=== PATIENT | female | born 1955 ===

== ENCOUNTER 2019-05-27 09:41 | Inpatient (IN) | payer BC, OTHER ==
[2019-05-27] MEDS ORDERED: Piperacillin/Tazobactam 4.5 GM in Sodium Chloride 0.9% 100 ML IV ONE (11:30)
--- NOTE | 2019-05-27 11:36 | EDM.PDOC ---
ED HPI GENERAL MEDICAL PROBLEM - General Chief Complaint: General Stated Complaint: WEAKNESS Time Seen by Provider: 05/27/19 10:00 - History of Present Illness INITIAL COMMENTS - FREE TEXT/NARRATIVE: 64-year-old female history of obesity venous stasis ulcers epilepsy presenting to the ER because of a right leg ulcer and she had decreased mobility since Monday. She was unable to get up from her recliner. She is able to transfer from recliner to wheelchair, which is her baseline. No fall. Since Monday she has been unable to get up onto her wheelchair. She denies back pain before this she denies urinary symptoms (incontinence retention) and saddle anesthesia , paresthesias in her legs. She feels very weak overall. Reports a cough. No Vomiting or urinary symptoms - Related Data Allergies Allergy/AdvReac Type Severity Reaction Status Date / Time No Known Allergies Allergy Verified 05/27/19 09:52 Home Meds: Home Meds . 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 History: Reports: None Endocrine/Metabolic History: Reports: Obesity/BMI 30+ Oncologic (Cancer) History: Reports: None Dermatologic History: Reports: Cellulitis, Chronic Cellulitis - Infectious Disease History Infectious Disease History: Reports: Chicken Pox - Past Surgical History GI Surgical History: Reports: Small Bowel Social & Family History - Family History Family Medical History: Noncontributory HEENT: Reports: None Cardiac: Reports: Heart Failure Respiratory: Reports: None GI: Reports: None : Reports: None OBGYN: Reports: None Musculoskeletal: Reports: Back pain, Chronic, RA Neurological: Reports: Seizure Psychiatric: Reports: None Endocrine/Metabolic: Reports: Diabetes, type II, Obesity/MBI 30+ Hematologic: Reports: Anemia Immunologic: Reports: None Dermatologic: Reports: None Oncologic: Reports: Lung, Uterine - Tobacco Use Smoking Status *Q: Never Smoker Second Hand Smoke Exposure: No - Caffeine Use Caffeine Use: Reports: Coffee, Tea - Recreational Drug Use Recreational Drug Use: No ED ROS GENERAL - Review of Systems Review Of Systems: See Below Constitutional: Reports: Malaise, Weakness HEENT: Reports: No Symptoms Respiratory: Reports: Cough Cardiovascular: Reports: No Symptoms Endocrine: Reports: No Symptoms GI/Abdominal: Reports: No Symptoms : Reports: No Symptoms Skin: Reports: Wound Neurological: Reports: No Symptoms Psychiatric: Reports: No Symptoms Hematologic/Lymphatic: Reports: No Symptoms ED EXAM, GENERAL - Physical Exam Exam: See Below Free Text/Narrative:: Obese limiting exam patient is AO x3 in no apparent distress speech is fluent lungs were clear heart regular rate and rhythm abdomen was soft and nontender nondistended. She had pretty good strength in her lower extremities at the ankles digits and knees. Radial pulses were palpable. Lower extremities were warm and well-perfused. Right lower extremity had significant open wound, surrounding erythema. The wound was at least 8 in x 4in. Her perineum was intact there was no tenderness to palpation. There is no tenderness to palpation along her spine. no Other skin lesions noted. Exam Limited By: No Limitations General Appearance: Alert Ears: Normal External Exam Nose: Normal Inspection Head: Atraumatic, Normocephalic Neck: Normal Inspection, Supple Respiratory/Chest: No Respiratory Distress, Lungs Clear, Normal Breath Sounds Cardiovascular: Normal Peripheral Pulses, Regular Rate, Rhythm Peripheral Pulses: 2+: Dorsalis Pedis (L), Dorsalis Pedis (R) GI/Abdominal: Soft, Non-Tender (Female) Exam: Normal External Exam Neurological: Alert, Oriented, Normal Cognition Psychiatric: Normal Affect Skin Exam: Wound/Incision Course - Vital Signs Last Recorded V/S: Last Vital Signs Temp 96.9 F 05/27/19 09:48 Pulse 91 05/27/19 09:48 Resp 17 05/27/19 09:48 BP 132/75 05/27/19 09:48 Pulse Ox 95 05/27/19 09:48 - Orders/Labs/Meds Orders: Active Orders 24 hr Category Date Time Status Insert Harris Catheter [Insert Urinary Catheter] [OM.PC] Care 05/27/19 11:45 Ordered Q24H Urinary Catheter Assessment [RC] ASDIRECTED Care 05/27/19 11:38 Active CULTURE BLOOD [BC] Stat Lab 05/27/19 11:29 Ordered CULTURE BLOOD [BC] Stat Lab 02/24/20 11:40 Received CULTURE URINE [RM] Stat Lab 05/27/19 11:38 Received INFLUENZA A+B AG SCREEN [RM] Stat Lab 05/27/19 11:29 Ordered Vancomycin 1 gm Med 05/27/19 11:29 Active Sodium Chloride 0.9% [Normal Saline (AdvBag)] 250 ml IV ONETIME Blood Culture x2 Reflex Set [OM.PC] Stat Oth 05/27/19 11:29 Ordered Medication Orders Vancomycin HCl 1 gm/ Sodium (Chloride) 250 mls @ 166 mls/hr IV ONETIME ONE Stop: 05/27/19 12:59 Last Admin: 05/27/19 11:55 Dose: 166 mls/hr Labs: Laboratory Tests 05/27/19 05/27/19 05/27/19 Range/Units 11:38 11:40 11:40 WBC 7.22 (4.0-11.0) K/uL RBC 4.18 L (4.30-5.90) M/uL Hgb 10.7 L (12.0-16.0) g/dL Hct 36.4 (36.0-46.0) % MCV 87.1 (80.0-98.0) fL MCH 25.6 L (27.0-32.0) pg MCHC 29.4 L (31.0-37.0) g/dL RDW Std Deviation 58.7 (28.0-62.0) fl RDW Coeff of Rachid 18 H (11.0-15.0) % Plt Count 299 (150-400) K/uL MPV 8.40 (7.40-12.00) fL Nucleated RBC % 0.0 /100WBC Nucleated RBCs # 0 K/uL Sodium 140 (136-145) mmol/L Potassium 4.3 (3.5-5.1) mmol/L Chloride 103 (98-107) mmol/L Carbon Dioxide 28.1 (21.0-32.0) mmol/L BUN 14 (7.0-18.0) mg/dL Creatinine 0.9 (0.6-1.0) mg/dL Est Cr Clr Drug Dosing 63.03 mL/min Estimated GFR (MDRD) > 60.0 ml/min Glucose 107 H (74-106) mg/dL Calcium 8.8 (8.5-10.1) mg/dL Total Bilirubin 0.8 (0.2-1.0) mg/dL AST 16 (15-37) IU/L ALT 10 L (14-63) IU/L Alkaline Phosphatase 79 (46-116) U/L Total Protein 7.6 (6.4-8.2) g/dL Albumin 2.6 L (3.4-5.0) g/dL Globulin 5.0 H (2.6-4.0) g/dL Albumin/Globulin Ratio 0.5 L (0.9-1.6) Lipase 40 L (73-393) U/L Urine Color YELLOW Urine Appearance SLT CLOUDY Urine pH 6.0 (5.0-8.0) Ur Specific [place] 1.025 (1.001-1.035) Urine Protein NEGATIVE (NEGATIVE) mg/dL Urine Glucose (UA) NEGATIVE (NEGATIVE) mg/dL Urine Ketones NEGATIVE (NEGATIVE) mg/dL Urine Occult Blood NEGATIVE (NEGATIVE) Urine Nitrite POSITIVE H (NEGATIVE) Urine Bilirubin SMALL H (NEGATIVE) Urine Ictotest NEGATIVE Urine Urobilinogen 4.0 H (<2.0) EU/dL Ur Leukocyte Esterase NEGATIVE (NEGATIVE) Urine RBC NONE SEEN (0-2/HPF) Urine WBC 0-1 (0-5/HPF) Ur Epithelial Cells NOT SEEN (NONE-FEW) Urine Bacteria 3+ H (NEGATIVE) Meds: Medications Generic Name Dose Route Start Last Admin Trade Name Freq PRN Reason Stop Dose Admin Vancomycin HCl 1 gm/ Sodium 250 mls @ 166 mls/hr 05/27/19 11:29 05/27/19 11: 55 Chloride IV 05/27/19 12:59 166 mls/hr ONETIME ONE Administration Discontinued Medications Generic Name Dose Route Start Last Admin Trade Name Freq PRN Reason Stop Dose Admin Piperacillin Sod/Tazobactam 100 mls @ 100 mls/hr 05/27/19 11:30 05/27/19 11: 54 Sod 4.5 gm/ Sodium Chloride IV 05/27/19 12:29 100 mls/hr ONETIME ONE Administration - Re-Assessments/Exams Free Text/Narrative Re-Assessment/Exam: 05/27/19 12:46 Patient symptoms likely from decompensation secondary to UTI and or soft tissue infection in the right lower extremity. She will need IV antibiotics. Will require admission. Plan was discussed with the patient and the internal medicine team. Her exam of the lower extremities was grossly nonfocal, strength was intact. Electrolytes and labs were reviewed. Departure - Departure Time of Disposition: 12:48 Disposition: Admitted As Inpatient 68 Clinical Impression: Soft tissue infection, Urinary tract bacterial infections - Discharge Information Instructions: Cellulitis, Adult Referrals: PCP,None [Primary Care Provider] - Forms: ED Department Discharge Sepsis Event Note - Evaluation Sepsis Screening Result: No Definite Risk - Focused Exam Vital Signs: Vital Signs Temp Pulse Resp BP Pulse Ox 05/27/19 09:48 96.9 F 91 17 132/75 95 Date Exam was Performed: 05/27/19 Time Exam was Performed: 12:49 - My Orders Last 24 Hours: My Active Orders 05/27/19 11:29 CULTURE BLOOD [BC] Stat INFLUENZA A+B AG SCREEN [RM] Stat Vancomycin 1 gm Sodium Chloride 0.9% [Normal Saline (AdvBag)] 250 ml IV ONETIME Blood Culture x2 Reflex Set [OM.PC] Stat 05/27/19 11:38 Urinary Catheter Assessment [RC] ASDIRECTED CULTURE URINE [RM] Stat 05/27/19 11:40 CULTURE BLOOD [BC] Stat 05/27/19 11:45 Insert Harris Catheter [Insert Urinary Catheter] [OM.PC] Q24H - Assessment/Plan Last 24 Hours: My Active Orders 05/27/19 11:29 CULTURE BLOOD [BC] Stat INFLUENZA A+B AG SCREEN [RM] Stat Vancomycin 1 gm Sodium Chloride 0.9% [Normal Saline (AdvBag)] 250 ml IV ONETIME Blood Culture x2 Reflex Set [OM.PC] Stat 05/27/19 11:38 Urinary Catheter Assessment [RC] ASDIRECTED CULTURE URINE [RM] Stat 05/27/19 11:40 CULTURE BLOOD [BC] Stat 05/27/19 11:45 Insert Harris Catheter [Insert Urinary Catheter] [OM.PC] Q24H
--- NOTE | 2019-05-27 12:10 | CR ---
Chest: Portable view of the chest was obtained. Comparison: Prior chest x-ray of 01/17/16. Heart size and mediastinum are normal. Lungs are clear. Bony structures are grossly intact. Impression: 1. Nothing acute is seen on portable chest x-ray. Diagnostic code #1 This report was dictated in [place] Standard Time
[2019-05-27 12:23] LABS: BLOOD UREA NITROGEN,BUN 14 mg/dL (7.0-18.0); CARBON DIOXIDE,CO2 28.1 mmol/L (21.0-32.0); CHLORIDE,CL 103 mmol/L (98-107); GLUCOSE RANDOM 107 mg/dL (74-106); LIPASE 40 U/L (73-393); POTASSIUM,K 4.3 mmol/L (3.5-5.1); SODIUM,NA 140 mmol/L (136-145)
[2019-05-27] MEDS ORDERED: Ondansetron 4 MG/2 ML SDV IVPUSH PRN (13:13)
[2019-05-27] MEDS ORDERED: Polyethylene Glycol 3350 Powder 17 GM Packet PO PRN (13:13)
[2019-05-27] MEDS ORDERED: Albuterol 0.083% 2.5 MG/3 ML Neb Soln NEB PRN (13:13)
[2019-05-27] MEDS ORDERED: Ondansetron 4 MG Tab.DIS PO PRN (13:13)
[2019-05-27] MEDS ORDERED: Acetaminophen 325 MG Tab PO PRN (13:13)
[2019-05-27] MEDS ORDERED: Docusate Sodium 100 MG Cap PO PRN (13:13)
--- NOTE | 2019-05-27 13:29 | PCM.HP.2 ---
<Refugio Goomdan - Last Filed: 05/27/19 13:46> H&P History of Present Illness - General Date of Service: 05/27/19 Admit Problem/Dx: Admission Diagnosis/Problem Admission Diagnosis/Problem Cellulitis - History of Present Illness Initial Comments - Free Text/Narative: 64 y/o female who presented to the ER after not being able to get out of her recliner. Patient states that she usually can get out of her recliner and go to the bathroom, but this morning she was weak and could not get out of it. She has noticed worsening shortness of breath and lower extremity edema in the past couple of weeks. No fevers, cough. No chest pain, abdominal pain, dysuria, diarrhea, blood in stool. She denies any past medical history. Not taking any medications. States that her lower extremities have been hurting more than usual and the right lower extremity is more red and weeping clear fluid. In the ER, she was found to have a UTI. Started on Vancomycin and Zosyn. - Related Data Allergies/Adverse Reactions: Allergies Allergy/AdvReac Type Severity Reaction Status Date / Time No Known Allergies Allergy Verified 05/27/19 16:51 Home Medications: Home Meds Gauze Bandage [Rolled Gauze] 1 each TP DAILY #1 packet 06/03/19 [Rx] Non-Adherent Bandage [Combine Abd] 1 each TP DAILY #1 packet 06/03/19 [Rx] Silver/Hydrocolloid Dressing [Aquacel Ag Burn 5"X4" Dressing] 1 each TP DAILY # 1 packet 06/03/19 [Rx] Sulfamethoxazole/Trimethoprim [Bactrim Ds Tablet] 1 each PO BID 3 Days #6 tablet 06/03/19 [Rx] Past Medical History - Past Health History Medical/Surgical History: Denies Medical/Surgical History HEENT History: Reports: Other (See Below) Other HEENT History: uses eyeglasses Cardiovascular History: Reports: Blood Clots/VTE/DVT Gastrointestinal History: Reports: PUD Genitourinary History: Reports: UTI, Recurrent 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: Reports: None Endocrine/Metabolic History: Reports: Obesity/BMI 30+ Oncologic (Cancer) History: Reports: None Dermatologic History: Reports: Cellulitis, Chronic Cellulitis - Infectious Disease History Infectious Disease History: Reports: Chicken Pox - Past Surgical History GI Surgical History: Reports: Small Bowel Social & Family History - Family History Family Medical History: Noncontributory HEENT: Reports: None Cardiac: Reports: Heart Failure Respiratory: Reports: None GI: Reports: None : Reports: None OBGYN: Reports: None Musculoskeletal: Reports: Back pain, Chronic, RA Neurological: Reports: Seizure Psychiatric: Reports: None Endocrine/Metabolic: Reports: Diabetes, type II, Obesity/MBI 30+ Hematologic: Reports: Anemia Immunologic: Reports: None Dermatologic: Reports: None Oncologic: Reports: Lung, Uterine - Tobacco Use Smoking Status *Q: Never Smoker Second Hand Smoke Exposure: No - Caffeine Use Caffeine Use: Reports: Coffee, Tea - Recreational Drug Use Recreational Drug Use: No H&P Review of Systems - Review of Systems: Review Of Systems: Comprehensive ROS is negative, except as noted in HPI. Exam - Exam Exam: See Below - Vital Signs Vital Signs: Last Vital Signs Temp 36.1 C 05/27/19 09:48 Pulse 91 05/27/19 09:48 Resp 17 05/27/19 09:48 BP 132/75 05/27/19 09:48 Pulse Ox 95 05/27/19 09:48 Weight: 148.552 kg - Exam General: Alert, Oriented, Cooperative HEENT: Conjunctiva Clear, Mucosa Moist & [place] Lungs: Clear to Auscultation, Normal Respiratory Effort, Wheezing Cardiovascular: Regular Rate, Regular Rhythm GI/Abdominal Exam: Normal Bowel Sounds, Soft, Non-Tender, No Distention Extremities: Other (edematous bilateral lower extrimities with venous statis and superficial ulceration on right leg. Erythema and tenderness present.) - Patient Data Lab Results Last 24 hrs: Laboratory Results - last 24 hr 05/27/19 05/27/19 05/27/19 Range/Units 11:38 11:40 11:40 WBC 7.22 (4.0-11.0) K/uL RBC 4.18 L (4.30-5.90) M/uL Hgb 10.7 L (12.0-16.0) g/dL Hct 36.4 (36.0-46.0) % MCV 87.1 (80.0-98.0) fL MCH 25.6 L (27.0-32.0) pg MCHC 29.4 L (31.0-37.0) g/dL RDW Std Deviation 58.7 (28.0-62.0) fl RDW Coeff of Rachid 18 H (11.0-15.0) % Plt Count 299 (150-400) K/uL MPV 8.40 (7.40-12.00) fL Nucleated RBC % 0.0 /100WBC Nucleated RBCs # 0 K/uL Sodium 140 (136-145) mmol/L Potassium 4.3 (3.5-5.1) mmol/L Chloride 103 (98-107) mmol/L Carbon Dioxide 28.1 (21.0-32.0) mmol/L BUN 14 (7.0-18.0) mg/dL Creatinine 0.9 (0.6-1.0) mg/dL Est Cr Clr Drug Dosing 63.03 mL/min Estimated GFR (MDRD) > 60.0 ml/min Glucose 107 H (74-106) mg/dL Calcium 8.8 (8.5-10.1) mg/dL Total Bilirubin 0.8 (0.2-1.0) mg/dL AST 16 (15-37) IU/L ALT 10 L (14-63) IU/L Alkaline Phosphatase 79 (46-116) U/L Total Protein 7.6 (6.4-8.2) g/dL Albumin 2.6 L (3.4-5.0) g/dL Globulin 5.0 H (2.6-4.0) g/dL Albumin/Globulin Ratio 0.5 L (0.9-1.6) Lipase 40 L (73-393) U/L Urine Color YELLOW Urine Appearance SLT CLOUDY Urine pH 6.0 (5.0-8.0) Ur Specific Melvin 1.025 (1.001-1.035) Urine Protein NEGATIVE (NEGATIVE) mg/dL Urine Glucose (UA) NEGATIVE (NEGATIVE) mg/dL Urine Ketones NEGATIVE (NEGATIVE) mg/dL Urine Occult Blood NEGATIVE (NEGATIVE) Urine Nitrite POSITIVE H (NEGATIVE) Urine Bilirubin SMALL H (NEGATIVE) Urine Ictotest NEGATIVE Urine Urobilinogen 4.0 H (<2.0) EU/dL Ur Leukocyte Esterase NEGATIVE (NEGATIVE) Urine RBC NONE SEEN (0-2/HPF) Urine WBC 0-1 (0-5/HPF) Ur Epithelial Cells NOT SEEN (NONE-FEW) Urine Bacteria 3+ H (NEGATIVE) Result Diagrams: 05/27/19 11:40 05/27/19 11:40 Eric Results Last 24 hrs: Microbiology 05/27/19 12:30 Influenza Type A Antigen Screen - Final Nasopharyngeal Swab NEGATIVE INFLUENZA A VIRUS AG REFERENCE RANGE: NEGATIVE Influenza Type B Antigen Screen - Final Positive Influenza B Ag Sepsis Event Note - Evaluation Sepsis Screening Result: No Definite Risk - Focused Exam Vital Signs: Vital Signs Temp Pulse Resp BP Pulse Ox 05/27/19 09:48 36.1 C 91 17 132/75 95 Date Exam was Performed: 05/27/19 Time Exam was Performed: 13:46 Problem List Initiated/Reviewed/Updated: Yes Orders Last 24hrs: Active Orders 24 hr Category Date Time Status Admission Status [Patient Status] [ADT] Stat ADT 05/27/19 12:50 Active EKG 12 Lead [EKG Documentation Completion] [RC] STAT Care 05/27/19 13:11 Active Insert Harris Catheter [Insert Urinary Catheter] [OM.PC] Care 05/27/19 11:45 Ordered Q24H Intake and Output [RC] QSHIFT Care 05/27/19 13:13 Active Oxygen Therapy [RC] PRN Care 05/27/19 13:13 Active RT Aerosol Therapy [RC] ASDIRECTED Care 05/27/19 13:14 Active Up With Assistance [RC] ASDIRECTED Care 05/27/19 13:13 Active Urinary Catheter Assessment [RC] ASDIRECTED Care 05/27/19 11:38 Active VTE/DVT Education [RC] PER UNIT ROUTINE Care 05/27/19 13:13 Active Vital Signs [RC] Q4H Care 05/27/19 13:13 Active Consult to Physical Therapy [PT Evaluation and Cons 05/28/19 08:00 Active Treatment] [CONS] Stat 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[place] Consult [Consult to Wound Care Cons 05/27/19 13:25 Active Services] [CONS] Stat Regular Diet [DIET] Diet 05/27/19 Dinner Active Echo Comp wo Cont [US] Stat Exams 05/27/19 13:27 Ordered VL Duplex Lwr Ext Art Comp Bi [US] Stat Exams 05/27/19 13:27 Ordered B-TYPE NATRIURETIC PEPTIDE,BNP [CHEM] Routine Lab 05/27/19 13:24 Ordered CULTURE BLOOD [BC] Stat Lab 05/27/19 11:40 Received CULTURE BLOOD [BC] Stat Lab 05/27/19 13:09 Received CULTURE URINE [RM] Stat Lab 05/27/19 11:38 Received GLYCOSYLATED HEMOGLOBIN,HGBA1C [CHEM] Stat Lab 05/27/19 13:24 Ordered LIPID PANEL [CHEM] AM Lab 05/28/19 05:11 Ordered TSH [CHEM] Routine Lab 05/27/19 11:40 Received Acetaminophen [Tylenol] Med 05/27/19 13:13 Active 650 mg PO Q4H PRN Albuterol [Proventil Neb Soln] Med 05/27/19 13:13 Active 2.5 mg NEB Q2H PRN Albuterol/Ipratropium [DuoNeb 3.0-0.5 MG/3 ML] Med 05/27/19 13:13 Active 3 ml NEB Q4HRRT PRN Docusate Sodium [Colace] Med 05/27/19 13:13 Active 100 mg PO BID PRN Enoxaparin [Lovenox] Med 05/27/19 13:15 Active 40 mg SUBCUT Q24H Ibuprofen [Motrin] Med 05/27/19 13:13 Active 600 mg PO Q6H PRN Ketorolac [Toradol] Med 05/27/19 13:13 Active 30 mg IV Q6H PRN Ondansetron [Zofran ODT] Med 05/27/19 13:13 Active 4 mg PO Q4H PRN Ondansetron [Zofran] Med 05/27/19 13:13 Active 4 mg IVPUSH Q4H PRN Oseltamivir [Tamiflu] Med 05/27/19 13:15 Active 75 mg PO BID Pharmacy to Dose - Vancomycin Med 05/27/19 13:30 Ordered 1 dose .XX ASDIRECTED Vancomycin 2 gm Med 05/27/19 21:00 Active Sodium Chloride 0.9% [Normal Saline] 500 ml IV BID cefTRIAXone [Rocephin in Dextrose,Iso-Osm 2 GM/50 ML] 2 Med 05/28/19 09:00 Active gm Premix Bag 1 bag IV DAILY polyethylene glycoL 3350 [MiraLAX] Med 05/27/19 13:13 Active 17 gm PO DAILY PRN Blood Culture x2 Reflex Set [OM.PC] Stat Oth 05/27/19 11:29 Ordered Resuscitation Status Routine Resus Stat 05/27/19 13:13 Ordered Medication Orders Acetaminophen (Tylenol) 650 mg PO Q4H PRN PRN Reason: Pain (Mild 1-3)/fever Albuterol (Proventil Neb Soln) 2.5 mg NEB Q2H PRN PRN Reason: Shortness Of Breath/wheezing Albuterol/Ipratropium (Duoneb 3.0-0.5 Mg/3 Ml) 3 ml NEB Q4HRRT PRN PRN Reason: Shortness Of Breath/wheezing Docusate Sodium (Colace) 100 mg PO BID PRN PRN Reason: Constipation Enoxaparin Sodium (Lovenox) 40 mg SUBCUT Q24H [facility] Vancomycin HCl 2 gm/ Sodium (Chloride) 500 mls @ 333 mls/hr IV BID [facility] Ceftriaxone Sodium/Dextrose 2 (gm/ Premix) 50 mls @ 100 mls/hr IV DAILY [facility] Ibuprofen (Motrin) 600 mg PO Q6H PRN PRN Reason: Pain (mild 1-3) Ketorolac Tromethamine (Toradol) 30 mg IV Q6H PRN PRN Reason: Pain (moderate 4-6) Ondansetron HCl (Zofran Odt) 4 mg PO Q4H PRN PRN Reason: nausea, able to take PO Ondansetron HCl (Zofran) 4 mg IVPUSH Q4H PRN PRN Reason: Nausea Oseltamivir Phosphate (Tamiflu) 75 mg PO BID [facility] Stop: 06/01/19 13:16 Polyethylene Glycol (Miralax) 17 gm PO DAILY PRN PRN Reason: Constipation Vancomycin HCl (Pharmacy To Dose - Vancomycin) 1 dose .XX ASDIRECTED [facility] Assessment/Plan Comment:: A. 1. Cellulitis 2. Influenza positive 3. Venous stasis with ulceration 4. UTI 5. Morbid obesity 6. Ambulatory dysfunction P: 1. Will start antibiotics with Vancomycin and Ceftriaxone to cover for cellulitis and UTI. Start Tamiflu for Influenza. Will get Echo and bilateral lower extremity US to assess for DVT. Will give Duonebs PRN for dyspnea. Will get physical therapy and wound care involved. Dispo: 2-3 days <Myrna Slater - Last Filed: 06/04/19 11:18> H&P History of Present Illness - General Admit Problem/Dx: Admission Diagnosis/Problem Admission Diagnosis/Problem Cellulitis Exam - Vital Signs Vital Signs: Last Vital Signs Temp 36.3 C 06/03/19 08:00 Pulse 87 06/03/19 08:00 Resp 20 06/03/19 08:00 BP 119/68 06/03/19 08:00 Pulse Ox 94 L 06/03/19 08:00 - Patient Data Result Diagrams: 06/02/19 06:05 06/02/19 06:05 Eric Results Last 24 hrs: Microbiology 05/30/19 08:58 Aerobic Blood Culture - Final Blood - Venous - Lab Draw NO GROWTH AFTER 5 DAYS Anaerobic Blood Culture - Final NO GROWTH AFTER 5 DAYS 05/30/19 08:40 Aerobic Blood Culture - Final Blood - Venous NO GROWTH AFTER 5 DAYS Anaerobic Blood Culture - Final NO GROWTH AFTER 5 DAYS Orders Last 24hrs: Active Orders 24 hr Category Date Time Status Ready for Discharge [RC] PER UNIT ROUTINE Care 06/03/19 11:01 Active Assessment/Plan Comment:: I have seen and examined the patient with the resident. I have discussed the findings and treatment plan with the resident. I agree with the assessment and plan as outlined in the following note.
[2019-05-27 13:47] LABS: HEMOGLOBIN A1C 6.3 % (4.5-6.2)
[2019-05-27] MEDS ORDERED: Albuterol 0.083% 2.5 MG/3 ML Neb Soln NEB ONE (13:48)
[2019-05-27] MEDS: Enoxaparin 40 MG/0.4 ML Syringe SUBCUT SCH (14:57)
[2019-05-27] MEDS: Oseltamivir 75 MG Cap PO SCH ×2 (14:58→21:27)
[2019-05-27] MEDS: cefTRIAXone 2 GM in Premix Bag 1 BAG IV SCH (14:59)
--- NOTE | 2019-05-27 16:28 | US ---
Bilateral lower extremity deep venous ultrasound: Duplex and color Doppler evaluation obtained of the right left common femoral, superficial femoral, popliteal veins and popliteal veins. Technologist's note: Difficult exam due to body habitus Findings: Doppler blood flow appears to be present within the deep veins with normal compression. Impression: 1. No definite findings of deep venous thrombosis within either the right or left lower extremities. Diagnostic code #2 This report was dictated in [place] Standard Time
[2019-05-27] MEDS: Insulin Aspart 100 Units/ML 3 ML Pen SUBCUT SCH (17:27)
[2019-05-27] MEDS: Ketorolac 30 MG/ML SDV IV PRN (21:24)
[2019-05-27] MEDS: Vancomycin 2 GM in Sodium Chloride 0.9% 500 ML IV SCH (21:27)
[2019-05-28] MEDS: Insulin Aspart 100 Units/ML 3 ML Pen SUBCUT SCH ×3 (06:30→17:54)
[2019-05-28] MEDS: Ketorolac 30 MG/ML SDV IV PRN ×2 (06:36→19:17)
[2019-05-28 06:48] LABS: CARBON DIOXIDE,CO2 27.2 mmol/L (21.0-32.0)
[2019-05-28] MEDS: Oseltamivir 75 MG Cap PO SCH ×2 (09:01→20:38)
--- NOTE | 2019-05-28 09:25 | PCM.PN ---
<Refugio Goodman - Last Filed: 05/28/19 18:09> - General Info Date of Service: 05/28/19 Subjective Update: No acute events overnight. Doing better this morning. Having some lower extremity pain. No chest pain, dyspnea, afebrile. - Patient Data Vitals - Most Recent: Last Vital Signs Temp 36.2 C 05/28/19 04:12 Pulse 76 05/28/19 04:12 Resp 16 05/28/19 04:12 BP 116/55 L 05/28/19 04:12 Pulse Ox 94 L 05/28/19 04:12 Weight - Most Recent: 148.55 kg I&O - Last 24 Hours: Intake & Output 05/27/19 05/28/19 05/28/19 22:59 06:59 14:59 Intake Total 400 Output Total 0 Balance 400 Lab Results Last 24 Hours: Laboratory Results - last 24 hr 05/27/19 05/27/19 05/27/19 Range/Units 11:38 11:40 11:40 WBC 7.22 (4.0-11.0) K/uL RBC 4.18 L (4.30-5.90) M/uL Hgb 10.7 L (12.0-16.0) g/dL Hct 36.4 (36.0-46.0) % MCV 87.1 (80.0-98.0) fL MCH 25.6 L (27.0-32.0) pg MCHC 29.4 L (31.0-37.0) g/dL RDW Std Deviation 58.7 (28.0-62.0) fl RDW Coeff of Rachid 18 H (11.0-15.0) % Plt Count 299 (150-400) K/uL MPV 8.40 (7.40-12.00) fL Neut % (Auto) (48.0-80.0) % Lymph % (Auto) (16.0-40.0) % [place] % (Auto) (0.0-15.0) % Eos % (Auto) (0.0-7.0) % Baso % (Auto) (0.0-1.5) % Neut # (Auto) (1.4-5.7) K/uL Lymph # (Auto) (0.6-2.4) K/uL [place] # (Auto) (0.0-0.8) K/uL Eos # (Auto) (0.0-0.7) K/uL Baso # (Auto) (0.0-0.1) K/uL Nucleated RBC % 0.0 /100WBC Nucleated RBCs # 0 K/uL Sodium 140 (136-145) mmol/L Potassium 4.3 (3.5-5.1) mmol/L Chloride 103 (98-107) mmol/L Carbon Dioxide 28.1 (21.0-32.0) mmol/L BUN 14 (7.0-18.0) mg/dL Creatinine 0.9 (0.6-1.0) mg/dL Est Cr Clr Drug Dosing 63.03 mL/min Estimated GFR (MDRD) > 60.0 ml/min Glucose 107 H (74-106) mg/dL POC Glucose (60-110) mg/dL Hemoglobin A1c (4.5-6.2) % Calcium 8.8 (8.5-10.1) mg/dL Total Bilirubin 0.8 (0.2-1.0) mg/dL AST 16 (15-37) IU/L ALT 10 L (14-63) IU/L Alkaline Phosphatase 79 (46-116) U/L B-Natriuretic Peptide (<100) PG/ML Total Protein 7.6 (6.4-8.2) g/dL Albumin 2.6 L (3.4-5.0) g/dL Globulin 5.0 H (2.6-4.0) g/dL Albumin/Globulin Ratio 0.5 L (0.9-1.6) Triglycerides (0-200) mg/dL Cholesterol (50-200) mg/dL LDL Cholesterol, Calc (60-180) mg/dL VLDL Cholesterol (5-55) mg/dL HDL Cholesterol (40-60) mg/dL Cholesterol/HDL Ratio (3.3-6.0) Lipase 40 L (73-393) U/L TSH 3rd Generation (0.36-3.74) uIU/mL Urine Color YELLOW Urine Appearance SLT CLOUDY Urine pH 6.0 (5.0-8.0) Ur Specific [place] 1.025 (1.001-1.035) Urine Protein NEGATIVE (NEGATIVE) mg/dL Urine Glucose (UA) NEGATIVE (NEGATIVE) mg/dL Urine Ketones NEGATIVE (NEGATIVE) mg/dL Urine Occult Blood NEGATIVE (NEGATIVE) Urine Nitrite POSITIVE H (NEGATIVE) Urine Bilirubin SMALL H (NEGATIVE) Urine Ictotest NEGATIVE Urine Urobilinogen 4.0 H (<2.0) EU/dL Ur Leukocyte Esterase NEGATIVE (NEGATIVE) Urine RBC NONE SEEN (0-2/HPF) Urine WBC 0-1 (0-5/HPF) Ur Epithelial Cells NOT SEEN (NONE-FEW) Urine Bacteria 3+ H (NEGATIVE) 05/27/19 05/27/19 05/27/19 Range/Units 11:40 11:40 11:40 WBC (4.0-11.0) K/uL RBC (4.30-5.90) M/uL Hgb (12.0-16.0) g/dL Hct (36.0-46.0) % MCV (80.0-98.0) fL MCH (27.0-32.0) pg MCHC (31.0-37.0) g/dL RDW Std Deviation (28.0-62.0) fl RDW Coeff of Rachid (11.0-15.0) % Plt Count (150-400) K/uL MPV (7.40-12.00) fL Neut % (Auto) (48.0-80.0) % Lymph % (Auto) (16.0-40.0) % [place] % (Auto) (0.0-15.0) % Eos % (Auto) (0.0-7.0) % Baso % (Auto) (0.0-1.5) % Neut # (Auto) (1.4-5.7) K/uL Lymph # (Auto) (0.6-2.4) K/uL [place] # (Auto) (0.0-0.8) K/uL Eos # (Auto) (0.0-0.7) K/uL Baso # (Auto) (0.0-0.1) K/uL Nucleated RBC % /100WBC Nucleated RBCs # K/uL Sodium (136-145) mmol/L Potassium (3.5-5.1) mmol/L Chloride (98-107) mmol/L Carbon Dioxide (21.0-32.0) mmol/L BUN (7.0-18.0) mg/dL Creatinine (0.6-1.0) mg/dL Est Cr Clr Drug Dosing mL/min Estimated GFR (MDRD) ml/min Glucose (74-106) mg/dL POC Glucose (60-110) mg/dL Hemoglobin A1c 6.3 H (4.5-6.2) % Calcium (8.5-10.1) mg/dL Total Bilirubin (0.2-1.0) mg/dL AST (15-37) IU/L ALT (14-63) IU/L Alkaline Phosphatase (46-116) U/L B-Natriuretic Peptide 91 (<100) PG/ML Total Protein (6.4-8.2) g/dL Albumin (3.4-5.0) g/dL Globulin (2.6-4.0) g/dL Albumin/Globulin Ratio (0.9-1.6) Triglycerides (0-200) mg/dL Cholesterol (50-200) mg/dL LDL Cholesterol, Calc (60-180) mg/dL VLDL Cholesterol (5-55) mg/dL HDL Cholesterol (40-60) mg/dL Cholesterol/HDL Ratio (3.3-6.0) Lipase (73-393) U/L TSH 3rd Generation 4.89 H (0.36-3.74) uIU/mL Urine Color Urine Appearance Urine pH (5.0-8.0) Ur Specific [place] (1.001-1.035) Urine Protein (NEGATIVE) mg/dL Urine Glucose (UA) (NEGATIVE) mg/dL Urine Ketones (NEGATIVE) mg/dL Urine Occult Blood (NEGATIVE) Urine Nitrite (NEGATIVE) Urine Bilirubin (NEGATIVE) Urine Ictotest Urine Urobilinogen (<2.0) EU/dL Ur Leukocyte Esterase (NEGATIVE) Urine RBC (0-2/HPF) Urine WBC (0-5/HPF) Ur Epithelial Cells (NONE-FEW) Urine Bacteria (NEGATIVE) 05/27/19 05/28/19 05/28/19 Range/Units 17:17 05:15 05:15 WBC 4.83 (4.0-11.0) K/uL RBC 3.72 L (4.30-5.90) M/uL Hgb 9.7 L (12.0-16.0) g/dL Hct 32.5 L (36.0-46.0) % MCV 87.4 (80.0-98.0) fL MCH 26.1 L (27.0-32.0) pg MCHC 29.8 L (31.0-37.0) g/dL RDW Std Deviation 59.0 (28.0-62.0) fl RDW Coeff of Rachid 19 H (11.0-15.0) % Plt Count 271 (150-400) K/uL MPV 8.70 (7.40-12.00) fL Neut % (Auto) 66.3 (48.0-80.0) % Lymph % (Auto) 18.8 (16.0-40.0) % [place] % (Auto) 8.5 (0.0-15.0) % Eos % (Auto) 5.8 (0.0-7.0) % Baso % (Auto) 0.6 (0.0-1.5) % Neut # (Auto) 3.2 (1.4-5.7) K/uL Lymph # (Auto) 0.9 (0.6-2.4) K/uL [place] # (Auto) 0.4 (0.0-0.8) K/uL Eos # (Auto) 0.3 (0.0-0.7) K/uL Baso # (Auto) 0.0 (0.0-0.1) K/uL Nucleated RBC % 0.0 /100WBC Nucleated RBCs # 0 K/uL Sodium 138 (136-145) mmol/L Potassium 4.0 (3.5-5.1) mmol/L Chloride 103 (98-107) mmol/L Carbon Dioxide 27.2 (21.0-32.0) mmol/L BUN 16 (7.0-18.0) mg/dL Creatinine 1.0 (0.6-1.0) mg/dL Est Cr Clr Drug Dosing 56.57 mL/min Estimated GFR (MDRD) 56.2 ml/min Glucose 113 H (74-106) mg/dL POC Glucose 104 (60-110) mg/dL Hemoglobin A1c (4.5-6.2) % Calcium 8.7 (8.5-10.1) mg/dL Total Bilirubin 0.6 (0.2-1.0) mg/dL AST 15 (15-37) IU/L ALT 6 L (14-63) IU/L Alkaline Phosphatase 69 (46-116) U/L B-Natriuretic Peptide (<100) PG/ML Total Protein 6.8 (6.4-8.2) g/dL Albumin 2.3 L (3.4-5.0) g/dL Globulin 4.5 H (2.6-4.0) g/dL Albumin/Globulin Ratio 0.5 L (0.9-1.6) Triglycerides 136 (0-200) mg/dL Cholesterol 88 (50-200) mg/dL LDL Cholesterol, Calc 49 L (60-180) mg/dL VLDL Cholesterol 27 (5-55) mg/dL HDL Cholesterol 12 L (40-60) mg/dL Cholesterol/HDL Ratio 7.3 H (3.3-6.0) Lipase (73-393) U/L TSH 3rd Generation (0.36-3.74) uIU/mL Urine Color Urine Appearance Urine pH (5.0-8.0) Ur Specific [place] (1.001-1.035) Urine Protein (NEGATIVE) mg/dL Urine Glucose (UA) (NEGATIVE) mg/dL Urine Ketones (NEGATIVE) mg/dL Urine Occult Blood (NEGATIVE) Urine Nitrite (NEGATIVE) Urine Bilirubin (NEGATIVE) Urine Ictotest Urine Urobilinogen (<2.0) EU/dL Ur Leukocyte Esterase (NEGATIVE) Urine RBC (0-2/HPF) Urine WBC (0-5/HPF) Ur Epithelial Cells (NONE-FEW) Urine Bacteria (NEGATIVE) 05/28/19 Range/Units 06:30 WBC (4.0-11.0) K/uL RBC (4.30-5.90) M/uL Hgb (12.0-16.0) g/dL Hct (36.0-46.0) % MCV (80.0-98.0) fL MCH (27.0-32.0) pg MCHC (31.0-37.0) g/dL RDW Std Deviation (28.0-62.0) fl RDW Coeff of Rachid (11.0-15.0) % Plt Count (150-400) K/uL MPV (7.40-12.00) fL Neut % (Auto) (48.0-80.0) % Lymph % (Auto) (16.0-40.0) % [place] % (Auto) (0.0-15.0) % Eos % (Auto) (0.0-7.0) % Baso % (Auto) (0.0-1.5) % Neut # (Auto) (1.4-5.7) K/uL Lymph # (Auto) (0.6-2.4) K/uL [place] # (Auto) (0.0-0.8) K/uL Eos # (Auto) (0.0-0.7) K/uL Baso # (Auto) (0.0-0.1) K/uL Nucleated RBC % /100WBC Nucleated RBCs # K/uL Sodium (136-145) mmol/L Potassium (3.5-5.1) mmol/L Chloride (98-107) mmol/L Carbon Dioxide (21.0-32.0) mmol/L BUN (7.0-18.0) mg/dL Creatinine (0.6-1.0) mg/dL Est Cr Clr Drug Dosing mL/min Estimated GFR (MDRD) ml/min Glucose (74-106) mg/dL POC Glucose 102 (60-110) mg/dL Hemoglobin A1c (4.5-6.2) % Calcium (8.5-10.1) mg/dL Total Bilirubin (0.2-1.0) mg/dL AST (15-37) IU/L ALT (14-63) IU/L Alkaline Phosphatase (46-116) U/L B-Natriuretic Peptide (<100) PG/ML Total Protein (6.4-8.2) g/dL Albumin (3.4-5.0) g/dL Globulin (2.6-4.0) g/dL Albumin/Globulin Ratio (0.9-1.6) Triglycerides (0-200) mg/dL Cholesterol (50-200) mg/dL LDL Cholesterol, Calc (60-180) mg/dL VLDL Cholesterol (5-55) mg/dL HDL Cholesterol (40-60) mg/dL Cholesterol/HDL Ratio (3.3-6.0) Lipase (73-393) U/L TSH 3rd Generation (0.36-3.74) uIU/mL Urine Color Urine Appearance Urine pH (5.0-8.0) Ur Specific [place] (1.001-1.035) Urine Protein (NEGATIVE) mg/dL Urine Glucose (UA) (NEGATIVE) mg/dL Urine Ketones (NEGATIVE) mg/dL Urine Occult Blood (NEGATIVE) Urine Nitrite (NEGATIVE) Urine Bilirubin (NEGATIVE) Urine Ictotest Urine Urobilinogen (<2.0) EU/dL Ur Leukocyte Esterase (NEGATIVE) Urine RBC (0-2/HPF) Urine WBC (0-5/HPF) Ur Epithelial Cells (NONE-FEW) Urine Bacteria (NEGATIVE) Eric Results Last 24 Hours: Microbiology 05/27/19 12:30 Influenza Type A Antigen Screen - Final Nasopharyngeal Swab NEGATIVE INFLUENZA A VIRUS AG REFERENCE RANGE: NEGATIVE Influenza Type B Antigen Screen - Final Positive Influenza B Ag Med Orders - Current: Current Medications Acetaminophen (Tylenol) 650 mg PO Q4H PRN PRN Reason: Pain (Mild 1-3)/fever Albuterol (Proventil Neb Soln) 2.5 mg NEB Q2H PRN PRN Reason: Shortness Of Breath/wheezing Albuterol/Ipratropium (Duoneb 3.0-0.5 Mg/3 Ml) 3 ml NEB Q4HRRT PRN PRN Reason: Shortness Of Breath/wheezing Docusate Sodium (Colace) 100 mg PO BID PRN PRN Reason: Constipation Enoxaparin Sodium (Lovenox) 40 mg SUBCUT Q24H [facility] Last Admin: 05/27/19 14:57 Dose: 40 mg Vancomycin HCl 2 gm/ Sodium (Chloride) 500 mls @ 250 mls/hr IV BID [facility] Last Admin: 05/27/19 21:27 Dose: 250 mls/hr Ceftriaxone Sodium/Dextrose 2 (gm/ Premix) 50 mls @ 100 mls/hr IV Q24H [facility] Last Admin: 05/27/19 14:59 Dose: 100 mls/hr Ibuprofen (Motrin) 600 mg PO Q6H PRN PRN Reason: Pain (mild 1-3) Insulin Aspart (Novolog) 0 unit SUBCUT TIDAC [facility]; Protocol Last Admin: 05/28/19 06:30 Dose: Not Given Ketorolac Tromethamine (Toradol) 30 mg IV Q6H PRN PRN Reason: Pain (moderate 4-6) Last Admin: 05/28/19 06:36 Dose: 30 mg Ondansetron HCl (Zofran Odt) 4 mg PO Q4H PRN PRN Reason: nausea, able to take PO Ondansetron HCl (Zofran) 4 mg IVPUSH Q4H PRN PRN Reason: Nausea Oseltamivir Phosphate (Tamiflu) 75 mg PO BID [facility] Stop: 06/01/19 13:16 Last Admin: 05/28/19 09:01 Dose: 75 mg Polyethylene Glycol (Miralax) 17 gm PO DAILY PRN PRN Reason: Constipation Discontinued Medications Albuterol (Proventil Neb Soln) 2.5 mg NEB ONETIME ONE Stop: 05/27/19 13:49 Last Admin: 05/27/19 15:49 Dose: 2.5 mg Vancomycin HCl 1 gm/ Sodium (Chloride) 250 mls @ 166 mls/hr IV ONETIME ONE Stop: 05/27/19 12:59 Last Admin: 05/27/19 11:55 Dose: 166 mls/hr Piperacillin Sod/Tazobactam (Sod 4.5 gm/ Sodium Chloride) 100 mls @ 100 mls/hr IV ONETIME ONE Stop: 05/27/19 12:29 Last Admin: 05/27/19 11:54 Dose: 100 mls/hr Vancomycin HCl (Pharmacy To Dose - Vancomycin) 1 dose .XX ASDIRECTED JONO - Exam General: Alert, Oriented, Cooperative, No Acute Distress Lungs: Clear to Auscultation, Normal Respiratory Effort. No: Crackles, Wheezing Cardiovascular: Regular Rate, Regular Rhythm GI/Abdominal Exam: Normal Bowel Sounds, Soft, Non-Tender, No Distention Extremities: Other (erythematous, war, tender right lower extremity with superficial ulceration 3-4 inches across.) Sepsis Event Note - Evaluation Sepsis Screening Result: No Definite Risk - Focused Exam Vital Signs: Vital Signs Temp Pulse Resp BP Pulse Ox 05/28/19 04:12 36.2 C 76 16 116/55 L 94 L 05/28/19 00:43 35.8 C L 81 20 95/47 L 91 L Date Exam was Performed: 05/28/19 Time Exam was Performed: 18:09 - Problem List Review Problem List Initiated/Reviewed/Updated: Yes - My Orders Last 24 Hours: My Active Orders 05/27/19 13:13 Intake and Output [RC] Q12H Oxygen Therapy [RC] PRN Up With Assistance [RC] ASDIRECTED VTE/DVT Education [RC] PER UNIT ROUTINE Vital Signs [RC] Q4H Acetaminophen [Tylenol] 650 mg PO Q4H PRN Albuterol [Proventil Neb Soln] 2.5 mg NEB Q2H PRN Albuterol/Ipratropium [DuoNeb 3.0-0.5 MG/3 ML] 3 ml NEB Q4HRRT PRN Docusate Sodium [Colace] 100 mg PO BID PRN Ibuprofen [Motrin] 600 mg PO Q6H PRN Ketorolac [Toradol] 30 mg IV Q6H PRN Ondansetron [Zofran ODT] 4 mg PO Q4H PRN Ondansetron [Zofran] 4 mg IVPUSH Q4H PRN polyethylene glycoL 3350 [MiraLAX] 17 gm PO DAILY PRN Resuscitation Status Routine 05/27/19 13:15 Enoxaparin [Lovenox] 40 mg SUBCUT Q24H Oseltamivir [Tamiflu] 75 mg PO BID 05/27/19 13:25 Wound Radiological Engineer Consult [Consult to Wound Care Services] [CONS] Stat 05/27/19 13:27 Echo Comp wo Cont [US] Stat 05/27/19 13:48 RT Aerosol Therapy [RC] ASDIRECTED 05/27/19 15:00 cefTRIAXone [Rocephin in Dextrose,Iso-Osm 2 GM/50 ML] 2 gm Premix Bag 1 bag IV Q24H 05/27/19 17:00 Insulin Aspart [NovoLOG] See Protocol SUBCUT TIDAC 05/27/19 21:00 Vancomycin 2 gm Sodium Chloride 0.9% [Normal Saline] 500 ml IV BID 05/27/19 Dinner Regular Diet [DIET] 05/28/19 08:00 Consult to Physical Therapy [PT Evaluation and Treatment] [CONS] Stat 05/29/19 05:11 CBC WITH AUTO DIFF [HEME] AM COMPREHENSIVE METABOLIC PN,CMP [CHEM] AM 05/29/19 08:30 VANCOMYCIN TROUGH [CHEM] Routine 05/30/19 05:11 CBC WITH AUTO DIFF [HEME] AM COMPREHENSIVE METABOLIC PN,CMP [CHEM] AM - Plan Plan:: A. 1. Cellulitis 2. Gram positive cocci in clusters Bacteremia 3. Venous stasis with ulceration 4. Influenza B positive 5. UTI 6. Morbid obesity 7. Ambulatory dysfunction P: 1. 1 vial growing gram positive cocci in clusters. Likely contaminant, however, will repeat blood cultures. Already covered with Vancomycin for cellulitis. Continue Tamiflu. Continue wound dressing per wound care recommendations. Continue ceftriaxone for UTI, pending urine culture. Dispo: 2-3 days <Bryon,Honatanael - Last Filed: 06/04/19 11:18> - Patient Data Vitals - Most Recent: Last Vital Signs Temp 36.3 C 06/03/19 08:00 Pulse 87 06/03/19 08:00 Resp 20 06/03/19 08:00 BP 119/68 06/03/19 08:00 Pulse Ox 94 L 06/03/19 08:00 Eric Results Last 24 Hours: Microbiology 05/30/19 08:58 Aerobic Blood Culture - Final Blood - Venous - Lab Draw NO GROWTH AFTER 5 DAYS Anaerobic Blood Culture - Final NO GROWTH AFTER 5 DAYS 05/30/19 08:40 Aerobic Blood Culture - Final Blood - Venous NO GROWTH AFTER 5 DAYS Anaerobic Blood Culture - Final NO GROWTH AFTER 5 DAYS Med Orders - Current: Current Medications Discontinued Medications Acetaminophen (Tylenol) 650 mg PO Q4H PRN PRN Reason: Pain (Mild 1-3)/fever Last Admin: 05/31/19 12:35 Dose: 650 mg Albuterol (Proventil Neb Soln) 2.5 mg NEB Q2H PRN PRN Reason: Shortness Of Breath/wheezing Albuterol (Proventil Neb Soln) 2.5 mg NEB ONETIME ONE Stop: 05/27/19 13:49 Last Admin: 05/27/19 15:49 Dose: 2.5 mg Albuterol/Ipratropium (Duoneb 3.0-0.5 Mg/3 Ml) 3 ml NEB Q4HRRT PRN PRN Reason: Shortness Of Breath/wheezing Last Admin: 06/03/19 01:41 Dose: 3 ml Diphenhydramine HCl (Benadryl) 25 mg PO Q8H PRN PRN Reason: Itching Docusate Sodium (Colace) 100 mg PO BID PRN PRN Reason: Constipation Enoxaparin Sodium (Lovenox) 40 mg SUBCUT Q24H [facility] Last Admin: 06/02/19 12:47 Dose: 40 mg Vancomycin HCl 1 gm/ Sodium (Chloride) 250 mls @ 166 mls/hr IV ONETIME ONE Stop: 05/27/19 12:59 Last Admin: 05/27/19 11:55 Dose: 166 mls/hr Piperacillin Sod/Tazobactam (Sod 4.5 gm/ Sodium Chloride) 100 mls @ 100 mls/hr IV ONETIME ONE Stop: 05/27/19 12:29 Last Admin: 05/27/19 11:54 Dose: 100 mls/hr Vancomycin HCl 2 gm/ Sodium (Chloride) 500 mls @ 250 mls/hr IV BID [facility] Last Admin: 05/28/19 09:47 Dose: 250 mls/hr Ceftriaxone Sodium/Dextrose 2 (gm/ Premix) 50 mls @ 100 mls/hr IV Q24H [facility] Last Admin: 05/31/19 15:01 Dose: 100 mls/hr Vancomycin HCl 2 gm/ Sodium (Chloride) 500 mls @ 250 mls/hr IV Q12H [facility] Last Admin: 05/28/19 16:22 Dose: Not Given Vancomycin HCl 2 gm/ Sodium (Chloride) 500 mls @ 250 mls/hr IV Q12H [facility] Last Admin: 05/29/19 18:08 Dose: Not Given Vancomycin HCl 1.75 gm/ Sodium (Chloride) 500 mls @ 250 mls/hr IV Q12H [facility] Last Admin: 06/03/19 05:17 Dose: 250 mls/hr Ceftriaxone Sodium/Dextrose 2 (gm/ Premix) 50 mls @ 100 mls/hr IV Q24H [facility] Last Admin: 06/03/19 11:16 Dose: 100 mls/hr Ibuprofen (Motrin) 600 mg PO Q6H PRN PRN Reason: Pain (mild 1-3) Last Admin: 06/02/19 20:52 Dose: 600 mg Insulin Aspart (Novolog) 0 unit SUBCUT TIDAC [facility]; Protocol Last Admin: 06/03/19 06:29 Dose: Not Given Ketorolac Tromethamine (Toradol) 30 mg IV Q6H PRN PRN Reason: Pain (moderate 4-6) Last Admin: 06/03/19 01:41 Dose: 30 mg Ondansetron HCl (Zofran Odt) 4 mg PO Q4H PRN PRN Reason: nausea, able to take PO Ondansetron HCl (Zofran) 4 mg IVPUSH Q4H PRN PRN Reason: Nausea Oseltamivir Phosphate (Tamiflu) 75 mg PO BID [facility] Stop: 06/01/19 13:16 Last Admin: 06/01/19 09:22 Dose: 75 mg Polyethylene Glycol (Miralax) 17 gm PO DAILY PRN PRN Reason: Constipation Vancomycin HCl (Pharmacy To Dose - Vancomycin) 1 dose .XX ASDIRECTED JONO - Plan Plan:: I have seen and examined the patient with the resident. I have discussed the findings and treatment plan with the resident. I agree with the assessment and plan as outlined in the following note.
[2019-05-28] MEDS: Vancomycin 2 GM in Sodium Chloride 0.9% 500 ML IV SCH ×3 (09:47→16:22)
[2019-05-28] MEDS: Enoxaparin 40 MG/0.4 ML Syringe SUBCUT SCH (13:32)
[2019-05-28] MEDS: cefTRIAXone 2 GM in Premix Bag 1 BAG IV SCH (16:05)
[2019-05-29] MEDS: Vancomycin 2 GM in Sodium Chloride 0.9% 500 ML IV SCH ×2 (05:22→18:08)
[2019-05-29] MEDS: Ketorolac 30 MG/ML SDV IV PRN ×2 (05:29→18:21)
[2019-05-29 06:00] LABS: BLOOD UREA NITROGEN,BUN 14 mg/dL (7.0-18.0); CARBON DIOXIDE,CO2 26.2 mmol/L (21.0-32.0); CHLORIDE,CL 105 mmol/L (98-107); GLUCOSE RANDOM 124 mg/dL (74-106); POTASSIUM,K 4.2 mmol/L (3.5-5.1); SODIUM,NA 141 mmol/L (136-145)
[2019-05-29] MEDS: Insulin Aspart 100 Units/ML 3 ML Pen SUBCUT SCH ×3 (06:32→18:08)
[2019-05-29] MEDS: Oseltamivir 75 MG Cap PO SCH ×2 (09:04→20:44)
--- NOTE | 2019-05-29 10:48 | PCM.PN ---
- General Info Date of Service: 05/29/19 Subjective Update: Patient feeling better this morning. No fevers. No chest pain, dyspnea. - Patient Data Vitals - Most Recent: Last Vital Signs Temp 37.7 C 05/29/19 08:36 Pulse 64 05/29/19 08:36 Resp 22 H 05/29/19 08:36 BP 128/57 L 05/29/19 08:36 Pulse Ox 91 L 05/29/19 08:36 Weight - Most Recent: 148.55 kg I&O - Last 24 Hours: Intake & Output 05/28/19 05/29/19 05/29/19 22:59 06:59 14:59 Intake Total 1000 300 Balance 1000 300 Lab Results Last 24 Hours: Laboratory Results - last 24 hr 05/28/19 05/28/19 05/29/19 Range/Units 11:33 17:28 05:28 WBC 5.42 (4.0-11.0) K/uL RBC 3.89 L (4.30-5.90) M/uL Hgb 9.8 L (12.0-16.0) g/dL Hct 34.0 L (36.0-46.0) % MCV 87.4 (80.0-98.0) fL MCH 25.2 L (27.0-32.0) pg MCHC 28.8 L (31.0-37.0) g/dL RDW Std Deviation 58.6 (28.0-62.0) fl RDW Coeff of Rachid 18 H (11.0-15.0) % Plt Count 280 (150-400) K/uL MPV 8.30 (7.40-12.00) fL Neut % (Auto) 70.4 (48.0-80.0) % Lymph % (Auto) 15.7 L (16.0-40.0) % [place] % (Auto) 6.5 (0.0-15.0) % Eos % (Auto) 7.0 (0.0-7.0) % Baso % (Auto) 0.4 (0.0-1.5) % Neut # (Auto) 3.8 (1.4-5.7) K/uL Lymph # (Auto) 0.9 (0.6-2.4) K/uL [place] # (Auto) 0.4 (0.0-0.8) K/uL Eos # (Auto) 0.4 (0.0-0.7) K/uL Baso # (Auto) 0.0 (0.0-0.1) K/uL Nucleated RBC % 0.0 /100WBC Nucleated RBCs # 0 K/uL Sodium (136-145) mmol/L Potassium (3.5-5.1) mmol/L Chloride (98-107) mmol/L Carbon Dioxide (21.0-32.0) mmol/L BUN (7.0-18.0) mg/dL Creatinine (0.6-1.0) mg/dL Est Cr Clr Drug Dosing mL/min Estimated GFR (MDRD) ml/min Glucose (74-106) mg/dL POC Glucose 120 H 135 H (60-110) mg/dL Calcium (8.5-10.1) mg/dL 05/29/19 05/29/19 Range/Units 05:28 06:23 WBC (4.0-11.0) K/uL RBC (4.30-5.90) M/uL Hgb (12.0-16.0) g/dL Hct (36.0-46.0) % MCV (80.0-98.0) fL MCH (27.0-32.0) pg MCHC (31.0-37.0) g/dL RDW Std Deviation (28.0-62.0) fl RDW Coeff of Rachid (11.0-15.0) % Plt Count (150-400) K/uL MPV (7.40-12.00) fL Neut % (Auto) (48.0-80.0) % Lymph % (Auto) (16.0-40.0) % [place] % (Auto) (0.0-15.0) % Eos % (Auto) (0.0-7.0) % Baso % (Auto) (0.0-1.5) % Neut # (Auto) (1.4-5.7) K/uL Lymph # (Auto) (0.6-2.4) K/uL [place] # (Auto) (0.0-0.8) K/uL Eos # (Auto) (0.0-0.7) K/uL Baso # (Auto) (0.0-0.1) K/uL Nucleated RBC % /100WBC Nucleated RBCs # K/uL Sodium 141 (136-145) mmol/L Potassium 4.2 (3.5-5.1) mmol/L Chloride 105 (98-107) mmol/L Carbon Dioxide 26.2 (21.0-32.0) mmol/L BUN 14 (7.0-18.0) mg/dL Creatinine 0.9 (0.6-1.0) mg/dL Est Cr Clr Drug Dosing 62.86 mL/min Estimated GFR (MDRD) > 60.0 ml/min Glucose 124 H (74-106) mg/dL POC Glucose 111 H (60-110) mg/dL Calcium 8.9 (8.5-10.1) mg/dL Eric Results Last 24 Hours: Microbiology 05/28/19 10:20 Aerobic Blood Culture - Preliminary Blood - Venous Anaerobic Blood Culture - Preliminary NO GROWTH AFTER 1 DAY 05/27/19 13:09 Aerobic Blood Culture - Preliminary Blood - Venous - Lab Draw NO GROWTH AFTER 1 DAY Anaerobic Blood Culture - Preliminary NO GROWTH AFTER 1 DAY 05/27/19 11:40 Aerobic Blood Culture - Preliminary Blood - Venous Anaerobic Blood Culture - Preliminary 05/27/19 11:38 Urine Culture - Final Urine, Catheterized Escherichia Coli 05/28/19 10:41 Anaerobic Blood Culture - Final Blood - Venous - Lab Draw Med Orders - Current: Current Medications Acetaminophen (Tylenol) 650 mg PO Q4H PRN PRN Reason: Pain (Mild 1-3)/fever Albuterol (Proventil Neb Soln) 2.5 mg NEB Q2H PRN PRN Reason: Shortness Of Breath/wheezing Albuterol/Ipratropium (Duoneb 3.0-0.5 Mg/3 Ml) 3 ml NEB Q4HRRT PRN PRN Reason: Shortness Of Breath/wheezing Docusate Sodium (Colace) 100 mg PO BID PRN PRN Reason: Constipation Enoxaparin Sodium (Lovenox) 40 mg SUBCUT Q24H [facility] Last Admin: 05/28/19 13:32 Dose: 40 mg Ceftriaxone Sodium/Dextrose 2 (gm/ Premix) 50 mls @ 100 mls/hr IV Q24H [facility] Last Admin: 05/28/19 16:05 Dose: 100 mls/hr Vancomycin HCl 2 gm/ Sodium (Chloride) 500 mls @ 250 mls/hr IV Q12H [facility] Last Admin: 05/29/19 05:22 Dose: Not Given Ibuprofen (Motrin) 600 mg PO Q6H PRN PRN Reason: Pain (mild 1-3) Insulin Aspart (Novolog) 0 unit SUBCUT TIDAC [facility]; Protocol Last Admin: 05/29/19 06:32 Dose: Not Given Ketorolac Tromethamine (Toradol) 30 mg IV Q6H PRN PRN Reason: Pain (moderate 4-6) Last Admin: 05/29/19 05:29 Dose: 30 mg Ondansetron HCl (Zofran Odt) 4 mg PO Q4H PRN PRN Reason: nausea, able to take PO Ondansetron HCl (Zofran) 4 mg IVPUSH Q4H PRN PRN Reason: Nausea Oseltamivir Phosphate (Tamiflu) 75 mg PO BID [facility] Stop: 06/01/19 13:16 Last Admin: 05/29/19 09:04 Dose: 75 mg Polyethylene Glycol (Miralax) 17 gm PO DAILY PRN PRN Reason: Constipation Discontinued Medications Albuterol (Proventil Neb Soln) 2.5 mg NEB ONETIME ONE Stop: 05/27/19 13:49 Last Admin: 05/27/19 15:49 Dose: 2.5 mg Vancomycin HCl 1 gm/ Sodium (Chloride) 250 mls @ 166 mls/hr IV ONETIME ONE Stop: 05/27/19 12:59 Last Admin: 05/27/19 11:55 Dose: 166 mls/hr Piperacillin Sod/Tazobactam (Sod 4.5 gm/ Sodium Chloride) 100 mls @ 100 mls/hr IV ONETIME ONE Stop: 05/27/19 12:29 Last Admin: 05/27/19 11:54 Dose: 100 mls/hr Vancomycin HCl 2 gm/ Sodium (Chloride) 500 mls @ 250 mls/hr IV BID [facility] Last Admin: 05/28/19 09:47 Dose: 250 mls/hr Vancomycin HCl 2 gm/ Sodium (Chloride) 500 mls @ 250 mls/hr IV Q12H [facility] Last Admin: 05/28/19 16:22 Dose: Not Given Vancomycin HCl (Pharmacy To Dose - Vancomycin) 1 dose .XX ASDIRECTED JONO - Exam General: Alert, Oriented, Cooperative, No Acute Distress Lungs: Clear to Auscultation, Normal Respiratory Effort. No: Crackles, Wheezing Cardiovascular: Regular Rate, Regular Rhythm GI/Abdominal Exam: Normal Bowel Sounds, Soft, Non-Tender, No Distention Extremities: Other (Erythematous right lower extremity with superficial ulceration. ) Sepsis Event Note - Evaluation Sepsis Screening Result: No Definite Risk - Focused Exam Vital Signs: Vital Signs Temp Pulse Resp BP Pulse Ox 05/29/19 08:36 37.7 C 64 22 H 128/57 L 91 L 05/29/19 08:00 37.6 C 88 20 94 L 05/29/19 04:15 36.3 C 88 18 125/60 93 L 05/28/19 23:31 36.6 C 88 19 107/56 L 90 L Date Exam was Performed: 05/29/19 Time Exam was Performed: 13:15 - Problem List Review Problem List Initiated/Reviewed/Updated: Yes - My Orders Last 24 Hours: My Active Orders 05/29/19 04:00 Vancomycin 2 gm Sodium Chloride 0.9% [Normal Saline] 500 ml IV Q12H 05/29/19 13:30 VANCOMYCIN TROUGH [CHEM] Routine 05/30/19 05:11 BMP [BASIC METABOLIC PANEL,BMP] [CHEM] AM CBC WITH AUTO DIFF [HEME] AM - Plan Plan:: A. 1. Cellulitis 2. Gram positive cocci in chains Bacteremia 3. Gram positive cocci in clusters Bacteremia 4. Venous stasis with ulceration 5. Influenza B positive 6. UTI 7. Morbid obesity 8. Ambulatory dysfunction P: 1. Patient's repeat blood culture now growing gram positive cocci in chains. Yesterday, blood culture was growing gram positive cocci in clusters. Has remained afebrile. Will repeat blood culture tomorrow. Continue with Vancomycin and Ceftriaxone for now. Dispo: 2-3 days
[2019-05-29] MEDS: Enoxaparin 40 MG/0.4 ML Syringe SUBCUT SCH (14:26)
[2019-05-29] MEDS: cefTRIAXone 2 GM in Premix Bag 1 BAG IV SCH (14:26)
[2019-05-29] MEDS: Vancomycin 1.75 GM in Sodium Chloride 0.9% 500 ML IV SCH (18:42)
[2019-05-29] MEDS: Ibuprofen 600 MG Tab PO PRN (23:38)
[2019-05-30] MEDS: Ketorolac 30 MG/ML SDV IV PRN (00:33)
[2019-05-30] MEDS: Vancomycin 1.75 GM in Sodium Chloride 0.9% 500 ML IV SCH ×2 (05:33→18:46)
[2019-05-30 05:44] LABS: BLOOD UREA NITROGEN,BUN 13 mg/dL (7.0-18.0); CARBON DIOXIDE,CO2 25.6 mmol/L (21.0-32.0); CHLORIDE,CL 106 mmol/L (98-107); GLUCOSE RANDOM 123 mg/dL (74-106); POTASSIUM,K 3.9 mmol/L (3.5-5.1); SODIUM,NA 141 mmol/L (136-145)
[2019-05-30] MEDS: Insulin Aspart 100 Units/ML 3 ML Pen SUBCUT SCH ×3 (06:49→20:18)
[2019-05-30] MEDS: Oseltamivir 75 MG Cap PO SCH ×2 (09:26→21:35)
--- NOTE | 2019-05-30 10:57 | PCM.PN ---
- General Info Date of Service: 05/30/19 Subjective Update: no acute events overnight. Had a bath last night. No fevers, nausea, vomiting. Eating well. lower extremity pain under control. - Patient Data Vitals - Most Recent: Last Vital Signs Temp 36.5 C 05/30/19 07:10 Pulse 78 05/30/19 07:10 Resp 18 05/30/19 07:10 BP 112/59 L 05/30/19 07:10 Pulse Ox 93 L 05/30/19 07:10 Weight - Most Recent: 148.55 kg I&O - Last 24 Hours: Intake & Output 05/29/19 05/30/19 05/30/19 22:59 06:59 14:59 Intake Total 850 600 Output Total 225 200 Balance 625 400 Lab Results Last 24 Hours: Laboratory Results - last 24 hr 05/29/19 05/29/19 05/29/19 Range/Units 12:12 14:20 17:30 WBC (4.0-11.0) K/uL RBC (4.30-5.90) M/uL Hgb (12.0-16.0) g/dL Hct (36.0-46.0) % MCV (80.0-98.0) fL MCH (27.0-32.0) pg MCHC (31.0-37.0) g/dL RDW Std Deviation (28.0-62.0) fl RDW Coeff of Rachid (11.0-15.0) % Plt Count (150-400) K/uL MPV (7.40-12.00) fL Neut % (Auto) (48.0-80.0) % Lymph % (Auto) (16.0-40.0) % [place] % (Auto) (0.0-15.0) % Eos % (Auto) (0.0-7.0) % Baso % (Auto) (0.0-1.5) % Neut # (Auto) (1.4-5.7) K/uL Lymph # (Auto) (0.6-2.4) K/uL [place] # (Auto) (0.0-0.8) K/uL Eos # (Auto) (0.0-0.7) K/uL Baso # (Auto) (0.0-0.1) K/uL Nucleated RBC % /100WBC Nucleated RBCs # K/uL Sodium (136-145) mmol/L Potassium (3.5-5.1) mmol/L Chloride (98-107) mmol/L Carbon Dioxide (21.0-32.0) mmol/L BUN (7.0-18.0) mg/dL Creatinine (0.6-1.0) mg/dL Est Cr Clr Drug Dosing mL/min Estimated GFR (MDRD) ml/min Glucose (74-106) mg/dL POC Glucose 102 135 H (60-110) mg/dL Calcium (8.5-10.1) mg/dL Vancomycin Trough 23.5 H (5.0-10.0) ug/mL 05/30/19 05/30/19 05/30/19 Range/Units 05:05 05:05 06:44 WBC 4.92 (4.0-11.0) K/uL RBC 3.58 L (4.30-5.90) M/uL Hgb 9.0 L (12.0-16.0) g/dL Hct 30.8 L (36.0-46.0) % MCV 86.0 (80.0-98.0) fL MCH 25.1 L (27.0-32.0) pg MCHC 29.2 L (31.0-37.0) g/dL RDW Std Deviation 56.9 (28.0-62.0) fl RDW Coeff of Rachid 18 H (11.0-15.0) % Plt Count 257 (150-400) K/uL MPV 8.40 (7.40-12.00) fL Neut % (Auto) 62.2 (48.0-80.0) % Lymph % (Auto) 20.1 (16.0-40.0) % [place] % (Auto) 9.6 (0.0-15.0) % Eos % (Auto) 7.3 H (0.0-7.0) % Baso % (Auto) 0.8 (0.0-1.5) % Neut # (Auto) 3.1 (1.4-5.7) K/uL Lymph # (Auto) 1.0 (0.6-2.4) K/uL [place] # (Auto) 0.5 (0.0-0.8) K/uL Eos # (Auto) 0.4 (0.0-0.7) K/uL Baso # (Auto) 0.0 (0.0-0.1) K/uL Nucleated RBC % 0.0 /100WBC Nucleated RBCs # 0 K/uL Sodium 141 (136-145) mmol/L Potassium 3.9 (3.5-5.1) mmol/L Chloride 106 (98-107) mmol/L Carbon Dioxide 25.6 (21.0-32.0) mmol/L BUN 13 (7.0-18.0) mg/dL Creatinine 0.8 (0.6-1.0) mg/dL Est Cr Clr Drug Dosing 70.72 mL/min Estimated GFR (MDRD) > 60.0 ml/min Glucose 123 H (74-106) mg/dL POC Glucose 131 H (60-110) mg/dL Calcium 8.2 L (8.5-10.1) mg/dL Vancomycin Trough (5.0-10.0) ug/mL Eric Results Last 24 Hours: Microbiology 05/28/19 10:41 Aerobic Blood Culture - Preliminary Blood - Venous - Lab Draw NO GROWTH AFTER 2 DAYS Anaerobic Blood Culture - Final 05/28/19 10:20 Aerobic Blood Culture - Preliminary Blood - Venous Anaerobic Blood Culture - Preliminary NO GROWTH AFTER 2 DAYS 05/27/19 11:40 Aerobic Blood Culture - Final Blood - Venous Staphylococcus Epidermidis Anaerobic Blood Culture - Final 05/27/19 13:09 Aerobic Blood Culture - Preliminary Blood - Venous - Lab Draw NO GROWTH AFTER 2 DAYS Anaerobic Blood Culture - Preliminary NO GROWTH AFTER 2 DAYS 05/27/19 11:38 Urine Culture - Final Urine, Catheterized Escherichia Coli Med Orders - Current: Current Medications Acetaminophen (Tylenol) 650 mg PO Q4H PRN PRN Reason: Pain (Mild 1-3)/fever Albuterol (Proventil Neb Soln) 2.5 mg NEB Q2H PRN PRN Reason: Shortness Of Breath/wheezing Albuterol/Ipratropium (Duoneb 3.0-0.5 Mg/3 Ml) 3 ml NEB Q4HRRT PRN PRN Reason: Shortness Of Breath/wheezing Docusate Sodium (Colace) 100 mg PO BID PRN PRN Reason: Constipation Enoxaparin Sodium (Lovenox) 40 mg SUBCUT Q24H [facility] Last Admin: 05/29/19 14:26 Dose: 40 mg Ceftriaxone Sodium/Dextrose 2 (gm/ Premix) 50 mls @ 100 mls/hr IV Q24H [facility] Last Admin: 05/29/19 14:26 Dose: 100 mls/hr Vancomycin HCl 1.75 gm/ Sodium (Chloride) 500 mls @ 250 mls/hr IV Q12H [facility] Last Admin: 05/30/19 05:33 Dose: 250 mls/hr Ibuprofen (Motrin) 600 mg PO Q6H PRN PRN Reason: Pain (mild 1-3) Last Admin: 05/29/19 23:38 Dose: 600 mg Insulin Aspart (Novolog) 0 unit SUBCUT TIDAC [facility]; Protocol Last Admin: 05/30/19 06:49 Dose: Not Given Ketorolac Tromethamine (Toradol) 30 mg IV Q6H PRN PRN Reason: Pain (moderate 4-6) Last Admin: 05/30/19 00:33 Dose: 30 mg Ondansetron HCl (Zofran Odt) 4 mg PO Q4H PRN PRN Reason: nausea, able to take PO Ondansetron HCl (Zofran) 4 mg IVPUSH Q4H PRN PRN Reason: Nausea Oseltamivir Phosphate (Tamiflu) 75 mg PO BID [facility] Stop: 06/01/19 13:16 Last Admin: 05/30/19 09:26 Dose: 75 mg Polyethylene Glycol (Miralax) 17 gm PO DAILY PRN PRN Reason: Constipation Discontinued Medications Albuterol (Proventil Neb Soln) 2.5 mg NEB ONETIME ONE Stop: 05/27/19 13:49 Last Admin: 05/27/19 15:49 Dose: 2.5 mg Vancomycin HCl 1 gm/ Sodium (Chloride) 250 mls @ 166 mls/hr IV ONETIME ONE Stop: 05/27/19 12:59 Last Admin: 05/27/19 11:55 Dose: 166 mls/hr Piperacillin Sod/Tazobactam (Sod 4.5 gm/ Sodium Chloride) 100 mls @ 100 mls/hr IV ONETIME ONE Stop: 05/27/19 12:29 Last Admin: 05/27/19 11:54 Dose: 100 mls/hr Vancomycin HCl 2 gm/ Sodium (Chloride) 500 mls @ 250 mls/hr IV BID [facility] Last Admin: 05/28/19 09:47 Dose: 250 mls/hr Vancomycin HCl 2 gm/ Sodium (Chloride) 500 mls @ 250 mls/hr IV Q12H [facility] Last Admin: 05/28/19 16:22 Dose: Not Given Vancomycin HCl 2 gm/ Sodium (Chloride) 500 mls @ 250 mls/hr IV Q12H [facility] Last Admin: 05/29/19 18:08 Dose: Not Given Vancomycin HCl (Pharmacy To Dose - Vancomycin) 1 dose .XX ASDIRECTED [facility] - Exam General: Alert, Oriented, Cooperative, No Acute Distress Lungs: Clear to Auscultation, Normal Respiratory Effort. No: Crackles, Wheezing Cardiovascular: Regular Rate, Regular Rhythm GI/Abdominal Exam: Normal Bowel Sounds, Soft, Non-Tender, No Distention Extremities: Other (Right lower extremity with superficial ulcer. Dressing in place and wet. Erythema improving.) Sepsis Event Note - Evaluation Sepsis Screening Result: No Definite Risk - Focused Exam Vital Signs: Vital Signs Temp Pulse Resp BP Pulse Ox 05/30/19 07:10 36.5 C 78 18 112/59 L 93 L 05/30/19 03:25 36.3 C 86 20 106/59 L 92 L 05/30/19 00:24 36.9 C 85 20 104/54 L 90 L Date Exam was Performed: 05/30/19 Time Exam was Performed: 11:05 - Problem List Review Problem List Initiated/Reviewed/Updated: Yes - My Orders Last 24 Hours: My Active Orders 05/29/19 18:00 Vancomycin 1.75 gm Sodium Chloride 0.9% [Normal Saline] 500 ml IV Q12H 05/30/19 07:37 Consult to Physical Therapy [PT Evaluation and Treatment] [CONS] Routine Blood Culture x2 Reflex Set [OM.PC] Stat 05/30/19 08:40 CULTURE BLOOD [BC] Stat 05/30/19 08:58 CULTURE BLOOD [BC] Stat 05/30/19 17:30 VANCOMYCIN TROUGH [CHEM] Routine - Plan Plan:: A. 1. Cellulitis 2. Staph Epidermidis Bacteremia 3. Gram positive cocci in chains Bacteremia 4. Venous stasis with ulceration 5. Normocytic anemia 6. Influenza B positive 7. E. choli UTI 8. Morbid obesity 9. Ambulatory dysfunction P: 1. Continue Vancomycin + Ceftriaxone for. One blood culture growing Staph Epi likely contaminant, however, second set of blood cultures growing Gram positive cocci in chains, pending ERIC. Continue with wound care. Will consult PT to work with patient for strengthening and getting out of chair to bed and vice versa. Repeated blood cultures today. Dispo: 2-3 days
--- NOTE | 2019-05-30 11:43 | ECHO ---
EXAM DATE: 05/27/19 PATIENT'S AGE: 64 The echocardiogram report can be seen in this patient's EMR (Electronic Medical Record) in the REPORTS section. The report has also been scanned into PACS. MAIKEL
[2019-05-30] MEDS: Enoxaparin 40 MG/0.4 ML Syringe SUBCUT SCH (12:56)
[2019-05-30] MEDS: cefTRIAXone 2 GM in Premix Bag 1 BAG IV SCH (15:22)
[2019-05-30] MEDS: Ibuprofen 600 MG Tab PO PRN ×2 (15:26→21:34)
[2019-05-31 06:05] LABS: BLOOD UREA NITROGEN,BUN 11 mg/dL (7.0-18.0); CARBON DIOXIDE,CO2 26.5 mmol/L (21.0-32.0); CHLORIDE,CL 107 mmol/L (98-107); GLUCOSE RANDOM 131 mg/dL (74-106); POTASSIUM,K 3.9 mmol/L (3.5-5.1); SODIUM,NA 141 mmol/L (136-145)
[2019-05-31] MEDS: Ibuprofen 600 MG Tab PO PRN ×2 (06:57→15:07)
[2019-05-31] MEDS: Vancomycin 1.75 GM in Sodium Chloride 0.9% 500 ML IV SCH ×2 (07:00→18:44)
[2019-05-31] MEDS: Insulin Aspart 100 Units/ML 3 ML Pen SUBCUT SCH ×3 (07:02→18:23)
[2019-05-31] MEDS: Oseltamivir 75 MG Cap PO SCH ×2 (09:33→21:28)
--- NOTE | 2019-05-31 10:49 | PCM.PN ---
- General Info Date of Service: 05/31/19 Subjective Update: no acute events overnight. afebrile. feeling better. working with PT. - Patient Data Vitals - Most Recent: Last Vital Signs Temp 37.3 C 05/31/19 07:30 Pulse 83 05/31/19 07:30 Resp 22 H 05/31/19 07:30 BP 126/63 05/31/19 07:30 Pulse Ox 94 L 05/31/19 07:30 Weight - Most Recent: 148.55 kg I&O - Last 24 Hours: Intake & Output 05/30/19 05/31/19 05/31/19 22:59 06:59 14:59 Intake Total 1000 240 Output Total 350 400 Balance 650 -160 Lab Results Last 24 Hours: Laboratory Results - last 24 hr 05/30/19 05/30/19 05/30/19 Range/Units 11:25 11:28 17:07 WBC (4.0-11.0) K/uL RBC (4.30-5.90) M/uL Hgb (12.0-16.0) g/dL Hct (36.0-46.0) % MCV (80.0-98.0) fL MCH (27.0-32.0) pg MCHC (31.0-37.0) g/dL RDW Std Deviation (28.0-62.0) fl RDW Coeff of Rachid (11.0-15.0) % Plt Count (150-400) K/uL MPV (7.40-12.00) fL Neut % (Auto) (48.0-80.0) % Lymph % (Auto) (16.0-40.0) % [place] % (Auto) (0.0-15.0) % Eos % (Auto) (0.0-7.0) % Baso % (Auto) (0.0-1.5) % Neut # (Auto) (1.4-5.7) K/uL Lymph # (Auto) (0.6-2.4) K/uL [place] # (Auto) (0.0-0.8) K/uL Eos # (Auto) (0.0-0.7) K/uL Baso # (Auto) (0.0-0.1) K/uL Nucleated RBC % /100WBC Nucleated RBCs # K/uL Sodium (136-145) mmol/L Potassium (3.5-5.1) mmol/L Chloride (98-107) mmol/L Carbon Dioxide (21.0-32.0) mmol/L BUN (7.0-18.0) mg/dL Creatinine (0.6-1.0) mg/dL Est Cr Clr Drug Dosing mL/min Estimated GFR (MDRD) ml/min Glucose (74-106) mg/dL POC Glucose 141 H 137 H (60-110) mg/dL Calcium (8.5-10.1) mg/dL Iron 23 L (50-175) ug/dL TIBC 288 (250-450) ug/dL % Saturation 7.99 L (20-55) % Ferritin 68 (8-252) ng/mL Total Bilirubin (0.2-1.0) mg/dL AST (15-37) IU/L ALT (14-63) IU/L Alkaline Phosphatase (46-116) U/L Total Protein (6.4-8.2) g/dL Albumin (3.4-5.0) g/dL Globulin (2.6-4.0) g/dL Albumin/Globulin Ratio (0.9-1.6) Vancomycin Trough (5.0-10.0) ug/mL 05/30/19 05/31/19 05/31/19 Range/Units 17:35 05:00 05:00 WBC 4.60 (4.0-11.0) K/uL RBC 3.57 L (4.30-5.90) M/uL Hgb 9.1 L (12.0-16.0) g/dL Hct 30.9 L (36.0-46.0) % MCV 86.6 (80.0-98.0) fL MCH 25.5 L (27.0-32.0) pg MCHC 29.4 L (31.0-37.0) g/dL RDW Std Deviation 58.7 (28.0-62.0) fl RDW Coeff of Rachid 18 H (11.0-15.0) % Plt Count 252 (150-400) K/uL MPV 8.40 (7.40-12.00) fL Neut % (Auto) 61.2 (48.0-80.0) % Lymph % (Auto) 18.5 (16.0-40.0) % [place] % (Auto) 10.7 (0.0-15.0) % Eos % (Auto) 8.9 H (0.0-7.0) % Baso % (Auto) 0.7 (0.0-1.5) % Neut # (Auto) 2.8 (1.4-5.7) K/uL Lymph # (Auto) 0.9 (0.6-2.4) K/uL [place] # (Auto) 0.5 (0.0-0.8) K/uL Eos # (Auto) 0.4 (0.0-0.7) K/uL Baso # (Auto) 0.0 (0.0-0.1) K/uL Nucleated RBC % 0.0 /100WBC Nucleated RBCs # 0 K/uL Sodium 141 (136-145) mmol/L Potassium 3.9 (3.5-5.1) mmol/L Chloride 107 (98-107) mmol/L Carbon Dioxide 26.5 (21.0-32.0) mmol/L BUN 11 (7.0-18.0) mg/dL Creatinine 0.7 (0.6-1.0) mg/dL Est Cr Clr Drug Dosing 80.82 mL/min Estimated GFR (MDRD) > 60.0 ml/min Glucose 131 H (74-106) mg/dL POC Glucose (60-110) mg/dL Calcium 8.5 (8.5-10.1) mg/dL Iron (50-175) ug/dL TIBC (250-450) ug/dL % Saturation (20-55) % Ferritin (8-252) ng/mL Total Bilirubin 0.4 (0.2-1.0) mg/dL AST 15 (15-37) IU/L ALT 8 L (14-63) IU/L Alkaline Phosphatase 69 (46-116) U/L Total Protein 6.5 (6.4-8.2) g/dL Albumin 2.2 L (3.4-5.0) g/dL Globulin 4.3 H (2.6-4.0) g/dL Albumin/Globulin Ratio 0.5 L (0.9-1.6) Vancomycin Trough 20.9 H (5.0-10.0) ug/mL 05/31/19 Range/Units 06:09 WBC (4.0-11.0) K/uL RBC (4.30-5.90) M/uL Hgb (12.0-16.0) g/dL Hct (36.0-46.0) % MCV (80.0-98.0) fL MCH (27.0-32.0) pg MCHC (31.0-37.0) g/dL RDW Std Deviation (28.0-62.0) fl RDW Coeff of Rachid (11.0-15.0) % Plt Count (150-400) K/uL MPV (7.40-12.00) fL Neut % (Auto) (48.0-80.0) % Lymph % (Auto) (16.0-40.0) % [place] % (Auto) (0.0-15.0) % Eos % (Auto) (0.0-7.0) % Baso % (Auto) (0.0-1.5) % Neut # (Auto) (1.4-5.7) K/uL Lymph # (Auto) (0.6-2.4) K/uL [place] # (Auto) (0.0-0.8) K/uL Eos # (Auto) (0.0-0.7) K/uL Baso # (Auto) (0.0-0.1) K/uL Nucleated RBC % /100WBC Nucleated RBCs # K/uL Sodium (136-145) mmol/L Potassium (3.5-5.1) mmol/L Chloride (98-107) mmol/L Carbon Dioxide (21.0-32.0) mmol/L BUN (7.0-18.0) mg/dL Creatinine (0.6-1.0) mg/dL Est Cr Clr Drug Dosing mL/min Estimated GFR (MDRD) ml/min Glucose (74-106) mg/dL POC Glucose 135 H (60-110) mg/dL Calcium (8.5-10.1) mg/dL Iron (50-175) ug/dL TIBC (250-450) ug/dL % Saturation (20-55) % Ferritin (8-252) ng/mL Total Bilirubin (0.2-1.0) mg/dL AST (15-37) IU/L ALT (14-63) IU/L Alkaline Phosphatase (46-116) U/L Total Protein (6.4-8.2) g/dL Albumin (3.4-5.0) g/dL Globulin (2.6-4.0) g/dL Albumin/Globulin Ratio (0.9-1.6) Vancomycin Trough (5.0-10.0) ug/mL Eric Results Last 24 Hours: Microbiology 05/28/19 10:20 Aerobic Blood Culture - Final Blood - Venous Enterococcus Faecalis Anaerobic Blood Culture - Preliminary NO GROWTH AFTER 3 DAYS 05/30/19 08:58 Aerobic Blood Culture - Preliminary Blood - Venous - Lab Draw NO GROWTH AFTER 1 DAY Anaerobic Blood Culture - Preliminary NO GROWTH AFTER 1 DAY 05/30/19 08:40 Aerobic Blood Culture - Preliminary Blood - Venous NO GROWTH AFTER 1 DAY Anaerobic Blood Culture - Preliminary NO GROWTH AFTER 1 DAY 05/30/19 02:01 Stool Occult Blood (ERIC) - Final Stool / Feces 05/27/19 13:09 Aerobic Blood Culture - Preliminary Blood - Venous - Lab Draw NO GROWTH AFTER 3 DAYS Anaerobic Blood Culture - Preliminary NO GROWTH AFTER 3 DAYS 05/28/19 10:41 Aerobic Blood Culture - Preliminary Blood - Venous - Lab Draw NO GROWTH AFTER 2 DAYS Anaerobic Blood Culture - Final 05/27/19 11:40 Aerobic Blood Culture - Final Blood - Venous Staphylococcus Epidermidis Anaerobic Blood Culture - Final Med Orders - Current: Current Medications Acetaminophen (Tylenol) 650 mg PO Q4H PRN PRN Reason: Pain (Mild 1-3)/fever Albuterol (Proventil Neb Soln) 2.5 mg NEB Q2H PRN PRN Reason: Shortness Of Breath/wheezing Albuterol/Ipratropium (Duoneb 3.0-0.5 Mg/3 Ml) 3 ml NEB Q4HRRT PRN PRN Reason: Shortness Of Breath/wheezing Docusate Sodium (Colace) 100 mg PO BID PRN PRN Reason: Constipation Enoxaparin Sodium (Lovenox) 40 mg SUBCUT Q24H [facility] Last Admin: 05/30/19 12:56 Dose: 40 mg Ceftriaxone Sodium/Dextrose 2 (gm/ Premix) 50 mls @ 100 mls/hr IV Q24H [facility] Last Admin: 05/30/19 15:22 Dose: 100 mls/hr Vancomycin HCl 1.75 gm/ Sodium (Chloride) 500 mls @ 250 mls/hr IV Q12H [facility] Last Admin: 05/31/19 07:00 Dose: 250 mls/hr Ibuprofen (Motrin) 600 mg PO Q6H PRN PRN Reason: Pain (mild 1-3) Last Admin: 05/31/19 06:57 Dose: 600 mg Insulin Aspart (Novolog) 0 unit SUBCUT TIDAC [facility]; Protocol Last Admin: 05/31/19 07:02 Dose: Not Given Ketorolac Tromethamine (Toradol) 30 mg IV Q6H PRN PRN Reason: Pain (moderate 4-6) Last Admin: 05/30/19 00:33 Dose: 30 mg Ondansetron HCl (Zofran Odt) 4 mg PO Q4H PRN PRN Reason: nausea, able to take PO Ondansetron HCl (Zofran) 4 mg IVPUSH Q4H PRN PRN Reason: Nausea Oseltamivir Phosphate (Tamiflu) 75 mg PO BID [facility] Stop: 06/01/19 13:16 Last Admin: 05/31/19 09:33 Dose: 75 mg Polyethylene Glycol (Miralax) 17 gm PO DAILY PRN PRN Reason: Constipation Discontinued Medications Albuterol (Proventil Neb Soln) 2.5 mg NEB ONETIME ONE Stop: 05/27/19 13:49 Last Admin: 05/27/19 15:49 Dose: 2.5 mg Vancomycin HCl 1 gm/ Sodium (Chloride) 250 mls @ 166 mls/hr IV ONETIME ONE Stop: 05/27/19 12:59 Last Admin: 05/27/19 11:55 Dose: 166 mls/hr Piperacillin Sod/Tazobactam (Sod 4.5 gm/ Sodium Chloride) 100 mls @ 100 mls/hr IV ONETIME ONE Stop: 05/27/19 12:29 Last Admin: 05/27/19 11:54 Dose: 100 mls/hr Vancomycin HCl 2 gm/ Sodium (Chloride) 500 mls @ 250 mls/hr IV BID [facility] Last Admin: 05/28/19 09:47 Dose: 250 mls/hr Vancomycin HCl 2 gm/ Sodium (Chloride) 500 mls @ 250 mls/hr IV Q12H [facility] Last Admin: 05/28/19 16:22 Dose: Not Given Vancomycin HCl 2 gm/ Sodium (Chloride) 500 mls @ 250 mls/hr IV Q12H [facility] Last Admin: 05/29/19 18:08 Dose: Not Given Vancomycin HCl (Pharmacy To Dose - Vancomycin) 1 dose .XX ASDIRECTED JONO - Exam General: Alert, Oriented, Cooperative, No Acute Distress Lungs: Clear to Auscultation, Normal Respiratory Effort. No: Crackles, Wheezing Cardiovascular: Regular Rate, Regular Rhythm GI/Abdominal Exam: Normal Bowel Sounds, Soft, Non-Tender, No Distention Extremities: Other (erythema is improving on right lower extremity. ) Sepsis Event Note - Evaluation Sepsis Screening Result: No Definite Risk - Focused Exam Vital Signs: Vital Signs Temp Pulse Resp BP Pulse Ox 05/31/19 07:30 37.3 C 83 22 H 126/63 94 L 05/31/19 04:00 36.1 C 76 20 121/55 L 91 L 05/31/19 00:00 36.2 C 90 22 H 138/65 93 L Date Exam was Performed: 05/31/19 Time Exam was Performed: 17:50 - Problem List Review Problem List Initiated/Reviewed/Updated: Yes - My Orders Last 24 Hours: My Active Orders 06/01/19 05:11 CBC WITH AUTO DIFF [HEME] AM COMPREHENSIVE METABOLIC PN,CMP [CHEM] AM - Plan Plan:: A. 1. Cellulitis 2. Enterococcus faecalis bacteremia 4. Venous stasis with ulceration 5. Iron deficiency anemia 6. Influenza B positive, resolved 7. E. choli UTI, resolved 8. Morbid obesity 9. Ambulatory dysfunction P: 1. second set of blood cultures growing Enterococcus faecalis. However, 3rd set of blood cultures have been negative for any growth. Will continue with Vancomycin for now. Discontinued ceftriaxone and tamiflu since she has received necessary doses. Will need to start iron supplements as outpatient for iron deficiency anemia. Continue working with PT. Plan to DC on Monday. Dispo: 2-3 days
[2019-05-31] MEDS: Enoxaparin 40 MG/0.4 ML Syringe SUBCUT SCH (13:25)
[2019-05-31] MEDS: cefTRIAXone 2 GM in Premix Bag 1 BAG IV SCH (15:01)
[2019-05-31] MEDS: Ketorolac 30 MG/ML SDV IV PRN (20:25)
[2019-06-01] MEDS: Albuterol/Ipratropium 3.0-0.5 MG/3 ML Neb Soln NEB PRN ×3 (04:39→21:19)
[2019-06-01] MEDS: Ibuprofen 600 MG Tab PO PRN ×2 (04:39→20:56)
[2019-06-01] MEDS: Vancomycin 1.75 GM in Sodium Chloride 0.9% 500 ML IV SCH ×2 (04:59→17:54)
[2019-06-01] MEDS: Insulin Aspart 100 Units/ML 3 ML Pen SUBCUT SCH ×3 (06:42→20:30)
[2019-06-01] MEDS ORDERED: diphenhydrAMINE 25 MG Cap PO PRN (08:00)
[2019-06-01] MEDS: Oseltamivir 75 MG Cap PO SCH (09:22)
--- NOTE | 2019-06-01 10:19 | PCM.PN ---
- General Info Date of Service: 06/01/19 Subjective Update: no acute events overnight. Feeling better this morning. No chest pain, dyspnea. - Patient Data Vitals - Most Recent: Last Vital Signs Temp 36.4 C 06/01/19 07:58 Pulse 85 06/01/19 07:58 Resp 16 06/01/19 07:58 BP 104/51 L 06/01/19 07:58 Pulse Ox 94 L 06/01/19 07:58 Weight - Most Recent: 148.55 kg I&O - Last 24 Hours: Intake & Output 05/31/19 06/01/19 06/01/19 22:59 06:59 14:59 Intake Total 1800 1000 Output Total 900 600 Balance 900 400 Lab Results Last 24 Hours: Laboratory Results - last 24 hr 05/31/19 05/31/19 06/01/19 Range/Units 11:21 16:31 06:17 POC Glucose 117 H 139 H 139 H (60-110) mg/dL Eric Results Last 24 Hours: Microbiology 05/30/19 08:58 Aerobic Blood Culture - Preliminary Blood - Venous - Lab Draw NO GROWTH AFTER 2 DAYS Anaerobic Blood Culture - Preliminary NO GROWTH AFTER 2 DAYS 05/30/19 08:40 Aerobic Blood Culture - Preliminary Blood - Venous NO GROWTH AFTER 2 DAYS Anaerobic Blood Culture - Preliminary NO GROWTH AFTER 2 DAYS 05/27/19 13:09 Aerobic Blood Culture - Preliminary Blood - Venous - Lab Draw NO GROWTH AFTER 4 DAYS Anaerobic Blood Culture - Preliminary NO GROWTH AFTER 4 DAYS 05/28/19 10:41 Aerobic Blood Culture - Preliminary Blood - Venous - Lab Draw NO GROWTH AFTER 3 DAYS Anaerobic Blood Culture - Final 05/28/19 10:20 Aerobic Blood Culture - Final Blood - Venous Enterococcus Faecalis Anaerobic Blood Culture - Preliminary NO GROWTH AFTER 3 DAYS Med Orders - Current: Current Medications Acetaminophen (Tylenol) 650 mg PO Q4H PRN PRN Reason: Pain (Mild 1-3)/fever Last Admin: 05/31/19 12:35 Dose: 650 mg Albuterol (Proventil Neb Soln) 2.5 mg NEB Q2H PRN PRN Reason: Shortness Of Breath/wheezing Albuterol/Ipratropium (Duoneb 3.0-0.5 Mg/3 Ml) 3 ml NEB Q4HRRT PRN PRN Reason: Shortness Of Breath/wheezing Last Admin: 06/01/19 04:39 Dose: 3 ml Diphenhydramine HCl (Benadryl) 25 mg PO Q8H PRN PRN Reason: Itching Docusate Sodium (Colace) 100 mg PO BID PRN PRN Reason: Constipation Enoxaparin Sodium (Lovenox) 40 mg SUBCUT Q24H [facility] Last Admin: 05/31/19 13:25 Dose: 40 mg Vancomycin HCl 1.75 gm/ Sodium (Chloride) 500 mls @ 250 mls/hr IV Q12H [facility] Last Admin: 06/01/19 04:59 Dose: 250 mls/hr Ibuprofen (Motrin) 600 mg PO Q6H PRN PRN Reason: Pain (mild 1-3) Last Admin: 06/01/19 04:39 Dose: 600 mg Insulin Aspart (Novolog) 0 unit SUBCUT TIDAC [facility]; Protocol Last Admin: 06/01/19 06:42 Dose: Not Given Ketorolac Tromethamine (Toradol) 30 mg IV Q6H PRN PRN Reason: Pain (moderate 4-6) Last Admin: 05/31/19 20:25 Dose: 30 mg Ondansetron HCl (Zofran Odt) 4 mg PO Q4H PRN PRN Reason: nausea, able to take PO Ondansetron HCl (Zofran) 4 mg IVPUSH Q4H PRN PRN Reason: Nausea Oseltamivir Phosphate (Tamiflu) 75 mg PO BID [facility] Stop: 06/01/19 13:16 Last Admin: 06/01/19 09:22 Dose: 75 mg Polyethylene Glycol (Miralax) 17 gm PO DAILY PRN PRN Reason: Constipation Discontinued Medications Albuterol (Proventil Neb Soln) 2.5 mg NEB ONETIME ONE Stop: 05/27/19 13:49 Last Admin: 05/27/19 15:49 Dose: 2.5 mg Vancomycin HCl 1 gm/ Sodium (Chloride) 250 mls @ 166 mls/hr IV ONETIME ONE Stop: 05/27/19 12:59 Last Admin: 05/27/19 11:55 Dose: 166 mls/hr Piperacillin Sod/Tazobactam (Sod 4.5 gm/ Sodium Chloride) 100 mls @ 100 mls/hr IV ONETIME ONE Stop: 05/27/19 12:29 Last Admin: 05/27/19 11:54 Dose: 100 mls/hr Vancomycin HCl 2 gm/ Sodium (Chloride) 500 mls @ 250 mls/hr IV BID [facility] Last Admin: 05/28/19 09:47 Dose: 250 mls/hr Ceftriaxone Sodium/Dextrose 2 (gm/ Premix) 50 mls @ 100 mls/hr IV Q24H [facility] Last Admin: 05/31/19 15:01 Dose: 100 mls/hr Vancomycin HCl 2 gm/ Sodium (Chloride) 500 mls @ 250 mls/hr IV Q12H [facility] Last Admin: 05/28/19 16:22 Dose: Not Given Vancomycin HCl 2 gm/ Sodium (Chloride) 500 mls @ 250 mls/hr IV Q12H [facility] Last Admin: 05/29/19 18:08 Dose: Not Given Vancomycin HCl (Pharmacy To Dose - Vancomycin) 1 dose .XX ASDIRECTED [facility] - Exam General: Alert, Oriented, Cooperative Lungs: Clear to Auscultation, Normal Respiratory Effort. No: Crackles, Wheezing Cardiovascular: Regular Rate, Regular Rhythm GI/Abdominal Exam: Normal Bowel Sounds, Soft, No Distention Extremities: Other (erythema and edema improving) Skin: Warm, Dry Sepsis Event Note - Evaluation Sepsis Screening Result: No Definite Risk - Focused Exam Vital Signs: Vital Signs Temp Pulse Resp BP Pulse Ox 06/01/19 07:58 36.4 C 85 16 104/51 L 94 L 06/01/19 04:00 36.2 C 88 20 111/56 L 93 L 06/01/19 00:20 36.1 C 81 21 H 115/56 L 91 L Date Exam was Performed: 06/01/19 Time Exam was Performed: 12:56 - Problem List Review Problem List Initiated/Reviewed/Updated: Yes - My Orders Last 24 Hours: My Active Orders 06/01/19 08:00 diphenhydrAMINE [Benadryl] 25 mg PO Q8H PRN 06/02/19 05:11 BASIC METABOLIC PANEL,BMP [CHEM] AM CBC WITH AUTO DIFF [HEME] AM 06/03/19 05:11 BASIC METABOLIC PANEL,BMP [CHEM] AM CBC WITH AUTO DIFF [HEME] AM - Plan Plan:: A. 1. Cellulitis 2. Staph Epidermidis bacteremia 4. Venous stasis with ulceration 5. Iron deficiency anemia 6. Morbid obesity 7. Ambulatory dysfunction P: 1. continue with ceftriaxone and vancomycin for suspected staph epidermidis bacteremia. Continue wound care and PT. Will plan to discharge on Monday. Dispo: 2-3 days
[2019-06-01] MEDS: Enoxaparin 40 MG/0.4 ML Syringe SUBCUT SCH (12:36)
[2019-06-01] MEDS: cefTRIAXone 2 GM in Premix Bag 1 BAG IV SCH (12:41)
[2019-06-01] MEDS: Ketorolac 30 MG/ML SDV IV PRN (13:44)
[2019-06-02] MEDS: Ketorolac 30 MG/ML SDV IV PRN (00:59)
[2019-06-02] MEDS: Ibuprofen 600 MG Tab PO PRN ×3 (04:47→20:52)
[2019-06-02] MEDS: Vancomycin 1.75 GM in Sodium Chloride 0.9% 500 ML IV SCH ×2 (05:00→18:11)
[2019-06-02] MEDS: Insulin Aspart 100 Units/ML 3 ML Pen SUBCUT SCH ×3 (06:43→17:59)
[2019-06-02 07:00] LABS: BLOOD UREA NITROGEN,BUN 10 mg/dL (7.0-18.0); CARBON DIOXIDE,CO2 25.9 mmol/L (21.0-32.0); CHLORIDE,CL 107 mmol/L (98-107); GLUCOSE RANDOM 118 mg/dL (74-106); POTASSIUM,K 3.8 mmol/L (3.5-5.1); SODIUM,NA 141 mmol/L (136-145)
[2019-06-02] MEDS: cefTRIAXone 2 GM in Premix Bag 1 BAG IV SCH (11:54)
[2019-06-02] MEDS: Enoxaparin 40 MG/0.4 ML Syringe SUBCUT SCH (12:47)
[2019-06-02] MEDS: Albuterol/Ipratropium 3.0-0.5 MG/3 ML Neb Soln NEB PRN (13:23)
--- NOTE | 2019-06-02 13:44 | PCM.PN ---
- General Info Date of Service: 06/02/19 - Review of Systems Systems Review Comment:: no new complaints, no fever, no pain, no drainage from ulcer - Patient Data Vitals - Most Recent: Last Vital Signs Temp 36.0 C L 06/02/19 08:00 Pulse 86 06/02/19 08:00 Resp 18 06/02/19 08:00 BP 115/58 L 06/02/19 08:00 Pulse Ox 94 L 06/02/19 08:00 Weight - Most Recent: 148.55 kg I&O - Last 24 Hours: Intake & Output 06/01/19 06/02/19 06/02/19 22:59 06:59 14:59 Intake Total 2200 700 Output Total 1200 475 Balance 1000 225 Lab Results Last 24 Hours: Laboratory Results - last 24 hr 06/01/19 06/02/19 06/02/19 Range/Units 17:45 06:05 06:05 WBC 4.24 (4.0-11.0) K/uL RBC 3.50 L (4.30-5.90) M/uL Hgb 8.8 L (12.0-16.0) g/dL Hct 30.2 L (36.0-46.0) % MCV 86.3 (80.0-98.0) fL MCH 25.1 L (27.0-32.0) pg MCHC 29.1 L (31.0-37.0) g/dL RDW Std Deviation 59.2 (28.0-62.0) fl RDW Coeff of Rachid 19 H (11.0-15.0) % Plt Count 271 (150-400) K/uL MPV 8.70 (7.40-12.00) fL Neut % (Auto) 64.9 (48.0-80.0) % Lymph % (Auto) 16.5 (16.0-40.0) % [place] % (Auto) 9.9 (0.0-15.0) % Eos % (Auto) 8.0 H (0.0-7.0) % Baso % (Auto) 0.7 (0.0-1.5) % Neut # (Auto) 2.8 (1.4-5.7) K/uL Lymph # (Auto) 0.7 (0.6-2.4) K/uL [place] # (Auto) 0.4 (0.0-0.8) K/uL Eos # (Auto) 0.3 (0.0-0.7) K/uL Baso # (Auto) 0.0 (0.0-0.1) K/uL Nucleated RBC % 0.0 /100WBC Nucleated RBCs # 0 K/uL Sodium 141 (136-145) mmol/L Potassium 3.8 (3.5-5.1) mmol/L Chloride 107 (98-107) mmol/L Carbon Dioxide 25.9 (21.0-32.0) mmol/L BUN 10 (7.0-18.0) mg/dL Creatinine 0.7 (0.6-1.0) mg/dL Est Cr Clr Drug Dosing 80.82 mL/min Estimated GFR (MDRD) > 60.0 ml/min Glucose 118 H (74-106) mg/dL POC Glucose 120 H (60-110) mg/dL Calcium 8.2 L (8.5-10.1) mg/dL 06/02/19 06/02/19 Range/Units 06:29 12:18 WBC (4.0-11.0) K/uL RBC (4.30-5.90) M/uL Hgb (12.0-16.0) g/dL Hct (36.0-46.0) % MCV (80.0-98.0) fL MCH (27.0-32.0) pg MCHC (31.0-37.0) g/dL RDW Std Deviation (28.0-62.0) fl RDW Coeff of Rachid (11.0-15.0) % Plt Count (150-400) K/uL MPV (7.40-12.00) fL Neut % (Auto) (48.0-80.0) % Lymph % (Auto) (16.0-40.0) % [place] % (Auto) (0.0-15.0) % Eos % (Auto) (0.0-7.0) % Baso % (Auto) (0.0-1.5) % Neut # (Auto) (1.4-5.7) K/uL Lymph # (Auto) (0.6-2.4) K/uL [place] # (Auto) (0.0-0.8) K/uL Eos # (Auto) (0.0-0.7) K/uL Baso # (Auto) (0.0-0.1) K/uL Nucleated RBC % /100WBC Nucleated RBCs # K/uL Sodium (136-145) mmol/L Potassium (3.5-5.1) mmol/L Chloride (98-107) mmol/L Carbon Dioxide (21.0-32.0) mmol/L BUN (7.0-18.0) mg/dL Creatinine (0.6-1.0) mg/dL Est Cr Clr Drug Dosing mL/min Estimated GFR (MDRD) ml/min Glucose (74-106) mg/dL POC Glucose 114 H 128 H (60-110) mg/dL Calcium (8.5-10.1) mg/dL Eric Results Last 24 Hours: Microbiology 05/28/19 10:41 Aerobic Blood Culture - Final Blood - Venous - Lab Draw NO GROWTH AFTER 5 DAYS Anaerobic Blood Culture - Final 05/28/19 10:20 Aerobic Blood Culture - Final Blood - Venous Enterococcus Faecalis Anaerobic Blood Culture - Final NO GROWTH AFTER 5 DAYS 05/30/19 08:58 Aerobic Blood Culture - Preliminary Blood - Venous - Lab Draw NO GROWTH AFTER 3 DAYS Anaerobic Blood Culture - Preliminary NO GROWTH AFTER 3 DAYS 05/30/19 08:40 Aerobic Blood Culture - Preliminary Blood - Venous NO GROWTH AFTER 3 DAYS Anaerobic Blood Culture - Preliminary NO GROWTH AFTER 3 DAYS 05/27/19 13:09 Aerobic Blood Culture - Final Blood - Venous - Lab Draw NO GROWTH AFTER 5 DAYS Anaerobic Blood Culture - Final NO GROWTH AFTER 5 DAYS Med Orders - Current: Current Medications Acetaminophen (Tylenol) 650 mg PO Q4H PRN PRN Reason: Pain (Mild 1-3)/fever Last Admin: 05/31/19 12:35 Dose: 650 mg Albuterol (Proventil Neb Soln) 2.5 mg NEB Q2H PRN PRN Reason: Shortness Of Breath/wheezing Albuterol/Ipratropium (Duoneb 3.0-0.5 Mg/3 Ml) 3 ml NEB Q4HRRT PRN PRN Reason: Shortness Of Breath/wheezing Last Admin: 06/02/19 13:23 Dose: 3 ml Diphenhydramine HCl (Benadryl) 25 mg PO Q8H PRN PRN Reason: Itching Docusate Sodium (Colace) 100 mg PO BID PRN PRN Reason: Constipation Enoxaparin Sodium (Lovenox) 40 mg SUBCUT Q24H [facility] Last Admin: 06/02/19 12:47 Dose: 40 mg Vancomycin HCl 1.75 gm/ Sodium (Chloride) 500 mls @ 250 mls/hr IV Q12H [facility] Last Admin: 06/02/19 05:00 Dose: 250 mls/hr Ceftriaxone Sodium/Dextrose 2 (gm/ Premix) 50 mls @ 100 mls/hr IV Q24H [facility] Last Admin: 06/02/19 11:54 Dose: 100 mls/hr Ibuprofen (Motrin) 600 mg PO Q6H PRN PRN Reason: Pain (mild 1-3) Last Admin: 06/02/19 04:47 Dose: 600 mg Insulin Aspart (Novolog) 0 unit SUBCUT TIDAC [facility]; Protocol Last Admin: 06/02/19 12:27 Dose: Not Given Ketorolac Tromethamine (Toradol) 30 mg IV Q6H PRN PRN Reason: Pain (moderate 4-6) Last Admin: 06/02/19 00:59 Dose: 30 mg Ondansetron HCl (Zofran Odt) 4 mg PO Q4H PRN PRN Reason: nausea, able to take PO Ondansetron HCl (Zofran) 4 mg IVPUSH Q4H PRN PRN Reason: Nausea Polyethylene Glycol (Miralax) 17 gm PO DAILY PRN PRN Reason: Constipation Discontinued Medications Albuterol (Proventil Neb Soln) 2.5 mg NEB ONETIME ONE Stop: 05/27/19 13:49 Last Admin: 05/27/19 15:49 Dose: 2.5 mg Vancomycin HCl 1 gm/ Sodium (Chloride) 250 mls @ 166 mls/hr IV ONETIME ONE Stop: 05/27/19 12:59 Last Admin: 05/27/19 11:55 Dose: 166 mls/hr Piperacillin Sod/Tazobactam (Sod 4.5 gm/ Sodium Chloride) 100 mls @ 100 mls/hr IV ONETIME ONE Stop: 05/27/19 12:29 Last Admin: 05/27/19 11:54 Dose: 100 mls/hr Vancomycin HCl 2 gm/ Sodium (Chloride) 500 mls @ 250 mls/hr IV BID [facility] Last Admin: 05/28/19 09:47 Dose: 250 mls/hr Ceftriaxone Sodium/Dextrose 2 (gm/ Premix) 50 mls @ 100 mls/hr IV Q24H [facility] Last Admin: 05/31/19 15:01 Dose: 100 mls/hr Vancomycin HCl 2 gm/ Sodium (Chloride) 500 mls @ 250 mls/hr IV Q12H [facility] Last Admin: 05/28/19 16:22 Dose: Not Given Vancomycin HCl 2 gm/ Sodium (Chloride) 500 mls @ 250 mls/hr IV Q12H [facility] Last Admin: 05/29/19 18:08 Dose: Not Given Oseltamivir Phosphate (Tamiflu) 75 mg PO BID [facility] Stop: 06/01/19 13:16 Last Admin: 06/01/19 09:22 Dose: 75 mg Vancomycin HCl (Pharmacy To Dose - Vancomycin) 1 dose .XX ASDIRECTED [facility] - Exam General: Alert, Oriented Neck: Supple Lungs: Clear to Auscultation, Normal Respiratory Effort Cardiovascular: Regular Rate, Regular Rhythm Extremities: Other (erythema improving, no purulent drainage from large later ulcer of right leg.) Sepsis Event Note - Evaluation Sepsis Screening Result: No Definite Risk - Focused Exam Vital Signs: Vital Signs Temp Pulse Resp BP Pulse Ox 06/02/19 08:00 36.0 C L 86 18 115/58 L 94 L 06/02/19 04:00 36.6 C 88 17 113/67 95 Date Exam was Performed: 06/02/19 Time Exam was Performed: 13:42 - Problem List Review Problem List Initiated/Reviewed/Updated: Yes - Plan Plan:: 64 yo female admitted with cellulitis with staph epidermidis bacteremia, continue Vancomycin and ceftriaxone. Plan for discharge home tomorrow.
[2019-06-03] MEDS: Ketorolac 30 MG/ML SDV IV PRN (01:41)
[2019-06-03] MEDS: Albuterol/Ipratropium 3.0-0.5 MG/3 ML Neb Soln NEB PRN (01:41)
[2019-06-03] MEDS: Vancomycin 1.75 GM in Sodium Chloride 0.9% 500 ML IV SCH (05:17)
[2019-06-03] MEDS: Insulin Aspart 100 Units/ML 3 ML Pen SUBCUT SCH (06:29)
[2019-06-03 08:01] VITALS: BP 119/68; PULSE 87
--- NOTE | 2019-06-03 11:02 | PCM.DCSUM1 ---
Discharge Summary - Hospital Course Free Text/Narrative:: 64 y/o female who was admitted for right lower extremity cellulitis with superficial ulceration. Started on Vancomycin and ceftriaxone. She was found to have an E. choli UTI and Influenza positive. Started on Tamiflu. During this hospitalization, blood cultures were obtained and positive for Staph Epidermidis , 2 of 2 vials. Repeat blood culture grew Enterococcus 1 of 2 vials. Thought to be contaminant. She remained afebrile and no leukocytosis. Third set of blood cultures remained negative through out this hospitalization. She finished a 5 day course of IV vancomycin and ceftriaxone. An Echo was performed but poor reading to due motion artifact. She was advised that she would need a SIMONA for better visualization but patient refused SIMONA or transfer to another facility. However, she did fairly well during this hospitalization. She was discharged home on Bactrim DS PO BID for 3 additional days. Provided instructions on right leg wound dressing changes. Advised to follow-up with her PCP in 1-2 weeks. - Discharge Data Discharge Date: 06/03/19 Discharge Disposition: Home, Self-Care 01 Condition: Stable - Referral to Home Health Primary Care Physician: PCP None - Patient Summary/Data Consults: Consultations 05/27/19 13:25 Wound Emergency Department Coordinator Consult [Consult to Wound Care Services] [CONS] Stat 05/27/19 15:27 Consult to Case Management/[place] Operator [CONS] Routine 05/28/19 08:00 Consult to Physical Therapy [PT Evaluation and Treatment] [CONS] Stat 05/30/19 07:37 Consult to Physical Therapy [PT Evaluation and Treatment] [CONS] Routine - Patient Instructions Diet: Regular Diet as Tolerated Activity: As Tolerated Wound/Incision Care: Change Dressing Daily Notify Provider of: Fever, Increased Pain, Swelling and Redness, Drainage, Nausea and/or Vomiting - Discharge Plan *PRESCRIPTION DRUG MONITORING PROGRAM REVIEWED*: Not Applicable *COPY OF PRESCRIPTION DRUG MONITORING REPORT IN PATIENT ZACKARY: Not Applicable Prescriptions/Med Rec: Gauze Bandage [Rolled Gauze] 1 each TP DAILY #1 packet Non-Adherent Bandage [Combine Abd] 1 each TP DAILY #1 packet Silver/Hydrocolloid Dressing [Aquacel Ag Burn 5"X4" Dressing] 1 each TP DAILY # 1 packet Sulfamethoxazole/Trimethoprim [Bactrim Ds Tablet] 1 each PO BID 3 Days #6 tablet Home Medications: Home Meds Gauze Bandage [Rolled Gauze] 1 each TP DAILY #1 packet 06/03/19 [Rx] Non-Adherent Bandage [Combine Abd] 1 each TP DAILY #1 packet 06/03/19 [Rx] Silver/Hydrocolloid Dressing [Aquacel Ag Burn 5"X4" Dressing] 1 each TP DAILY # 1 packet 06/03/19 [Rx] Sulfamethoxazole/Trimethoprim [Bactrim Ds Tablet] 1 each PO BID 3 Days #6 tablet 06/03/19 [Rx] Patient Handouts: Cellulitis, Adult, Sulfamethoxazole; Trimethoprim, SMX-TMP tablets Referrals: Refugio Goodman MD [Resident] - 06/12/19 2:00 pm - Discharge Summary/Plan Comment DC Time >30 min.: No - Patient Data Vitals - Most Recent: Last Vital Signs Temp 36.3 C 06/03/19 08:00 Pulse 87 06/03/19 08:00 Resp 20 06/03/19 08:00 BP 119/68 06/03/19 08:00 Pulse Ox 94 L 06/03/19 08:00 Weight - Most Recent: 148.55 kg I&O - Last 24 hours: Intake & Output 06/02/19 06/03/19 06/03/19 22:59 06:59 14:59 Intake Total 850 1200 Output Total 620 160 Balance 230 1040 Lab Results - Last 24 hrs: Laboratory Results - last 24 hr 06/02/19 06/02/19 06/03/19 Range/Units 12:18 17:02 06:08 POC Glucose 128 H 102 119 H (60-110) mg/dL EMI Results - Last 24 hrs: Microbiology 05/30/19 08:58 Aerobic Blood Culture - Preliminary Blood - Venous - Lab Draw NO GROWTH AFTER 4 DAYS Anaerobic Blood Culture - Preliminary NO GROWTH AFTER 4 DAYS 05/30/19 08:40 Aerobic Blood Culture - Preliminary Blood - Venous NO GROWTH AFTER 4 DAYS Anaerobic Blood Culture - Preliminary NO GROWTH AFTER 4 DAYS 05/28/19 10:41 Aerobic Blood Culture - Final Blood - Venous - Lab Draw NO GROWTH AFTER 5 DAYS Anaerobic Blood Culture - Final 05/28/19 10:20 Aerobic Blood Culture - Final Blood - Venous Enterococcus Faecalis Anaerobic Blood Culture - Final NO GROWTH AFTER 5 DAYS Med Orders - Current: Current Medications Acetaminophen (Tylenol) 650 mg PO Q4H PRN PRN Reason: Pain (Mild 1-3)/fever Last Admin: 05/31/19 12:35 Dose: 650 mg Albuterol (Proventil Neb Soln) 2.5 mg NEB Q2H PRN PRN Reason: Shortness Of Breath/wheezing Albuterol/Ipratropium (Duoneb 3.0-0.5 Mg/3 Ml) 3 ml NEB Q4HRRT PRN PRN Reason: Shortness Of Breath/wheezing Last Admin: 06/03/19 01:41 Dose: 3 ml Diphenhydramine HCl (Benadryl) 25 mg PO Q8H PRN PRN Reason: Itching Docusate Sodium (Colace) 100 mg PO BID PRN PRN Reason: Constipation Enoxaparin Sodium (Lovenox) 40 mg SUBCUT Q24H [facility] Last Admin: 06/02/19 12:47 Dose: 40 mg Vancomycin HCl 1.75 gm/ Sodium (Chloride) 500 mls @ 250 mls/hr IV Q12H [facility] Last Admin: 06/03/19 05:17 Dose: 250 mls/hr Ceftriaxone Sodium/Dextrose 2 (gm/ Premix) 50 mls @ 100 mls/hr IV Q24H [facility] Last Admin: 06/02/19 11:54 Dose: 100 mls/hr Ibuprofen (Motrin) 600 mg PO Q6H PRN PRN Reason: Pain (mild 1-3) Last Admin: 06/02/19 20:52 Dose: 600 mg Insulin Aspart (Novolog) 0 unit SUBCUT TIDAC [facility]; Protocol Last Admin: 06/03/19 06:29 Dose: Not Given Ketorolac Tromethamine (Toradol) 30 mg IV Q6H PRN PRN Reason: Pain (moderate 4-6) Last Admin: 06/03/19 01:41 Dose: 30 mg Ondansetron HCl (Zofran Odt) 4 mg PO Q4H PRN PRN Reason: nausea, able to take PO Ondansetron HCl (Zofran) 4 mg IVPUSH Q4H PRN PRN Reason: Nausea Polyethylene Glycol (Miralax) 17 gm PO DAILY PRN PRN Reason: Constipation Discontinued Medications Albuterol (Proventil Neb Soln) 2.5 mg NEB ONETIME ONE Stop: 05/27/19 13:49 Last Admin: 05/27/19 15:49 Dose: 2.5 mg Vancomycin HCl 1 gm/ Sodium (Chloride) 250 mls @ 166 mls/hr IV ONETIME ONE Stop: 05/27/19 12:59 Last Admin: 05/27/19 11:55 Dose: 166 mls/hr Piperacillin Sod/Tazobactam (Sod 4.5 gm/ Sodium Chloride) 100 mls @ 100 mls/hr IV ONETIME ONE Stop: 05/27/19 12:29 Last Admin: 05/27/19 11:54 Dose: 100 mls/hr Vancomycin HCl 2 gm/ Sodium (Chloride) 500 mls @ 250 mls/hr IV BID [facility] Last Admin: 05/28/19 09:47 Dose: 250 mls/hr Ceftriaxone Sodium/Dextrose 2 (gm/ Premix) 50 mls @ 100 mls/hr IV Q24H [facility] Last Admin: 05/31/19 15:01 Dose: 100 mls/hr Vancomycin HCl 2 gm/ Sodium (Chloride) 500 mls @ 250 mls/hr IV Q12H [facility] Last Admin: 05/28/19 16:22 Dose: Not Given Vancomycin HCl 2 gm/ Sodium (Chloride) 500 mls @ 250 mls/hr IV Q12H [facility] Last Admin: 05/29/19 18:08 Dose: Not Given Oseltamivir Phosphate (Tamiflu) 75 mg PO BID [facility] Stop: 06/01/19 13:16 Last Admin: 06/01/19 09:22 Dose: 75 mg Vancomycin HCl (Pharmacy To Dose - Vancomycin) 1 dose .XX ASDIRECTED [facility]
[2019-06-03] MEDS: cefTRIAXone 2 GM in Premix Bag 1 BAG IV SCH (11:16)
== END 2019-06-03 12:05 | disposition home or self-care (01) | DRG 603 ==
LOC: MW.ED 09:41 → MW.MS 12:50 → OBSVTOIN 12:50
PROVIDERS: ADMIT Student in an Organized Health Care Education/Training Program; ATTEND Student in an Organized Health Care Education/Training Program
DX: L03.115 Cellulitis of right lower limb (principal); N39.0 Urinary tract infection, site not specified; Z68.43 Body mass index [BMI] 50.0-59.9, adult; R78.81 Bacteremia; J10.1 Influenza due to other identified influenza virus with other respiratory manifestations; E66.01 Morbid (severe) obesity due to excess calories; D50.9 Iron deficiency anemia, unspecified; I87.8 Other specified disorders of veins; B96.20 Unspecified Escherichia coli [E. coli] as the cause of diseases classified elsewhere; Z79.899 Other long term (current) drug therapy; Z87.440 Personal history of urinary (tract) infections; Z86.718 Personal history of other venous thrombosis and embolism
CPT/HCPCS: 36415; 51702; 71045; 71045-26; 80048; 80053; 80061; 80202; 81001; 82272; 82728; 82962; 83036; 83550; 83690; 83880; 84443; 85025; 85027; 87040; 87077; 87086; 87088; 87186; 87804; 93005; 93306; 93970; 93970-26; 94640; 97110-GP; 97161-GP; 97164-GP; 97530-GP; 99284; 99285-25; A9270-GY; J0696; J1650; J1815-GY; J1885; J2543; J3370; J7040; J7050; J7620-GY

== ENCOUNTER 2019-09-27 18:16 | Inpatient (IN) | payer OTHER ==
[2019-09-27] MEDS ORDERED: Sodium Chloride 0.9% 2.5 ML Syringe FLUSH PRN (18:34)
[2019-09-27] MEDS ORDERED: Sodium Chloride 0.9% 10 ML Syringe FLUSH PRN (18:34)
--- NOTE | 2019-09-27 18:39 | EDM.PDOC ---
<Bridgette Shah - Last Filed: 09/28/19 04:36> ED HPI GENERAL MEDICAL PROBLEM - General Chief Complaint: General Time Seen by Provider: 09/27/19 18:33 - Related Data Allergies Allergy/AdvReac Type Severity Reaction Status Date / Time No Known Allergies Allergy Verified 09/27/19 23:17 Home Meds: Home Meds Gauze Bandage [Rolled Gauze] 1 each TP DAILY #1 packet 06/03/19 [Rx] Non-Adherent Bandage [Combine Abd] 1 each TP DAILY #1 packet 06/03/19 [Rx] Silver/Hydrocolloid Dressing [Aquacel Ag Burn 5"X4" Dressing] 1 each TP DAILY #1 packet 06/03/19 [Rx] Hydrocolloid Dressing [Tegaderm Hydrocolloid] 1 each TP DAILY #15 bandage 06/05/19 [Rx] Non-Formulary Medication [NF Drug] 0 each PO DAILY 09/27/19 [History] Course - Re-Assessments/Exams Free Text/Narrative Re-Assessment/Exam: 09/27/19 21:30 Reassessed the patient. She is in no acute distress. Resting comfortably. On examination her oxygen saturation is 90% on room air. She reports no prior history of oxygen requirement nor does she have any cough, dyspnea or chest pain. She reports no history of DVT or PE. Discussed all lab results and recommendation for admission to the hospital given her weakness, elevated CPK and to monitor her renal function. She agrees with this plan. Also discussed UTI and I will dose her with an antibiotic. She is in agreement with this. On record review, it is listed in the patient's chart that there is a prior history of DVT. 09/27/19 21:50 Dr. Minaya called back. We discussed the case. He accepts the admission. Disc ussed my concerns for the patient's hypoxia with her history of DVT, concern for potential PE though the patient is not having any chest pain or difficulty breathing. Based on the patient's creatinine and GFR at this time, radiology reports that the patient is unable to receive CT scan. This was discussed with the technician semiconductor development who did discuss this with the radiologist. I have already given Lovenox presumptively while awaiting to obtain appropriate imaging. I discussed with Dr. Minaya that we cannot obtain CT Angio of the chest for this patient at this time. Also VQ scan is not available at this facility on the weekend. Agrees with plan to recheck creatinine and possibly order CT scan in the morning depending on symptoms. 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 Past medical history: As per history of present illness and as reviewed below otherwise noncontributory. Surgical history: As per history of present illness and as reviewed below otherwise noncontributory. Social history: No reported history of drug or alcohol abuse. Family history: As per history of present illness and as reviewed below otherwise noncontributo ry. Physical exam: Contusional: Morbidly obese elderly female HEENT: Atraumatic, normocephalic, pupils reactive, negative for conjunctival pallor or scleral icterus, mucous membranes moist, throat clear, neck supple, nontender, trachea midline. Lungs: Clear to auscultation, breath sounds equal bilaterally, chest nontender. Heart: S1S2, regular, negative for clicks, rubs, or JVD. Abdomen: Soft, nondistended, nontender. Negative for masses or hepatosplenomegaly. Negative for costovertebral tenderness. Pelvis: Stable nontender. Genitourinary: Deferred. Rectal: Deferred. Extremities: Atraumatic, negative for cords or calf pain. Neurovascular unremarkable. Neuro: Awake, alert, oriented. Cranial nerves II through XII unremarkable. Cerebellum unremarkable. Motor and sensory unremarkable throughout. Exam nonfocal. Diagnostics: [] Therapeutics: [] Impression: Generalized weakness [] Plan: [] We will check labs chest x-ray and reassess. Definitive disposition and diagnosis as appropriate pending reevaluation and review of above. PATIENT CARE NOTES History of present illness: Patient presents via EMS after a fall at home transferring from wheelchair to easy chair and fell on the floor no injuries nothing makes it better or worse she was unable to get up and had laid in the floor for several hours before EMS arrived she denies any pain anywhere but she is has been feeling generally weak and lightheaded. She denies any dysuria no chest pain no trouble breathing no fever chills or cough. Right Leg Pain Score (Numeric/FACES): 5 Past Medical History - Past Health History Medical/Surgical History: Denies Medical/Surgical History HEENT History: Reports: Other (See Below) Other HEENT History: uses eyeglasses Cardiovascular History: Reports: Blood Clots/VTE/DVT Gastrointestinal History: Reports: PUD Genitourinary History: Reports: UTI, Recurrent [employer] History: Reports: Musculoskeletal History: Reports: Arthritis Psychiatric History: Reports: Anxiety, Panic Attack Endocrine/Metabolic History: Reports: Obesity/BMI 30+ Oncologic (Cancer) History: Reports: None Dermatologic History: Reports: Cellulitis, Chronic Cellulitis, Other (See Below) Other Dermatologic History: Venous stasis ulcer R Leg - Infectious Disease History Infectious Disease History: Reports: Chicken Pox - Past Surgical History GI Surgical History: Reports: Small Bowel Social & Family History - Family History Family Medical History: Noncontributory HEENT: Reports: None Cardiac: Reports: Heart Failure Respiratory: Reports: None GI: Reports: None : Reports: None OBGYN: Reports: None Musculoskeletal: Reports: Back pain, Chronic, RA Neurological: Reports: Seizure Psychiatric: Reports: None Endocrine/Metabolic: Reports: Diabetes, type II, Obesity/MBI 30+ Hematologic: Reports: Anemia Immunologic: Reports: None Dermatologic: Reports: None Oncologic: Reports: Lung, Uterine - Caffeine Use Caffeine Use: Reports: None ED ROS GENERAL - Review of Systems Review Of Systems: See Below ED EXAM, GENERAL - Physical Exam Exam: See Below EKG INTERPRETATION EKG Interpretation Comments: Normal sinus rhythm rate of [address]-T changes no acute ischemia read and interpreted by me Course - Vital Signs Text/Narrative:: Will be handed over to Dr. Shah shift change Last Recorded V/S: Last Vital Signs Temp 36.4 C 09/28/19 03:30 Pulse 90 09/28/19 03:30 Resp 20 09/28/19 03:30 BP 108/59 L 09/28/19 03:30 Pulse Ox 93 L 09/28/19 03:30 - Orders/Labs/Meds Orders: Active Orders 24 hr Category Date Time Status Patient Status [ADT] Routine ADT 09/27/19 22:02 Active Sodium Chloride 0.9% [Saline Flush] Med 09/27/19 18:34 Active 10 ml FLUSH ASDIRECTED PRN Sodium Chloride 0.9% [Saline Flush] Med 09/27/19 18:34 Active 2.5 ml FLUSH ASDIRECTED PRN Saline Lock Insert [OM.PC] Stat Oth 09/27/19 18:34 Ordered Medication Orders Acetaminophen (Tylenol) 650 mg PO Q6H PRN PRN Reason: Pain Last Admin: 09/28/19 04:15 Dose: 650 mg Documented by: ALVAREZ Sodium Chloride (Normal Saline) 1,000 mls @ 125 mls/hr IV ASDIRECTED [facility] Last Admin: 09/28/19 03:06 Dose: 125 mls/hr Documented by: CORRIEHR Ceftriaxone Sodium 1 gm/ (Sodium Chloride) 50 mls @ 100 mls/hr IV Q24H [facility] Insulin Aspart (Novolog) 0 unit SUBCUT TIDAC [facility]; Protocol Nystatin (Nystop) 1 gm TOP TID [facility] Last Admin: 09/28/19 05:26 Dose: 1 gm Documented by: ALVAREZ Sodium Chloride (Saline Flush) 10 ml FLUSH ASDIRECTED PRN PRN Reason: Keep Vein Open Sodium Chloride (Saline Flush) 2.5 ml FLUSH ASDIRECTED PRN PRN Reason: Keep Vein Open Labs: Laboratory Tests 09/27/19 09/27/19 09/27/19 Range/Units 20:14 20:17 20:17 WBC 9.63 (4.0-11.0) K/uL RBC 3.79 L (4.30-5.90) M/uL Hgb 11.0 L (12.0-16.0) g/dL Hct 35.2 L (36.0-46.0) % MCV 92.9 (80.0-98.0) fL MCH 29.0 (27.0-32.0) pg MCHC 31.3 (31.0-37.0) g/dL RDW Std Deviation 65.6 H (28.0-62.0) fl RDW Coeff of Rachid 19 H (11.0-15.0) % Plt Count 110 L (150-400) K/uL MPV 9.10 (7.40-12.00) fL Neut % (Auto) 68.4 (48.0-80.0) % Lymph % (Auto) 17.4 (16.0-40.0) % Glenn % (Auto) 13.8 (0.0-15.0) % Eos % (Auto) 0.2 (0.0-7.0) % Baso % (Auto) 0.2 (0.0-1.5) % Neut # (Auto) 6.6 H (1.4-5.7) K/uL Lymph # (Auto) 1.7 (0.6-2.4) K/uL Glenn # (Auto) 1.3 H (0.0-0.8) K/uL Eos # (Auto) 0.0 (0.0-0.7) K/uL Baso # (Auto) 0.0 (0.0-0.1) K/uL Nucleated RBC % 0.0 /100WBC Nucleated RBCs # 0 K/uL Sodium 131 L (136-145) mmol/L Potassium 4.2 (3.5-5.1) mmol/L Chloride 96 L (98-107) mmol/L Carbon Dioxide 24.6 (21.0-32.0) mmol/L BUN 31 H (7.0-18.0) mg/dL Creatinine 1.5 H (0.6-1.0) mg/dL Est Cr Clr Drug Dosing 37.81 mL/min Estimated GFR (MDRD) 35.2 ml/min Glucose 107 H (74-106) mg/dL Calcium 8.1 L (8.5-10.1) mg/dL Total Bilirubin 1.2 H (0.2-1.0) mg/dL AST 50 H (15-37) IU/L ALT 10 L (14-63) IU/L Alkaline Phosphatase 85 (46-116) U/L Creatine Kinase 842 H (26-308) U/L Total Protein 5.6 L (6.4-8.2) g/dL Albumin 2.0 L (3.4-5.0) g/dL Globulin 3.6 (2.6-4.0) g/dL Albumin/Globulin Ratio 0.6 L (0.9-1.6) Urine Color YELLOW Urine Appearance CLOUDY Urine pH >= 9.0 H (5.0-8.0) Ur Specific [place] 1.010 (1.001-1.035) Urine Protein TRACE H (NEGATIVE) mg/dL Urine Glucose (UA) NEGATIVE (NEGATIVE) mg/dL Urine Ketones NEGATIVE (NEGATIVE) mg/dL Urine Occult Blood SMALL H (NEGATIVE) Urine Nitrite NEGATIVE (NEGATIVE) Urine Bilirubin NEGATIVE (NEGATIVE) Urine Urobilinogen 0.2 (<2.0) EU/dL Ur Leukocyte Esterase TRACE H (NEGATIVE) Urine RBC 5-8 (0-2/HPF) Urine WBC 30-40 (0-5/HPF) Ur Epithelial Cells OCCASIONAL (NONE-FEW) Amorphous Sediment MODERATE (NEGATIVE) Urine Bacteria 1+ H (NEGATIVE) Urine Mucus MODERATE (NONE-MOD) Urinalysis Comment SARS-CoV-2 RNA (RT-PCR) (NEGATIVE) 09/27/19 Range/Units 22:00 WBC (4.0-11.0) K/uL RBC (4.30-5.90) M/uL Hgb (12.0-16.0) g/dL Hct (36.0-46.0) % MCV (80.0-98.0) fL MCH (27.0-32.0) pg MCHC (31.0-37.0) g/dL RDW Std Deviation (28.0-62.0) fl RDW Coeff of Rachid (11.0-15.0) % Plt Count (150-400) K/uL MPV (7.40-12.00) fL Neut % (Auto) (48.0-80.0) % Lymph % (Auto) (16.0-40.0) % Glenn % (Auto) (0.0-15.0) % Eos % (Auto) (0.0-7.0) % Baso % (Auto) (0.0-1.5) % Neut # (Auto) (1.4-5.7) K/uL Lymph # (Auto) (0.6-2.4) K/uL Glenn # (Auto) (0.0-0.8) K/uL Eos # (Auto) (0.0-0.7) K/uL Baso # (Auto) (0.0-0.1) K/uL Nucleated RBC % /100WBC Nucleated RBCs # K/uL Sodium (136-145) mmol/L Potassium (3.5-5.1) mmol/L Chloride (98-107) mmol/L Carbon Dioxide (21.0-32.0) mmol/L BUN (7.0-18.0) mg/dL Creatinine (0.6-1.0) mg/dL Est Cr Clr Drug Dosing mL/min Estimated GFR (MDRD) ml/min Glucose (74-106) mg/dL Calcium (8.5-10.1) mg/dL Total Bilirubin (0.2-1.0) mg/dL AST (15-37) IU/L ALT (14-63) IU/L Alkaline Phosphatase (46-116) U/L Creatine Kinase (26-308) U/L Total Protein (6.4-8.2) g/dL Albumin (3.4-5.0) g/dL Globulin (2.6-4.0) g/dL Albumin/Globulin Ratio (0.9-1.6) Urine Color Urine Appearance Urine pH (5.0-8.0) Ur Specific [place] (1.001-1.035) Urine Protein (NEGATIVE) mg/dL Urine Glucose (UA) (NEGATIVE) mg/dL Urine Ketones (NEGATIVE) mg/dL Urine Occult Blood (NEGATIVE) Urine Nitrite (NEGATIVE) Urine Bilirubin (NEGATIVE) Urine Urobilinogen (<2.0) EU/dL Ur Leukocyte Esterase (NEGATIVE) Urine RBC (0-2/HPF) Urine WBC (0-5/HPF) Ur Epithelial Cells (NONE-FEW) Amorphous Sediment (NEGATIVE) Urine Bacteria (NEGATIVE) Urine Mucus (NONE-MOD) Urinalysis Comment SARS-CoV-2 RNA (RT-PCR) NEGATIVE (NEGATIVE) Meds: Medications Generic Name Dose Route Start Last Admin Trade Name Freq PRN Reason Stop Dose Admin Acetaminophen 650 mg 09/28/19 04:07 09/28/19 04:15 Tylenol PO 650 mg Q6H PRN Administration Pain Sodium Chloride 1,000 mls @ 125 mls/hr 09/28/19 01:00 09/28/19 03:06 Normal Saline IV 125 mls/hr ASDIRECTED JONO Administration Ceftriaxone Sodium 1 gm/ 50 mls @ 100 mls/hr 09/28/19 23:00 Sodium Chloride IV Q24H [facility] Insulin Aspart 0 unit 09/28/19 07:30 Novolog SUBCUT TIDAC [facility] Protocol Nystatin 1 gm 09/28/19 06:00 09/28/19 05:26 Nystop TOP 1 gm TID JONO Administration Sodium Chloride 10 ml 09/27/19 18:34 Saline Flush FLUSH ASDIRECTED PRN Keep Vein Open Sodium Chloride 2.5 ml 09/27/19 18:34 Saline Flush FLUSH ASDIRECTED PRN Keep Vein Open Discontinued Medications Generic Name Dose Route Start Last Admin Trade Name Freq PRN Reason Stop Dose Admin Enoxaparin Sodium 140 mg 09/27/19 21:46 09/27/19 22:49 Lovenox SUBCUT 09/27/19 21:47 140 mg ONETIME ONE Administration Sodium Chloride 1,000 mls @ 999 mls/hr 09/27/19 20:58 09/27/19 21:23 Normal Saline IV 09/27/19 21:58 999 mls/hr .Bolus ONE Administration Ceftriaxone Sodium/Dextrose 1 50 mls @ 100 mls/hr 09/27/19 22:01 09/27/19 22:48 gm/ Premix IV 09/27/19 22:30 100 mls/hr ONETIME ONE Administration Sepsis Event Note (ED) - Evaluation Sepsis Screening Result: No Definite Risk - Focused Exam Vital Signs: Vital Signs Pulse Resp BP Pulse Ox 09/27/19 21:25 89 20 93/49 L 96 09/27/19 20:54 92 20 93 L - My Orders Last 24 Hours: My Active Orders 09/27/19 18:34 Sodium Chloride 0.9% [Saline Flush] 10 ml FLUSH ASDIRECTED PRN Sodium Chloride 0.9% [Saline Flush] 2.5 ml FLUSH ASDIRECTED PRN Saline Lock Insert [OM.PC] Stat - Assessment/Plan Last 24 Hours: My Active Orders 09/27/19 18:34 Sodium Chloride 0.9% [Saline Flush] 10 ml FLUSH ASDIRECTED PRN Sodium Chloride 0.9% [Saline Flush] 2.5 ml FLUSH ASDIRECTED PRN Saline Lock Insert [OM.PC] Stat
[2019-09-27] MEDS ORDERED: Aspirin 300 MG Supp RECTAL ONE (19:00)
--- NOTE | 2019-09-27 19:38 | CR ---
Chest: Portable view of the chest was obtained. Comparison: Previous chest x-ray of 05/27/19 is available. Heart size within normal limits for portable technique. Upper mediastinum is normal. Lungs are clear with no acute parenchymal change. Bony structures are grossly intact. Impression: 1. Nothing acute is appreciated on portable chest x-ray. Diagnostic code #1 This report was dictated in MDT
[2019-09-27 20:45] LABS: CARBON DIOXIDE,CO2 24.6 mmol/L (21.0-32.0); POTASSIUM,K 4.2 mmol/L (3.5-5.1)
[2019-09-27] MEDS ORDERED: Sodium Chloride 0.9% 1,000 ML IV ONE (20:58)
[2019-09-27] MEDS ORDERED: Enoxaparin 150 MG/1 ML Syringe SUBCUT ONE (21:46)
[2019-09-27] MEDS ORDERED: cefTRIAXone 1 GM in Premix Bag 1 BAG IV ONE (22:01)
--- NOTE | 2019-09-28 00:59 | PCM.HP.2 ---
H&P History of Present Illness - General Date of Service: 09/28/19 Admit Problem/Dx: Admission Diagnosis/Problem Admission Diagnosis/Problem Weakness - History of Present Illness Initial Comments - Free Text/Narative: 64 yo female with pmh of recurrent UTI, recurrent cellulitis with right leg ulcer, PUD, DVT who presented to the ED after a fall. PAtient fell while transfering from her wheelchair. She was on the ground for four hours before her found her. She reports generalized weakness, but denies any loss of conciousness, or dizziness. Patient denies any fevers. PAtient does report shortness of breath, but denies chest pain. - Related Data Allergies/Adverse Reactions: Allergies Allergy/AdvReac Type Severity Reaction Status Date / Time No Known Allergies Allergy Verified 09/27/19 23:17 Home Medications: Home Meds Gauze Bandage [Rolled Gauze] 1 each TP DAILY #1 packet 06/03/19 [Rx] Non-Adherent Bandage [Combine Abd] 1 each TP DAILY #1 packet 06/03/19 [Rx] Silver/Hydrocolloid Dressing [Aquacel Ag Burn 5"X4" Dressing] 1 each TP DAILY #1 packet 06/03/19 [Rx] Hydrocolloid Dressing [Tegaderm Hydrocolloid] 1 each TP DAILY #15 bandage 06/05/19 [Rx] Non-Formulary Medication [NF Drug] 0 each PO DAILY 09/27/19 [History] Past Medical History - Past Health History Medical/Surgical History: Denies Medical/Surgical History HEENT History: Reports: Other (See Below) Other HEENT History: uses eyeglasses Cardiovascular History: Reports: Blood Clots/VTE/DVT Gastrointestinal History: Reports: PUD Genitourinary History: Reports: UTI, Recurrent [employer] History: Reports: Musculoskeletal History: Reports: Arthritis Psychiatric History: Reports: Anxiety, Panic Attack Endocrine/Metabolic History: Reports: Obesity/BMI 30+ Oncologic (Cancer) History: Reports: None Dermatologic History: Reports: Cellulitis, Chronic Cellulitis, Other (See Below) Other Dermatologic History: Venous stasis ulcer R Leg - Infectious Disease History Infectious Disease History: Reports: Chicken Pox - Past Surgical History GI Surgical History: Reports: Small Bowel Social & Family History - Family History Family Medical History: Noncontributory HEENT: Reports: None Cardiac: Reports: Heart Failure Respiratory: Reports: None GI: Reports: None : Reports: None OBGYN: Reports: None Musculoskeletal: Reports: Back pain, Chronic, RA Neurological: Reports: Seizure Psychiatric: Reports: None Endocrine/Metabolic: Reports: Diabetes, type II, Obesity/MBI 30+ Hematologic: Reports: Anemia Immunologic: Reports: None Dermatologic: Reports: None Oncologic: Reports: Lung, Uterine - Tobacco Use Smoking Status *Q: Never Smoker - Caffeine Use Caffeine Use: Reports: None - Recreational Drug Use Recreational Drug Use: No H&P Review of Systems - Review of Systems: Review Of Systems: Comprehensive ROS is negative, except as noted in HPI. Exam - Exam Exam: See Below - Vital Signs Vital Signs: Last Vital Signs Temp 37.0 C 09/27/19 23:15 Pulse 90 09/27/19 23:15 Resp 18 09/27/19 23:15 BP 91/42 L 09/27/19 23:15 Pulse Ox 97 09/27/19 23:15 Weight: 143.789 kg - Exam General: Alert, Oriented, Other (obese) HEENT: Mucosa Moist & [place] Lungs: Clear to Auscultation, Normal Respiratory Effort Cardiovascular: Regular Rate, Regular Rhythm GI/Abdominal Exam: Soft, Non-Tender, No Distention Extremities: No Pedal Edema (+1), Other (large healing ulcer of right calf) Skin: Rash (red trever rash in abdominal folds) Neurological: No: Focal Deficit - Patient Data Lab Results Last 24 hrs: Laboratory Results - last 24 hr 09/27/19 09/27/19 09/27/19 Range/Units 20:14 20:17 20:17 WBC 9.63 (4.0-11.0) K/uL RBC 3.79 L (4.30-5.90) M/uL Hgb 11.0 L (12.0-16.0) g/dL Hct 35.2 L (36.0-46.0) % MCV 92.9 (80.0-98.0) fL MCH 29.0 (27.0-32.0) pg MCHC 31.3 (31.0-37.0) g/dL RDW Std Deviation 65.6 H (28.0-62.0) fl RDW Coeff of Rachid 19 H (11.0-15.0) % Plt Count 110 L (150-400) K/uL MPV 9.10 (7.40-12.00) fL Neut % (Auto) 68.4 (48.0-80.0) % Lymph % (Auto) 17.4 (16.0-40.0) % [place] % (Auto) 13.8 (0.0-15.0) % Eos % (Auto) 0.2 (0.0-7.0) % Baso % (Auto) 0.2 (0.0-1.5) % Neut # (Auto) 6.6 H (1.4-5.7) K/uL Lymph # (Auto) 1.7 (0.6-2.4) K/uL [place] # (Auto) 1.3 H (0.0-0.8) K/uL Eos # (Auto) 0.0 (0.0-0.7) K/uL Baso # (Auto) 0.0 (0.0-0.1) K/uL Nucleated RBC % 0.0 /100WBC Nucleated RBCs # 0 K/uL Sodium 131 L (136-145) mmol/L Potassium 4.2 (3.5-5.1) mmol/L Chloride 96 L (98-107) mmol/L Carbon Dioxide 24.6 (21.0-32.0) mmol/L BUN 31 H (7.0-18.0) mg/dL Creatinine 1.5 H (0.6-1.0) mg/dL Est Cr Clr Drug Dosing 37.81 mL/min Estimated GFR (MDRD) 35.2 ml/min Glucose 107 H (74-106) mg/dL Calcium 8.1 L (8.5-10.1) mg/dL Total Bilirubin 1.2 H (0.2-1.0) mg/dL AST 50 H (15-37) IU/L ALT 10 L (14-63) IU/L Alkaline Phosphatase 85 (46-116) U/L Creatine Kinase 842 H (26-308) U/L Total Protein 5.6 L (6.4-8.2) g/dL Albumin 2.0 L (3.4-5.0) g/dL Globulin 3.6 (2.6-4.0) g/dL Albumin/Globulin Ratio 0.6 L (0.9-1.6) Urine Color YELLOW Urine Appearance CLOUDY Urine pH >= 9.0 H (5.0-8.0) Ur Specific [place] 1.010 (1.001-1.035) Urine Protein TRACE H (NEGATIVE) mg/dL Urine Glucose (UA) NEGATIVE (NEGATIVE) mg/dL Urine Ketones NEGATIVE (NEGATIVE) mg/dL Urine Occult Blood SMALL H (NEGATIVE) Urine Nitrite NEGATIVE (NEGATIVE) Urine Bilirubin NEGATIVE (NEGATIVE) Urine Urobilinogen 0.2 (<2.0) EU/dL Ur Leukocyte Esterase TRACE H (NEGATIVE) Urine RBC 5-8 (0-2/HPF) Urine WBC 30-40 (0-5/HPF) Ur Epithelial Cells OCCASIONAL (NONE-FEW) Amorphous Sediment MODERATE (NEGATIVE) Urine Bacteria 1+ H (NEGATIVE) Urine Mucus MODERATE (NONE-MOD) Urinalysis Comment SARS-CoV-2 RNA (RT-PCR) (NEGATIVE) 09/27/19 Range/Units 22:00 WBC (4.0-11.0) K/uL RBC (4.30-5.90) M/uL Hgb (12.0-16.0) g/dL Hct (36.0-46.0) % MCV (80.0-98.0) fL MCH (27.0-32.0) pg MCHC (31.0-37.0) g/dL RDW Std Deviation (28.0-62.0) fl RDW Coeff of Rachid (11.0-15.0) % Plt Count (150-400) K/uL MPV (7.40-12.00) fL Neut % (Auto) (48.0-80.0) % Lymph % (Auto) (16.0-40.0) % [place] % (Auto) (0.0-15.0) % Eos % (Auto) (0.0-7.0) % Baso % (Auto) (0.0-1.5) % Neut # (Auto) (1.4-5.7) K/uL Lymph # (Auto) (0.6-2.4) K/uL [place] # (Auto) (0.0-0.8) K/uL Eos # (Auto) (0.0-0.7) K/uL Baso # (Auto) (0.0-0.1) K/uL Nucleated RBC % /100WBC Nucleated RBCs # K/uL Sodium (136-145) mmol/L Potassium (3.5-5.1) mmol/L Chloride (98-107) mmol/L Carbon Dioxide (21.0-32.0) mmol/L BUN (7.0-18.0) mg/dL Creatinine (0.6-1.0) mg/dL Est Cr Clr Drug Dosing mL/min Estimated GFR (MDRD) ml/min Glucose (74-106) mg/dL Calcium (8.5-10.1) mg/dL Total Bilirubin (0.2-1.0) mg/dL AST (15-37) IU/L ALT (14-63) IU/L Alkaline Phosphatase (46-116) U/L Creatine Kinase (26-308) U/L Total Protein (6.4-8.2) g/dL Albumin (3.4-5.0) g/dL Globulin (2.6-4.0) g/dL Albumin/Globulin Ratio (0.9-1.6) Urine Color Urine Appearance Urine pH (5.0-8.0) Ur Specific [place] (1.001-1.035) Urine Protein (NEGATIVE) mg/dL Urine Glucose (UA) (NEGATIVE) mg/dL Urine Ketones (NEGATIVE) mg/dL Urine Occult Blood (NEGATIVE) Urine Nitrite (NEGATIVE) Urine Bilirubin (NEGATIVE) Urine Urobilinogen (<2.0) EU/dL Ur Leukocyte Esterase (NEGATIVE) Urine RBC (0-2/HPF) Urine WBC (0-5/HPF) Ur Epithelial Cells (NONE-FEW) Amorphous Sediment (NEGATIVE) Urine Bacteria (NEGATIVE) Urine Mucus (NONE-MOD) Urinalysis Comment SARS-CoV-2 RNA (RT-PCR) NEGATIVE (NEGATIVE) Result Diagrams: 09/28/19 05:42 09/28/19 05:42 Sepsis Event Note - Evaluation Sepsis Screening Result: No Definite Risk - Focused Exam Vital Signs: Vital Signs Temp Pulse Resp BP Pulse Ox 09/27/19 23:15 37.0 C 90 18 91/42 L 97 09/27/19 22:53 36.8 C 87 24 H 102/57 L 92 L 09/27/19 22:52 86 20 102/57 L 96 09/27/19 21:25 89 20 93/49 L 96 09/27/19 20:54 92 20 93 L 09/27/19 18:23 36.3 C 89 16 101/57 L 91 L Date Exam was Performed: 09/28/19 Time Exam was Performed: 12:48 Problem List Initiated/Reviewed/Updated: Yes Orders Last 24hrs: Active Orders 24 hr Category Date Time Status Patient Status [ADT] Routine ADT 09/27/19 22:02 Active Antiembolic Devices [RC] PER UNIT ROUTINE Care 09/28/19 00:52 Active Overnight Pulse Oximetry [RC] Click to Edit Care 09/28/19 00:24 Active Oxygen Therapy [RC] PRN Care 09/28/19 00:51 Active Up ad Ela [RC] ASDIRECTED Care 09/28/19 00:51 Active VTE/DVT Education [RC] PER UNIT ROUTINE Care 09/28/19 00:51 Active Vital Signs [RC] Q4H Care 09/28/19 00:51 Active ADA Diabetic [[place] [employer] Diet] [DIET Diet 09/28/19 Breakfast Active ] BASIC METABOLIC PANEL,BMP [CHEM] AM Lab 09/28/19 05:11 Ordered CBC WITH AUTO DIFF [HEME] AM Lab 09/28/19 05:11 Ordered CREATINE KINASE,CK [CHEM] AM Lab 09/28/19 05:11 Ordered CULTURE URINE [RM] Routine Lab 09/28/19 00:54 Ordered Insulin Aspart [NovoLOG] Med 09/28/19 07:30 Active See Protocol SUBCUT TIDAC Nystatin [Nystop] Med 09/28/19 06:00 Active 1 gm TOP TID Sodium Chloride 0.9% [Normal Saline] 1,000 ml Med 09/28/19 01:00 Active IV ASDIRECTED Sodium Chloride 0.9% [Saline Flush] Med 09/27/19 18:34 Active 10 ml FLUSH ASDIRECTED PRN Sodium Chloride 0.9% [Saline Flush] Med 09/27/19 18:34 Active 2.5 ml FLUSH ASDIRECTED PRN cefTRIAXone [Rocephin] 1 gm Med 09/28/19 23:00 Active Sodium Chloride 0.9% [Normal Saline] 50 ml IV Q24H Pulse Oximetry Continuous Monitoring [OM.PC] Routine Oth 09/28/19 00:23 Ordere d Saline Lock Insert [OM.PC] Stat Oth 09/27/19 18:34 Ordered Sequential Compression Device [OM.PC] Per Unit Routine Oth 09/28/19 00:52 Ordered Resuscitation Status Routine Resus Stat 09/28/19 00:51 Ordered Medication Orders Sodium Chloride (Normal Saline) 1,000 mls @ 125 mls/hr IV ASDIRECTED JONO Ceftriaxone Sodium 1 gm/ (Sodium Chloride) 50 mls @ 100 mls/hr IV Q24H JONO Insulin Aspart (Novolog) 0 unit SUBCUT TIDAC JONO; Protocol Nystatin (Nystop) 1 gm TOP TID JONO Sodium Chloride (Saline Flush) 10 ml FLUSH ASDIRECTED PRN PRN Reason: Keep Vein Open Sodium Chloride (Saline Flush) 2.5 ml FLUSH ASDIRECTED PRN PRN Reason: Keep Vein Open Assessment/Plan Comment:: 64 yo female admitted after fall for dehydration, acute kidney injury, and UTI. We will hydrate with IV fluids and treat UTI with rocephin. She has recieved lovenox in ED due to concerns of PE.
[2019-09-28] MEDS: Sodium Chloride 0.9% 1,000 ML IV SCH ×3 (03:06→20:55)
[2019-09-28] MEDS: Acetaminophen 325 MG Tab PO PRN (04:15)
[2019-09-28] MEDS: Nystatin Topical Powder 15 GM Bottle TOP SCH ×4 (05:26→22:22)
[2019-09-28 06:39] LABS: CARBON DIOXIDE,CO2 24.6 mmol/L (21.0-32.0)
[2019-09-28] MEDS: Insulin Aspart 100 Units/ML 3 ML Pen SUBCUT SCH ×3 (07:20→17:25)
--- NOTE | 2019-09-28 11:50 | PCM.PN ---
- General Info Date of Service: 09/28/19 Subjective Update: NO new complaints; - Review of Systems General: Reports: Weakness. Denies: Fever, Chills HEENT: Reports: No Symptoms Pulmonary: Reports: No Symptoms Cardiovascular: Reports: No Symptoms Gastrointestinal: Reports: No Symptoms Genitourinary: Reports: Burning, Incontinence. Denies: Urgency Musculoskeletal: Reports: Leg Pain Skin: Reports: Rash Neurological: Denies: Confusion, Dizziness, Headache Psychiatric: Reports: No Symptoms - Patient Data Vitals - Most Recent: Last Vital Signs Temp 96.5 F L 09/28/19 08:09 Pulse 86 09/28/19 08:09 Resp 14 09/28/19 08:09 BP 108/50 L 09/28/19 08:09 Pulse Ox 95 09/28/19 08:09 Weight - Most Recent: 143.789 kg I&O - Last 24 Hours: Intake & Output 09/27/19 09/28/19 09/28/19 22:59 06:59 14:59 Intake Total 300 Output Total 300 Balance 0 Lab Results Last 24 Hours: Laboratory Results - last 24 hr 09/27/19 09/27/19 09/27/19 Range/Units 20:14 20:17 20:17 WBC 9.63 (4.0-11.0) K/uL RBC 3.79 L (4.30-5.90) M/uL Hgb 11.0 L (12.0-16.0) g/dL Hct 35.2 L (36.0-46.0) % MCV 92.9 (80.0-98.0) fL MCH 29.0 (27.0-32.0) pg MCHC 31.3 (31.0-37.0) g/dL RDW Std Deviation 65.6 H (28.0-62.0) fl RDW Coeff of Rachid 19 H (11.0-15.0) % Plt Count 110 L (150-400) K/uL MPV 9.10 (7.40-12.00) fL Neut % (Auto) 68.4 (48.0-80.0) % Lymph % (Auto) 17.4 (16.0-40.0) % [place] % (Auto) 13.8 (0.0-15.0) % Eos % (Auto) 0.2 (0.0-7.0) % Baso % (Auto) 0.2 (0.0-1.5) % Neut # (Auto) 6.6 H (1.4-5.7) K/uL Lymph # (Auto) 1.7 (0.6-2.4) K/uL [place] # (Auto) 1.3 H (0.0-0.8) K/uL Eos # (Auto) 0.0 (0.0-0.7) K/uL Baso # (Auto) 0.0 (0.0-0.1) K/uL Nucleated RBC % 0.0 /100WBC Nucleated RBCs # 0 K/uL Sodium 131 L (136-145) mmol/L Potassium 4.2 (3.5-5.1) mmol/L Chloride 96 L (98-107) mmol/L Carbon Dioxide 24.6 (21.0-32.0) mmol/L BUN 31 H (7.0-18.0) mg/dL Creatinine 1.5 H (0.6-1.0) mg/dL Est Cr Clr Drug Dosing 37.81 mL/min Estimated GFR (MDRD) 35.2 ml/min Glucose 107 H (74-106) mg/dL POC Glucose (60-110) mg/dL Calcium 8.1 L (8.5-10.1) mg/dL Total Bilirubin 1.2 H (0.2-1.0) mg/dL AST 50 H (15-37) IU/L ALT 10 L (14-63) IU/L Alkaline Phosphatase 85 (46-116) U/L Creatine Kinase 842 H (26-308) U/L Total Protein 5.6 L (6.4-8.2) g/dL Albumin 2.0 L (3.4-5.0) g/dL Globulin 3.6 (2.6-4.0) g/dL Albumin/Globulin Ratio 0.6 L (0.9-1.6) Urine Color YELLOW Urine Appearance CLOUDY Urine pH >= 9.0 H (5.0-8.0) Ur Specific [place] 1.010 (1.001-1.035) Urine Protein TRACE H (NEGATIVE) mg/dL Urine Glucose (UA) NEGATIVE (NEGATIVE) mg/dL Urine Ketones NEGATIVE (NEGATIVE) mg/dL Urine Occult Blood SMALL H (NEGATIVE) Urine Nitrite NEGATIVE (NEGATIVE) Urine Bilirubin NEGATIVE (NEGATIVE) Urine Urobilinogen 0.2 (<2.0) EU/dL Ur Leukocyte Esterase TRACE H (NEGATIVE) Urine RBC 5-8 (0-2/HPF) Urine WBC 30-40 (0-5/HPF) Ur Epithelial Cells OCCASIONAL (NONE-FEW) Amorphous Sediment MODERATE (NEGATIVE) Urine Bacteria 1+ H (NEGATIVE) Urine Mucus MODERATE (NONE-MOD) Urinalysis Comment SARS-CoV-2 RNA (RT-PCR) (NEGATIVE) 09/27/19 09/28/19 09/28/19 Range/Units 22:00 05:42 05:42 WBC 8.21 (4.0-11.0) K/uL RBC 3.47 L (4.30-5.90) M/uL Hgb 10.1 L (12.0-16.0) g/dL Hct 32.1 L (36.0-46.0) % MCV 92.5 (80.0-98.0) fL MCH 29.1 (27.0-32.0) pg MCHC 31.5 (31.0-37.0) g/dL RDW Std Deviation 65.8 H (28.0-62.0) fl RDW Coeff of Rachid 20 H (11.0-15.0) % Plt Count 117 L (150-400) K/uL MPV 9.40 (7.40-12.00) fL Neut % (Auto) 66.1 (48.0-80.0) % Lymph % (Auto) 18.3 (16.0-40.0) % [place] % (Auto) 14.9 (0.0-15.0) % Eos % (Auto) 0.5 (0.0-7.0) % Baso % (Auto) 0.2 (0.0-1.5) % Neut # (Auto) 5.4 (1.4-5.7) K/uL Lymph # (Auto) 1.5 (0.6-2.4) K/uL [place] # (Auto) 1.2 H (0.0-0.8) K/uL Eos # (Auto) 0.0 (0.0-0.7) K/uL Baso # (Auto) 0.0 (0.0-0.1) K/uL Nucleated RBC % 0.0 /100WBC Nucleated RBCs # 0 K/uL Sodium 133 L (136-145) mmol/L Potassium 4.0 (3.5-5.1) mmol/L Chloride 98 (98-107) mmol/L Carbon Dioxide 24.6 (21.0-32.0) mmol/L BUN 28 H (7.0-18.0) mg/dL Creatinine 1.4 H (0.6-1.0) mg/dL Est Cr Clr Drug Dosing 40.52 mL/min Estimated GFR (MDRD) 38.1 ml/min Glucose 95 (74-106) mg/dL POC Glucose (60-110) mg/dL Calcium 7.5 L (8.5-10.1) mg/dL Total Bilirubin (0.2-1.0) mg/dL AST (15-37) IU/L ALT (14-63) IU/L Alkaline Phosphatase (46-116) U/L Creatine Kinase 907 H (26-308) U/L Total Protein (6.4-8.2) g/dL Albumin (3.4-5.0) g/dL Globulin (2.6-4.0) g/dL Albumin/Globulin Ratio (0.9-1.6) Urine Color Urine Appearance Urine pH (5.0-8.0) Ur Specific [place] (1.001-1.035) Urine Protein (NEGATIVE) mg/dL Urine Glucose (UA) (NEGATIVE) mg/dL Urine Ketones (NEGATIVE) mg/dL Urine Occult Blood (NEGATIVE) Urine Nitrite (NEGATIVE) Urine Bilirubin (NEGATIVE) Urine Urobilinogen (<2.0) EU/dL Ur Leukocyte Esterase (NEGATIVE) Urine RBC (0-2/HPF) Urine WBC (0-5/HPF) Ur Epithelial Cells (NONE-FEW) Amorphous Sediment (NEGATIVE) Urine Bacteria (NEGATIVE) Urine Mucus (NONE-MOD) Urinalysis Comment SARS-CoV-2 RNA (RT-PCR) NEGATIVE (NEGATIVE) 09/28/19 Range/Units 06:25 WBC (4.0-11.0) K/uL RBC (4.30-5.90) M/uL Hgb (12.0-16.0) g/dL Hct (36.0-46.0) % MCV (80.0-98.0) fL MCH (27.0-32.0) pg MCHC (31.0-37.0) g/dL RDW Std Deviation (28.0-62.0) fl RDW Coeff of Rachid (11.0-15.0) % Plt Count (150-400) K/uL MPV (7.40-12.00) fL Neut % (Auto) (48.0-80.0) % Lymph % (Auto) (16.0-40.0) % [place] % (Auto) (0.0-15.0) % Eos % (Auto) (0.0-7.0) % Baso % (Auto) (0.0-1.5) % Neut # (Auto) (1.4-5.7) K/uL Lymph # (Auto) (0.6-2.4) K/uL [place] # (Auto) (0.0-0.8) K/uL Eos # (Auto) (0.0-0.7) K/uL Baso # (Auto) (0.0-0.1) K/uL Nucleated RBC % /100WBC Nucleated RBCs # K/uL Sodium (136-145) mmol/L Potassium (3.5-5.1) mmol/L Chloride (98-107) mmol/L Carbon Dioxide (21.0-32.0) mmol/L BUN (7.0-18.0) mg/dL Creatinine (0.6-1.0) mg/dL Est Cr Clr Drug Dosing mL/min Estimated GFR (MDRD) ml/min Glucose (74-106) mg/dL POC Glucose 89 (60-110) mg/dL Calcium (8.5-10.1) mg/dL Total Bilirubin (0.2-1.0) mg/dL AST (15-37) IU/L ALT (14-63) IU/L Alkaline Phosphatase (46-116) U/L Creatine Kinase (26-308) U/L Total Protein (6.4-8.2) g/dL Albumin (3.4-5.0) g/dL Globulin (2.6-4.0) g/dL Albumin/Globulin Ratio (0.9-1.6) Urine Color Urine Appearance Urine pH (5.0-8.0) Ur Specific [place] (1.001-1.035) Urine Protein (NEGATIVE) mg/dL Urine Glucose (UA) (NEGATIVE) mg/dL Urine Ketones (NEGATIVE) mg/dL Urine Occult Blood (NEGATIVE) Urine Nitrite (NEGATIVE) Urine Bilirubin (NEGATIVE) Urine Urobilinogen (<2.0) EU/dL Ur Leukocyte Esterase (NEGATIVE) Urine RBC (0-2/HPF) Urine WBC (0-5/HPF) Ur Epithelial Cells (NONE-FEW) Amorphous Sediment (NEGATIVE) Urine Bacteria (NEGATIVE) Urine Mucus (NONE-MOD) Urinalysis Comment SARS-CoV-2 RNA (RT-PCR) (NEGATIVE) Med Orders - Current: Current Medications Acetaminophen (Tylenol) 650 mg PO Q6H PRN PRN Reason: Pain Last Admin: 09/28/19 04:15 Dose: 650 mg Documented by: Enoxaparin Sodium (Lovenox) 140 mg SUBCUT BID JONO Sodium Chloride (Normal Saline) 1,000 mls @ 125 mls/hr IV ASDIRECTED JONO Last Admin: 09/28/19 03:06 Dose: 125 mls/hr Documented by: Ceftriaxone Sodium/Dextrose 1 (gm/ Premix) 50 mls @ 100 mls/hr IV Q24H [facility] Insulin Aspart (Novolog) 0 unit SUBCUT TIDAC [facility]; Protocol Last Admin: 09/28/19 07:20 Dose: Not Given Documented by: Nystatin (Nystop) 1 gm TOP TID [facility] Last Admin: 09/28/19 11:00 Dose: 1 gm Documented by: Sodium Chloride (Saline Flush) 10 ml FLUSH ASDIRECTED PRN PRN Reason: Keep Vein Open Sodium Chloride (Saline Flush) 2.5 ml FLUSH ASDIRECTED PRN PRN Reason: Keep Vein Open Discontinued Medications Enoxaparin Sodium (Lovenox) 140 mg SUBCUT ONETIME ONE Stop: 09/27/19 21:47 Last Admin: 09/27/19 22:49 Dose: 140 mg Documented by: Sodium Chloride (Normal Saline) 1,000 mls @ 999 mls/hr IV .Bolus ONE Stop: 09/27/19 21:58 Last Admin: 09/27/19 21:23 Dose: 999 mls/hr Documented by: Ceftriaxone Sodium/Dextrose 1 (gm/ Premix) 50 mls @ 100 mls/hr IV ONETIME ONE Stop: 09/27/19 22:30 Last Admin: 09/27/19 22:48 Dose: 100 mls/hr Documented by: - Exam Quality Assessment: No: Supplemental Oxygen General: Alert, Oriented, Cooperative, No Acute Distress HEENT: EOMI Neck: Supple Lungs: Clear to Auscultation, Normal Respiratory Effort Cardiovascular: Regular Rate, Regular Rhythm GI/Abdominal Exam: Soft, Other (obese; red erythmea btw skin folds; concners for poor hygeine ) Extremities: Other (right lower extrmeity: kerlex in-situ no bleed through ) Skin: Warm Wound/Incisions: Dressing Dry and Intact Neurological: No: Normal Gait Psy/Mental Status: Alert Sepsis Event Note - Evaluation Sepsis Screening Result: No Definite Risk - Focused Exam Vital Signs: Vital Signs Temp Pulse Resp BP Pulse Ox 09/28/19 08:09 96.5 F L 86 14 108/50 L 95 09/28/19 03:30 97.5 F 90 20 108/59 L 93 L 09/28/19 00:00 97 Date Exam was Performed: 09/28/19 Time Exam was Performed: 11:45 - Problem List Review Problem List Initiated/Reviewed/Updated: Yes - My Orders Last 24 Hours: My Active Orders 09/28/19 10:51 Admission Status [Patient Status] [ADT] Routine VL Duplex Lwr Ext Art Comp Bi [US] Routine 09/28/19 12:00 Enoxaparin [Lovenox] 140 mg SUBCUT BID - Plan Plan:: 64 yo female admitted after fall for dehydration, acute kidney injury, and UTI. Continue Lovenox; will continue hydration in light of UMA and elevated CPK; will consider rechecking for CT angio/PE if creatinine improves Hx of DVT: will order a lower extremity Duplex b/l to r.o DVT Continue Rocephin: symptoms of dysuria and incontinence PT/OT consulted for evaluation of transfers (e.g: chair to bed)
[2019-09-28] MEDS: Enoxaparin 150 MG/1 ML Syringe SUBCUT SCH ×2 (12:26→20:19)
--- NOTE | 2019-09-28 16:41 | US ---
INDICATION: Elevated lab values. Pain. Erythema. Evaluate for DVT TECHNIQUE: : Ultrasound venous duplex lower extremity bilateral. Compression venous exam was performed using arredondo-scale, color Doppler, and spectral Doppler imaging. COMPARISON: None. FINDINGS: Exam significantly compromised by body habitus. Sonographic imaging demonstrates the common femoral, deep femoral, superficial femoral, popliteal, posterior tibial, peroneal and greater saphenous veins to be fully compressible with normal color Doppler blood flow in both lower extremities. Remainder negative. IMPRESSION: No definite evidence DVT in leg. Grayscale and color Doppler evaluation of both lower extremities is significantly limited by body habitus Dictated by Andriy Dan MD @ Sep 28 2019 4:36PM Signed by Dr. Andriy Dan @ Sep 28 2019 4:40PM
[2019-09-28] MEDS: cefTRIAXone 1 GM in Premix Bag 1 BAG IV SCH (22:23)
[2019-09-29] MEDS: Nystatin Topical Powder 15 GM Bottle TOP SCH ×3 (05:47→22:06)
[2019-09-29] MEDS: Sodium Chloride 0.9% 1,000 ML IV SCH (05:47)
[2019-09-29 06:44] LABS: POTASSIUM,K 3.6 mmol/L (3.5-5.1)
[2019-09-29] MEDS: Insulin Aspart 100 Units/ML 3 ML Pen SUBCUT SCH ×3 (07:14→17:30)
[2019-09-29] MEDS: Enoxaparin 150 MG/1 ML Syringe SUBCUT SCH ×2 (09:13→20:04)
--- NOTE | 2019-09-29 12:18 | PCM.PN ---
- General Info Date of Service: 09/29/19 - Review of Systems Systems Review Comment:: feeling better, no fevers, worried about strength and being able to go home - Patient Data Vitals - Most Recent: Last Vital Signs Temp 36.0 C L 09/29/19 07:00 Pulse 83 09/29/19 07:00 Resp 20 09/29/19 07:00 BP 96/53 L 09/29/19 07:00 Pulse Ox 95 09/29/19 07:00 Weight - Most Recent: 152.407 kg I&O - Last 24 Hours: Intake & Output 09/28/19 09/29/19 09/29/19 22:59 06:59 14:59 Intake Total 1555 1672 Balance 1555 1672 Lab Results Last 24 Hours: Laboratory Results - last 24 hr 09/28/19 09/28/19 09/29/19 Range/Units 12:24 17:23 05:54 WBC 6.56 (4.0-11.0) K/uL RBC 3.28 L (4.30-5.90) M/uL Hgb 9.6 L (12.0-16.0) g/dL Hct 30.9 L (36.0-46.0) % MCV 94.2 (80.0-98.0) fL MCH 29.3 (27.0-32.0) pg MCHC 31.1 (31.0-37.0) g/dL RDW Std Deviation 68.6 H (28.0-62.0) fl RDW Coeff of Rachid 20 H (11.0-15.0) % Plt Count 122 L (150-400) K/uL MPV 9.70 (7.40-12.00) fL Neut % (Auto) 63.4 (48.0-80.0) % Lymph % (Auto) 16.6 (16.0-40.0) % [place] % (Auto) 18.3 H (0.0-15.0) % Eos % (Auto) 1.5 (0.0-7.0) % Baso % (Auto) 0.2 (0.0-1.5) % Neut # (Auto) 4.2 (1.4-5.7) K/uL Lymph # (Auto) 1.1 (0.6-2.4) K/uL [place] # (Auto) 1.2 H (0.0-0.8) K/uL Eos # (Auto) 0.1 (0.0-0.7) K/uL Baso # (Auto) 0.0 (0.0-0.1) K/uL Nucleated RBC % 0.0 /100WBC Nucleated RBCs # 0 K/uL Sodium (136-145) mmol/L Potassium (3.5-5.1) mmol/L Chloride (98-107) mmol/L Carbon Dioxide (21.0-32.0) mmol/L BUN (7.0-18.0) mg/dL Creatinine (0.6-1.0) mg/dL Est Cr Clr Drug Dosing mL/min Estimated GFR (MDRD) ml/min Glucose (74-106) mg/dL POC Glucose 118 H 98 (60-110) mg/dL Calcium (8.5-10.1) mg/dL Total Bilirubin (0.2-1.0) mg/dL AST (15-37) IU/L ALT (14-63) IU/L Alkaline Phosphatase (46-116) U/L Creatine Kinase (26-308) U/L Total Protein (6.4-8.2) g/dL Albumin (3.4-5.0) g/dL Globulin (2.6-4.0) g/dL Albumin/Globulin Ratio (0.9-1.6) 09/29/19 Range/Units 05:54 WBC (4.0-11.0) K/uL RBC (4.30-5.90) M/uL Hgb (12.0-16.0) g/dL Hct (36.0-46.0) % MCV (80.0-98.0) fL MCH (27.0-32.0) pg MCHC (31.0-37.0) g/dL RDW Std Deviation (28.0-62.0) fl RDW Coeff of Rachid (11.0-15.0) % Plt Count (150-400) K/uL MPV (7.40-12.00) fL Neut % (Auto) (48.0-80.0) % Lymph % (Auto) (16.0-40.0) % [place] % (Auto) (0.0-15.0) % Eos % (Auto) (0.0-7.0) % Baso % (Auto) (0.0-1.5) % Neut # (Auto) (1.4-5.7) K/uL Lymph # (Auto) (0.6-2.4) K/uL [place] # (Auto) (0.0-0.8) K/uL Eos # (Auto) (0.0-0.7) K/uL Baso # (Auto) (0.0-0.1) K/uL Nucleated RBC % /100WBC Nucleated RBCs # K/uL Sodium 134 L (136-145) mmol/L Potassium 3.6 (3.5-5.1) mmol/L Chloride 101 (98-107) mmol/L Carbon Dioxide 26.0 (21.0-32.0) mmol/L BUN 24 H (7.0-18.0) mg/dL Creatinine 1.1 H (0.6-1.0) mg/dL Est Cr Clr Drug Dosing 51.43 mL/min Estimated GFR (MDRD) 50.3 ml/min Glucose 106 (74-106) mg/dL POC Glucose (60-110) mg/dL Calcium 7.1 L (8.5-10.1) mg/dL Total Bilirubin 0.5 (0.2-1.0) mg/dL AST 54 H (15-37) IU/L ALT 13 L (14-63) IU/L Alkaline Phosphatase 78 (46-116) U/L Creatine Kinase 311 H (26-308) U/L Total Protein 4.9 L (6.4-8.2) g/dL Albumin 1.6 L (3.4-5.0) g/dL Globulin 3.3 (2.6-4.0) g/dL Albumin/Globulin Ratio 0.5 L (0.9-1.6) Eric Results Last 24 Hours: Microbiology 09/27/19 00:00 Urine Culture - Final Urine, Clean Catch MIXED PEEWEE >100,000 CFU/ML Med Orders - Current: Current Medications Acetaminophen (Tylenol) 650 mg PO Q6H PRN PRN Reason: Pain Last Admin: 09/28/19 04:15 Dose: 650 mg Documented by: Enoxaparin Sodium (Lovenox) 140 mg SUBCUT BID [facility] Last Admin: 09/29/19 09:13 Dose: 140 mg Documented by: Sodium Chloride (Normal Saline) 1,000 mls @ 125 mls/hr IV ASDIRECTED [facility] Last Admin: 09/29/19 05:47 Dose: 125 mls/hr Documented by: Ceftriaxone Sodium/Dextrose 1 (gm/ Premix) 50 mls @ 100 mls/hr IV Q24H [facility] Last Admin: 09/28/19 22:23 Dose: 100 mls/hr Documented by: Insulin Aspart (Novolog) 0 unit SUBCUT TIDAC [facility]; Protocol Last Admin: 09/29/19 12:04 Dose: Not Given Documented by: Nystatin (Nystop) 1 gm TOP TID [facility] Last Admin: 09/29/19 05:47 Dose: 1 gm Documented by: Sodium Chloride (Saline Flush) 10 ml FLUSH ASDIRECTED PRN PRN Reason: Keep Vein Open Sodium Chloride (Saline Flush) 2.5 ml FLUSH ASDIRECTED PRN PRN Reason: Keep Vein Open Discontinued Medications Enoxaparin Sodium (Lovenox) 140 mg SUBCUT ONETIME ONE Stop: 09/27/19 21:47 Last Admin: 09/27/19 22:49 Dose: 140 mg Documented by: Sodium Chloride (Normal Saline) 1,000 mls @ 999 mls/hr IV .Bolus ONE Stop: 09/27/19 21:58 Last Admin: 09/27/19 21:23 Dose: 999 mls/hr Documented by: Ceftriaxone Sodium/Dextrose 1 (gm/ Premix) 50 mls @ 100 mls/hr IV ONETIME ONE Stop: 09/27/19 22:30 Last Admin: 09/27/19 22:48 Dose: 100 mls/hr Documented by: - Exam General: Alert, Oriented Neck: Supple Lungs: Clear to Auscultation, Normal Respiratory Effort Cardiovascular: Regular Rate, Regular Rhythm GI/Abdominal Exam: Normal Bowel Sounds, Soft, Non-Tender Extremities: Other (erythema in abdominal skin fold improving) Neurological: No New Focal Deficit Sepsis Event Note - Evaluation Sepsis Screening Result: No Definite Risk - Focused Exam Vital Signs: Vital Signs Temp Pulse Resp BP Pulse Ox 09/29/19 07:00 36.0 C L 83 20 96/53 L 95 09/29/19 03:57 36.2 C 87 18 90/51 L 93 L Date Exam was Performed: 09/29/19 Time Exam was Performed: 12:14 - Problem List Review Problem List Initiated/Reviewed/Updated: Yes - My Orders Last 24 Hours: My Active Orders 09/28/19 23:00 [email or web address] [Rocephin in Dextrose,Iso-Osm 1 GM/50 ML] 1 gm Premix Bag 1 bag IV Q24H 09/29/19 10:54 Consult to Case Management/Senior Director [CONS] Routine 09/30/19 05:11 BASIC METABOLIC PANEL,BMP [CHEM] AM CBC WITH AUTO DIFF [HEME] AM - Plan Plan:: 64 yo female admitted after fall for dehydration, acute kidney injury, and UTI. UMA: improving UTI: continue rocephin, patient may also have had abdominal wall cellulitis, treating with nystatin powder as well Shortness of breath: improving, continue lovenox for possible PE, consider CT angio tomorrow. Fall: PT consulted, patient is concerned that she may need SNF placement.
[2019-09-30] MEDS: cefTRIAXone 1 GM in Premix Bag 1 BAG IV SCH ×2 (00:30→22:29)
[2019-09-30] MEDS: Nystatin Topical Powder 15 GM Bottle TOP SCH ×3 (06:01→22:27)
[2019-09-30] MEDS: Ondansetron 4 MG/2 ML SDV IVPUSH PRN ×2 (06:03→21:07)
[2019-09-30] MEDS: Albuterol/Ipratropium 3.0-0.5 MG/3 ML Neb Soln NEB PRN ×2 (06:20→15:13)
[2019-09-30 06:39] LABS: CARBON DIOXIDE,CO2 26.1 mmol/L (21.0-32.0); POTASSIUM,K 3.9 mmol/L (3.5-5.1)
[2019-09-30] MEDS: Insulin Aspart 100 Units/ML 3 ML Pen SUBCUT SCH ×3 (11:33→17:31)
[2019-09-30] MEDS ORDERED: Enoxaparin 150 MG/1 ML Syringe SUBCUT SCH (12:00)
--- NOTE | 2019-09-30 12:16 | PCM.PN ---
- General Info Date of Service: 09/30/19 Admission Dx/Problem (Free Text): Admission Diagnosis/Problem Admission Diagnosis/Problem Weakness Subjective Update: Doing well today, breathing is better. No chest pain. No abdominal pain. No other concerns. Functional Status: Reports: Pain Controlled, Tolerating Diet, Urinating - Review of Systems General: Reports: No Symptoms. Denies: Weakness, Fatigue, Malaise HEENT: Reports: No Symptoms Pulmonary: Reports: No Symptoms. Denies: Shortness of Breath Cardiovascular: Reports: No Symptoms. Denies: Chest Pain Gastrointestinal: Reports: No Symptoms. Denies: Abdominal Pain, Nausea, Vomiting Genitourinary: Reports: No Symptoms. Denies: Dysuria, Frequency Musculoskeletal: Reports: No Symptoms Skin: Reports: No Symptoms Neurological: Reports: No Symptoms Psychiatric: Reports: No Symptoms - Patient Data Vitals - Most Recent: Last Vital Signs Temp 98.6 F 09/30/19 10:01 Pulse 94 09/30/19 10:01 Resp 20 09/30/19 10:01 BP 104/58 L 09/30/19 10:01 Pulse Ox 91 L 09/30/19 10:01 Weight - Most Recent: 152.407 kg I&O - Last 24 Hours: Intake & Output 09/29/19 09/30/19 09/30/19 22:59 06:59 14:59 Intake Total 400 350 Output Total 0 Balance 400 350 Lab Results Last 24 Hours: Laboratory Results - last 24 hr 09/29/19 09/29/19 09/29/19 Range/Units 06:50 11:58 17:11 WBC (4.0-11.0) K/uL RBC (4.30-5.90) M/uL Hgb (12.0-16.0) g/dL Hct (36.0-46.0) % MCV (80.0-98.0) fL MCH (27.0-32.0) pg MCHC (31.0-37.0) g/dL RDW Std Deviation (28.0-62.0) fl RDW Coeff of Rachid (11.0-15.0) % Plt Count (150-400) K/uL MPV (7.40-12.00) fL Neut % (Auto) (48.0-80.0) % Lymph % (Auto) (16.0-40.0) % [place] % (Auto) (0.0-15.0) % Eos % (Auto) (0.0-7.0) % Baso % (Auto) (0.0-1.5) % Neut # (Auto) (1.4-5.7) K/uL Lymph # (Auto) (0.6-2.4) K/uL [place] # (Auto) (0.0-0.8) K/uL Eos # (Auto) (0.0-0.7) K/uL Baso # (Auto) (0.0-0.1) K/uL Nucleated RBC % /100WBC Nucleated RBCs # K/uL Sodium (136-145) mmol/L Potassium (3.5-5.1) mmol/L Chloride (98-107) mmol/L Carbon Dioxide (21.0-32.0) mmol/L BUN (7.0-18.0) mg/dL Creatinine (0.6-1.0) mg/dL Est Cr Clr Drug Dosing mL/min Estimated GFR (MDRD) ml/min Glucose (74-106) mg/dL POC Glucose 97 110 111 H (60-110) mg/dL Calcium (8.5-10.1) mg/dL 09/30/19 09/30/19 09/30/19 Range/Units 05:50 05:50 06:36 WBC 5.05 (4.0-11.0) K/uL RBC 3.31 L (4.30-5.90) M/uL Hgb 9.8 L (12.0-16.0) g/dL Hct 31.6 L (36.0-46.0) % MCV 95.5 (80.0-98.0) fL MCH 29.6 (27.0-32.0) pg MCHC 31.0 (31.0-37.0) g/dL RDW Std Deviation 68.6 H (28.0-62.0) fl RDW Coeff of Rachid 20 H (11.0-15.0) % Plt Count 111 L (150-400) K/uL MPV 9.30 (7.40-12.00) fL Neut % (Auto) 62.2 (48.0-80.0) % Lymph % (Auto) 18.2 (16.0-40.0) % [place] % (Auto) 17.8 H (0.0-15.0) % Eos % (Auto) 1.4 (0.0-7.0) % Baso % (Auto) 0.4 (0.0-1.5) % Neut # (Auto) 3.1 (1.4-5.7) K/uL Lymph # (Auto) 0.9 (0.6-2.4) K/uL [place] # (Auto) 0.9 H (0.0-0.8) K/uL Eos # (Auto) 0.1 (0.0-0.7) K/uL Baso # (Auto) 0.0 (0.0-0.1) K/uL Nucleated RBC % 0.0 /100WBC Nucleated RBCs # 0 K/uL Sodium 134 L (136-145) mmol/L Potassium 3.9 (3.5-5.1) mmol/L Chloride 101 (98-107) mmol/L Carbon Dioxide 26.1 (21.0-32.0) mmol/L BUN 19 H (7.0-18.0) mg/dL Creatinine 1.0 (0.6-1.0) mg/dL Est Cr Clr Drug Dosing 56.57 mL/min Estimated GFR (MDRD) 56.2 ml/min Glucose 119 H (74-106) mg/dL POC Glucose 93 (60-110) mg/dL Calcium 7.3 L (8.5-10.1) mg/dL Eric Results Last 24 Hours: Microbiology 09/27/19 00:00 Urine Culture - Final Urine, Clean Catch MIXED VIDYA >100,000 CFU/ML Med Orders - Current: Current Medications Acetaminophen (Tylenol) 650 mg PO Q6H PRN PRN Reason: Pain Last Admin: 09/28/19 04:15 Dose: 650 mg Documented by: Albuterol/Ipratropium (Duoneb 3.0-0.5 Mg/3 Ml) 3 ml NEB Q4HRRT PRN PRN Reason: Wheezing Last Admin: 09/30/19 06:20 Dose: 3 ml Documented by: Ceftriaxone Sodium/Dextrose 1 (gm/ Premix) 50 mls @ 100 mls/hr IV Q24H [facility] Last Admin: 09/30/19 00:30 Dose: 100 mls/hr Documented by: Insulin Aspart (Novolog) 0 unit SUBCUT TIDAC [facility]; Protocol Last Admin: 09/30/19 11:33 Dose: Not Given Documented by: Nystatin (Nystop) 1 gm TOP TID [facility] Last Admin: 09/30/19 06:01 Dose: 1 gm Documented by: Ondansetron HCl (Zofran) 4 mg IVPUSH Q6H PRN PRN Reason: Nausea/Vomiting Last Admin: 09/30/19 06:03 Dose: 4 mg Documented by: Sodium Chloride (Saline Flush) 10 ml FLUSH ASDIRECTED PRN PRN Reason: Keep Vein Open Sodium Chloride (Saline Flush) 2.5 ml FLUSH ASDIRECTED PRN PRN Reason: Keep Vein Open Discontinued Medications Enoxaparin Sodium (Lovenox) 140 mg SUBCUT ONETIME ONE Stop: 09/27/19 21:47 Last Admin: 09/27/19 22:49 Dose: 140 mg Documented by: Enoxaparin Sodium (Lovenox) 140 mg SUBCUT BID [facility] Last Admin: 09/29/19 20:04 Dose: 140 mg Documented by: Enoxaparin Sodium (Lovenox) 150 mg SUBCUT Q12H [facility] Sodium Chloride (Normal Saline) 1,000 mls @ 999 mls/hr IV .Bolus ONE Stop: 09/27/19 21:58 Last Admin: 09/27/19 21:23 Dose: 999 mls/hr Documented by: Ceftriaxone Sodium/Dextrose 1 (gm/ Premix) 50 mls @ 100 mls/hr IV ONETIME ONE Stop: 09/27/19 22:30 Last Admin: 09/27/19 22:48 Dose: 100 mls/hr Documented by: Sodium Chloride (Normal Saline) 1,000 mls @ 125 mls/hr IV ASDIRECTED [facility] Last Admin: 09/29/19 05:47 Dose: 125 mls/hr Documented by: - Exam General: Alert, Oriented, Cooperative, No Acute Distress Lungs: Clear to Auscultation, Normal Respiratory Effort Cardiovascular: Regular Rate, Regular Rhythm GI/Abdominal Exam: Normal Bowel Sounds, Soft, Non-Tender, Other (obese abdomen and large pannus) Extremities: Normal Inspection, Normal Range of Motion, Non-Tender Skin: Warm Wound/Incisions: Other (wound to R LE, asif to pannus, improving with erythema and tenderness) Psy/Mental Status: Alert, Normal Affect, Normal Mood Sepsis Event Note - Evaluation Sepsis Screening Result: No Definite Risk - Focused Exam Vital Signs: Vital Signs Temp Pulse Resp BP Pulse Ox 09/30/19 10:01 98.6 F 94 20 104/58 L 91 L 09/30/19 05:06 97.8 F 94 20 134/71 92 L 09/30/19 00:38 114/52 L Date Exam was Performed: 09/30/19 Time Exam was Performed: 15:10 - Problem List & Annotations (1) Hypoxia SNOMED Code(s): 376666589 Code(s): R09.02 - HYPOXEMIA Status: Acute Current Visit: Yes (2) Weakness SNOMED Code(s): 40423157 Code(s): R53.1 - WEAKNESS Status: Acute Current Visit: Yes (3) Acute renal failure SNOMED Code(s): 13531347 Code(s): N17.9 - ACUTE KIDNEY FAILURE, UNSPECIFIED Status: Acute Current Visit: No (4) Cellulitis SNOMED Code(s): 640633312 Code(s): L03.90 - CELLULITIS, UNSPECIFIED Status: Acute Current Visit: No (5) Cellulitis of right leg SNOMED Code(s): 382570739 Code(s): L03.115 - CELLULITIS OF RIGHT LOWER LIMB Status: Acute Current Visit: No - Problem List Review Problem List Initiated/Reviewed/Updated: Yes - My Orders Last 24 Hours: My Active Orders 09/30/19 10:48 Ang Chest [CT] Urgent 09/30/19 10:49 OT Evaluation and Treatment [CONS] Routine - Plan Plan:: 64 yo female admitted after fall for dehydration, acute kidney injury, and UTI. 1. UTI - Continue Rocephin, -UC returns with mixed vidya >100,000 2. UMA: - Improving, continue to monitor 3. Shortness of breath: - Obtain CT angio today - Hold Lovenox this morning and await CT results 4. Falls, self care deficit; - Would want to go to SNF - No payer source, discussed at length. Case management spoke with her and would need Medicaid application. - Plan for home with resources such as Home health. - PT/OT evaluate and treat 5. Abdominal wall cellulitis/asif - Continue Rocephin and Nystatin - Educated on self care of pannus, verbalized understanding VTE prophylaxis: Lovenox. Dispo: 2-3 days pending improvement
[2019-09-30] MEDS ORDERED: Sodium Chloride 0.9% 500 ML IV ONE (14:37)
--- NOTE | 2019-09-30 15:27 | CT ---
CT chest Technique: Multiple axial sections through the chest were obtained. Intravenous contrast was utilized. Comparison: No prior chest CT, prior chest x-ray performed earlier on the same day. Findings: Pulmonary arteries are not optimally opacified. No filling defects within the main or segmental branches. Smaller subsegmental pulmonary emboli could easily be missed. Aorta shows no aneurysm. Small pericardial effusion is seen. Small bilateral pleural effusions are noted. No gross abnormality seen within the visualized upper abdominal structures. Lungs show no acute parenchymal process. Impression: 1. Small bilateral pleural effusions and small pericardial effusion. 2. Suboptimal opacification of the pulmonary arteries with no pulmonary embolism seen within the main or segmental branches. Smaller subsegmental pulmonary emboli could be missed. 3. No additional abnormality is definitely appreciated. Diagnostic code #3 This report was dictated in MDT
[2019-09-30] MEDS ORDERED: Iopamidol 755 MG/ML 50 ML Bottle IV STA (18:07)
[2019-09-30] MEDS: Albuterol/Ipratropium 3.0-0.5 MG/3 ML Neb Soln NEB SCH ×2 (20:05→21:39)
[2019-10-01] MEDS: Albuterol/Ipratropium 3.0-0.5 MG/3 ML Neb Soln NEB SCH ×6 (02:04→21:21)
[2019-10-01 06:15] LABS: CARBON DIOXIDE,CO2 24.9 mmol/L (21.0-32.0); POTASSIUM,K 4.2 mmol/L (3.5-5.1)
[2019-10-01 06:16] LABS: HEMOGLOBIN A1C 4.2 % (4.5-6.2)
[2019-10-01] MEDS: Nystatin Topical Powder 15 GM Bottle TOP SCH ×3 (06:26→22:27)
--- NOTE | 2019-10-01 09:05 | PCM.PN ---
- General Info Date of Service: 10/01/19 Admission Dx/Problem (Free Text): Admission Diagnosis/Problem Admission Diagnosis/Problem Weakness Subjective Update: Doing better this morning, wheezing as improved. No chest pain. dyspnea better. reports eating better but still constipated. RLE wound is good, healing well. Functional Status: Reports: Pain Controlled, Tolerating Diet, Urinating. Denies: Ambulating - Review of Systems HEENT: Reports: No Symptoms. Denies: Headaches, Visual Changes Pulmonary: Reports: Shortness of Breath (improved), Cough. Denies: Sputum, Hemoptysis, Wheezing Cardiovascular: Reports: No Symptoms. Denies: Chest Pain Gastrointestinal: Reports: Constipation. Denies: Abdominal Pain, Nausea, Vomi ting Genitourinary: Reports: No Symptoms. Denies: Dysuria, Frequency, Burning Musculoskeletal: Reports: No Symptoms Skin: Reports: Other (wound RLE) Neurological: Reports: No Symptoms Psychiatric: Reports: No Symptoms - Patient Data Vitals - Most Recent: Last Vital Signs Temp 98.2 F 10/01/19 05:00 Pulse 89 10/01/19 05:00 Resp 20 10/01/19 05:00 BP 109/62 10/01/19 05:00 Pulse Ox 94 L 10/01/19 05:00 Weight - Most Recent: 152.407 kg I&O - Last 24 Hours: Intake & Output 09/30/19 10/01/19 10/01/19 22:59 06:59 14:59 Intake Total 950 Balance 950 Lab Results Last 24 Hours: Laboratory Results - last 24 hr 09/30/19 09/30/19 10/01/19 Range/Units 12:28 17:27 05:37 WBC (4.0-11.0) K/uL RBC (4.30-5.90) M/uL Hgb (12.0-16.0) g/dL Hct (36.0-46.0) % MCV (80.0-98.0) fL MCH (27.0-32.0) pg MCHC (31.0-37.0) g/dL RDW Std Deviation (28.0-62.0) fl RDW Coeff of Rachid (11.0-15.0) % Plt Count (150-400) K/uL MPV (7.40-12.00) fL Neut % (Auto) (48.0-80.0) % Lymph % (Auto) (16.0-40.0) % [place] % (Auto) (0.0-15.0) % Eos % (Auto) (0.0-7.0) % Baso % (Auto) (0.0-1.5) % Neut # (Auto) (1.4-5.7) K/uL Lymph # (Auto) (0.6-2.4) K/uL [place] # (Auto) (0.0-0.8) K/uL Eos # (Auto) (0.0-0.7) K/uL Baso # (Auto) (0.0-0.1) K/uL Nucleated RBC % /100WBC Nucleated RBCs # K/uL Sodium (136-145) mmol/L Potassium (3.5-5.1) mmol/L Chloride (98-107) mmol/L Carbon Dioxide (21.0-32.0) mmol/L BUN (7.0-18.0) mg/dL Creatinine (0.6-1.0) mg/dL Est Cr Clr Drug Dosing mL/min Estimated GFR (MDRD) ml/min Glucose (74-106) mg/dL POC Glucose 108 95 (60-110) mg/dL Hemoglobin A1c 4.2 L (4.5-6.2) % Calcium (8.5-10.1) mg/dL Magnesium (1.8-2.4) mg/dL 10/01/19 10/01/19 10/01/19 Range/Units 05:37 05:37 06:42 WBC 4.96 (4.0-11.0) K/uL RBC 3.10 L (4.30-5.90) M/uL Hgb 9.2 L (12.0-16.0) g/dL Hct 29.8 L (36.0-46.0) % MCV 96.1 (80.0-98.0) fL MCH 29.7 (27.0-32.0) pg MCHC 30.9 L (31.0-37.0) g/dL RDW Std Deviation 69.2 H (28.0-62.0) fl RDW Coeff of Rachid 20 H (11.0-15.0) % Plt Count 106 L (150-400) K/uL MPV 9.60 (7.40-12.00) fL Neut % (Auto) 64.5 (48.0-80.0) % Lymph % (Auto) 19.2 (16.0-40.0) % [place] % (Auto) 14.9 (0.0-15.0) % Eos % (Auto) 1.0 (0.0-7.0) % Baso % (Auto) 0.4 (0.0-1.5) % Neut # (Auto) 3.2 (1.4-5.7) K/uL Lymph # (Auto) 1.0 (0.6-2.4) K/uL [place] # (Auto) 0.7 (0.0-0.8) K/uL Eos # (Auto) 0.1 (0.0-0.7) K/uL Baso # (Auto) 0.0 (0.0-0.1) K/uL Nucleated RBC % 0.0 /100WBC Nucleated RBCs # 0 K/uL Sodium 133 L (136-145) mmol/L Potassium 4.2 (3.5-5.1) mmol/L Chloride 100 (98-107) mmol/L Carbon Dioxide 24.9 (21.0-32.0) mmol/L BUN 17 (7.0-18.0) mg/dL Creatinine 1.1 H (0.6-1.0) mg/dL Est Cr Clr Drug Dosing 51.43 mL/min Estimated GFR (MDRD) 50.3 ml/min Glucose 104 (74-106) mg/dL POC Glucose 92 (60-110) mg/dL Hemoglobin A1c (4.5-6.2) % Calcium 7.3 L (8.5-10.1) mg/dL Magnesium 1.9 (1.8-2.4) mg/dL Med Orders - Current: Current Medications Acetaminophen (Tylenol) 650 mg PO Q6H PRN PRN Reason: Pain Last Admin: 09/28/19 04:15 Dose: 650 mg Documented by: Albuterol/Ipratropium (Duoneb 3.0-0.5 Mg/3 Ml) 3 ml NEB Q4HRRT [facility] Last Admin: 10/01/19 06:04 Dose: 3 ml Documented by: Heparin Sodium (Porcine) (Heparin Sodium) 5,000 units SUBCUT Q12H [facility] Ceftriaxone Sodium/Dextrose 1 (gm/ Premix) 50 mls @ 100 mls/hr IV Q24H [facility] Last Admin: 09/30/19 22:29 Dose: 100 mls/hr Documented by: Nystatin (Nystop) 1 gm TOP TID [facility] Last Admin: 10/01/19 06:26 Dose: 1 gm Documented by: Ondansetron HCl (Zofran) 4 mg IVPUSH Q6H PRN PRN Reason: Nausea/Vomiting Last Admin: 09/30/19 21:07 Dose: 4 mg Documented by: Sodium Chloride (Saline Flush) 10 ml FLUSH ASDIRECTED PRN PRN Reason: Keep Vein Open Sodium Chloride (Saline Flush) 2.5 ml FLUSH ASDIRECTED PRN PRN Reason: Keep Vein Open Discontinued Medications Albuterol/Ipratropium (Duoneb 3.0-0.5 Mg/3 Ml) 3 ml NEB Q4HRRT PRN PRN Reason: Wheezing Last Admin: 09/30/19 15:13 Dose: 3 ml Documented by: Enoxaparin Sodium (Lovenox) 140 mg SUBCUT ONETIME ONE Stop: 09/27/19 21:47 Last Admin: 09/27/19 22:49 Dose: 140 mg Documented by: Enoxaparin Sodium (Lovenox) 140 mg SUBCUT BID [facility] Last Admin: 09/29/19 20:04 Dose: 140 mg Documented by: Enoxaparin Sodium (Lovenox) 150 mg SUBCUT Q12H [facility] Sodium Chloride (Normal Saline) 1,000 mls @ 999 mls/hr IV .Bolus ONE Stop: 09/27/19 21:58 Last Admin: 09/27/19 21:23 Dose: 999 mls/hr Documented by: Ceftriaxone Sodium/Dextrose 1 (gm/ Premix) 50 mls @ 100 mls/hr IV ONETIME ONE Stop: 09/27/19 22:30 Last Admin: 09/27/19 22:48 Dose: 100 mls/hr Documented by: Sodium Chloride (Normal Saline) 1,000 mls @ 125 mls/hr IV ASDIRECTED [facility] Last Admin: 09/29/19 05:47 Dose: 125 mls/hr Documented by: Sodium Chloride (Normal Saline) 500 mls @ 125 mls/hr IV ONETIME ONE Stop: 09/30/19 18:36 Last Admin: 09/30/19 16:02 Dose: 125 mls/hr Documented by: Insulin Aspart (Novolog) 0 unit SUBCUT TIDAC JONO; Protocol Last Admin: 09/30/19 17:31 Dose: Not Given Documented by: Iopamidol (Isovue-[id number] (76%)) 50 ml IV ONETIME STA Stop: 09/30/19 18:08 Last Admin: 09/30/19 18:08 Dose: 50 ml Documented by: - Exam General: Alert, Oriented, Cooperative, No Acute Distress Lungs: Clear to Auscultation, Normal Respiratory Effort. No: Wheezing Cardiovascular: Regular Rate, Regular Rhythm, No Murmurs GI/Abdominal Exam: Normal Bowel Sounds, Soft, Non-Tender, Other (obese abdomen) Extremities: Normal Range of Motion, Non-Tender, No Pedal Edema Wound/Incisions: Healing Well, Drainage, Erythema Improving, Other (wound to RLE improving, no purulent drainage. Erythema improving, continue dressing changes BID. Follows with Dr Cohen.) Psy/Mental Status: Alert, Normal Affect, Normal Mood Sepsis Event Note - Evaluation Sepsis Screening Result: No Definite Risk - Focused Exam Vital Signs: Vital Signs Temp Pulse Resp BP Pulse Ox Pulse Ox 10/01/19 05:00 98.2 F 89 20 109/62 94 L 10/01/19 00:08 94 L 09/30/19 23:54 98 F 85 20 110/62 94 L Date Exam was Performed: 10/01/19 Time Exam was Performed: 09:00 - Problem List & Annotations (1) Hypoxia SNOMED Code(s): 017973716 Code(s): R09.02 - HYPOXEMIA Status: Acute Current Visit: Yes (2) Weakness SNOMED Code(s): 56821765 Code(s): R53.1 - WEAKNESS Status: Acute Current Visit: Yes (3) Acute renal failure SNOMED Code(s): 57195075 Code(s): N17.9 - ACUTE KIDNEY FAILURE, UNSPECIFIED Status: Acute Current Visit: No (4) Cellulitis SNOMED Code(s): 458474188 Code(s): L03.90 - CELLULITIS, UNSPECIFIED Status: Acute Current Visit: No (5) Cellulitis of right leg SNOMED Code(s): 238167629 Code(s): L03.115 - CELLULITIS OF RIGHT LOWER LIMB Status: Acute Current Visit: No - Problem List Review Problem List Initiated/Reviewed/Updated: Yes - My Orders Last 24 Hours: My Active Orders 09/30/19 10:49 OT Evaluation and Treatment [CONS] Routine 09/30/19 15:32 RT Aerosol Therapy [RC] ASDIRECTED 09/30/19 18:00 Albuterol/Ipratropium [DuoNeb 3.0-0.5 MG/3 ML] 3 ml NEB Q4HRRT 10/01/19 Breakfast Regular Diet [DIET] 10/01/19 09:00 Heparin Sodium 5,000 units SUBCUT Q12H 10/01/19 15:30 Echo Comp wo Cont [US] Routine 10/02/19 05:11 BASIC METABOLIC PANEL,BMP [CHEM] AM CBC WITH AUTO DIFF [HEME] AM MAGNESIUM [CHEM] AM - Plan Plan:: 64 yo female admitted after fall for dehydration, acute kidney injury, and UTI. 1. UTI - Continue Rocephin, -UC returns with mixed vidya >100,000 2. UMA: - Resolved. Monitor 3. Shortness of breath: - CT angio rules out PE. Noted small bibasilar pleural effusion with pericardial effusion. - Order ECHO - Duonebs scheduled yesterday, wheezing improved today. - Wean oxygen as possible, keep sats above 90% 4. Falls, self care deficit; - Plan for home with resources such as Home health. - PT/OT evaluate and treat - Not able to transfer per self yet like at home, need to continue to encourage this as much as possible. - Case management working to get applications and payer source for SNF placement as outpatient 5. Abdominal wall cellulitis/asif - Continued improvement - Continue Rocephin and Nystatin - Educated on self care of pannus, verbalized understanding - A1c 4.2 VTE prophylaxis: Heparin Dispo: 2-3 days pending improvement
[2019-10-01] MEDS: Docusate Sodium 100 MG Cap PO SCH ×2 (09:39→20:46)
[2019-10-01] MEDS: Heparin Sodium 5,000 Units/ML Vial SUBCUT SCH ×2 (09:39→20:47)
[2019-10-01] MEDS: Polyethylene Glycol 3350 Powder 17 GM Packet PO SCH (09:39)
[2019-10-01] MEDS: Insulin Aspart 100 Units/ML 3 ML Pen SUBCUT SCH (09:40)
[2019-10-01] MEDS: Acetaminophen 325 MG Tab PO PRN (14:26)
[2019-10-01] MEDS: cefTRIAXone 1 GM in Premix Bag 1 BAG IV SCH (22:26)
[2019-10-02] MEDS: Albuterol/Ipratropium 3.0-0.5 MG/3 ML Neb Soln NEB SCH ×5 (01:22→23:49)
[2019-10-02 06:15] LABS: CARBON DIOXIDE,CO2 25.6 mmol/L (21.0-32.0); POTASSIUM,K 4.2 mmol/L (3.5-5.1)
[2019-10-02] MEDS: Nystatin Topical Powder 15 GM Bottle TOP SCH ×3 (06:32→21:26)
[2019-10-02] MEDS: Docusate Sodium 100 MG Cap PO SCH ×2 (08:25→21:26)
[2019-10-02] MEDS: Heparin Sodium 5,000 Units/ML Vial SUBCUT SCH ×2 (08:25→21:27)
[2019-10-02] MEDS: Polyethylene Glycol 3350 Powder 17 GM Packet PO SCH (08:25)
[2019-10-02] MEDS ORDERED: Bisacodyl 10 MG Supp RECTAL PRN (08:48)
--- NOTE | 2019-10-02 09:07 | PCM.PN ---
- General Info Date of Service: 10/02/19 Admission Dx/Problem (Free Text): Admission Diagnosis/Problem Admission Diagnosis/Problem Weakness Subjective Update: Reports feeling good this morning, breathing is "ok". No wheezing. No cough. Feels short of breath with activity. No chest pain. Asking about how often leg dressing should be changed, we discussed BID as we talked about yesterday. Denies fevers or chills. Feels she is getting stronger, able to now lift her arms above her head and bend her knee to help roll which she wasn't able to go yesterday. Functional Status: Reports: Pain Controlled, Tolerating Diet, Urinating - Review of Systems General: Reports: No Symptoms HEENT: Reports: No Symptoms Pulmonary: Reports: Shortness of Breath Cardiovascular: Reports: Dyspnea on Exertion Gastrointestinal: Reports: Constipation. Denies: Abdominal Pain, Nausea, Vomiting Genitourinary: Reports: No Symptoms. Denies: Dysuria, Frequency, Burning Musculoskeletal: Reports: No Symptoms Skin: Reports: No Symptoms Neurological: Reports: No Symptoms Psychiatric: Reports: No Symptoms - Patient Data Vitals - Most Recent: Last Vital Signs Temp 97.2 F 10/02/19 07:06 Pulse 96 10/02/19 07:10 Resp 19 10/02/19 07:10 BP 98/52 L 10/02/19 07:06 Pulse Ox 93 L 10/02/19 07:10 Weight - Most Recent: 152.407 kg I&O - Last 24 Hours: Intake & Output 10/01/19 10/02/19 10/02/19 22:59 06:59 14:59 Intake Total 600 500 Balance 600 500 Lab Results Last 24 Hours: Laboratory Results - last 24 hr 10/02/19 10/02/19 Range/Units 05:50 05:50 WBC 5.73 (4.0-11.0) K/uL RBC 3.19 L (4.30-5.90) M/uL Hgb 9.5 L (12.0-16.0) g/dL Hct 31.0 L (36.0-46.0) % MCV 97.2 (80.0-98.0) fL MCH 29.8 (27.0-32.0) pg MCHC 30.6 L (31.0-37.0) g/dL RDW Std Deviation 69.1 H (28.0-62.0) fl RDW Coeff of Rachid 20 H (11.0-15.0) % Plt Count 117 L (150-400) K/uL MPV 8.90 (7.40-12.00) fL Neut % (Auto) 68.5 (48.0-80.0) % Lymph % (Auto) 16.4 (16.0-40.0) % [place] % (Auto) 13.4 (0.0-15.0) % Eos % (Auto) 1.4 (0.0-7.0) % Baso % (Auto) 0.3 (0.0-1.5) % Neut # (Auto) 3.9 (1.4-5.7) K/uL Lymph # (Auto) 0.9 (0.6-2.4) K/uL [place] # (Auto) 0.8 (0.0-0.8) K/uL Eos # (Auto) 0.1 (0.0-0.7) K/uL Baso # (Auto) 0.0 (0.0-0.1) K/uL Nucleated RBC % 0.0 /100WBC Nucleated RBCs # 0 K/uL Sodium 133 L (136-145) mmol/L Potassium 4.2 (3.5-5.1) mmol/L Chloride 101 (98-107) mmol/L Carbon Dioxide 25.6 (21.0-32.0) mmol/L BUN 17 (7.0-18.0) mg/dL Creatinine 1.1 H (0.6-1.0) mg/dL Est Cr Clr Drug Dosing 51.43 mL/min Estimated GFR (MDRD) 50.3 ml/min Glucose 115 H (74-106) mg/dL Calcium 7.4 L (8.5-10.1) mg/dL Magnesium 2.1 (1.8-2.4) mg/dL Med Orders - Current: Current Medications Acetaminophen (Tylenol) 650 mg PO Q6H PRN PRN Reason: Pain Last Admin: 10/01/19 14:26 Dose: 650 mg Documented by: Albuterol/Ipratropium (Duoneb 3.0-0.5 Mg/3 Ml) 3 ml NEB Q4HRRT [facility] Last Admin: 10/02/19 05:46 Dose: 3 ml Documented by: Bisacodyl (Dulcolax) 10 mg RECTAL DAILY PRN PRN Reason: Constipation Docusate Sodium (Colace) 100 mg PO BID [facility] Last Admin: 10/02/19 08:25 Dose: 100 mg Documented by: Heparin Sodium (Porcine) (Heparin Sodium) 5,000 units SUBCUT Q12H [facility] Last Admin: 10/02/19 08:25 Dose: 5,000 units Documented by: Ceftriaxone Sodium/Dextrose 1 (gm/ Premix) 50 mls @ 100 mls/hr IV Q24H [facility] Last Admin: 10/01/19 22:26 Dose: 100 mls/hr Documented by: Nystatin (Nystop) 1 gm TOP TID [facility] Last Admin: 10/02/19 06:32 Dose: 1 gm Documented by: Ondansetron HCl (Zofran) 4 mg IVPUSH Q6H PRN PRN Reason: Nausea/Vomiting Last Admin: 09/30/19 21:07 Dose: 4 mg Documented by: Polyethylene Glycol (Miralax) 17 gm PO DAILY [facility] Last Admin: 10/02/19 08:25 Dose: 17 gm Documented by: Sodium Chloride (Saline Flush) 2.5 ml FLUSH ASDIRECTED PRN PRN Reason: Keep Vein Open Discontinued Medications Albuterol/Ipratropium (Duoneb 3.0-0.5 Mg/3 Ml) 3 ml NEB Q4HRRT PRN PRN Reason: Wheezing Last Admin: 09/30/19 15:13 Dose: 3 ml Documented by: Enoxaparin Sodium (Lovenox) 140 mg SUBCUT ONETIME ONE Stop: 09/27/19 21:47 Last Admin: 09/27/19 22:49 Dose: 140 mg Documented by: Enoxaparin Sodium (Lovenox) 140 mg SUBCUT BID [facility] Last Admin: 09/29/19 20:04 Dose: 140 mg Documented by: Enoxaparin Sodium (Lovenox) 150 mg SUBCUT Q12H [facility] Sodium Chloride (Normal Saline) 1,000 mls @ 999 mls/hr IV .Bolus ONE Stop: 09/27/19 21:58 Last Admin: 09/27/19 21:23 Dose: 999 mls/hr Documented by: Ceftriaxone Sodium/Dextrose 1 (gm/ Premix) 50 mls @ 100 mls/hr IV ONETIME ONE Stop: 09/27/19 22:30 Last Admin: 09/27/19 22:48 Dose: 100 mls/hr Documented by: Sodium Chloride (Normal Saline) 1,000 mls @ 125 mls/hr IV ASDIRECTED [facility] Last Admin: 09/29/19 05:47 Dose: 125 mls/hr Documented by: Sodium Chloride (Normal Saline) 500 mls @ 125 mls/hr IV ONETIME ONE Stop: 09/30/19 18:36 Last Admin: 09/30/19 16:02 Dose: 125 mls/hr Documented by: Insulin Aspart (Novolog) 0 unit SUBCUT TIDAC [facility]; Protocol Last Admin: 10/01/19 09:40 Dose: Not Given Documented by: Iopamidol (Isovue-370 (76%)) 50 ml IV ONETIME STA Stop: 09/30/19 18:08 Last Admin: 09/30/19 18:08 Dose: 50 ml Documented by: Sodium Chloride (Saline Flush) 10 ml FLUSH ASDIRECTED PRN PRN Reason: Keep Vein Open - Exam Quality Assessment: Supplemental Oxygen, DVT Prophylaxis General: Alert, Oriented, Cooperative Lungs: Normal Respiratory Effort, Decreased Breath Sounds (bibasilar). No: Rhonchi Cardiovascular: Regular Rate, Regular Rhythm GI/Abdominal Exam: Normal Bowel Sounds, Soft, Non-Tender Back Exam: Normal Inspection, Full Range of Motion Extremities: Normal Inspection, Normal Range of Motion, Non-Tender, No Pedal Edema Wound/Incisions: Erythema Improving (abdominal fold and under R breast. Wound to RLE improving, erythema improved. ) Neurological: No New Focal Deficit Psy/Mental Status: Alert, Normal Affect, Normal Mood Sepsis Event Note - Evaluation Sepsis Screening Result: No Definite Risk - Focused Exam Vital Signs: Vital Signs Temp Pulse Resp BP Pulse Ox 10/02/19 07:10 96 19 93 L 10/02/19 07:06 97.2 F 97 20 98/52 L 90 L 10/02/19 04:00 97.5 F 97 20 109/56 L 92 L 10/01/19 23:45 98.2 F 96 20 108/55 L 94 L Date Exam was Performed: 10/02/19 Time Exam was Performed: 09:17 - Problem List & Annotations (1) Hypoxia SNOMED Code(s): 349582676 Code(s): R09.02 - HYPOXEMIA Status: Acute Current Visit: Yes (2) Weakness SNOMED Code(s): 20599025 Code(s): R53.1 - WEAKNESS Status: Acute Current Visit: Yes (3) Acute renal failure SNOMED Code(s): 24809914 Code(s): N17.9 - ACUTE KIDNEY FAILURE, UNSPECIFIED Status: Acute Current Visit: No (4) Cellulitis SNOMED Code(s): 617911861 Code(s): L03.90 - CELLULITIS, UNSPECIFIED Status: Acute Current Visit: No (5) Cellulitis of right leg SNOMED Code(s): 077367938 Code(s): L03.115 - CELLULITIS OF RIGHT LOWER LIMB Status: Acute Current Visit: No - Problem List Review Problem List Initiated/Reviewed/Updated: Yes - My Orders Last 24 Hours: My Active Orders 10/01/19 09:00 Heparin Sodium 5,000 units SUBCUT Q12H 10/01/19 09:02 Wound Care [RC] Q12H 10/01/19 09:15 Docusate Sodium [Colace] 100 mg PO BID polyethylene glycoL 3350 [MiraLAX] 17 gm PO DAILY 10/01/19 15:30 Echo Comp wo Cont [US] Routine 10/02/19 08:48 bisacodyL [Dulcolax] 10 mg RECTAL DAILY PRN - Plan Plan:: 64 yo female admitted after fall for dehydration, acute kidney injury, and UTI. 1. UTI - Treated completely. DC Rocephin 2. Abdominal wall cellulitis/asif - Continued improvement - DC Rocephin, start Keflex and continue Nystatin - Educated on self care of pannus, verbalized understanding 3. Shortness of breath: - CT angio rules out PE. Noted small bibasilar pleural effusion with pericardial effusion. - ECHO pending - Duonebs scheduled Q6hr - Wean oxygen as possible, keep sats above 90% 4. Falls, self care deficit; - Plan for home with resources such as Home health. - PT/OT evaluate and treat - Not able to transfer per self yet like at home, need to continue to encourage this as much as possible. - Not able to get payer source for SNF, her and her make to much money. Will need to arrange at home services. Given information by social work. VTE prophylaxis: Heparin Dispo: 2-3 days pending improvement
[2019-10-02] MEDS ORDERED: Furosemide 20 MG/2 ML VIAL IVPUSH ONE (10:07)
[2019-10-02] MEDS: Ondansetron 4 MG/2 ML SDV IVPUSH PRN (10:45)
[2019-10-02] MEDS: Cephalexin 500 MG Cap PO SCH ×3 (11:13→23:49)
[2019-10-02] MEDS ORDERED: Pantoprazole 40 MG in Sodium Chloride 0.9% 10 ML IV ONE (14:59)
[2019-10-03] MEDS: Albuterol/Ipratropium 3.0-0.5 MG/3 ML Neb Soln NEB SCH ×4 (05:46→23:45)
[2019-10-03 06:45] LABS: CARBON DIOXIDE,CO2 24.8 mmol/L (21.0-32.0); POTASSIUM,K 4.2 mmol/L (3.5-5.1)
[2019-10-03] MEDS: Nystatin Topical Powder 15 GM Bottle TOP SCH ×4 (06:49→21:06)
[2019-10-03] MEDS: Cephalexin 500 MG Cap PO SCH ×4 (06:49→23:45)
[2019-10-03] MEDS: Heparin Sodium 5,000 Units/ML Vial SUBCUT SCH ×2 (09:20→20:36)
--- NOTE | 2019-10-03 09:20 | PCM.PN ---
- General Info Date of Service: 10/03/19 Admission Dx/Problem (Free Text): Admission Diagnosis/Problem Admission Diagnosis/Problem Weakness Subjective Update: Reports feeling good this morning, Denies fevers or chills. Feels she is getting stronger, - Review of Systems General: Denies: Fever, Weakness HEENT: Denies: Dysphasia Pulmonary: Denies: Shortness of Breath, Pleuritic Chest Pain Cardiovascular: Denies: Chest Pain, Palpitations Gastrointestinal: Denies: Abdominal Pain, Constipation Genitourinary: Denies: Dysuria, Frequency, Burning Musculoskeletal: Reports: Leg Pain, Foot Pain. Denies: Neck Pain, Shoulder Pain, Arm Pain Skin: Reports: Other (wound in right leg) - Patient Data Vitals - Most Recent: Last Vital Signs Temp 35 C L 10/03/19 08:00 Pulse 89 10/03/19 08:00 Resp 18 10/03/19 08:00 BP 97/47 L 10/03/19 08:00 Pulse Ox 96 10/03/19 08:00 Weight - Most Recent: 152.407 kg I&O - Last 24 Hours: Intake & Output 10/02/19 10/03/19 10/03/19 22:59 06:59 14:59 Intake Total 610 300 Output Total 667 Balance -57 300 Lab Results Last 24 Hours: Laboratory Results - last 24 hr 10/03/19 10/03/19 Range/Units 06:20 06:20 WBC 5.89 (4.0-11.0) K/uL RBC 3.23 L (4.30-5.90) M/uL Hgb 9.6 L (12.0-16.0) g/dL Hct 31.1 L (36.0-46.0) % MCV 96.3 (80.0-98.0) fL MCH 29.7 (27.0-32.0) pg MCHC 30.9 L (31.0-37.0) g/dL RDW Std Deviation 68.9 H (28.0-62.0) fl RDW Coeff of Rachid 20 H (11.0-15.0) % Plt Count 107 L (150-400) K/uL MPV 9.30 (7.40-12.00) fL Neut % (Auto) 65.4 (48.0-80.0) % Lymph % (Auto) 18.0 (16.0-40.0) % [place] % (Auto) 14.4 (0.0-15.0) % Eos % (Auto) 1.7 (0.0-7.0) % Baso % (Auto) 0.5 (0.0-1.5) % Neut # (Auto) 3.9 (1.4-5.7) K/uL Lymph # (Auto) 1.1 (0.6-2.4) K/uL [place] # (Auto) 0.9 H (0.0-0.8) K/uL Eos # (Auto) 0.1 (0.0-0.7) K/uL Baso # (Auto) 0.0 (0.0-0.1) K/uL Nucleated RBC % 0.0 /100WBC Nucleated RBCs # 0 K/uL Sodium 132 L (136-145) mmol/L Potassium 4.2 (3.5-5.1) mmol/L Chloride 100 (98-107) mmol/L Carbon Dioxide 24.8 (21.0-32.0) mmol/L BUN 18 (7.0-18.0) mg/dL Creatinine 1.0 (0.6-1.0) mg/dL Est Cr Clr Drug Dosing 56.57 mL/min Estimated GFR (MDRD) 56.2 ml/min Glucose 99 (74-106) mg/dL Calcium 7.7 L (8.5-10.1) mg/dL Magnesium 2.1 (1.8-2.4) mg/dL Med Orders - Current: Current Medications Acetaminophen (Tylenol) 650 mg PO Q6H PRN PRN Reason: Pain Last Admin: 10/01/19 14:26 Dose: 650 mg Documented by: Albuterol/Ipratropium (Duoneb 3.0-0.5 Mg/3 Ml) 3 ml NEB Q6HRRT [facility] Last Admin: 10/03/19 05:46 Dose: 3 ml Documented by: Bisacodyl (Dulcolax) 10 mg RECTAL DAILY PRN PRN Reason: Constipation Last Admin: 10/02/19 14:06 Dose: 10 mg Documented by: Cephalexin (Keflex) 500 mg PO Q6HR [facility] Last Admin: 10/03/19 06:49 Dose: 500 mg Documented by: Docusate Sodium (Colace) 100 mg PO BID [facility] Last Admin: 10/02/19 21:26 Dose: 100 mg Documented by: Heparin Sodium (Porcine) (Heparin Sodium) 5,000 units SUBCUT Q12H [facility] Last Admin: 10/02/19 21:27 Dose: 5,000 units Documented by: Nystatin (Nystop) 1 gm TOP TID [facility] Last Admin: 10/03/19 06:49 Dose: 1 gm Documented by: Ondansetron HCl (Zofran) 4 mg IVPUSH Q6H PRN PRN Reason: Nausea/Vomiting Last Admin: 10/02/19 10:45 Dose: 4 mg Documented by: Polyethylene Glycol (Miralax) 17 gm PO DAILY [facility] Last Admin: 10/02/19 08:25 Dose: 17 gm Documented by: Sodium Chloride (Saline Flush) 2.5 ml FLUSH ASDIRECTED PRN PRN Reason: Keep Vein Open Discontinued Medications Albuterol/Ipratropium (Duoneb 3.0-0.5 Mg/3 Ml) 3 ml NEB Q4HRRT PRN PRN Reason: Wheezing Last Admin: 09/30/19 15:13 Dose: 3 ml Documented by: Albuterol/Ipratropium (Duoneb 3.0-0.5 Mg/3 Ml) 3 ml NEB Q4HRRT [facility] Last Admin: 10/02/19 09:19 Dose: 3 ml Documented by: Enoxaparin Sodium (Lovenox) 140 mg SUBCUT ONETIME ONE Stop: 09/27/19 21:47 Last Admin: 09/27/19 22:49 Dose: 140 mg Documented by: Enoxaparin Sodium (Lovenox) 140 mg SUBCUT BID [facility] Last Admin: 09/29/19 20:04 Dose: 140 mg Documented by: Enoxaparin Sodium (Lovenox) 150 mg SUBCUT Q12H [facility] Furosemide (Lasix) 20 mg IVPUSH NOW ONE Stop: 10/02/19 10:08 Last Admin: 10/02/19 10:42 Dose: 20 mg Documented by: Sodium Chloride (Normal Saline) 1,000 mls @ 999 mls/hr IV .Bolus ONE Stop: 09/27/19 21:58 Last Admin: 09/27/19 21:23 Dose: 999 mls/hr Documented by: Ceftriaxone Sodium/Dextrose 1 (gm/ Premix) 50 mls @ 100 mls/hr IV ONETIME ONE Stop: 09/27/19 22:30 Last Admin: 09/27/19 22:48 Dose: 100 mls/hr Documented by: Sodium Chloride (Normal Saline) 1,000 mls @ 125 mls/hr IV ASDIRECTED [facility] Last Admin: 09/29/19 05:47 Dose: 125 mls/hr Documented by: Ceftriaxone Sodium/Dextrose 1 (gm/ Premix) 50 mls @ 100 mls/hr IV Q24H [facility] Last Admin: 10/01/19 22:26 Dose: 100 mls/hr Documented by: Sodium Chloride (Normal Saline) 500 mls @ 125 mls/hr IV ONETIME ONE Stop: 09/30/19 18:36 Last Admin: 09/30/19 16:02 Dose: 125 mls/hr Documented by: Pantoprazole Sodium 40 mg/ (Sodium Chloride) 10 mls @ 300 mls/hr IV NOW ONE Stop: 10/02/19 15:00 Last Admin: 10/02/19 15:34 Dose: 300 mls/hr Documented by: Insulin Aspart (Novolog) 0 unit SUBCUT TIDAC [facility]; Protocol Last Admin: 10/01/19 09:40 Dose: Not Given Documented by: Iopamidol (Isovue-370 (76%)) 50 ml IV ONETIME STA Stop: 09/30/19 18:08 Last Admin: 09/30/19 18:08 Dose: 50 ml Documented by: Sodium Chloride (Saline Flush) 10 ml FLUSH ASDIRECTED PRN PRN Reason: Keep Vein Open - Exam Quality Assessment: Supplemental Oxygen General: Alert, Oriented Neck: Supple, Trachea Midline Lungs: Clear to Auscultation, Normal Respiratory Effort Cardiovascular: Regular Rate, Regular Rhythm GI/Abdominal Exam: Normal Bowel Sounds, Distended. No: Guarding, Rigid, Rebound, Tender Sepsis Event Note - Evaluation Sepsis Screening Result: No Definite Risk - Focused Exam Vital Signs: Vital Signs Temp Pulse Resp BP Pulse Ox 10/03/19 08:00 35 C L 89 18 97/47 L 96 10/03/19 04:14 35.9 C L 95 19 98/53 L 92 L 10/02/19 23:51 36.5 C 95 20 100/56 L 94 L Date Exam was Performed: 10/03/19 Time Exam was Performed: 13:08 - Problem List Review Problem List Initiated/Reviewed/Updated: Yes - Plan Plan:: 64 yo female admitted after fall for dehydration, acute kidney injury, and UTI. 1. UTI - Treated completely. DC Rocephin 2. Abdominal wall cellulitis/asif - Continued improvement - DC Rocephin, start Keflex and continue Nystatin - Educated on self care of pannus, verbalized understanding 3. Shortness of breath: - CT angio rules out PE. Noted small bibasilar pleural effusion with pericardial effusion. - f/u on ECHO - Duonebs scheduled Q6hr - Wean oxygen as possible, keep sats above 90% 4. Falls, self care deficit; - Plan for home with resources such as Home health. - PT/OT evaluate and treat - Not able to transfer per self yet like at home, need to continue to encourage this as much as possible. - Not able to get payer source for SNF, her and her make to much money. Will need to arrange at home services. Given information by social work. May need to apply for disability. VTE prophylaxis: Heparin Dispo: 2-3 days pending improvement
[2019-10-03] MEDS: Docusate Sodium 100 MG Cap PO SCH ×2 (09:23→21:06)
[2019-10-03] MEDS: Polyethylene Glycol 3350 Powder 17 GM Packet PO SCH (09:23)
--- NOTE | 2019-10-03 11:48 | ECHO ---
EXAM DATE: 09/28/19 PATIENT'S AGE: 64 The ECHO report has been scanned into [employer] and can be seen in this patient's EMR (Electronic Medical Record) under the REPORTS section. The report has also been scanned into PACS. MAIKEL
[2019-10-04] MEDS: Albuterol/Ipratropium 3.0-0.5 MG/3 ML Neb Soln NEB SCH ×4 (05:59→23:30)
[2019-10-04] MEDS: Nystatin Topical Powder 15 GM Bottle TOP SCH ×3 (06:34→21:06)
[2019-10-04] MEDS: Cephalexin 500 MG Cap PO SCH ×4 (06:34→23:30)
[2019-10-04] MEDS: Heparin Sodium 5,000 Units/ML Vial SUBCUT SCH ×2 (08:24→21:04)
[2019-10-04] MEDS: Docusate Sodium 100 MG Cap PO SCH ×2 (08:28→19:59)
[2019-10-04] MEDS: Polyethylene Glycol 3350 Powder 17 GM Packet PO SCH (08:28)
--- NOTE | 2019-10-04 12:43 | PCM.PN ---
- General Info Date of Service: 10/04/19 Admission Dx/Problem (Free Text): Admission Diagnosis/Problem Admission Diagnosis/Problem Weakness Subjective Update: Reports feeling good this morning, Denies fevers or chills. Feels she is getting stronger but unable to get up, had some loose stools after bowel regimen - Review of Systems General: Reports: Weakness. Denies: Fever, Fatigue, Malaise Pulmonary: Denies: Shortness of Breath, Pleuritic Chest Pain Cardiovascular: Denies: Chest Pain, Palpitations Gastrointestinal: Denies: Abdominal Pain, Constipation Genitourinary: Denies: Dysuria, Frequency Musculoskeletal: Denies: Neck Pain, Shoulder Pain Skin: Denies: Cyanosis, Jaundice, Mottled Neurological: Denies: Confusion, Dizziness, Headache - Patient Data Vitals - Most Recent: Last Vital Signs Temp 36.6 C 10/04/19 11:00 Pulse 87 10/04/19 11:00 Resp 17 10/04/19 11:00 BP 100/54 L 10/04/19 11:00 Pulse Ox 93 L 10/04/19 11:00 Weight - Most Recent: 152.407 kg I&O - Last 24 Hours: Intake & Output 10/03/19 10/04/19 10/04/19 22:59 06:59 14:59 Intake Total 450 400 Balance 450 400 Med Orders - Current: Current Medications Acetaminophen (Tylenol) 650 mg PO Q6H PRN PRN Reason: Pain Last Admin: 10/01/19 14:26 Dose: 650 mg Documented by: Albuterol/Ipratropium (Duoneb 3.0-0.5 Mg/3 Ml) 3 ml NEB Q6HRRT [facility] Last Admin: 10/04/19 11:58 Dose: 3 ml Documented by: Bisacodyl (Dulcolax) 10 mg RECTAL DAILY PRN PRN Reason: Constipation Last Admin: 10/02/19 14:06 Dose: 10 mg Documented by: Cephalexin (Keflex) 500 mg PO Q6HR [facility] Last Admin: 10/04/19 06:34 Dose: 500 mg Documented by: Docusate Sodium (Colace) 100 mg PO BID [facility] Last Admin: 10/04/19 08:28 Dose: Not Given Documented by: Heparin Sodium (Porcine) (Heparin Sodium) 5,000 units SUBCUT Q12H [facility] Last Admin: 10/04/19 08:24 Dose: 5,000 units Documented by: Nystatin (Nystop) 1 gm TOP TID [facility] Last Admin: 10/04/19 06:34 Dose: 1 gm Documented by: Ondansetron HCl (Zofran) 4 mg IVPUSH Q6H PRN PRN Reason: Nausea/Vomiting Last Admin: 10/02/19 10:45 Dose: 4 mg Documented by: Polyethylene Glycol (Miralax) 17 gm PO DAILY [facility] Last Admin: 10/04/19 08:28 Dose: Not Given Documented by: Sodium Chloride (Saline Flush) 2.5 ml FLUSH ASDIRECTED PRN PRN Reason: Keep Vein Open Discontinued Medications Albuterol/Ipratropium (Duoneb 3.0-0.5 Mg/3 Ml) 3 ml NEB Q4HRRT PRN PRN Reason: Wheezing Last Admin: 09/30/19 15:13 Dose: 3 ml Documented by: Albuterol/Ipratropium (Duoneb 3.0-0.5 Mg/3 Ml) 3 ml NEB Q4HRRT [facility] Last Admin: 10/02/19 09:19 Dose: 3 ml Documented by: Enoxaparin Sodium (Lovenox) 140 mg SUBCUT ONETIME ONE Stop: 09/27/19 21:47 Last Admin: 09/27/19 22:49 Dose: 140 mg Documented by: Enoxaparin Sodium (Lovenox) 140 mg SUBCUT BID [facility] Last Admin: 09/29/19 20:04 Dose: 140 mg Documented by: Enoxaparin Sodium (Lovenox) 150 mg SUBCUT Q12H [facility] Furosemide (Lasix) 20 mg IVPUSH NOW ONE Stop: 10/02/19 10:08 Last Admin: 10/02/19 10:42 Dose: 20 mg Documented by: Sodium Chloride (Normal Saline) 1,000 mls @ 999 mls/hr IV .Bolus ONE Stop: 09/27/19 21:58 Last Admin: 09/27/19 21:23 Dose: 999 mls/hr Documented by: Ceftriaxone Sodium/Dextrose 1 (gm/ Premix) 50 mls @ 100 mls/hr IV ONETIME ONE Stop: 09/27/19 22:30 Last Admin: 09/27/19 22:48 Dose: 100 mls/hr Documented by: Sodium Chloride (Normal Saline) 1,000 mls @ 125 mls/hr IV ASDIRECTED [facility] Last Admin: 09/29/19 05:47 Dose: 125 mls/hr Documented by: Ceftriaxone Sodium/Dextrose 1 (gm/ Premix) 50 mls @ 100 mls/hr IV Q24H [facility] Last Admin: 10/01/19 22:26 Dose: 100 mls/hr Documented by: Sodium Chloride (Normal Saline) 500 mls @ 125 mls/hr IV ONETIME ONE Stop: 09/30/19 18:36 Last Admin: 09/30/19 16:02 Dose: 125 mls/hr Documented by: Pantoprazole Sodium 40 mg/ (Sodium Chloride) 10 mls @ 300 mls/hr IV NOW ONE Stop: 10/02/19 15:00 Last Admin: 10/02/19 15:34 Dose: 300 mls/hr Documented by: Insulin Aspart (Novolog) 0 unit SUBCUT TIDAC [facility]; Protocol Last Admin: 10/01/19 09:40 Dose: Not Given Documented by: Iopamidol (Isovue-370 (76%)) 50 ml IV ONETIME STA Stop: 09/30/19 18:08 Last Admin: 09/30/19 18:08 Dose: 50 ml Documented by: Sodium Chloride (Saline Flush) 10 ml FLUSH ASDIRECTED PRN PRN Reason: Keep Vein Open - Exam Quality Assessment: Supplemental Oxygen General: Alert, Oriented Neck: Supple, Trachea Midline Lungs: Clear to Auscultation, Decreased Breath Sounds GI/Abdominal Exam: Normal Bowel Sounds, Soft, Non-Tender, Distended, Other (redness has improved) Extremities: Normal Inspection, Non-Tender Sepsis Event Note - Evaluation Sepsis Screening Result: No Definite Risk - Focused Exam Vital Signs: Vital Signs Temp Pulse Resp BP Pulse Ox Pulse Ox 10/04/19 11:00 36.6 C 87 17 100/54 L 93 L 10/04/19 07:47 36.4 C 87 18 90/50 L 94 L 10/04/19 05:00 93 L 10/04/19 04:00 36.1 C 91 19 100/53 L 93 L Date Exam was Performed: 10/04/19 Time Exam was Performed: 12:38 - Problem List & Annotations (1) Ambulatory dysfunction SNOMED Code(s): 704150409 Code(s): R26.2 - DIFFICULTY IN WALKING, NOT ELSEWHERE CLASSIFIED Status: Acute Current Visit: Yes (2) Morbid obesity SNOMED Code(s): 743812566 Code(s): E66.01 - MORBID (SEVERE) OBESITY DUE TO EXCESS CALORIES Status: Acute Current Visit: Yes (3) Weakness SNOMED Code(s): 01087169 Code(s): R53.1 - WEAKNESS Status: Acute Current Visit: Yes (4) Cellulitis SNOMED Code(s): 122704866 Code(s): L03.90 - CELLULITIS, UNSPECIFIED Status: Acute Current Visit: No (5) Cellulitis of right leg SNOMED Code(s): 807063750 Code(s): L03.115 - CELLULITIS OF RIGHT LOWER LIMB Status: Acute Current Visit: No (6) Hypotension SNOMED Code(s): 96946958 Code(s): I95.9 - HYPOTENSION, UNSPECIFIED Status: Acute Current Visit: No Qualifiers: Hypotension type: unspecified hypotension type Qualified Code(s): I95.9 - Hypotension, unspecified (7) Venous stasis dermatitis of both lower extremities SNOMED Code(s): 81534518 Code(s): I83.11 - VARICOSE VEINS OF RIGHT LOWER EXTREMITY WITH INFLAMMATION; I83.12 - VARICOSE VEINS OF LEFT LOWER EXTREMITY WITH INFLAMMATION Status: Acute Current Visit: No (8) Abdominal wall cellulitis SNOMED Code(s): 00125026 Code(s): L03.311 - CELLULITIS OF ABDOMINAL WALL Status: Acute Current Visit: Yes - Problem List Review Problem List Initiated/Reviewed/Updated: Yes - Plan Plan:: 64 yo female admitted after fall for dehydration, acute kidney injury, and UTI. 1. UTI - Treated completely. s/p Rocephin 2. Abdominal wall cellulitis/asif - Continued improvement - cont Keflex and continue Nystatin - Educated on self care of pannus, verbalized understanding 3. Shortness of breath: - CT angio rules out PE. Noted small bibasilar pleural effusion with pericardial effusion. - f/u on ECHO - Duonebs scheduled Q6hr - Wean oxygen as possible, keep sats above 90% 4. Falls, self care deficit; - Plan for home with resources such as Home health. - PT/OT evaluate and treat, not safe for her to get up and stand as there is risk of fracture as she hasn't walked in past 4 years - Not able to transfer per self yet like at home, need to continue to encourage this as much as possible. - Not able to get payer source for SNF, her and her make to much money. Will need to arrange at home services. Given information by social work. - -May need to apply for disability. VTE prophylaxis: Heparin Dispo: 2-3 days pending improvement
[2019-10-05] MEDS: Albuterol/Ipratropium 3.0-0.5 MG/3 ML Neb Soln NEB SCH ×2 (06:11→11:33)
[2019-10-05] MEDS: Nystatin Topical Powder 15 GM Bottle TOP SCH ×3 (06:22→21:19)
[2019-10-05] MEDS: Cephalexin 500 MG Cap PO SCH ×4 (06:23→23:30)
[2019-10-05] MEDS: Heparin Sodium 5,000 Units/ML Vial SUBCUT SCH ×2 (10:00→21:18)
[2019-10-05] MEDS: Docusate Sodium 100 MG Cap PO SCH (10:19)
[2019-10-05] MEDS: Polyethylene Glycol 3350 Powder 17 GM Packet PO SCH (10:19)
--- NOTE | 2019-10-05 11:02 | PCM.PN ---
- Patient Data Vitals - Most Recent: Last Vital Signs Temp 35.3 C L 10/05/19 08:00 Pulse 93 10/05/19 08:00 Resp 20 10/05/19 08:00 BP 106/49 L 10/05/19 08:00 Pulse Ox 93 L 10/05/19 08:00 Weight - Most Recent: 152.407 kg I&O - Last 24 Hours: Intake & Output 10/04/19 10/05/19 10/05/19 22:59 06:59 14:59 Intake Total 900 500 Balance 900 500 Med Orders - Current: Current Medications Acetaminophen (Tylenol) 650 mg PO Q6H PRN PRN Reason: Pain Last Admin: 10/01/19 14:26 Dose: 650 mg Documented by: Albuterol/Ipratropium (Duoneb 3.0-0.5 Mg/3 Ml) 3 ml NEB Q6HRRT [facility] Last Admin: 10/05/19 06:11 Dose: 3 ml Documented by: Bisacodyl (Dulcolax) 10 mg RECTAL DAILY PRN PRN Reason: Constipation Last Admin: 10/02/19 14:06 Dose: 10 mg Documented by: Cephalexin (Keflex) 500 mg PO Q6HR [facility] Last Admin: 10/05/19 06:23 Dose: 500 mg Documented by: Docusate Sodium (Colace) 100 mg PO BID [facility] Last Admin: 10/05/19 10:19 Dose: Not Given Documented by: Heparin Sodium (Porcine) (Heparin Sodium) 5,000 units SUBCUT Q12H [facility] Last Admin: 10/05/19 10:00 Dose: 5,000 units Documented by: Nystatin (Nystop) 1 gm TOP TID [facility] Last Admin: 10/05/19 06:22 Dose: 1 gm Documented by: Ondansetron HCl (Zofran) 4 mg IVPUSH Q6H PRN PRN Reason: Nausea/Vomiting Last Admin: 10/02/19 10:45 Dose: 4 mg Documented by: Polyethylene Glycol (Miralax) 17 gm PO DAILY [facility] Last Admin: 10/05/19 10:19 Dose: Not Given Documented by: Sodium Chloride (Saline Flush) 2.5 ml FLUSH ASDIRECTED PRN PRN Reason: Keep Vein Open Discontinued Medications Albuterol/Ipratropium (Duoneb 3.0-0.5 Mg/3 Ml) 3 ml NEB Q4HRRT PRN PRN Reason: Wheezing Last Admin: 09/30/19 15:13 Dose: 3 ml Documented by: Albuterol/Ipratropium (Duoneb 3.0-0.5 Mg/3 Ml) 3 ml NEB Q4HRRT [facility] Last Admin: 10/02/19 09:19 Dose: 3 ml Documented by: Enoxaparin Sodium (Lovenox) 140 mg SUBCUT ONETIME ONE Stop: 09/27/19 21:47 Last Admin: 09/27/19 22:49 Dose: 140 mg Documented by: Enoxaparin Sodium (Lovenox) 140 mg SUBCUT BID [facility] Last Admin: 09/29/19 20:04 Dose: 140 mg Documented by: Enoxaparin Sodium (Lovenox) 150 mg SUBCUT Q12H [facility] Furosemide (Lasix) 20 mg IVPUSH NOW ONE Stop: 10/02/19 10:08 Last Admin: 10/02/19 10:42 Dose: 20 mg Documented by: Sodium Chloride (Normal Saline) 1,000 mls @ 999 mls/hr IV .Bolus ONE Stop: 09/27/19 21:58 Last Admin: 09/27/19 21:23 Dose: 999 mls/hr Documented by: Ceftriaxone Sodium/Dextrose 1 (gm/ Premix) 50 mls @ 100 mls/hr IV ONETIME ONE Stop: 09/27/19 22:30 Last Admin: 09/27/19 22:48 Dose: 100 mls/hr Documented by: Sodium Chloride (Normal Saline) 1,000 mls @ 125 mls/hr IV ASDIRECTED [facility] Last Admin: 09/29/19 05:47 Dose: 125 mls/hr Documented by: Ceftriaxone Sodium/Dextrose 1 (gm/ Premix) 50 mls @ 100 mls/hr IV Q24H [facility] Last Admin: 10/01/19 22:26 Dose: 100 mls/hr Documented by: Sodium Chloride (Normal Saline) 500 mls @ 125 mls/hr IV ONETIME ONE Stop: 09/30/19 18:36 Last Admin: 09/30/19 16:02 Dose: 125 mls/hr Documented by: Pantoprazole Sodium 40 mg/ (Sodium Chloride) 10 mls @ 300 mls/hr IV NOW ONE Stop: 10/02/19 15:00 Last Admin: 10/02/19 15:34 Dose: 300 mls/hr Documented by: Insulin Aspart (Novolog) [facility]; Protocol Last Admin: 10/01/19 09:40 Dose: Not Given Documented by: Iopamidol (Isovue-370 (76%)) 50 ml IV ONETIME STA Stop: 09/30/19 18:08 Last Admin: 09/30/19 18:08 Dose: 50 ml Documented by: Sodium Chloride (Saline Flush) 10 ml FLUSH ASDIRECTED PRN PRN Reason: Keep Vein Open Sepsis Event Note - Evaluation Sepsis Screening Result: No Definite Risk - Focused Exam Vital Signs: Vital Signs Temp Pulse Resp BP Pulse Ox 10/05/19 08:00 35.3 C L 93 20 106/49 L 93 L 10/05/19 04:00 36.6 C 94 18 102/51 L 91 L 10/05/19 00:00 35.8 C L 94 19 109/50 L 93 L Date Exam was Performed: 10/05/19 Time Exam was Performed: 11:02 - Problem List & Annotations (1) Ambulatory dysfunction SNOMED Code(s): 554215403 Code(s): R26.2 - DIFFICULTY IN WALKING, NOT ELSEWHERE CLASSIFIED Status: Acute Current Visit: Yes (2) Morbid obesity SNOMED Code(s): 785961417 Code(s): E66.01 - MORBID (SEVERE) OBESITY DUE TO EXCESS CALORIES Status: Acute Current Visit: Yes (3) Weakness SNOMED Code(s): 25322433 Code(s): R53.1 - WEAKNESS Status: Acute Current Visit: Yes (4) Cellulitis SNOMED Code(s): 643227243 Code(s): L03.90 - CELLULITIS, UNSPECIFIED Status: Acute Current Visit: No (5) Cellulitis of right leg SNOMED Code(s): 285283376 Code(s): L03.115 - CELLULITIS OF RIGHT LOWER LIMB Status: Acute Current Visit: No (6) Hypotension SNOMED Code(s): 64940134 Code(s): I95.9 - HYPOTENSION, UNSPECIFIED Status: Acute Current Visit: No Qualifiers: Hypotension type: unspecified hypotension type Qualified Code(s): I95.9 - Hypotension, unspecified (7) Venous stasis dermatitis of both lower extremities SNOMED Code(s): 58192200 Code(s): I83.11 - VARICOSE VEINS OF RIGHT LOWER EXTREMITY WITH INFLAMMATION; I83.12 - VARICOSE VEINS OF LEFT LOWER EXTREMITY WITH INFLAMMATION Status: Acute Current Visit: No (8) Abdominal wall cellulitis SNOMED Code(s): 04449571 Code(s): L03.311 - CELLULITIS OF ABDOMINAL WALL Status: Acute Current Visit: Yes - Plan Plan:: 64 yo female admitted after fall for dehydration, acute kidney injury, and UTI. 1. UTI - Treated completely. s/p Rocephin 2. Abdominal wall cellulitis/asif - Continued improvement - cont Keflex and continue Nystatin - Educated on self care of pannus, verbalized understanding 3. Shortness of breath: - CT angio rules out PE. Noted small bibasilar pleural effusion with pericardial effusion. - f/u on ECHO - Duonebs scheduled Q6hr - Wean oxygen as possible, keep sats above 90% 4. Falls, self care deficit; - Plan for home with resources such as Home health. - PT/OT evaluate and treat, not safe for her to get up and stand as there is risk of fracture as she hasn't walked in past 4 years - Not able to transfer per self yet like at home, need to continue to encourage this as much as possible. - Not able to get payer source for SNF, her and her make to much money. Will need to arrange at home services. Given information by social work. - -May need to apply for disability. VTE prophylaxis: Heparin Dispo: 2-3 days pending improvement
--- NOTE | 2019-10-05 13:34 | PCM.PN ---
- General Info Date of Service: 10/05/19 Admission Dx/Problem (Free Text): Admission Diagnosis/Problem Admission Diagnosis/Problem Weakness Subjective Update: Reports feeling good this morning, Denies fevers or chills. loose stools improving after stopping stool softeners, mild nausea - Review of Systems General: Denies: Fever, Weakness, Fatigue Pulmonary: Denies: Shortness of Breath, Pleuritic Chest Pain Cardiovascular: Denies: Chest Pain, Palpitations, Dyspnea on Exertion Gastrointestinal: Reports: Decreased Appetite, Nausea. Denies: Abdominal Pain, Constipation, Difficulty Swallowing, Vomiting Genitourinary: Denies: Dysuria, Frequency, Burning Musculoskeletal: Reports: Leg Pain. Denies: Neck Pain, Shoulder Pain, Arm Pain Psychiatric: Denies: Confusion, Depression - Patient Data Vitals - Most Recent: Last Vital Signs Temp 35.3 C L 10/05/19 08:00 Pulse 93 10/05/19 08:00 Resp 20 10/05/19 08:00 BP 106/49 L 10/05/19 08:00 Pulse Ox 93 L 10/05/19 08:00 Weight - Most Recent: 152.407 kg I&O - Last 24 Hours: Intake & Output 10/04/19 10/05/19 10/05/19 22:59 06:59 14:59 Intake Total 900 500 Balance 900 500 Med Orders - Current: Current Medications Acetaminophen (Tylenol) 650 mg PO Q6H PRN PRN Reason: Pain Last Admin: 10/01/19 14:26 Dose: 650 mg Documented by: Albuterol/Ipratropium (Duoneb 3.0-0.5 Mg/3 Ml) 3 ml NEB Q6HRRT [facility] Last Admin: 10/05/19 11:33 Dose: 3 ml Documented by: Bisacodyl (Dulcolax) 10 mg RECTAL DAILY PRN PRN Reason: Constipation Last Admin: 10/02/19 14:06 Dose: 10 mg Documented by: Cephalexin (Keflex) 500 mg PO Q6HR [facility] Last Admin: 10/05/19 06:23 Dose: 500 mg Documented by: Heparin Sodium (Porcine) (Heparin Sodium) 5,000 units SUBCUT Q12H [facility] Last Admin: 10/05/19 10:00 Dose: 5,000 units Documented by: Nystatin (Nystop) 1 gm TOP TID [facility] Last Admin: 10/05/19 06:22 Dose: 1 gm Documented by: Ondansetron HCl (Zofran) 4 mg IVPUSH Q6H PRN PRN Reason: Nausea/Vomiting Last Admin: 10/02/19 10:45 Dose: 4 mg Documented by: Polyethylene Glycol (Miralax) 17 gm PO DAILY [facility] Last Admin: 10/05/19 10:19 Dose: Not Given Documented by: Sodium Chloride (Saline Flush) 2.5 ml FLUSH ASDIRECTED PRN PRN Reason: Keep Vein Open Discontinued Medications Albuterol/Ipratropium (Duoneb 3.0-0.5 Mg/3 Ml) 3 ml NEB Q4HRRT PRN PRN Reason: Wheezing Last Admin: 09/30/19 15:13 Dose: 3 ml Documented by: Albuterol/Ipratropium (Duoneb 3.0-0.5 Mg/3 Ml) 3 ml NEB Q4HRRT [facility] Last Admin: 10/02/19 09:19 Dose: 3 ml Documented by: Docusate Sodium (Colace) 100 mg PO BID [facility] Last Admin: 10/05/19 10:19 Dose: Not Given Documented by: Enoxaparin Sodium (Lovenox) 140 mg SUBCUT ONETIME ONE Stop: 09/27/19 21:47 Last Admin: 09/27/19 22:49 Dose: 140 mg Documented by: Enoxaparin Sodium (Lovenox) 140 mg SUBCUT BID [facility] Last Admin: 09/29/19 20:04 Dose: 140 mg Documented by: Enoxaparin Sodium (Lovenox) 150 mg SUBCUT Q12H [facility] Furosemide (Lasix) 20 mg IVPUSH NOW ONE Stop: 10/02/19 10:08 Last Admin: 10/02/19 10:42 Dose: 20 mg Documented by: Sodium Chloride (Normal Saline) 1,000 mls @ 999 mls/hr IV .Bolus ONE Stop: 09/27/19 21:58 Last Admin: 09/27/19 21:23 Dose: 999 mls/hr Documented by: Ceftriaxone Sodium/Dextrose 1 (gm/ Premix) 50 mls @ 100 mls/hr IV ONETIME ONE Stop: 09/27/19 22:30 Last Admin: 09/27/19 22:48 Dose: 100 mls/hr Documented by: Sodium Chloride (Normal Saline) 1,000 mls @ 125 mls/hr IV ASDIRECTED [facility] Last Admin: 09/29/19 05:47 Dose: 125 mls/hr Documented by: Ceftriaxone Sodium/Dextrose 1 (gm/ Premix) 50 mls @ 100 mls/hr IV Q24H [facility] Last Admin: 10/01/19 22:26 Dose: 100 mls/hr Documented by: Sodium Chloride (Normal Saline) 500 mls @ 125 mls/hr IV ONETIME ONE Stop: 09/30/19 18:36 Last Admin: 09/30/19 16:02 Dose: 125 mls/hr Documented by: Pantoprazole Sodium 40 mg/ (Sodium Chloride) 10 mls @ 300 mls/hr IV NOW ONE Stop: 10/02/19 15:00 Last Admin: 10/02/19 15:34 Dose: 300 mls/hr Documented by: Insulin Aspart (Novolog) 0 unit SUBCUT TIDAC [facility]; Protocol Last Admin: 10/01/19 09:40 Dose: Not Given Documented by: Iopamidol (Isovue-370 (76%)) 50 ml IV ONETIME STA Stop: 09/30/19 18:08 Last Admin: 09/30/19 18:08 Dose: 50 ml Documented by: Sodium Chloride (Saline Flush) 10 ml FLUSH ASDIRECTED PRN PRN Reason: Keep Vein Open - Exam Quality Assessment: Supplemental Oxygen General: Alert, Oriented Neck: Supple Lungs: Clear to Auscultation, Normal Respiratory Effort Cardiovascular: Regular Rate, Regular Rhythm GI/Abdominal Exam: Normal Bowel Sounds, Soft, Distended (pannus). No: Rigid, Rebound, Tender, Abnormal Bowel Sounds Peripheral Pulses: 3+: Dorsalis Pedis (L), Dorsalis Pedis (R) Wound/Incisions: Healing Well, Dressing Dry and Intact Sepsis Event Note - Evaluation Sepsis Screening Result: No Definite Risk - Focused Exam Vital Signs: Vital Signs Temp Pulse Resp BP Pulse Ox 10/05/19 08:00 35.3 C L 93 20 106/49 L 93 L 10/05/19 04:00 36.6 C 94 18 102/51 L 91 L Date Exam was Performed: 10/05/19 Time Exam was Performed: 13:31 - Problem List & Annotations (1) Ambulatory dysfunction SNOMED Code(s): 986425362 Code(s): R26.2 - DIFFICULTY IN WALKING, NOT ELSEWHERE CLASSIFIED Status: Acute Current Visit: Yes (2) Morbid obesity SNOMED Code(s): 736081588 Code(s): E66.01 - MORBID (SEVERE) OBESITY DUE TO EXCESS CALORIES Status: Acute Current Visit: Yes (3) Weakness SNOMED Code(s): 28802595 Code(s): R53.1 - WEAKNESS Status: Acute Current Visit: Yes (4) Cellulitis SNOMED Code(s): 411984757 Code(s): L03.90 - CELLULITIS, UNSPECIFIED Status: Acute Current Visit: No (5) Cellulitis of right leg SNOMED Code(s): 948721742 Code(s): L03.115 - CELLULITIS OF RIGHT LOWER LIMB Status: Acute Current Visit: No (6) Hypotension SNOMED Code(s): 37723349 Code(s): I95.9 - HYPOTENSION, UNSPECIFIED Status: Acute Current Visit: No Qualifiers: Hypotension type: unspecified hypotension type Qualified Code(s): I95.9 - Hypotension, unspecified (7) Venous stasis dermatitis of both lower extremities SNOMED Code(s): 29436208 Code(s): I83.11 - VARICOSE VEINS OF RIGHT LOWER EXTREMITY WITH INFLAMMATION; I83.12 - VARICOSE VEINS OF LEFT LOWER EXTREMITY WITH INFLAMMATION Status: Acute Current Visit: No (8) Abdominal wall cellulitis SNOMED Code(s): 82758156 Code(s): L03.311 - CELLULITIS OF ABDOMINAL WALL Status: Acute Current V isit: Yes - Problem List Review Problem List Initiated/Reviewed/Updated: Yes - Plan Plan:: 64 yo female admitted after fall for dehydration, acute kidney injury, and UTI. 1. UTI - Treated completely. s/p Rocephin 2. Abdominal wall cellulitis/asif - Continued improvement - cont Keflex and continue Nystatin - Educated on self care of pannus, verbalized understanding 3. Shortness of breath: - CT angio rules out PE. Noted small bibasilar pleural effusion with pericardial effusion. - f/u on ECHO - Duonebs Q6hr as needed - Wean oxygen as possible, keep sats above 90% 4. Falls, self care deficit; - Plan for home with resources such as Home health. - PT/OT evaluate and treat, not safe for her to get up and stand as there is risk of fracture as she hasn't walked in past 4 years - Not able to transfer per self yet like at home, need to continue to encourage this as much as possible. - Not able to get payer source for SNF, her and her make to much money. Will need to arrange at home services. Given information by social work. - -May need to apply for disability. VTE prophylaxis: Heparin Dispo: 2-3 days pending improvement
[2019-10-05] MEDS: Albuterol/Ipratropium 3.0-0.5 MG/3 ML Neb Soln NEB PRN (19:35)
[2019-10-06] MEDS: Cephalexin 500 MG Cap PO SCH ×3 (05:52→17:33)
[2019-10-06] MEDS: Nystatin Topical Powder 15 GM Bottle TOP SCH ×3 (05:52→22:32)
[2019-10-06] MEDS: Albuterol/Ipratropium 3.0-0.5 MG/3 ML Neb Soln NEB PRN ×2 (05:59→15:08)
[2019-10-06] MEDS: Polyethylene Glycol 3350 Powder 17 GM Packet PO SCH (08:40)
[2019-10-06] MEDS: Heparin Sodium 5,000 Units/ML Vial SUBCUT SCH ×2 (08:40→20:18)
--- NOTE | 2019-10-06 12:15 | PCM.PN ---
- General Info Date of Service: 10/06/19 Admission Dx/Problem (Free Text): Admission Diagnosis/Problem Admission Diagnosis/Problem Weakness Subjective Update: Reports feeling good this morning, Denies fevers or chills. some fushing in her face, no itching, patient states she has a mass in her left jaw, she has had it for few weeks before she was admitted to hospital, it appeared suddenly, has gone down since, doesn't bother her. Diarrhea resolved, feels little bloated - Review of Systems General: Denies: Fever, Weakness, Fatigue Pulmonary: Denies: Shortness of Breath, Pleuritic Chest Pain Cardiovascular: Denies: Chest Pain, Palpitations, Dyspnea on Exertion Gastrointestinal: Reports: Constipation. Denies: Abdominal Pain, Decreased Appetite Genitourinary: Denies: Dysuria, Frequency, Burning Musculoskeletal: Denies: Shoulder Pain, Arm Pain, Hand Pain Skin: Denies: Cyanosis Neurological: Denies: Confusion, Dizziness - Patient Data Vitals - Most Recent: Last Vital Signs Temp 36.1 C 10/06/19 08:00 Pulse 88 10/06/19 08:00 Resp 20 10/06/19 08:00 BP 105/47 L 10/06/19 08:00 Pulse Ox 93 L 10/06/19 08:00 Weight - Most Recent: 152.407 kg I&O - Last 24 Hours: Intake & Output 10/05/19 10/06/19 10/06/19 22:59 06:59 14:59 Intake Total 1650 420 Output Total 600 Balance 1050 420 Med Orders - Current: Current Medications Acetaminophen (Tylenol) 650 mg PO Q6H PRN PRN Reason: Pain Last Admin: 10/01/19 14:26 Dose: 650 mg Documented by: Albuterol/Ipratropium (Duoneb 3.0-0.5 Mg/3 Ml) 3 ml NEB Q6HRRT PRN PRN Reason: Shortness of Breath Last Admin: 10/06/19 05:59 Dose: 3 ml Documented by: Bisacodyl (Dulcolax) 10 mg RECTAL DAILY PRN PRN Reason: Constipation Last Admin: 10/02/19 14:06 Dose: 10 mg Documented by: Cephalexin (Keflex) 500 mg PO Q6HR [facility] Last Admin: 10/06/19 05:52 Dose: 500 mg Documented by: Heparin Sodium (Porcine) (Heparin Sodium) 5,000 units SUBCUT Q12H [facility] Last Admin: 10/06/19 08:40 Dose: 5,000 units Documented by: Nystatin (Nystop) 1 gm TOP TID [facility] Last Admin: 10/06/19 05:52 Dose: 1 gm Documented by: Ondansetron HCl (Zofran) 4 mg IVPUSH Q6H PRN PRN Reason: Nausea/Vomiting Last Admin: 10/02/19 10:45 Dose: 4 mg Documented by: Polyethylene Glycol (Miralax) 17 gm PO DAILY [facility] Last Admin: 10/06/19 08:40 Dose: 17 gm Documented by: Sodium Chloride (Saline Flush) 2.5 ml FLUSH ASDIRECTED PRN PRN Reason: Keep Vein Open Discontinued Medications Albuterol/Ipratropium (Duoneb 3.0-0.5 Mg/3 Ml) 3 ml NEB Q4HRRT PRN PRN Reason: Wheezing Last Admin: 09/30/19 15:13 Dose: 3 ml Documented by: Albuterol/Ipratropium (Duoneb 3.0-0.5 Mg/3 Ml) 3 ml NEB Q4HRRT [facility] Last Admin: 10/02/19 09:19 Dose: 3 ml Documented by: Albuterol/Ipratropium (Duoneb 3.0-0.5 Mg/3 Ml) 3 ml NEB Q6HRRT [facility] Last Admin: 10/05/19 11:33 Dose: 3 ml Documented by: Docusate Sodium (Colace) 100 mg PO BID [facility] Last Admin: 10/05/19 10:19 Dose: Not Given Documented by: Enoxaparin Sodium (Lovenox) 140 mg SUBCUT ONETIME ONE Stop: 09/27/19 21:47 Last Admin: 09/27/19 22:49 Dose: 140 mg Documented by: Enoxaparin Sodium (Lovenox) 140 mg SUBCUT BID [facility] Last Admin: 09/29/19 20:04 Dose: 140 mg Documented by: Enoxaparin Sodium (Lovenox) 150 mg SUBCUT Q12H [facility] Furosemide (Lasix) 20 mg IVPUSH NOW ONE Stop: 10/02/19 10:08 Last Admin: 10/02/19 10:42 Dose: 20 mg Documented by: Sodium Chloride (Normal Saline) 1,000 mls @ 999 mls/hr IV .Bolus ONE Stop: 09/27/19 21:58 Last Admin: 09/27/19 21:23 Dose: 999 mls/hr Documented by: Ceftriaxone Sodium/Dextrose 1 (gm/ Premix) 50 mls @ 100 mls/hr IV ONETIME ONE Stop: 09/27/19 22:30 Last Admin: 09/27/19 22:48 Dose: 100 mls/hr Documented by: Sodium Chloride (Normal Saline) 1,000 mls @ 125 mls/hr IV ASDIRECTED [facility] Last Admin: 09/29/19 05:47 Dose: 125 mls/hr Documented by: Ceftriaxone Sodium/Dextrose 1 (gm/ Premix) 50 mls @ 100 mls/hr IV Q24H [facility] Last Admin: 10/01/19 22:26 Dose: 100 mls/hr Documented by: Sodium Chloride (Normal Saline) 500 mls @ 125 mls/hr IV ONETIME ONE Stop: 09/30/19 18:36 Last Admin: 09/30/19 16:02 Dose: 125 mls/hr Documented by: Pantoprazole Sodium 40 mg/ (Sodium Chloride) 10 mls @ 300 mls/hr IV NOW ONE Stop: 10/02/19 15:00 Last Admin: 10/02/19 15:34 Dose: 300 mls/hr Documented by: Insulin Aspart (Novolog) 0 unit SUBCUT TIDAC [facility]; Protocol Last Admin: 10/01/19 09:40 Dose: Not Given Documented by: Iopamidol (Isovue-370 (76%)) 50 ml IV ONETIME STA Stop: 09/30/19 18:08 Last Admin: 09/30/19 18:08 Dose: 50 ml Documented by: Sodium Chloride (Saline Flush) 10 ml FLUSH ASDIRECTED PRN PRN Reason: Keep Vein Open - Exam Quality Assessment: Supplemental Oxygen General: Alert, Oriented HEENT: Mucous Membr. Moist/Schriever, Other (round smooth mass over left masseter/ left jaw) Neck: Supple, Trachea Midline Lungs: Clear to Auscultation, Normal Respiratory Effort Cardiovascular: Regular Rate, Regular Rhythm GI/Abdominal Exam: Normal Bowel Sounds, Soft, Non-Tender, Distended Sepsis Event Note - Evaluation Sepsis Screening Result: No Definite Risk - Focused Exam Vital Signs: Vital Signs Temp Pulse Resp BP Pulse Ox Pulse Ox 10/06/19 08:00 36.1 C 88 20 105/47 L 93 L 10/06/19 05:00 93 L 10/06/19 04:00 36.4 C 88 20 102/54 L 93 L Date Exam was Performed: 10/06/19 Time Exam was Performed: 12:02 - Problem List & Annotations (1) Ambulatory dysfunction SNOMED Code(s): 488119728 Code(s): R26.2 - DIFFICULTY IN WALKING, NOT ELSEWHERE CLASSIFIED Status: Acute Current Visit: Yes (2) Morbid obesity SNOMED Code(s): 134184665 Code(s): E66.01 - MORBID (SEVERE) OBESITY DUE TO EXCESS CALORIES Status: Acute Current Visit: Yes (3) Weakness SNOMED Code(s): 76589143 Code(s): R53.1 - WEAKNESS Status: Acute Current Visit: Yes (4) Cellulitis SNOMED Code(s): 866232751 Code(s): L03.90 - CELLULITIS, UNSPECIFIED Status: Acute Current Visit: No (5) Cellulitis of right leg SNOMED Code(s): 512886812 Code(s): L03.115 - CELLULITIS OF RIGHT LOWER LIMB Status: Acute Current Visit: No (6) Hypotension SNOMED Code(s): 74027025 Code(s): I95.9 - HYPOTENSION, UNSPECIFIED Status: Acute Current Visit: No Qualifiers: Hypotension type: unspecified hypotension type Qualified Code(s): I95.9 - Hypotension, unspecified (7) Venous stasis dermatitis of both lower extremities SNOMED Code(s): 64232982 Code(s): I83.11 - VARICOSE VEINS OF RIGHT LOWER EXTREMITY WITH INFLAMMATION; I83.12 - VARICOSE VEINS OF LEFT LOWER EXTREMITY WITH INFLAMMATION Status: Acute Current Visit: No (8) Abdominal wall cellulitis SNOMED Code(s): 72648308 Code(s): L03.311 - CELLULITIS OF ABDOMINAL WALL Status: Acute Current Visit: Yes (9) Jaw mass SNOMED Code(s): 408139106 Code(s): M27.8 - OTHER SPECIFIED DISEASES OF JAWS Status: Acute Current Visit: Yes - Problem List Review Problem List Initiated/Reviewed/Updated: Yes - My Orders Last 24 Hours: My Active Orders 10/05/19 13:33 Albuterol/Ipratropium [DuoNeb 3.0-0.5 MG/3 ML] 3 ml NEB Q6HRRT PRN - Plan Plan:: 64 yo female admitted after fall for dehydration, acute kidney injury, and UTI. 1. UTI - Treated completely. s/p Rocephin 2. Abdominal wall cellulitis/asif - Continued improvement - cont Keflex and continue Nystatin - Educated on self care of pannus, verbalized understanding 3. Shortness of breath: - CT angio rules out PE. Noted small bibasilar pleural effusion with pericardial effusion. - f/u on ECHO - Duonebs scheduled Q6hr - Wean oxygen as possible, keep sats above 90% 4. Falls, self care deficit; - Plan for home with resources such as Home health. - PT/OT evaluate and treat, not safe for her to get up and stand as there is risk of fracture as she hasn't walked in past 4 years - Not able to transfer per self yet like at home, need to continue to encourage this as much as possible. - Not able to get payer source for SNF, her and her make to much money. Will need to arrange at home services. Given information by social work. - -May need to apply for disability. 5. Left jaw mass: smooth, round mass about 5cm, non tender mass, been there for few months, would get a CT face but right now patient is refusing CT scan. She says she will think about it but most likely doesn't want to work up the mass further. I informed her to think about it and if she changes her mind we can get a CT scan to further assess the mass to see if it appears benign or malignant, she understands and wants to think over it. . VTE prophylaxis: Heparin Dispo: 2-3 days pending improvement
[2019-10-07] MEDS: Cephalexin 500 MG Cap PO SCH ×5 (00:49→23:00)
[2019-10-07] MEDS: Nystatin Topical Powder 15 GM Bottle TOP SCH ×3 (05:40→22:43)
[2019-10-07] MEDS: Heparin Sodium 5,000 Units/ML Vial SUBCUT SCH ×2 (09:23→20:30)
[2019-10-07] MEDS: Polyethylene Glycol 3350 Powder 17 GM Packet PO SCH ×2 (09:24→09:35)
--- NOTE | 2019-10-07 10:05 | PCM.PN ---
- General Info Date of Service: 10/07/19 - Review of Systems Systems Review Comment:: no new complaints, no fevers, no shortness of breath - Patient Data Vitals - Most Recent: Last Vital Signs Temp 36.1 C 10/07/19 07:45 Pulse 93 10/07/19 07:45 Resp 18 10/07/19 07:45 BP 106/51 L 10/07/19 07:45 Pulse Ox 93 L 10/07/19 07:45 Weight - Most Recent: 152.407 kg I&O - Last 24 Hours: Intake & Output 10/06/19 10/07/19 10/07/19 22:59 06:59 14:59 Intake Total 840 740 Output Total 600 0 Balance 240 740 Med Orders - Current: Current Medications Acetaminophen (Tylenol) 650 mg PO Q6H PRN PRN Reason: Pain Last Admin: 10/01/19 14:26 Dose: 650 mg Documented by: Albuterol/Ipratropium (Duoneb 3.0-0.5 Mg/3 Ml) 3 ml NEB Q6HRRT PRN PRN Reason: Shortness of Breath Last Admin: 10/06/19 15:08 Dose: 3 ml Documented by: Bisacodyl (Dulcolax) 10 mg RECTAL DAILY PRN PRN Reason: Constipation Last Admin: 10/02/19 14:06 Dose: 10 mg Documented by: Cephalexin (Keflex) 500 mg PO Q6HR [facility] Last Admin: 10/07/19 05:40 Dose: 500 mg Documented by: Heparin Sodium (Porcine) (Heparin Sodium) 5,000 units SUBCUT Q12H [facility] Last Admin: 10/07/19 09:23 Dose: 5,000 units Documented by: Nystatin (Nystop) 1 gm TOP TID [facility] Last Admin: 10/07/19 05:40 Dose: 1 gm Documented by: Ondansetron HCl (Zofran) 4 mg IVPUSH Q6H PRN PRN Reason: Nausea/Vomiting Last Admin: 10/02/19 10:45 Dose: 4 mg Documented by: Polyethylene Glycol (Miralax) 17 gm PO DAILY [facility] Last Admin: 10/07/19 09:35 Dose: Not Given Documented by: Sodium Chloride (Saline Flush) 2.5 ml FLUSH ASDIRECTED PRN PRN Reason: Keep Vein Open Discontinued Medications Albuterol/Ipratropium (Duoneb 3.0-0.5 Mg/3 Ml) 3 ml NEB Q4HRRT PRN PRN Reason: Wheezing Last Admin: 09/30/19 15:13 Dose: 3 ml Documented by: Albuterol/Ipratropium (Duoneb 3.0-0.5 Mg/3 Ml) 3 ml NEB Q4HRRT [facility] Last Admin: 10/02/19 09:19 Dose: 3 ml Documented by: Albuterol/Ipratropium (Duoneb 3.0-0.5 Mg/3 Ml) 3 ml NEB Q6HRRT [facility] Last Admin: 10/05/19 11:33 Dose: 3 ml Documented by: Docusate Sodium (Colace) 100 mg PO BID [facility] Last Admin: 10/05/19 10:19 Dose: Not Given Documented by: Enoxaparin Sodium (Lovenox) 140 mg SUBCUT ONETIME ONE Stop: 09/27/19 21:47 Last Admin: 09/27/19 22:49 Dose: 140 mg Documented by: Enoxaparin Sodium (Lovenox) 140 mg SUBCUT BID [facility] Last Admin: 09/29/19 20:04 Dose: 140 mg Documented by: Enoxaparin Sodium (Lovenox) 150 mg SUBCUT Q12H [facility] Furosemide (Lasix) 20 mg IVPUSH NOW ONE Stop: 10/02/19 10:08 Last Admin: 10/02/19 10:42 Dose: 20 mg Documented by: Sodium Chloride (Normal Saline) 1,000 mls @ 999 mls/hr IV .Bolus ONE Stop: 09/27/19 21:58 Last Admin: 09/27/19 21:23 Dose: 999 mls/hr Documented by: Ceftriaxone Sodium/Dextrose 1 (gm/ Premix) 50 mls @ 100 mls/hr IV ONETIME ONE Stop: 09/27/19 22:30 Last Admin: 09/27/19 22:48 Dose: 100 mls/hr Documented by: Sodium Chloride (Normal Saline) 1,000 mls @ 125 mls/hr IV ASDIRECTED [facility] Last Admin: 09/29/19 05:47 Dose: 125 mls/hr Documented by: Ceftriaxone Sodium/Dextrose 1 (gm/ Premix) 50 mls @ 100 mls/hr IV Q24H [facility] Last Admin: 10/01/19 22:26 Dose: 100 mls/hr Documented by: Sodium Chloride (Normal Saline) 500 mls @ 125 mls/hr IV ONETIME ONE Stop: 09/30/19 18:36 Last Admin: 09/30/19 16:02 Dose: 125 mls/hr Documented by: Pantoprazole Sodium 40 mg/ (Sodium Chloride) 10 mls @ 300 mls/hr IV NOW ONE Stop: 10/02/19 15:00 Last Admin: 10/02/19 15:34 Dose: 300 mls/hr Documented by: Insulin Aspart (Novolog) 0 unit SUBCUT TIDAC [facility]; Protocol Last Admin: 10/01/19 09:40 Dose: Not Given Documented by: Iopamidol (Isovue-370 (76%)) 50 ml IV ONETIME STA Stop: 09/30/19 18:08 Last Admin: 09/30/19 18:08 Dose: 50 ml Documented by: Sodium Chloride (Saline Flush) 10 ml FLUSH ASDIRECTED PRN PRN Reason: Keep Vein Open - Exam General: Oriented Lungs: Clear to Auscultation, Normal Respiratory Effort Cardiovascular: Regular Rate, Regular Rhythm GI/Abdominal Exam: Soft, Non-Tender, No Distention Extremities: Non-Tender, No Pedal Edema Skin: Warm, Dry, Intact Neurological: No New Focal Deficit Sepsis Event Note - Evaluation Sepsis Screening Result: No Definite Risk - Focused Exam Vital Signs: Vital Signs Temp Pulse Resp BP Pulse Ox Pulse Ox 10/07/19 07:45 36.1 C 93 18 106/51 L 93 L 10/07/19 05:00 90 L 10/07/19 04:00 36.4 C 95 18 95/57 L 90 L 10/07/19 00:00 37.0 C 94 18 109/53 L 91 L Date Exam was Performed: 10/07/19 Time Exam was Performed: 09:58 - Problem List Review Problem List Initiated/Reviewed/Updated: Yes - Plan Plan:: 64 yo female admitted after fall for dehydration, acute kidney injury, and UTI. 1. UTI - Treated completely. s/p Rocephin 2. Abdominal wall cellulitis/asif - Continued improvement - cont Keflex and continue Nystatin 3. Falls, self care deficit; - Plan for home with resources such as Home health. - PT/OT evaluate and treat, not safe for her to get up and stand as there is risk of fracture as she hasn't walked in past 4 years - Not able to transfer per self yet like at home, need to continue to encourage this as much as possible. - Not able to get payer source for SNF, her and her make to much money. Will need to arrange at home services. Given information by social work. - -May need to apply for disability. VTE prophylaxis: Heparin Dispo: pending placement
[2019-10-07] MEDS: Albuterol/Ipratropium 3.0-0.5 MG/3 ML Neb Soln NEB PRN (11:24)
[2019-10-08] MEDS: Albuterol/Ipratropium 3.0-0.5 MG/3 ML Neb Soln NEB PRN ×3 (03:40→15:59)
[2019-10-08] MEDS: Cephalexin 500 MG Cap PO SCH ×4 (06:05→23:09)
[2019-10-08] MEDS: Nystatin Topical Powder 15 GM Bottle TOP SCH ×3 (06:05→21:55)
[2019-10-08] MEDS: Polyethylene Glycol 3350 Powder 17 GM Packet PO SCH (09:35)
[2019-10-08] MEDS: Heparin Sodium 5,000 Units/ML Vial SUBCUT SCH ×2 (09:35→21:54)
[2019-10-08] MEDS: Ondansetron 4 MG/2 ML SDV IVPUSH PRN (15:40)
[2019-10-08] MEDS: Acetaminophen 325 MG Tab PO PRN (17:43)
[2019-10-09] MEDS: Cephalexin 500 MG Cap PO SCH (06:18)
[2019-10-09] MEDS: Nystatin Topical Powder 15 GM Bottle TOP SCH ×3 (06:19→22:26)
[2019-10-09] MEDS ORDERED: Sodium Chloride 0.9% 1,000 ML IV ONE (09:03)
[2019-10-09] MEDS: Albuterol/Ipratropium 3.0-0.5 MG/3 ML Neb Soln NEB PRN ×2 (09:10→18:45)
[2019-10-09] MEDS: Polyethylene Glycol 3350 Powder 17 GM Packet PO SCH (09:14)
[2019-10-09] MEDS ORDERED: Diltiazem 25 MG/5 ML SDV IVPUSH ONE (09:35)
[2019-10-09 09:54] LABS: CARBON DIOXIDE,CO2 22.6 mmol/L (21.0-32.0); POTASSIUM,K 4.9 mmol/L (3.5-5.1)
--- NOTE | 2019-10-09 10:08 | PCM.PN ---
- General Info Date of Service: 10/09/19 - Review of Systems Systems Review Comment:: Patient reports some nausea this morning. Noted to be tachycardic with HR in the 160s - Patient Data Vitals - Most Recent: Last Vital Signs Temp 35.8 C L 10/09/19 07:42 Pulse 169 H 10/09/19 07:42 Resp 24 H 10/09/19 07:42 BP 115/59 L 10/09/19 07:42 Pulse Ox 92 L 10/09/19 07:42 Weight - Most Recent: 152.407 kg I&O - Last 24 Hours: Intake & Output 10/08/19 10/09/19 10/09/19 22:59 06:59 14:59 Intake Total 650 500 Output Total 300 Balance 650 200 Lab Results Last 24 Hours: Laboratory Results - last 24 hr 10/09/19 10/09/19 10/09/19 Range/Units 09:15 09:15 09:15 WBC 6.60 (4.0-11.0) K/uL RBC 3.33 L (4.30-5.90) M/uL Hgb 10.0 L (12.0-16.0) g/dL Hct 32.3 L (36.0-46.0) % MCV 97.0 (80.0-98.0) fL MCH 30.0 (27.0-32.0) pg MCHC 31.0 (31.0-37.0) g/dL RDW Std Deviation 67.3 H (28.0-62.0) fl RDW Coeff of Rachid 19 H (11.0-15.0) % Plt Count 85 L (150-400) K/uL MPV 9.50 (7.40-12.00) fL Neut % (Auto) 67.8 (48.0-80.0) % Lymph % (Auto) 14.8 L (16.0-40.0) % [place] % (Auto) 15.8 H (0.0-15.0) % Eos % (Auto) 1.1 (0.0-7.0) % Baso % (Auto) 0.5 (0.0-1.5) % Neut # (Auto) 4.5 (1.4-5.7) K/uL Lymph # (Auto) 1.0 (0.6-2.4) K/uL [place] # (Auto) 1.0 H (0.0-0.8) K/uL Eos # (Auto) 0.1 (0.0-0.7) K/uL Baso # (Auto) 0.0 (0.0-0.1) K/uL Nucleated RBC % 0.0 /100WBC Nucleated RBCs # 0 K/uL Sodium 130 L (136-145) mmol/L Potassium 4.9 (3.5-5.1) mmol/L Chloride 98 (98-107) mmol/L Carbon Dioxide 22.6 (21.0-32.0) mmol/L BUN 23 H (7.0-18.0) mg/dL Creatinine 1.0 (0.6-1.0) mg/dL Est Cr Clr Drug Dosing 56.57 mL/min Estimated GFR (MDRD) 56.2 ml/min Glucose 102 (74-106) mg/dL Calcium 8.1 L (8.5-10.1) mg/dL Magnesium 2.0 (1.8-2.4) mg/dL Total Bilirubin 0.8 (0.2-1.0) mg/dL AST 29 (15-37) IU/L ALT 13 L (14-63) IU/L Alkaline Phosphatase 83 (46-116) U/L Troponin I < 0.050 (0.000-0.056) ng/mL Total Protein 5.0 L (6.4-8.2) g/dL Albumin 2.0 L (3.4-5.0) g/dL Globulin 3.0 (2.6-4.0) g/dL Albumin/Globulin Ratio 0.7 L (0.9-1.6) Med Orders - Current: Current Medications Acetaminophen (Tylenol) 650 mg PO Q6H PRN PRN Reason: Pain Last Admin: 10/08/19 17:43 Dose: 650 mg Documented by: Albuterol/Ipratropium (Duoneb 3.0-0.5 Mg/3 Ml) 3 ml NEB Q6HRRT PRN PRN Reason: Shortness of Breath Last Admin: 10/09/19 09:10 Dose: 3 ml Documented by: Bisacodyl (Dulcolax) 10 mg RECTAL DAILY PRN PRN Reason: Constipation Last Admin: 10/02/19 14:06 Dose: 10 mg Documented by: Heparin Sodium (Porcine) (Heparin Sodium) 5,000 units SUBCUT Q12H [facility] Last Admin: 10/08/19 21:54 Dose: 5,000 units Documented by: Nystatin (Nystop) 1 gm TOP TID [facility] Last Admin: 10/09/19 06:19 Dose: 1 gm Documented by: Ondansetron HCl (Zofran) 4 mg IVPUSH Q6H PRN PRN Reason: Nausea/Vomiting Last Admin: 10/08/19 15:40 Dose: 4 mg Documented by: Polyethylene Glycol (Miralax) 17 gm PO DAILY [facility] Last Admin: 10/09/19 09:14 Dose: 17 gm Documented by: Sodium Chloride (Saline Flush) 2.5 ml FLUSH ASDIRECTED PRN PRN Reason: Keep Vein Open Discontinued Medications Albuterol/Ipratropium (Duoneb 3.0-0.5 Mg/3 Ml) 3 ml NEB Q4HRRT PRN PRN Reason: Wheezing Last Admin: 09/30/19 15:13 Dose: 3 ml Documented by: Albuterol/Ipratropium (Duoneb 3.0-0.5 Mg/3 Ml) 3 ml NEB Q4HRRT [facility] Last Admin: 10/02/19 09:19 Dose: 3 ml Documented by: Albuterol/Ipratropium (Duoneb 3.0-0.5 Mg/3 Ml) 3 ml NEB Q6HRRT [facility] Last Admin: 10/05/19 11:33 Dose: 3 ml Documented by: Cephalexin (Keflex) 500 mg PO Q6HR [facility] Last Admin: 10/09/19 06:18 Dose: 500 mg Documented by: Diltiazem HCl (Diltiazem) 10 mg IVPUSH ONETIME ONE Stop: 10/09/19 09:36 Last Admin: 10/09/19 10:06 Dose: 10 mg Documented by: Docusate Sodium (Colace) 100 mg PO BID [facility] Last Admin: 10/05/19 10:19 Dose: Not Given Documented by: Enoxaparin Sodium (Lovenox) 140 mg SUBCUT ONETIME ONE Stop: 09/27/19 21:47 Last Admin: 09/27/19 22:49 Dose: 140 mg Documented by: Enoxaparin Sodium (Lovenox) 140 mg SUBCUT BID [facility] Last Admin: 09/29/19 20:04 Dose: 140 mg Documented by: Enoxaparin Sodium (Lovenox) 150 mg SUBCUT Q12H [facility] Furosemide (Lasix) 20 mg IVPUSH NOW ONE Stop: 10/02/19 10:08 Last Admin: 10/02/19 10:42 Dose: 20 mg Documented by: Sodium Chloride (Normal Saline) 1,000 mls @ 999 mls/hr IV .Bolus ONE Stop: 09/27/19 21:58 Last Admin: 09/27/19 21:23 Dose: 999 mls/hr Documented by: Ceftriaxone Sodium/Dextrose 1 (gm/ Premix) 50 mls @ 100 mls/hr IV ONETIME ONE Stop: 09/27/19 22:30 Last Admin: 09/27/19 22:48 Dose: 100 mls/hr Documented by: Sodium Chloride (Normal Saline) 1,000 mls @ 125 mls/hr IV ASDIRECTED [facility] Last Admin: 09/29/19 05:47 Dose: 125 mls/hr Documented by: Ceftriaxone Sodium/Dextrose 1 (gm/ Premix) 50 mls @ 100 mls/hr IV Q24H [facility] Last Admin: 10/01/19 22:26 Dose: 100 mls/hr Documented by: Sodium Chloride (Normal Saline) 500 mls @ 125 mls/hr IV ONETIME ONE Stop: 09/30/19 18:36 Last Admin: 09/30/19 16:02 Dose: 125 mls/hr Documented by: Pantoprazole Sodium 40 mg/ (Sodium Chloride) 10 mls @ 300 mls/hr IV NOW ONE Stop: 10/02/19 15:00 Last Admin: 10/02/19 15:34 Dose: 300 mls/hr Documented by: Sodium Chloride (Normal Saline) 1,000 mls @ 999 mls/hr IV .Bolus ONE Stop: 10/09/19 10:03 Last Admin: 10/09/19 10:05 Dose: 999 mls/hr Documented by: Insulin Aspart (Novolog) 0 unit SUBCUT TIDAC [facility]; Protocol Last Admin: 10/01/19 09:40 Dose: Not Given Documented by: Iopamidol (Isovue-370 (76%)) 50 ml IV ONETIME STA Stop: 09/30/19 18:08 Last Admin: 09/30/19 18:08 Dose: 50 ml Documented by: Sodium Chloride (Saline Flush) 10 ml FLUSH ASDIRECTED PRN PRN Reason: Keep Vein Open - Exam General: Alert, Oriented Neck: Supple Lungs: Clear to Auscultation, Normal Respiratory Effort. No: Rhonchi, Wheezing Cardiovascular: Regular Rhythm, Tachycardia GI/Abdominal Exam: Soft, Non-Tender, No Distention, Other (obese) Extremities: Pedal Edema (mild pedal edema) Skin: Warm, Dry, Intact Sepsis Event Note - Evaluation Sepsis Screening Result: No Definite Risk - Focused Exam Vital Signs: Vital Signs Temp Pulse Resp BP Pulse Ox 10/09/19 07:42 35.8 C L 169 H 24 H 115/59 L 92 L 10/09/19 03:00 36.4 C 85 20 99/56 L 92 L 10/08/19 23:10 36.0 C L 88 20 98/55 L 92 L Date Exam was Performed: 10/09/19 Time Exam was Performed: 11:14 - Problem List Review Problem List Initiated/Reviewed/Updated: Yes - My Orders Last 24 Hours: My Active Orders 10/09/19 08:56 Telemetry Monitoring [Cardiac Monitoring] [RC] . DIRECTED 10/09/19 09:04 Chest 1V Frontal [CR] Routine UA RFX EMI AND CULT IF INDIC [URIN] Routine - Plan Plan:: 64 yo female admitted after fall for dehydration, acute kidney injury, and UTI. SVT: EKG shows supraventricular tachycardia with rate of 169, resolved after a liter of NS and IV diltiazem, will continue to monitor on telemetry. Will get repeat labs and troponin 1. UTI - Treated completely. s/p Rocephin 2. Abdominal wall cellulitis/asif - Continued improvement - continue Nystatin, stop keflex 3. Falls, self care deficit; - Plan for home with resources such as Home health. - PT/OT evaluate and treat, not safe for her to get up and stand as there is risk of fracture as she hasn't walked in past 4 years - Not able to transfer per self yet like at home, need to continue to encourage this as much as possible. - Not able to get payer source for SNF, her and her make to much money. Will need to arrange at home services. Given information by social work. - -May need to apply for disability. VTE prophylaxis: Heparin Dispo: pending placement
--- NOTE | 2019-10-09 10:08 | PCM.PN ---
- General Info Date of Service: 10/08/19 - Review of Systems Systems Review Comment:: feeling well - Patient Data Vitals - Most Recent: Last Vital Signs Temp 35.8 C L 10/09/19 07:42 Pulse 169 H 10/09/19 07:42 Resp 24 H 10/09/19 07:42 BP 115/59 L 10/09/19 07:42 Pulse Ox 92 L 10/09/19 07:42 Weight - Most Recent: 152.407 kg I&O - Last 24 Hours: Intake & Output 10/08/19 10/09/19 10/09/19 22:59 06:59 14:59 Intake Total 650 500 Output Total 300 Balance 650 200 Lab Results Last 24 Hours: Laboratory Results - last 24 hr 10/09/19 10/09/19 10/09/19 Range/Units 09:15 09:15 09:15 WBC 6.60 (4.0-11.0) K/uL RBC 3.33 L (4.30-5.90) M/uL Hgb 10.0 L (12.0-16.0) g/dL Hct 32.3 L (36.0-46.0) % MCV 97.0 (80.0-98.0) fL MCH 30.0 (27.0-32.0) pg MCHC 31.0 (31.0-37.0) g/dL RDW Std Deviation 67.3 H (28.0-62.0) fl RDW Coeff of Rachid 19 H (11.0-15.0) % Plt Count 85 L (150-400) K/uL MPV 9.50 (7.40-12.00) fL Neut % (Auto) 67.8 (48.0-80.0) % Lymph % (Auto) 14.8 L (16.0-40.0) % [place] % (Auto) 15.8 H (0.0-15.0) % Eos % (Auto) 1.1 (0.0-7.0) % Baso % (Auto) 0.5 (0.0-1.5) % Neut # (Auto) 4.5 (1.4-5.7) K/uL Lymph # (Auto) 1.0 (0.6-2.4) K/uL [place] # (Auto) 1.0 H (0.0-0.8) K/uL Eos # (Auto) 0.1 (0.0-0.7) K/uL Baso # (Auto) 0.0 (0.0-0.1) K/uL Nucleated RBC % 0.0 /100WBC Nucleated RBCs # 0 K/uL Sodium 130 L (136-145) mmol/L Potassium 4.9 (3.5-5.1) mmol/L Chloride 98 (98-107) mmol/L Carbon Dioxide 22.6 (21.0-32.0) mmol/L BUN 23 H (7.0-18.0) mg/dL Creatinine 1.0 (0.6-1.0) mg/dL Est Cr Clr Drug Dosing 56.57 mL/min Estimated GFR (MDRD) 56.2 ml/min Glucose 102 (74-106) mg/dL Calcium 8.1 L (8.5-10.1) mg/dL Magnesium 2.0 (1.8-2.4) mg/dL Total Bilirubin 0.8 (0.2-1.0) mg/dL AST 29 (15-37) IU/L ALT 13 L (14-63) IU/L Alkaline Phosphatase 83 (46-116) U/L Troponin I < 0.050 (0.000-0.056) ng/mL Total Protein 5.0 L (6.4-8.2) g/dL Albumin 2.0 L (3.4-5.0) g/dL Globulin 3.0 (2.6-4.0) g/dL Albumin/Globulin Ratio 0.7 L (0.9-1.6) Med Orders - Current: Current Medications Acetaminophen (Tylenol) 650 mg PO Q6H PRN PRN Reason: Pain Last Admin: 10/08/19 17:43 Dose: 650 mg Documented by: Albuterol/Ipratropium (Duoneb 3.0-0.5 Mg/3 Ml) 3 ml NEB Q6HRRT PRN PRN Reason: Shortness of Breath Last Admin: 10/09/19 09:10 Dose: 3 ml Documented by: Bisacodyl (Dulcolax) 10 mg RECTAL DAILY PRN PRN Reason: Constipation Last Admin: 10/02/19 14:06 Dose: 10 mg Documented by: Heparin Sodium (Porcine) (Heparin Sodium) 5,000 units SUBCUT Q12H [facility] Last Admin: 10/08/19 21:54 Dose: 5,000 units Documented by: Nystatin (Nystop) 1 gm TOP TID [facility] Last Admin: 10/09/19 06:19 Dose: 1 gm Documented by: Ondansetron HCl (Zofran) 4 mg IVPUSH Q6H PRN PRN Reason: Nausea/Vomiting Last Admin: 10/08/19 15:40 Dose: 4 mg Documented by: Polyethylene Glycol (Miralax) 17 gm PO DAILY [facility] Last Admin: 10/09/19 09:14 Dose: 17 gm Documented by: Sodium Chloride (Saline Flush) 2.5 ml FLUSH ASDIRECTED PRN PRN Reason: Keep Vein Open Discontinued Medications Albuterol/Ipratropium (Duoneb 3.0-0.5 Mg/3 Ml) 3 ml NEB Q4HRRT PRN PRN Reason: Wheezing Last Admin: 09/30/19 15:13 Dose: 3 ml Documented by: Albuterol/Ipratropium (Duoneb 3.0-0.5 Mg/3 Ml) 3 ml NEB Q4HRRT [facility] Last Admin: 10/02/19 09:19 Dose: 3 ml Documented by: Albuterol/Ipratropium (Duoneb 3.0-0.5 Mg/3 Ml) 3 ml NEB Q6HRRT [facility] Last Admin: 10/05/19 11:33 Dose: 3 ml Documented by: Cephalexin (Keflex) 500 mg PO Q6HR [facility] Last Admin: 10/09/19 06:18 Dose: 500 mg Documented by: Diltiazem HCl (Diltiazem) 10 mg IVPUSH ONETIME ONE Stop: 10/09/19 09:36 Last Admin: 10/09/19 10:06 Dose: 10 mg Documented by: Docusate Sodium (Colace) 100 mg PO BID [facility] Last Admin: 10/05/19 10:19 Dose: Not Given Documented by: Enoxaparin Sodium (Lovenox) 140 mg SUBCUT ONETIME ONE Stop: 09/27/19 21:47 Last Admin: 09/27/19 22:49 Dose: 140 mg Documented by: Enoxaparin Sodium (Lovenox) 140 mg SUBCUT BID [facility] Last Admin: 09/29/19 20:04 Dose: 140 mg Documented by: Enoxaparin Sodium (Lovenox) 150 mg SUBCUT Q12H [facility] Furosemide (Lasix) 20 mg IVPUSH NOW ONE Stop: 10/02/19 10:08 Last Admin: 10/02/19 10:42 Dose: 20 mg Documented by: Sodium Chloride (Normal Saline) 1,000 mls @ 999 mls/hr IV .Bolus ONE Stop: 09/27/19 21:58 Last Admin: 09/27/19 21:23 Dose: 999 mls/hr Documented by: Ceftriaxone Sodium/Dextrose 1 (gm/ Premix) 50 mls @ 100 mls/hr IV ONETIME ONE Stop: 09/27/19 22:30 Last Admin: 09/27/19 22:48 Dose: 100 mls/hr Documented by: Sodium Chloride (Normal Saline) 1,000 mls @ 125 mls/hr IV ASDIRECTED [facility] Last Admin: 09/29/19 05:47 Dose: 125 mls/hr Documented by: Ceftriaxone Sodium/Dextrose 1 (gm/ Premix) 50 mls @ 100 mls/hr IV Q24H [facility] Last Admin: 10/01/19 22:26 Dose: 100 mls/hr Documented by: Sodium Chloride (Normal Saline) 500 mls @ 125 mls/hr IV ONETIME ONE Stop: 09/30/19 18:36 Last Admin: 09/30/19 16:02 Dose: 125 mls/hr Documented by: Pantoprazole Sodium 40 mg/ (Sodium Chloride) 10 mls @ 300 mls/hr IV NOW ONE Stop: 10/02/19 15:00 Last Admin: 10/02/19 15:34 Dose: 300 mls/hr Documented by: Sodium Chloride (Normal Saline) 1,000 mls @ 999 mls/hr IV .Bolus ONE Stop: 10/09/19 10:03 Last Admin: 10/09/19 10:05 Dose: 999 mls/hr Documented by: Insulin Aspart (Novolog) 0 unit SUBCUT TIDAC [facility]; Protocol Last Admin: 10/01/19 09:40 Dose: Not Given Documented by: Iopamidol (Isovue-370 (76%)) 50 ml IV ONETIME STA Stop: 09/30/19 18:08 Last Admin: 06/29/20 18:08 Dose: 50 ml Documented by: Sodium Chloride (Saline Flush) 10 ml FLUSH ASDIRECTED PRN PRN Reason: Keep Vein Open - Exam General: Alert, Oriented Neck: Supple Lungs: Clear to Auscultation, Normal Respiratory Effort Cardiovascular: Regular Rate, Regular Rhythm GI/Abdominal Exam: Soft, Non-Tender, No Distention Extremities: Non-Tender, Pedal Edema (mild pedal edema) Skin: Warm, Dry, Intact Sepsis Event Note - Evaluation Sepsis Screening Result: No Definite Risk - Focused Exam Vital Signs: Vital Signs Temp Pulse Resp BP Pulse Ox 10/09/19 07:42 35.8 C L 169 H 24 H 115/59 L 92 L 10/09/19 03:00 36.4 C 85 20 99/56 L 92 L 10/08/19 23:10 36.0 C L 88 20 98/55 L 92 L Date Exam was Performed: 10/09/19 Time Exam was Performed: 11:12 - Problem List Review Problem List Initiated/Reviewed/Updated: Yes - My Orders Last 24 Hours: My Active Orders 10/09/19 08:56 Telemetry Monitoring [Cardiac Monitoring] [RC] . DIRECTED 10/09/19 09:04 Chest 1V Frontal [CR] Routine UA RFX EMI AND CULT IF INDIC [URIN] Routine - Plan Plan:: 64 yo female admitted after fall for dehydration, acute kidney injury, and UTI. 1. UTI - Treated completely. s/p Rocephin 2. Abdominal wall cellulitis/asif - Continued improvement - cont Keflex and continue Nystatin 3. Falls, self care deficit; - Working with PT to improve transfers to make transition to home care easier. VTE prophylaxis: Heparin Dispo: pending placement
[2019-10-09] MEDS: Heparin Sodium 5,000 Units/ML Vial SUBCUT SCH ×2 (10:23→21:13)
--- NOTE | 2019-10-09 11:07 | CR ---
Chest: Portable view of the chest was obtained. Comparison: Prior chest CT study of 09/30/19 and chest x-ray of 05/27/19. Heart is enlarged. Probable small right-sided pleural effusion is seen. Increased density within the right base most likely due to atelectasis. Pulmonary vessels are minimally congested. Lungs otherwise are clear. Bony structures are grossly intact. Impression: 1. Cardiomegaly and mild pulmonary vascular congestion. 2. Probable small right-sided pleural effusion. 3. Atelectasis is felt to be present within the right lung base. Diagnostic code #3 This report was dictated in MDT
[2019-10-09] MEDS: Sodium Chloride 0.9% 1,000 ML IV SCH (20:59)
[2019-10-10] MEDS: Sodium Chloride 0.9% 1,000 ML IV SCH ×3 (04:54→22:28)
[2019-10-10] MEDS: Albuterol/Ipratropium 3.0-0.5 MG/3 ML Neb Soln NEB PRN ×2 (05:59→18:26)
[2019-10-10] MEDS: Nystatin Topical Powder 15 GM Bottle TOP SCH ×3 (05:59→21:14)
[2019-10-10 06:27] LABS: CARBON DIOXIDE,CO2 23.9 mmol/L (21.0-32.0); POTASSIUM,K 4.6 mmol/L (3.5-5.1)
--- NOTE | 2019-10-10 10:10 | PCM.PN ---
- General Info Date of Service: 10/10/19 Admission Dx/Problem (Free Text): Admission Diagnosis/Problem Admission Diagnosis/Problem Weakness Subjective Update: Doing ok this morning. No pain, reports having a little urinary symptoms, dysuria. No chest pain or SOB. Reports heartburn yesterday when HR was elevated. Denies that today at all. Working on transferring, doing better. Functional Status: Reports: Pain Controlled, Tolerating Diet, Urinating. Denies: Ambulating - Review of Systems Pulmonary: Reports: No Symptoms. Denies: Shortness of Breath Cardiovascular: Reports: No Symptoms. Denies: Chest Pain Gastrointestinal: Reports: No Symptoms. Denies: Abdominal Pain, Nausea, Vomiting Genitourinary: Reports: Dysuria, Frequency Musculoskeletal: Reports: No Symptoms Skin: Reports: No Symptoms Neurological: Reports: No Symptoms Psychiatric: Reports: No Symptoms - Patient Data Vitals - Most Recent: Last Vital Signs Temp 96.2 F L 10/10/19 07:36 Pulse 94 10/10/19 07:36 Resp 24 H 10/10/19 07:36 BP 88/40 L 10/10/19 07:36 Pulse Ox 90 L 10/10/19 07:36 Weight - Most Recent: 152.407 kg I&O - Last 24 Hours: Intake & Output 10/09/19 10/10/19 10/10/19 22:59 06:59 14:59 Intake Total 1460 1377 Output Total 300 Balance 1460 1077 Lab Results Last 24 Hours: Laboratory Results - last 24 hr 10/09/19 10/09/19 10/10/19 Range/Units 16:22 18:00 05:42 WBC 6.34 (4.0-11.0) K/uL RBC 3.11 L (4.30-5.90) M/uL Hgb 9.2 L (12.0-16.0) g/dL Hct 30.3 L (36.0-46.0) % MCV 97.4 (80.0-98.0) fL MCH 29.6 (27.0-32.0) pg MCHC 30.4 L (31.0-37.0) g/dL RDW Std Deviation 67.5 H (28.0-62.0) fl RDW Coeff of Rachid 19 H (11.0-15.0) % Plt Count 94 L (150-400) K/uL MPV 9.90 (7.40-12.00) fL Neut % (Auto) 67.2 (48.0-80.0) % Lymph % (Auto) 13.7 L (16.0-40.0) % [place] % (Auto) 17.7 H (0.0-15.0) % Eos % (Auto) 0.9 (0.0-7.0) % Baso % (Auto) 0.5 (0.0-1.5) % Neut # (Auto) 4.3 (1.4-5.7) K/uL Lymph # (Auto) 0.9 (0.6-2.4) K/uL [place] # (Auto) 1.1 H (0.0-0.8) K/uL Eos # (Auto) 0.1 (0.0-0.7) K/uL Baso # (Auto) 0.0 (0.0-0.1) K/uL Nucleated RBC % 0.0 /100WBC Nucleated RBCs # 0 K/uL Sodium (136-145) mmol/L Potassium (3.5-5.1) mmol/L Chloride (98-107) mmol/L Carbon Dioxide (21.0-32.0) mmol/L BUN (7.0-18.0) mg/dL Creatinine (0.6-1.0) mg/dL Est Cr Clr Drug Dosing mL/min Estimated GFR (MDRD) ml/min Glucose (74-106) mg/dL Calcium (8.5-10.1) mg/dL Magnesium (1.8-2.4) mg/dL Troponin I < 0.050 (0.000-0.056) ng/mL Urine Color YELLOW Urine Appearance SLT CLOUDY Urine pH 6.0 (5.0-8.0) Ur Specific [place] >= 1.030 (1.001-1.035) Urine Protein 30 H (NEGATIVE) mg/dL Urine Glucose (UA) NEGATIVE (NEGATIVE) mg/dL Urine Ketones TRACE H (NEGATIVE) mg/dL Urine Occult Blood MODERATE H (NEGATIVE) Urine Nitrite NEGATIVE (NEGATIVE) Urine Bilirubin SMALL H (NEGATIVE) Urine Ictotest NEGATIVE Urine Urobilinogen 2.0 H (<2.0) EU/dL Ur Leukocyte Esterase TRACE H (NEGATIVE) Urine RBC 5-10 (0-2/HPF) Urine WBC 4-8 (0-5/HPF) Ur Epithelial Cells MODERATE (NONE-FEW) Urine Bacteria 2+ H (NEGATIVE) 10/10/19 Range/Units 05:42 WBC (4.0-11.0) K/uL RBC (4.30-5.90) M/uL Hgb (12.0-16.0) g/dL Hct (36.0-46.0) % MCV (80.0-98.0) fL MCH (27.0-32.0) pg MCHC (31.0-37.0) g/dL RDW Std Deviation (28.0-62.0) fl RDW Coeff of Rachid (11.0-15.0) % Plt Count (150-400) K/uL MPV (7.40-12.00) fL Neut % (Auto) (48.0-80.0) % Lymph % (Auto) (16.0-40.0) % [place] % (Auto) (0.0-15.0) % Eos % (Auto) (0.0-7.0) % Baso % (Auto) (0.0-1.5) % Neut # (Auto) (1.4-5.7) K/uL Lymph # (Auto) (0.6-2.4) K/uL [place] # (Auto) (0.0-0.8) K/uL Eos # (Auto) (0.0-0.7) K/uL Baso # (Auto) (0.0-0.1) K/uL Nucleated RBC % /100WBC Nucleated RBCs # K/uL Sodium 131 L (136-145) mmol/L Potassium 4.6 (3.5-5.1) mmol/L Chloride 99 (98-107) mmol/L Carbon Dioxide 23.9 (21.0-32.0) mmol/L BUN 23 H (7.0-18.0) mg/dL Creatinine 1.0 (0.6-1.0) mg/dL Est Cr Clr Drug Dosing 56.57 mL/min Estimated GFR (MDRD) 56.2 ml/min Glucose 92 (74-106) mg/dL Calcium 8.0 L (8.5-10.1) mg/dL Magnesium 2.0 (1.8-2.4) mg/dL Troponin I (0.000-0.056) ng/mL Urine Color Urine Appearance Urine pH (5.0-8.0) Ur Specific [place] (1.001-1.035) Urine Protein (NEGATIVE) mg/dL Urine Glucose (UA) (NEGATIVE) mg/dL Urine Ketones (NEGATIVE) mg/dL Urine Occult Blood (NEGATIVE) Urine Nitrite (NEGATIVE) Urine Bilirubin (NEGATIVE) Urine Ictotest Urine Urobilinogen (<2.0) EU/dL Ur Leukocyte Esterase (NEGATIVE) Urine RBC (0-2/HPF) Urine WBC (0-5/HPF) Ur Epithelial Cells (NONE-FEW) Urine Bacteria (NEGATIVE) Med Orders - Current: Current Medications Acetaminophen (Tylenol) 650 mg PO Q6H PRN PRN Reason: Pain Last Admin: 10/08/19 17:43 Dose: 650 mg Documented by: Albuterol/Ipratropium (Duoneb 3.0-0.5 Mg/3 Ml) 3 ml NEB Q6HRRT PRN PRN Reason: Shortness of Breath Last Admin: 10/10/19 05:59 Dose: 3 ml Documented by: Bisacodyl (Dulcolax) 10 mg RECTAL DAILY PRN PRN Reason: Constipation Last Admin: 10/02/19 14:06 Dose: 10 mg Documented by: Heparin Sodium (Porcine) (Heparin Sodium) 5,000 units SUBCUT Q12H [facility] Last Admin: 10/09/19 21:13 Dose: Not Given Documented by: Sodium Chloride (Normal Saline) 1,000 mls @ 125 mls/hr IV ASDIRECTED [facility] Last Admin: 10/10/19 04:54 Dose: 125 mls/hr Documented by: Nystatin (Nystop) 1 gm TOP TID [facility] Last Admin: 10/10/19 05:59 Dose: 1 gm Documented by: Ondansetron HCl (Zofran) 4 mg IVPUSH Q6H PRN PRN Reason: Nausea/Vomiting Last Admin: 10/08/19 15:40 Dose: 4 mg Documented by: Polyethylene Glycol (Miralax) 17 gm PO DAILY [facility] Last Admin: 10/09/19 09:14 Dose: 17 gm Documented by: Sodium Chloride (Saline Flush) 2.5 ml FLUSH ASDIRECTED PRN PRN Reason: Keep Vein Open Discontinued Medications Albuterol/Ipratropium (Duoneb 3.0-0.5 Mg/3 Ml) 3 ml NEB Q4HRRT PRN PRN Reason: Wheezing Last Admin: 09/30/19 15:13 Dose: 3 ml Documented by: Albuterol/Ipratropium (Duoneb 3.0-0.5 Mg/3 Ml) 3 ml NEB Q4HRRT JONO Last Admin: 10/02/19 09:19 Dose: 3 ml Documented by: Albuterol/Ipratropium (Duoneb 3.0-0.5 Mg/3 Ml) 3 ml NEB Q6HRRT JONO Last Admin: 10/05/19 11:33 Dose: 3 ml Documented by: Cephalexin (Keflex) 500 mg PO Q6HR [facility] Last Admin: 10/09/19 06:18 Dose: 500 mg Documented by: Diltiazem HCl (Diltiazem) 10 mg IVPUSH ONETIME ONE Stop: 10/09/19 09:36 Last Admin: 10/09/19 10:06 Dose: 10 mg Documented by: Docusate Sodium (Colace) 100 mg PO BID [facility] Last Admin: 10/05/19 10:19 Dose: Not Given Documented by: Enoxaparin Sodium (Lovenox) 140 mg SUBCUT ONETIME ONE Stop: 09/27/19 21:47 Last Admin: 09/27/19 22:49 Dose: 140 mg Documented by: Enoxaparin Sodium (Lovenox) 140 mg SUBCUT BID [facility] Last Admin: 09/29/19 20:04 Dose: 140 mg Documented by: Enoxaparin Sodium (Lovenox) 150 mg SUBCUT Q12H [facility] Furosemide (Lasix) 20 mg IVPUSH NOW ONE Stop: 10/02/19 10:08 Last Admin: 10/02/19 10:42 Dose: 20 mg Documented by: Sodium Chloride (Normal Saline) 1,000 mls @ 999 mls/hr IV .Bolus ONE Stop: 09/27/19 21:58 Last Admin: 09/27/19 21:23 Dose: 999 mls/hr Documented by: Ceftriaxone Sodium/Dextrose 1 (gm/ Premix) 50 mls @ 100 mls/hr IV ONETIME ONE Stop: 09/27/19 22:30 Last Admin: 09/27/19 22:48 Dose: 100 mls/hr Documented by: Sodium Chloride (Normal Saline) 1,000 mls @ 125 mls/hr IV ASDIRECTED [facility] Last Admin: 09/29/19 05:47 Dose: 125 mls/hr Documented by: Ceftriaxone Sodium/Dextrose 1 (gm/ Premix) 50 mls @ 100 mls/hr IV Q24H [facility] Last Admin: 10/01/19 22:26 Dose: 100 mls/hr Documented by: Sodium Chloride (Normal Saline) 500 mls @ 125 mls/hr IV ONETIME ONE Stop: 09/30/19 18:36 Last Admin: 09/30/19 16:02 Dose: 125 mls/hr Documented by: Pantoprazole Sodium 40 mg/ (Sodium Chloride) 10 mls @ 300 mls/hr IV NOW ONE Stop: 10/02/19 15:00 Last Admin: 10/02/19 15:34 Dose: 300 mls/hr Documented by: Sodium Chloride (Normal Saline) 1,000 mls @ 999 mls/hr IV .Bolus ONE Stop: 10/09/19 10:03 Last Admin: 10/09/19 10:05 Dose: 999 mls/hr Documented by: Insulin Aspart (Novolog) 0 unit SUBCUT TIDAC [facility]; Protocol Last Admin: 10/01/19 09:40 Dose: Not Given Documented by: Iopamidol (Isovue-370 (76%)) 50 ml IV ONETIME STA Stop: 09/30/19 18:08 Last Admin: 09/30/19 18:08 Dose: 50 ml Documented by: Sodium Chloride (Saline Flush) 10 ml FLUSH ASDIRECTED PRN PRN Reason: Keep Vein Open - Exam General: Alert, Oriented, Cooperative, No Acute Distress Lungs: Wheezing (expiratory) Cardiovascular: Regular Rate, Regular Rhythm GI/Abdominal Exam: Normal Bowel Sounds, Soft, Non-Tender Extremities: Normal Inspection, Normal Range of Motion, Non-Tender, No Pedal Edema Skin: Warm, Dry Wound/Incisions: Healing Well, Dressing Dry and Intact, No Drainage, Erythema Improving Psy/Mental Status: Alert, Normal Affect, Normal Mood Sepsis Event Note - Evaluation Sepsis Screening Result: Severe Sepsis Risk - Focused Exam Vital Signs: Vital Signs Temp Pulse Resp BP Pulse Ox 10/10/19 07:36 96.2 F L 94 24 H 88/40 L 90 L 10/10/19 04:00 96.8 F L 91 18 96/47 L 91 L 10/10/19 00:00 96.8 F L 92 20 96/51 L 93 L Date Exam was Performed: 10/10/19 Time Exam was Performed: 11:06 - Problem List & Annotations (1) Hypoxia SNOMED Code(s): 969591962 Code(s): R09.02 - HYPOXEMIA Status: Acute Current Visit: Yes (2) Weakness SNOMED Code(s): 52097967 Code(s): R53.1 - WEAKNESS Status: Acute Current Visit: Yes (3) Acute renal failure SNOMED Code(s): 12066968 Code(s): N17.9 - ACUTE KIDNEY FAILURE, UNSPECIFIED Status: Acute Current Visit: No (4) Leg wound, right SNOMED Code(s): 041916990, 761391396 Code(s): S81.801A - UNSPECIFIED OPEN WOUND, RIGHT LOWER LEG, INITIAL ENCOUNTER Status: Acute Current Visit: Yes (5) Urinary tract bacterial infections SNOMED Code(s): 476550596 Code(s): N39.0 - URINARY TRACT INFECTION, SITE NOT SPECIFIED; A49.9 - BACTERIAL INFECTION, UNSPECIFIED Status: Acute Current Visit: No - Problem List Review Problem List Initiated/Reviewed/Updated: Yes - My Orders Last 24 Hours: My Active Orders 10/10/19 09:48 UA W/MICROSCOPIC [URIN] Routine 10/10/19 09:49 Urinary Catheter Assessment [RC] ASDIRECTED 10/10/19 10:00 Insert Harris Catheter [Insert Urinary Catheter] [OM.PC] Q24H - Plan Plan:: 64 yo female admitted after fall for dehydration, acute kidney injury, and UTI. SVT: EKG shows supraventricular tachycardia with rate of 169, resolved after a liter of NS and IV diltiazem, will continue to monitor on telemetry. Will get repeat labs and troponin 1. UTI - straight cath obtained today for sterile sample. Continues to show UTI with symptoms. - Start Bactrim DS BID today. Obtain UC 2. Abdominal wall asif - Continued improvement, cellulitis fully treated and improved -continue Nystatin - Educated on self care of pannus, verbalized understanding 3. Falls, self care deficit; - Plan for home with resources such as Home health. - PT/OT evaluate and treat 4. Thrombocytopenia: - No bleeding noted. - Hold Heparin today. 5. SVT: - EKG yesterday shows supraventricular tachycardia with rate of 169, resolved after a liter of NS and IV diltiazem - No further HR elevation, no chest pain and troponin negative - Monitor on telemetry today VTE prophylaxis: Heparin Dispo: Pending improvement in strength and transfer to be able to go home. No payer source for SNF, rehabilitation. Case management consulted.
[2019-10-10] MEDS: Heparin Sodium 5,000 Units/ML Vial SUBCUT SCH ×2 (10:31→20:14)
[2019-10-10] MEDS: Polyethylene Glycol 3350 Powder 17 GM Packet PO SCH (10:31)
[2019-10-10] MEDS: Sulfamethoxazole/Trimethoprim 800-160 MG Tab PO SCH ×2 (11:43→20:14)
[2019-10-10] MEDS: Acetaminophen 325 MG Tab PO PRN (11:44)
[2019-10-11] MEDS: Nystatin Topical Powder 15 GM Bottle TOP SCH ×3 (05:23→21:53)
[2019-10-11 06:34] LABS: CARBON DIOXIDE,CO2 25.6 mmol/L (21.0-32.0); POTASSIUM,K 4.5 mmol/L (3.5-5.1)
[2019-10-11] MEDS: Heparin Sodium 5,000 Units/ML Vial SUBCUT SCH ×2 (08:17→21:53)
[2019-10-11] MEDS: Polyethylene Glycol 3350 Powder 17 GM Packet PO SCH (08:17)
[2019-10-11] MEDS: Sulfamethoxazole/Trimethoprim 800-160 MG Tab PO SCH ×2 (08:24→21:52)
[2019-10-11] MEDS: Albuterol/Ipratropium 3.0-0.5 MG/3 ML Neb Soln NEB PRN ×2 (09:02→20:17)
--- NOTE | 2019-10-11 10:03 | PCM.PN ---
- General Info Date of Service: 10/11/19 Admission Dx/Problem (Free Text): Admission Diagnosis/Problem Admission Diagnosis/Problem Weakness Subjective Update: Doing ok this morning, having some indigestion and mild nausea. Denies pain. No dyspnea. [place] a little bummed about how PT went yesterday. We discussed having good and bad days, and how she was very active before PT which may have tired her out. Encouraged to stay positive and keep the goal of transferring in hopes of going home soon. Functional Status: Reports: Pain Controlled, Tolerating Diet, Urinating - Review of Systems Pulmonary: Reports: No Symptoms. Denies: Shortness of Breath Cardiovascular: Reports: No Symptoms. Denies: Chest Pain Gastrointestinal: Reports: Nausea, Other (indigestion) Genitourinary: Reports: No Symptoms Musculoskeletal: Reports: No Symptoms. Denies: Neck Pain Skin: Reports: No Symptoms Neurological: Reports: No Symptoms Psychiatric: Reports: No Symptoms. Denies: Confusion, Depression - Patient Data Vitals - Most Recent: Last Vital Signs Temp 97.2 F 10/11/19 07:00 Pulse 91 10/11/19 07:00 Resp 18 10/11/19 07:00 BP 115/52 L 10/11/19 07:00 Pulse Ox 91 L 10/11/19 07:00 Weight - Most Recent: 152.407 kg I&O - Last 24 Hours: Intake & Output 10/10/19 10/11/19 10/11/19 22:59 06:59 14:59 Intake Total 600 1744 Balance 600 1744 Lab Results Last 24 Hours: Laboratory Results - last 24 hr 10/10/19 10/11/19 10/11/19 Range/Units 10:22 05:47 05:47 WBC 7.21 (4.0-11.0) K/uL RBC 3.23 L (4.30-5.90) M/uL Hgb 9.4 L (12.0-16.0) g/dL Hct 31.5 L (36.0-46.0) % MCV 97.5 (80.0-98.0) fL MCH 29.1 (27.0-32.0) pg MCHC 29.8 L (31.0-37.0) g/dL RDW Std Deviation 67.6 H (28.0-62.0) fl RDW Coeff of Rachid 19 H (11.0-15.0) % Plt Count 97 L (150-400) K/uL MPV 9.40 (7.40-12.00) fL Neut % (Auto) 71.6 (48.0-80.0) % Lymph % (Auto) 14.1 L (16.0-40.0) % [place] % (Auto) 12.8 (0.0-15.0) % Eos % (Auto) 1.1 (0.0-7.0) % Baso % (Auto) 0.4 (0.0-1.5) % Neut # (Auto) 5.2 (1.4-5.7) K/uL Lymph # (Auto) 1.0 (0.6-2.4) K/uL [place] # (Auto) 0.9 H (0.0-0.8) K/uL Eos # (Auto) 0.1 (0.0-0.7) K/uL Baso # (Auto) 0.0 (0.0-0.1) K/uL Nucleated RBC % 0.0 /100WBC Nucleated RBCs # 0 K/uL Sodium 132 L (136-145) mmol/L Potassium 4.5 (3.5-5.1) mmol/L Chloride 100 (98-107) mmol/L Carbon Dioxide 25.6 (21.0-32.0) mmol/L BUN 22 H (7.0-18.0) mg/dL Creatinine 1.1 H (0.6-1.0) mg/dL Est Cr Clr Drug Dosing 51.43 mL/min Estimated GFR (MDRD) 50.3 ml/min Glucose 98 (74-106) mg/dL Calcium 7.8 L (8.5-10.1) mg/dL Magnesium 1.9 (1.8-2.4) mg/dL Urine Color DARK YELLOW Urine Appearance SLT CLOUDY Urine pH 6.0 (5.0-8.0) Ur Specific [place] >= 1.030 (1.001-1.035) Urine Protein 30 H (NEGATIVE) mg/dL Urine Glucose (UA) NEGATIVE (NEGATIVE) mg/dL Urine Ketones TRACE H (NEGATIVE) mg/dL Urine Occult Blood NEGATIVE (NEGATIVE) Urine Nitrite NEGATIVE (NEGATIVE) Urine Bilirubin SMALL H (NEGATIVE) Urine Ictotest NEGATIVE Urine Urobilinogen 4.0 H (<2.0) EU/dL Ur Leukocyte Esterase TRACE H (NEGATIVE) Urine RBC 0-3 (0-2/HPF) Urine WBC 3-5 (0-5/HPF) Ur Epithelial Cells FEW (NONE-FEW) Amorphous Sediment LIGHT (NEGATIVE) Urine Bacteria 1+ H (NEGATIVE) Med Orders - Current: Current Medications Acetaminophen (Tylenol) 650 mg PO Q6H PRN PRN Reason: Pain Last Admin: 10/10/19 11:44 Dose: 650 mg Documented by: Albuterol/Ipratropium (Duoneb 3.0-0.5 Mg/3 Ml) 3 ml NEB Q6HRRT PRN PRN Reason: Shortness of Breath Last Admin: 10/11/19 09:02 Dose: 3 ml Documented by: Bisacodyl (Dulcolax) 10 mg RECTAL DAILY PRN PRN Reason: Constipation Last Admin: 10/02/19 14:06 Dose: 10 mg Documented by: Heparin Sodium (Porcine) (Heparin Sodium) 5,000 units SUBCUT Q12H [facility] Last Admin: 10/11/19 08:17 Dose: Not Given Documented by: Nystatin (Nystop) 1 gm TOP TID JONO Last Admin: 10/11/19 05:23 Dose: 1 gm Documented by: Ondansetron HCl (Zofran) 4 mg IVPUSH Q6H PRN PRN Reason: Nausea/Vomiting Last Admin: 10/08/19 15:40 Dose: 4 mg Documented by: Polyethylene Glycol (Miralax) 17 gm PO DAILY [facility] Last Admin: 10/11/19 08:17 Dose: Not Given Documented by: Sodium Chloride (Saline Flush) 2.5 ml FLUSH ASDIRECTED PRN PRN Reason: Keep Vein Open Trimethoprim/Sulfamethoxazole (Septra Ds) 1 tab PO BID [facility] Last Admin: 10/11/19 08:24 Dose: 1 tab Documented by: Discontinued Medications Albuterol/Ipratropium (Duoneb 3.0-0.5 Mg/3 Ml) 3 ml NEB Q4HRRT PRN PRN Reason: Wheezing Last Admin: 09/30/19 15:13 Dose: 3 ml Documented by: Albuterol/Ipratropium (Duoneb 3.0-0.5 Mg/3 Ml) 3 ml NEB Q4HRRT [facility] Last Admin: 10/02/19 09:19 Dose: 3 ml Documented by: Albuterol/Ipratropium (Duoneb 3.0-0.5 Mg/3 Ml) 3 ml NEB Q6HRRT [facility] Last Admin: 10/05/19 11:33 Dose: 3 ml Documented by: Cephalexin (Keflex) 500 mg PO Q6HR JONO Last Admin: 10/09/19 06:18 Dose: 500 mg Documented by: Diltiazem HCl (Diltiazem) 10 mg IVPUSH ONETIME ONE Stop: 10/09/19 09:36 Last Admin: 10/09/19 10:06 Dose: 10 mg Documented by: Docusate Sodium (Colace) 100 mg PO BID [facility] Last Admin: 10/05/19 10:19 Dose: Not Given Documented by: Enoxaparin Sodium (Lovenox) 140 mg SUBCUT ONETIME ONE Stop: 09/27/19 21:47 Last Admin: 09/27/19 22:49 Dose: 140 mg Documented by: Enoxaparin Sodium (Lovenox) 140 mg SUBCUT BID [facility] Last Admin: 09/29/19 20:04 Dose: 140 mg Documented by: Enoxaparin Sodium (Lovenox) 150 mg SUBCUT Q12H [facility] Furosemide (Lasix) 20 mg IVPUSH NOW ONE Stop: 10/02/19 10:08 Last Admin: 10/02/19 10:42 Dose: 20 mg Documented by: Sodium Chloride (Normal Saline) 1,000 mls @ 999 mls/hr IV .Bolus ONE Stop: 09/27/19 21:58 Last Admin: 09/27/19 21:23 Dose: 999 mls/hr Documented by: Ceftriaxone Sodium/Dextrose 1 (gm/ Premix) 50 mls @ 100 mls/hr IV ONETIME ONE Stop: 09/27/19 22:30 Last Admin: 09/27/19 22:48 Dose: 100 mls/hr Documented by: Sodium Chloride (Normal Saline) 1,000 mls @ 125 mls/hr IV ASDIRECTED [facility] Last Admin: 09/29/19 05:47 Dose: 125 mls/hr Documented by: Ceftriaxone Sodium/Dextrose 1 (gm/ Premix) 50 mls @ 100 mls/hr IV Q24H [facility] Last Admin: 10/01/19 22:26 Dose: 100 mls/hr Documented by: Sodium Chloride (Normal Saline) 500 mls @ 125 mls/hr IV ONETIME ONE Stop: 09/30/19 18:36 Last Admin: 09/30/19 16:02 Dose: 125 mls/hr Documented by: Pantoprazole Sodium 40 mg/ (Sodium Chloride) 10 mls @ 300 mls/hr IV NOW ONE Stop: 10/02/19 15:00 Last Admin: 10/02/19 15:34 Dose: 300 mls/hr Documented by: Sodium Chloride (Normal Saline) 1,000 mls @ 999 mls/hr IV .Bolus ONE Stop: 10/09/19 10:03 Last Admin: 10/09/19 10:05 Dose: 999 mls/hr Documented by: Sodium Chloride (Normal Saline) 1,000 mls @ 125 mls/hr IV ASDIRECTED [facility] Last Admin: 10/10/19 22:28 Dose: 125 mls/hr Documented by: Insulin Aspart (Novolog) 0 unit SUBCUT TIDAC [facility]; Protocol Last Admin: 10/01/19 09:40 Dose: Not Given Documented by: Iopamidol (Isovue-370 (76%)) 50 ml IV ONETIME STA Stop: 09/30/19 18:08 Last Admin: 09/30/19 18:08 Dose: 50 ml Documented by: Sodium Chloride (Saline Flush) 10 ml FLUSH ASDIRECTED PRN PRN Reason: Keep Vein Open - Exam Quality Assessment: DVT Prophylaxis. No: Supplemental Oxygen General: Alert, Oriented, Cooperative, No Acute Distress Lungs: Normal Respiratory Effort, Wheezing Cardiovascular: Regular Rate, Regular Rhythm GI/Abdominal Exam: Normal Bowel Sounds, Soft, Non-Tender Extremities: Normal Inspection, Normal Range of Motion, Non-Tender, No Pedal Edema Wound/Incisions: Dressing Dry and Intact (RLE) Psy/Mental Status: Alert, Normal Affect, Normal Mood Sepsis Event Note - Evaluation Sepsis Screening Result: No Definite Risk - Focused Exam Vital Signs: Vital Signs Temp Pulse Resp BP BP Pulse Ox 10/11/19 07:00 97.2 F 91 18 115/52 L 91 L 10/11/19 03:44 96.7 F L 92 24 H 91/51 L 90 L 10/10/19 23:16 99.2 F 88 18 95/44 L 93 L Date Exam was Performed: 10/11/19 Time Exam was Performed: 10:23 - Problem List & Annotations (1) Hypoxia SNOMED Code(s): 850969731 Code(s): R09.02 - HYPOXEMIA Status: Resolved Current Visit: Yes (2) Weakness SNOMED Code(s): 67520643 Code(s): R53.1 - WEAKNESS Status: Acute Current Visit: Yes (3) Acute renal failure SNOMED Code(s): 78848169 Code(s): N17.9 - ACUTE KIDNEY FAILURE, UNSPECIFIED Status: Resolved Current Visit: No (4) Leg wound, right SNOMED Code(s): 529287959, 935153259 Code(s): S81.801A - UNSPECIFIED OPEN WOUND, RIGHT LOWER LEG, INITIAL ENCOUNTER Status: Acute Current Visit: Yes (5) Urinary tract bacterial infections SNOMED Code(s): 421324517 Code(s): N39.0 - URINARY TRACT INFECTION, SITE NOT SPECIFIED; A49.9 - BACTERIAL INFECTION, UNSPECIFIED Status: Acute Current Visit: No - Problem List Review Problem List Initiated/Reviewed/Updated: Yes - My Orders Last 24 Hours: My Active Orders 10/10/19 09:49 Urinary Catheter Assessment [RC] ASDIRECTED 10/10/19 10:00 Insert Harris Catheter [Insert Urinary Catheter] [OM.PC] Q24H 10/10/19 10:22 CULTURE URINE [RM] Routine 10/10/19 11:15 Sulfamethoxazole/Trimethoprim [Septra DS] 1 tab PO BID - Assessment Assessment:: 64 yo female admitted after fall for dehydration, acute kidney injury, and UTI. 1. UTI - straight cath obtained today for sterile sample. Continues to show UTI with symptoms. - Start Bactrim DS BID today. Obtain UC 2. Abdominal wall asif - Continued improvement, cellulitis fully treated and improved -continue Nystatin - Educated on self care of pannus, verbalized understanding 3. Falls, self care deficit; - Plan for home with resources such as Home health. - PT/OT evaluate and treat - Not able to transfer per self yet like at home, need to continue to encourage this as much as possible. - Not able to get payer source for SNF, her and her make to much money. Will need to arrange at home services. Given information by social work. 4. Thrombocytopenia: - No bleeding noted. - Hold Heparin today. 5. Sinus tachycardia - No further HR elevation, no chest pain - Monitor on telemetry today VTE prophylaxis: Heparin Dispo: Pending improvement in strength and transfer to be able to go home. No payer source for SNF, rehabilitation. Case management consulted. - Plan Plan:: 64 yo female admitted after fall for dehydration, acute kidney injury, and UTI. SVT: EKG shows supraventricular tachycardia with rate of 169, resolved after a liter of NS and IV diltiazem, will continue to monitor on telemetry. Will get repeat labs and troponin 1. UTI - straight cath obtained today for sterile sample. Continues to show UTI with symptoms. - Bactrim DS BID day 2 today. UC pending 2. Abdominal wall asif - Continued improvement, cellulitis fully treated and improved -continue Nystatin - Educated on self care of pannus, verbalized understanding 3. Falls, self care deficit; - Plan for home with resources such as Home health. - PT/OT evaluate and treat 4. Thrombocytopenia: - No bleeding noted. - Hold Heparin today. 5. SVT: - EKG yesterday shows supraventricular tachycardia with rate of 169, resolved after a liter of NS and IV diltiazem - No further HR elevation, no chest pain and troponin negative - Monitor on telemetry today 6. RLE venous ulcer: - Consult wound services for opinion on dressing and cares VTE prophylaxis: Heparin Dispo: Pending improvement in strength and transfer to be able to go home. No payer source for SNF, rehabilitation. Case management consulted.
[2019-10-11] MEDS ORDERED: Pantoprazole 40 MG in Sodium Chloride 0.9% 10 ML IV ONE (10:23)
[2019-10-12] MEDS: Pantoprazole 40 MG Tab.CR PO SCH (06:35)
[2019-10-12] MEDS: Nystatin Topical Powder 15 GM Bottle TOP SCH ×3 (06:35→21:13)
[2019-10-12] MEDS: Sulfamethoxazole/Trimethoprim 800-160 MG Tab PO SCH ×2 (08:04→20:46)
[2019-10-12] MEDS: Polyethylene Glycol 3350 Powder 17 GM Packet PO SCH (10:10)
[2019-10-12] MEDS: Heparin Sodium 5,000 Units/ML Vial SUBCUT SCH ×2 (10:10→20:46)
--- NOTE | 2019-10-12 10:11 | PCM.PN ---
- General Info Date of Service: 10/12/19 - Review of Systems Systems Review Comment:: no palpitations, no chest pain, no shortness of breath - Patient Data Vitals - Most Recent: Last Vital Signs Temp 36.1 C 10/12/19 08:00 Pulse 87 10/12/19 08:00 Resp 18 10/12/19 08:20 BP 84/49 L 10/12/19 08:20 Pulse Ox 92 L 10/12/19 08:20 Weight - Most Recent: 152.407 kg I&O - Last 24 Hours: Intake & Output 10/11/19 10/12/19 10/12/19 22:59 06:59 14:59 Intake Total 500 300 Balance 500 300 Eric Results Last 24 Hours: Microbiology 10/10/19 10:22 Urine Culture - Final Urine, Catheterized Enterobacter Cloacae 10/09/19 18:00 Urine Culture - Final Urine, Clean Catch Enterobacter Cloacae Normal Urogenital [facility] Med Orders - Current: Current Medications Acetaminophen (Tylenol) 650 mg PO Q6H PRN PRN Reason: Pain Last Admin: 10/10/19 11:44 Dose: 650 mg Documented by: Albuterol/Ipratropium (Duoneb 3.0-0.5 Mg/3 Ml) 3 ml NEB Q6HRRT PRN PRN Reason: Shortness of Breath Last Admin: 10/11/19 20:17 Dose: 3 ml Documented by: Bisacodyl (Dulcolax) 10 mg RECTAL DAILY PRN PRN Reason: Constipation Last Admin: 10/02/19 14:06 Dose: 10 mg Documented by: Heparin Sodium (Porcine) (Heparin Sodium) 5,000 units SUBCUT Q12H [facility] Last Admin: 10/11/19 21:53 Dose: Not Given Documented by: Nystatin (Nystop) 1 gm TOP TID [facility] Last Admin: 10/12/19 06:35 Dose: 1 gm Documented by: Ondansetron HCl (Zofran) 4 mg IVPUSH Q6H PRN PRN Reason: Nausea/Vomiting Last Admin: 10/08/19 15:40 Dose: 4 mg Documented by: Pantoprazole Sodium (Protonix) 40 mg PO ACBREAKFAST [facility] Last Admin: 10/12/19 06:35 Dose: 40 mg Documented by: Polyethylene Glycol (Miralax) 17 gm PO DAILY [facility] Last Admin: 10/11/19 08:17 Dose: Not Given Documented by: Sodium Chloride (Saline Flush) 2.5 ml FLUSH ASDIRECTED PRN PRN Reason: Keep Vein Open Trimethoprim/Sulfamethoxazole (Septra Ds) 1 tab PO BID [facility] Last Admin: 10/12/19 08:04 Dose: 1 tab Documented by: Discontinued Medications Albuterol/Ipratropium (Duoneb 3.0-0.5 Mg/3 Ml) 3 ml NEB Q4HRRT PRN PRN Reason: Wheezing Last Admin: 09/30/19 15:13 Dose: 3 ml Documented by: Albuterol/Ipratropium (Duoneb 3.0-0.5 Mg/3 Ml) 3 ml NEB Q4HRRT [facility] Last Admin: 10/02/19 09:19 Dose: 3 ml Documented by: Albuterol/Ipratropium (Duoneb 3.0-0.5 Mg/3 Ml) 3 ml NEB Q6HRRT [facility] Last Admin: 10/05/19 11:33 Dose: 3 ml Documented by: Cephalexin (Keflex) 500 mg PO Q6HR [facility] Last Admin: 10/09/19 06:18 Dose: 500 mg Documented by: Diltiazem HCl (Diltiazem) 10 mg IVPUSH ONETIME ONE Stop: 10/09/19 09:36 Last Admin: 10/09/19 10:06 Dose: 10 mg Documented by: Docusate Sodium (Colace) 100 mg PO BID [facility] Last Admin: 10/05/19 10:19 Dose: Not Given Documented by: Enoxaparin Sodium (Lovenox) 140 mg SUBCUT ONETIME ONE Stop: 09/27/19 21:47 Last Admin: 09/27/19 22:49 Dose: 140 mg Documented by: Enoxaparin Sodium (Lovenox) 140 mg SUBCUT BID [facility] Last Admin: 09/29/19 20:04 Dose: 140 mg Documented by: Enoxaparin Sodium (Lovenox) 150 mg SUBCUT Q12H [facility] Furosemide (Lasix) 20 mg IVPUSH NOW ONE Stop: 10/02/19 10:08 Last Admin: 10/02/19 10:42 Dose: 20 mg Documented by: Sodium Chloride (Normal Saline) 1,000 mls @ 999 mls/hr IV .Bolus ONE Stop: 09/27/19 21:58 Last Admin: 09/27/19 21:23 Dose: 999 mls/hr Documented by: Ceftriaxone Sodium/Dextrose 1 (gm/ Premix) 50 mls @ 100 mls/hr IV ONETIME ONE Stop: 09/27/19 22:30 Last Admin: 09/27/19 22:48 Dose: 100 mls/hr Documented by: Sodium Chloride (Normal Saline) 1,000 mls @ 125 mls/hr IV ASDIRECTED [facility] Last Admin: 09/29/19 05:47 Dose: 125 mls/hr Documented by: Ceftriaxone Sodium/Dextrose 1 (gm/ Premix) 50 mls @ 100 mls/hr IV Q24H [facility] Last Admin: 10/01/19 22:26 Dose: 100 mls/hr Documented by: Sodium Chloride (Normal Saline) 500 mls @ 125 mls/hr IV ONETIME ONE Stop: 09/30/19 18:36 Last Admin: 09/30/19 16:02 Dose: 125 mls/hr Documented by: Pantoprazole Sodium 40 mg/ (Sodium Chloride) 10 mls @ 300 mls/hr IV NOW ONE Stop: 10/02/19 15:00 Last Admin: 10/02/19 15:34 Dose: 300 mls/hr Documented by: Sodium Chloride (Normal Saline) 1,000 mls @ 999 mls/hr IV .Bolus ONE Stop: 10/09/19 10:03 Last Admin: 10/09/19 10:05 Dose: 999 mls/hr Documented by: Sodium Chloride (Normal Saline) 1,000 mls @ 125 mls/hr IV ASDIRECTED [facility] Last Admin: 10/10/19 22:28 Dose: 125 mls/hr Documented by: Pantoprazole Sodium 40 mg/ (Sodium Chloride) 10 mls @ 300 mls/hr IV NOW ONE Stop: 10/11/19 10:24 Last Admin: 10/11/19 12:30 Dose: 300 mls/hr Documented by: Insulin Aspart (Novolog) 0 unit SUBCUT TIDAC [facility]; Protocol Last Admin: 10/01/19 09:40 Dose: Not Given Documented by: Iopamidol (Isovue-370 (76%)) 50 ml IV ONETIME STA Stop: 09/30/19 18:08 Last Admin: 09/30/19 18:08 Dose: 50 ml Documented by: Sodium Chloride (Saline Flush) 10 ml FLUSH ASDIRECTED PRN PRN Reason: Keep Vein Open - Exam General: Alert, Oriented Neck: Supple Lungs: Clear to Auscultation, Normal Respiratory Effort Cardiovascular: Regular Rate, Regular Rhythm GI/Abdominal Exam: Normal Bowel Sounds, Soft, Non-Tender, No Distention Neurological: No New Focal Deficit Sepsis Event Note - Evaluation Sepsis Screening Result: No Definite Risk - Focused Exam Vital Signs: Vital Signs Temp Pulse Resp BP BP Pulse Ox 10/12/19 08:20 18 84/49 L 92 L 10/12/19 08:00 36.1 C 87 83/48 L 10/12/19 04:00 36.3 C 90 17 101/52 L 94 L 10/12/19 00:26 36.4 C 96 16 100/55 L 92 L Date Exam was Performed: 10/12/19 Time Exam was Performed: 10:08 - Problem List Review Problem List Initiated/Reviewed/Updated: Yes - Plan Plan:: 64 yo female admitted after fall for dehydration, acute kidney injury, and UTI. 1. UTI - straight cath obtained today for sterile sample. Continues to show UTI with symptoms. - Bactrim DS BID day 3 today. UC shows enterobacter 2. Abdominal wall asif - Continued improvement, cellulitis fully treated and improved -continue Nystatin - Educated on self care of pannus, verbalized understanding 3. Falls, self care deficit; - Plan for home with resources such as Home health. - PT/OT evaluate and treat 4. Thrombocytopenia: - No bleeding noted. - Hold Heparin today. 5. SVT: - EKG supraventricular tachycardia with rate of 169, resolved after a liter of NS and IV diltiazem - No further HR elevation, no chest pain and troponin negative - Monitor on telemetry today 6. RLE venous ulcer: - Consult wound services for opinion on dressing and cares VTE prophylaxis: Heparin Dispo: Pending improvement in strength and transfer to be able to go home. No payer source for SNF, rehabilitation. Case management consulted.
[2019-10-12] MEDS: Aluminum Hydroxide/Magnesium Hydroxide/Simethicone Susp 30 ML Cup PO PRN (22:45)
[2019-10-13] MEDS: Pantoprazole 40 MG Tab.CR PO SCH (06:44)
[2019-10-13] MEDS: Nystatin Topical Powder 15 GM Bottle TOP SCH ×3 (06:44→21:45)
[2019-10-13] MEDS: Heparin Sodium 5,000 Units/ML Vial SUBCUT SCH (09:33)
[2019-10-13] MEDS: Sulfamethoxazole/Trimethoprim 800-160 MG Tab PO SCH ×2 (09:34→20:14)
[2019-10-13] MEDS: Polyethylene Glycol 3350 Powder 17 GM Packet PO SCH (09:35)
--- NOTE | 2019-10-13 10:16 | PCM.PN ---
- General Info Date of Service: 10/13/19 Admission Dx/Problem (Free Text): Admission Diagnosis/Problem Admission Diagnosis/Problem Weakness Subjective Update: resting comfortably, no acute complaints, - Review of Systems General: Reports: Weakness. Denies: Fever, Fatigue Pulmonary: Denies: Shortness of Breath Cardiovascular: Denies: Chest Pain, Palpitations Gastrointestinal: Reports: Decreased Appetite. Denies: Abdominal Pain, Constipation Genitourinary: Denies: Dysuria, Frequency, Burning Neurological: Denies: Confusion, Dizziness, Headache Psychiatric: Denies: Confusion, Depression, Mood Lability - Patient Data Vitals - Most Recent: Last Vital Signs Temp 36.6 C 10/13/19 07:30 Pulse 89 10/13/19 07:30 Resp 19 10/13/19 07:30 BP 92/55 L 10/13/19 07:30 Pulse Ox 93 L 10/13/19 07:30 Weight - Most Recent: 152.407 kg I&O - Last 24 Hours: Intake & Output 10/12/19 10/13/19 10/13/19 22:59 06:59 14:59 Intake Total 640 400 Balance 640 400 Eric Results Last 24 Hours: Microbiology 10/10/19 10:22 Urine Culture - Final Urine, Catheterized Enterobacter Cloacae 10/09/19 18:00 Urine Culture - Final Urine, Clean Catch Enterobacter Cloacae Normal Urogenital [facility] Med Orders - Current: Current Medications Acetaminophen (Tylenol) 650 mg PO Q6H PRN PRN Reason: Pain Last Admin: 10/10/19 11:44 Dose: 650 mg Documented by: Al Hydroxide/Mg Hydroxide (Mag-Al Plus) 30 ml PO Q4H PRN PRN Reason: Heartburn Last Admin: 10/12/19 22:45 Dose: 30 ml Documented by: Albuterol/Ipratropium (Duoneb 3.0-0.5 Mg/3 Ml) 3 ml NEB Q6HRRT PRN PRN Reason: Shortness of Breath Last Admin: 10/11/19 20:17 Dose: 3 ml Documented by: Bisacodyl (Dulcolax) 10 mg RECTAL DAILY PRN PRN Reason: Constipation Last Admin: 10/02/19 14:06 Dose: 10 mg Documented by: Heparin Sodium (Porcine) (Heparin Sodium) 5,000 units SUBCUT Q12H [facility] Last Admin: 10/13/19 09:33 Dose: Not Given Documented by: Nystatin (Nystop) 1 gm TOP TID [facility] Last Admin: 10/13/19 06:44 Dose: 1 gm Documented by: Ondansetron HCl (Zofran) 4 mg IVPUSH Q6H PRN PRN Reason: Nausea/Vomiting Last Admin: 10/08/19 15:40 Dose: 4 mg Documented by: Pantoprazole Sodium (Protonix) 40 mg PO ACBREAKFAST [facility] Last Admin: 10/13/19 06:44 Dose: 40 mg Documented by: Polyethylene Glycol (Miralax) 17 gm PO DAILY [facility] Last Admin: 10/13/19 09:35 Dose: Not Given Documented by: Sodium Chloride (Saline Flush) 2.5 ml FLUSH ASDIRECTED PRN PRN Reason: Keep Vein Open Trimethoprim/Sulfamethoxazole (Septra Ds) 1 tab PO BID [facility] Last Admin: 10/13/19 09:34 Dose: 1 tab Documented by: Discontinued Medications Albuterol/Ipratropium (Duoneb 3.0-0.5 Mg/3 Ml) 3 ml NEB Q4HRRT PRN PRN Reason: Wheezing Last Admin: 09/30/19 15:13 Dose: 3 ml Documented by: Albuterol/Ipratropium (Duoneb 3.0-0.5 Mg/3 Ml) 3 ml NEB Q4HRRT [facility] Last Admin: 10/02/19 09:19 Dose: 3 ml Documented by: Albuterol/Ipratropium (Duoneb 3.0-0.5 Mg/3 Ml) 3 ml NEB Q6HRRT [facility] Last Admin: 10/05/19 11:33 Dose: 3 ml Documented by: Cephalexin (Keflex) 500 mg PO Q6HR [facility] Last Admin: 10/09/19 06:18 Dose: 500 mg Documented by: Diltiazem HCl (Diltiazem) 10 mg IVPUSH ONETIME ONE Stop: 10/09/19 09:36 Last Admin: 10/09/19 10:06 Dose: 10 mg Documented by: Docusate Sodium (Colace) 100 mg PO BID [facility] Last Admin: 10/05/19 10:19 Dose: Not Given Documented by: Enoxaparin Sodium (Lovenox) 140 mg SUBCUT ONETIME ONE Stop: 09/27/19 21:47 Last Admin: 09/27/19 22:49 Dose: 140 mg Documented by: Enoxaparin Sodium (Lovenox) 140 mg SUBCUT BID [facility] Last Admin: 09/29/19 20:04 Dose: 140 mg Documented by: Enoxaparin Sodium (Lovenox) 150 mg SUBCUT Q12H [facility] Furosemide (Lasix) 20 mg IVPUSH NOW ONE Stop: 10/02/19 10:08 Last Admin: 10/02/19 10:42 Dose: 20 mg Documented by: Sodium Chloride (Normal Saline) 1,000 mls @ 999 mls/hr IV .Bolus ONE Stop: 09/27/19 21:58 Last Admin: 09/27/19 21:23 Dose: 999 mls/hr Documented by: Ceftriaxone Sodium/Dextrose 1 (gm/ Premix) 50 mls @ 100 mls/hr IV ONETIME ONE Stop: 09/27/19 22:30 Last Admin: 09/27/19 22:48 Dose: 100 mls/hr Documented by: Sodium Chloride (Normal Saline) 1,000 mls @ 125 mls/hr IV ASDIRECTED [facility] Last Admin: 09/29/19 05:47 Dose: 125 mls/hr Documented by: Ceftriaxone Sodium/Dextrose 1 (gm/ Premix) 50 mls @ 100 mls/hr IV Q24H [facility] Last Admin: 10/01/19 22:26 Dose: 100 mls/hr Documented by: Sodium Chloride (Normal Saline) 500 mls @ 125 mls/hr IV ONETIME ONE Stop: 09/30/19 18:36 Last Admin: 09/30/19 16:02 Dose: 125 mls/hr Documented by: Pantoprazole Sodium 40 mg/ (Sodium Chloride) 10 mls @ 300 mls/hr IV NOW ONE Stop: 10/02/19 15:00 Last Admin: 10/02/19 15:34 Dose: 300 mls/hr Documented by: Sodium Chloride (Normal Saline) 1,000 mls @ 999 mls/hr IV .Bolus ONE Stop: 10/09/19 10:03 Last Admin: 10/09/19 10:05 Dose: 999 mls/hr Documented by: Sodium Chloride (Normal Saline) 1,000 mls @ 125 mls/hr IV ASDIRECTED [facility] Last Admin: 10/10/19 22:28 Dose: 125 mls/hr Documented by: Pantoprazole Sodium 40 mg/ (Sodium Chloride) 10 mls @ 300 mls/hr IV NOW ONE Stop: 10/11/19 10:24 Last Admin: 10/11/19 12:30 Dose: 300 mls/hr Documented by: Insulin Aspart (Novolog) 0 unit SUBCUT TIDAC [facility]; Protocol Last Admin: 10/01/19 09:40 Dose: Not Given Documented by: Iopamidol (Isovue-370 (76%)) 50 ml IV ONETIME STA Stop: 09/30/19 18:08 Last Admin: 09/30/19 18:08 Dose: 50 ml Documented by: Sodium Chloride (Saline Flush) 10 ml FLUSH ASDIRECTED PRN PRN Reason: Keep Vein Open - Exam Quality Assessment: Supplemental Oxygen General: Alert, Oriented Neck: Trachea Midline Lungs: Clear to Auscultation, Normal Respiratory Effort Cardiovascular: Regular Rate, Regular Rhythm GI/Abdominal Exam: Normal Bowel Sounds, Soft, Non-Tender, Distended (obese, pannus) Sepsis Event Note - Evaluation Sepsis Screening Result: No Definite Risk - Focused Exam Vital Signs: Vital Signs Temp Pulse Resp BP BP Pulse Ox 10/13/19 07:30 36.6 C 89 19 92/55 L 93 L 10/13/19 04:13 36.2 C 94 20 101/51 L 90 L 10/13/19 00:40 36.2 C 92 16 103/58 L 92 L Date Exam was Performed: 10/13/19 Time Exam was Performed: 10:16 - Problem List & Annotations (1) Ambulatory dysfunction SNOMED Code(s): 832674698 Code(s): R26.2 - DIFFICULTY IN WALKING, NOT ELSEWHERE CLASSIFIED Status: Acute Current Visit: Yes (2) Morbid obesity SNOMED Code(s): 984975927 Code(s): E66.01 - MORBID (SEVERE) OBESITY DUE TO EXCESS CALORIES Status: Acute Current Visit: Yes (3) Weakness SNOMED Code(s): 42715415 Code(s): R53.1 - WEAKNESS Status: Acute Current Visit: Yes (4) Cellulitis SNOMED Code(s): 206864804 Code(s): L03.90 - CELLULITIS, UNSPECIFIED Status: Acute Current Visit: No (5) Cellulitis of right leg SNOMED Code(s): 639315256 Code(s): L03.115 - CELLULITIS OF RIGHT LOWER LIMB Status: Acute Current Visit: No (6) Hypotension SNOMED Code(s): 85376037 Code(s): I95.9 - HYPOTENSION, UNSPECIFIED Status: Acute Current Visit: No Qualifiers: Hypotension type: unspecified hypotension type Qualified Code(s): I95.9 - Hypotension, unspecified (7) Venous stasis dermatitis of both lower extremities SNOMED Code(s): 29613761 Code(s): I83.11 - VARICOSE VEINS OF RIGHT LOWER EXTREMITY WITH INFLAMMATION; I83.12 - VARICOSE VEINS OF LEFT LOWER EXTREMITY WITH INFLAMMATION Status: Acute Current Visit: No (8) Abdominal wall cellulitis SNOMED Code(s): 55064453 Code(s): L03.311 - CELLULITIS OF ABDOMINAL WALL Status: Acute Current Visit: Yes (9) Jaw mass SNOMED Code(s): 832091724 Code(s): M27.8 - OTHER SPECIFIED DISEASES OF JAWS Status: Acute Current Visit: Yes - Problem List Review Problem List Initiated/Reviewed/Updated: Yes - My Orders Last 24 Hours: My Active Orders 10/12/19 21:58 Alum Hydrox/Mag Hydrox/Simeth [Mag-Al Plus] 30 ml PO Q4H PRN - Plan Plan:: 64 yo female admitted after fall for dehydration, acute kidney injury, and UTI. 1. UTI - cont Bactrim DS BID day 4 today. UC shows enterobacter 2. Abdominal wall asif - Continued improvement, cellulitis fully treated and improved -continue Nystatin - Educated on self care of pannus, verbalized understanding 3. Falls, self care deficit; - Plan for home with resources such as Home health. - PT/OT evaluate and treat 4. Thrombocytopenia: - No bleeding noted. - Hold Heparin today. 5. SVT: - resolved - No further HR elevation, no chest pain and troponin negative - Monitor on telemetry today 6. RLE venous ulcer: - Consult wound services for opinion on dressing and cares VTE prophylaxis: Heparin Dispo: Pending improvement in strength and transfer to be able to go home. No payer source for SNF, rehabilitation. Case management consulted.
[2019-10-13] MEDS: Albuterol/Ipratropium 3.0-0.5 MG/3 ML Neb Soln NEB PRN ×2 (11:43→18:20)
[2019-10-13] MEDS ORDERED: Sodium Chloride 0.9% 500 ML IV ONE (19:58)
[2019-10-13] MEDS ORDERED: Albuterol/Ipratropium 3.0-0.5 MG/3 ML Neb Soln NEB PRN (20:07)
[2019-10-13 20:47] LABS: CARBON DIOXIDE,CO2 23.3 mmol/L (21.0-32.0); POTASSIUM,K 4.7 mmol/L (3.5-5.1)
[2019-10-13] MEDS: Aluminum Hydroxide/Magnesium Hydroxide/Simethicone Susp 30 ML Cup PO PRN (20:48)
--- NOTE | 2019-10-13 20:56 | CR ---
Chest: Portable view of the chest was obtained. Comparison: Prior CT chest of 09/30/19 and chest x-ray of 09/27/19. Focal density is noted within the right lung base which is an interval change from prior chest x-ray. Heart is felt to be enlarged. Lungs otherwise are clear. Bony structures are grossly intact. Impression: 1. Findings suspicious for focal pneumonia within the right lung base. Diagnostic code #3 Study was dictated in [facility]
[2019-10-13] MEDS: Piperacillin/Tazobactam 3.375 GM in Sodium Chloride 0.9% 50 ML IV SCH (21:43)
[2019-10-14] MEDS ORDERED: Sodium Chloride 0.9% 500 ML IV ONE (00:30)
[2019-10-14] MEDS: Albuterol/Ipratropium 3.0-0.5 MG/3 ML Neb Soln NEB SCH ×4 (00:38→17:54)
[2019-10-14] MEDS: Piperacillin/Tazobactam 3.375 GM in Sodium Chloride 0.9% 50 ML IV SCH ×2 (06:09→13:30)
[2019-10-14] MEDS: Nystatin Topical Powder 15 GM Bottle TOP SCH ×2 (06:10→13:52)
[2019-10-14] MEDS: Pantoprazole 40 MG Tab.CR PO SCH (06:31)
[2019-10-14 09:07] LABS: CARBON DIOXIDE,CO2 20.2 mmol/L (21.0-32.0); POTASSIUM,K 4.7 mmol/L (3.5-5.1)
--- NOTE | 2019-10-14 09:26 | PCM.PN ---
- General Info Date of Service: 10/14/19 Admission Dx/Problem (Free Text): Admission Diagnosis/Problem Admission Diagnosis/Problem Weakness Subjective Update: reports feeling tired this morning, but better than yesterday. No chest pain. feel short of breath and wheezing more after nebulizer. No abdominal pain. Functional Status: Reports: Pain Controlled, Tolerating Diet. Denies: Ambulating - Review of Systems General: Reports: Weakness, Fatigue, Malaise Pulmonary: Reports: Shortness of Breath, Cough, Wheezing. Denies: Sputum, Hemoptysis Cardiovascular: Reports: Dyspnea on Exertion. Denies: Chest Pain Gastrointestinal: Reports: No Symptoms. Denies: Abdominal Pain, Nausea, Vomiting Genitourinary: Reports: No Symptoms. Denies: Dysuria, Frequency Musculoskeletal: Reports: No Symptoms Skin: Reports: No Symptoms Neurological: Reports: No Symptoms Psychiatric: Reports: No Symptoms - Patient Data Vitals - Most Recent: Last Vital Signs Temp 97.2 F 10/14/19 08:00 Pulse 98 10/14/19 08:00 Resp 22 H 10/14/19 08:00 BP 99/45 L 10/14/19 08:00 Pulse Ox 93 L 10/14/19 08:00 Weight - Most Recent: 152.407 kg I&O - Last 24 Hours: Intake & Output 10/13/19 10/14/19 10/14/19 22:59 06:59 14:59 Intake Total 500 600 Balance 500 600 Lab Results Last 24 Hours: Laboratory Results - last 24 hr 10/13/19 10/13/19 10/14/19 Range/Units 20:20 20:20 08:32 WBC 6.07 6.83 (4.0-11.0) K/uL RBC 3.24 L 3.17 L (4.30-5.90) M/uL Hgb 9.7 L 9.4 L (12.0-16.0) g/dL Hct 31.6 L 30.8 L (36.0-46.0) % MCV 97.5 97.2 (80.0-98.0) fL MCH 29.9 29.7 (27.0-32.0) pg MCHC 30.7 L 30.5 L (31.0-37.0) g/dL RDW Std Deviation 67.4 H 66.8 H (28.0-62.0) fl RDW Coeff of Rachid 19 H 19 H (11.0-15.0) % Plt Count 89 L 82 L (150-400) K/uL MPV 9.40 8.90 (7.40-12.00) fL Neut % (Auto) 71.7 72.5 (48.0-80.0) % Lymph % (Auto) 13.8 L 14.2 L (16.0-40.0) % [place] % (Auto) 13.2 12.3 (0.0-15.0) % Eos % (Auto) 0.8 0.7 (0.0-7.0) % Baso % (Auto) 0.5 0.3 (0.0-1.5) % Neut # (Auto) 4.4 5.0 (1.4-5.7) K/uL Lymph # (Auto) 0.8 1.0 (0.6-2.4) K/uL [place] # (Auto) 0.8 0.8 (0.0-0.8) K/uL Eos # (Auto) 0.1 0.1 (0.0-0.7) K/uL Baso # (Auto) 0.0 0.0 (0.0-0.1) K/uL Nucleated RBC % 0.0 0.0 /100WBC Nucleated RBCs # 0 0 K/uL Sodium 131 L (136-145) mmol/L Potassium 4.7 (3.5-5.1) mmol/L Chloride 100 (98-107) mmol/L Carbon Dioxide 23.3 (21.0-32.0) mmol/L BUN 22 H (7.0-18.0) mg/dL Creatinine 1.2 H (0.6-1.0) mg/dL Est Cr Clr Drug Dosing 47.14 mL/min Estimated GFR (MDRD) 45.5 ml/min Glucose 93 (74-106) mg/dL Calcium 8.2 L (8.5-10.1) mg/dL Phosphorus 3.1 (2.6-4.7) mg/dL Magnesium 2.0 (1.8-2.4) mg/dL 10/14/19 Range/Units 08:32 WBC (4.0-11.0) K/uL RBC (4.30-5.90) M/uL Hgb (12.0-16.0) g/dL Hct (36.0-46.0) % MCV (80.0-98.0) fL MCH (27.0-32.0) pg MCHC (31.0-37.0) g/dL RDW Std Deviation (28.0-62.0) fl RDW Coeff of Rachid (11.0-15.0) % Plt Count (150-400) K/uL MPV (7.40-12.00) fL Neut % (Auto) (48.0-80.0) % Lymph % (Auto) (16.0-40.0) % [place] % (Auto) (0.0-15.0) % Eos % (Auto) (0.0-7.0) % Baso % (Auto) (0.0-1.5) % Neut # (Auto) (1.4-5.7) K/uL Lymph # (Auto) (0.6-2.4) K/uL [place] # (Auto) (0.0-0.8) K/uL Eos # (Auto) (0.0-0.7) K/uL Baso # (Auto) (0.0-0.1) K/uL Nucleated RBC % /100WBC Nucleated RBCs # K/uL Sodium 131 L (136-145) mmol/L Potassium 4.7 (3.5-5.1) mmol/L Chloride 100 (98-107) mmol/L Carbon Dioxide 20.2 L (21.0-32.0) mmol/L BUN 24 H (7.0-18.0) mg/dL Creatinine 1.2 H (0.6-1.0) mg/dL Est Cr Clr Drug Dosing 47.14 mL/min Estimated GFR (MDRD) 45.5 ml/min Glucose 95 (74-106) mg/dL Calcium 8.1 L (8.5-10.1) mg/dL Phosphorus (2.6-4.7) mg/dL Magnesium (1.8-2.4) mg/dL Med Orders - Current: Current Medications Acetaminophen (Tylenol) 650 mg PO Q6H PRN PRN Reason: Pain Last Admin: 10/10/19 11:44 Dose: 650 mg Documented by: Al Hydroxide/Mg Hydroxide (Mag-Al Plus) 30 ml PO Q4H PRN PRN Reason: Heartburn Last Admin: 10/13/19 20:48 Dose: 30 ml Documented by: Albuterol/Ipratropium (Duoneb 3.0-0.5 Mg/3 Ml) 3 ml NEB Q6HRRT [facility] Last Admin: 10/14/19 05:59 Dose: 3 ml Documented by: Albuterol/Ipratropium (Duoneb 3.0-0.5 Mg/3 Ml) 3 ml NEB Q4HRRT PRN PRN Reason: Wheezing Bisacodyl (Dulcolax) 10 mg RECTAL DAILY PRN PRN Reason: Constipation Last Admin: 10/02/19 14:06 Dose: 10 mg Documented by: Heparin Sodium (Porcine) (Heparin Sodium) 5,000 units SUBCUT Q12H [facility] Last Admin: 10/13/19 09:33 Dose: Not Given Documented by: Piperacillin Sod/Tazobactam (Sod 3.375 gm/ Sodium Chloride) 50 mls @ 100 mls/hr IV Q8H [facility] Last Admin: 10/14/19 06:09 Dose: 100 mls/hr Documented by: Vancomycin HCl 1.5 gm/ Premix 300 mls @ 300 mls/hr IV Q12H [facility] Last Admin: 10/14/19 08:51 Dose: 300 mls/hr Documented by: Methylprednisolone Sodium Succinate (Solu-Medrol) 40 mg IVPUSH BID [facility] Nystatin (Nystop) 1 gm TOP TID [facility] Last Admin: 10/14/19 06:10 Dose: 1 gm Documented by: Ondansetron HCl (Zofran) 4 mg IVPUSH Q6H PRN PRN Reason: Nausea/Vomiting Last Admin: 10/08/19 15:40 Dose: 4 mg Documented by: Pantoprazole Sodium (Protonix) 40 mg PO ACBREAKFAST [facility] Last Admin: 10/14/19 06:31 Dose: 40 mg Documented by: Polyethylene Glycol (Miralax) 17 gm PO DAILY [facility] Last Admin: 10/13/19 09:35 Dose: Not Given Documented by: Sodium Chloride (Saline Flush) 2.5 ml FLUSH ASDIRECTED PRN PRN Reason: Keep Vein Open Vancomycin HCl (Pharmacy To Dose - Vancomycin) 1 dose .XX Q12HR [facility] Last Admin: 10/14/19 07:47 Dose: Not Given Documented by: Discontinued Medications Albuterol/Ipratropium (Duoneb 3.0-0.5 Mg/3 Ml) 3 ml NEB Q4HRRT PRN PRN Reason: Wheezing Last Admin: 09/30/19 15:13 Dose: 3 ml Documented by: Albuterol/Ipratropium (Duoneb 3.0-0.5 Mg/3 Ml) 3 ml NEB Q4HRRT JONO Last Admin: 10/02/19 09:19 Dose: 3 ml Documented by: Albuterol/Ipratropium (Duoneb 3.0-0.5 Mg/3 Ml) 3 ml NEB Q6HRRT [facility] Last Admin: 10/05/19 11:33 Dose: 3 ml Documented by: Albuterol/Ipratropium (Duoneb 3.0-0.5 Mg/3 Ml) 3 ml NEB Q6HRRT PRN PRN Reason: Shortness of Breath Last Admin: 10/13/19 18:20 Dose: 3 ml Documented by: Cephalexin (Keflex) 500 mg PO Q6HR JONO Last Admin: 10/09/19 06:18 Dose: 500 mg Documented by: Diltiazem HCl (Diltiazem) 10 mg IVPUSH ONETIME ONE Stop: 10/09/19 09:36 Last Admin: 10/09/19 10:06 Dose: 10 mg Documented by: Docusate Sodium (Colace) 100 mg PO BID [facility] Last Admin: 10/05/19 10:19 Dose: Not Given Documented by: Enoxaparin Sodium (Lovenox) 140 mg SUBCUT ONETIME ONE Stop: 09/27/19 21:47 Last Admin: 09/27/19 22:49 Dose: 140 mg Documented by: Enoxaparin Sodium (Lovenox) 140 mg SUBCUT BID [facility] Last Admin: 09/29/19 20:04 Dose: 140 mg Documented by: Enoxaparin Sodium (Lovenox) 150 mg SUBCUT Q12H [facility] Furosemide (Lasix) 20 mg IVPUSH NOW ONE Stop: 10/02/19 10:08 Last Admin: 10/02/19 10:42 Dose: 20 mg Documented by: Sodium Chloride (Normal Saline) 1,000 mls @ 999 mls/hr IV .Bolus ONE Stop: 09/27/19 21:58 Last Admin: 09/27/19 21:23 Dose: 999 mls/hr Documented by: Ceftriaxone Sodium/Dextrose 1 (gm/ Premix) 50 mls @ 100 mls/hr IV ONETIME ONE Stop: 09/27/19 22:30 Last Admin: 09/27/19 22:48 Dose: 100 mls/hr Documented by: Sodium Chloride (Normal Saline) 1,000 mls @ 125 mls/hr IV ASDIRECTED [facility] Last Admin: 09/29/19 05:47 Dose: 125 mls/hr Documented by: Ceftriaxone Sodium/Dextrose 1 (gm/ Premix) 50 mls @ 100 mls/hr IV Q24H [facility] Last Admin: 10/01/19 22:26 Dose: 100 mls/hr Documented by: Sodium Chloride (Normal Saline) 500 mls @ 125 mls/hr IV ONETIME ONE Stop: 09/30/19 18:36 Last Admin: 09/30/19 16:02 Dose: 125 mls/hr Documented by: Pantoprazole Sodium 40 mg/ (Sodium Chloride) 10 mls @ 300 mls/hr IV NOW ONE Stop: 10/02/19 15:00 Last Admin: 10/02/19 15:34 Dose: 300 mls/hr Documented by: Sodium Chloride (Normal Saline) 1,000 mls @ 999 mls/hr IV .Bolus ONE Stop: 10/09/19 10:03 Last Admin: 10/09/19 10:05 Dose: 999 mls/hr Documented by: Sodium Chloride (Normal Saline) 1,000 mls @ 125 mls/hr IV ASDIRECTED [facility] Last Admin: 10/10/19 22:28 Dose: 125 mls/hr Documented by: Pantoprazole Sodium 40 mg/ (Sodium Chloride) 10 mls @ 300 mls/hr IV NOW ONE Stop: 10/11/19 10:24 Last Admin: 10/11/19 12:30 Dose: 300 mls/hr Documented by: Sodium Chloride (Normal Saline) 500 mls @ 250 mls/hr IV ONETIME ONE Stop: 10/13/19 21:57 Last Admin: 10/13/19 20:13 Dose: 250 mls/hr Documented by: Sodium Chloride (Normal Saline) 500 mls @ 250 mls/hr IV ONETIME ONE Stop: 10/14/19 02:29 Last Admin: 10/14/19 00:38 Dose: 250 mls/hr Documented by: Insulin Aspart (Novolog) 0 unit SUBCUT TIDAC [facility]; Protocol Last Admin: 10/01/19 09:40 Dose: Not Given Documented by: Iopamidol (Isovue-370 (76%)) 50 ml IV ONETIME STA Stop: 09/30/19 18:08 Last Admin: 09/30/19 18:08 Dose: 50 ml Documented by: Sodium Chloride (Saline Flush) 10 ml FLUSH ASDIRECTED PRN PRN Reason: Keep Vein Open Trimethoprim/Sulfamethoxazole (Septra Ds) 1 tab PO BID [facility] Last Admin: 10/13/19 20:14 Dose: 1 tab Documented by: - Exam Quality Assessment: Supplemental Oxygen, DVT Prophylaxis General: Alert, Oriented, Cooperative, No Acute Distress Lungs: Decreased Breath Sounds, Wheezing Cardiovascular: Regular Rate, Regular Rhythm, No Murmurs Back Exam: Normal Inspection, Full Range of Motion Extremities: Normal Inspection, Normal Range of Motion, Pedal Edema (+1 pitting edema, R hand swollen from infiltrated IV site) Wound/Incisions: Healing Well, Dressing Dry and Intact. No: Erythema Neurological: No New Focal Deficit Psy/Mental Status: Alert, Normal Affect, Normal Mood Sepsis Event Note - Evaluation Sepsis Screening Result: No Definite Risk - Focused Exam Vital Signs: Vital Signs Temp Pulse Resp BP BP Pulse Ox 10/14/19 08:00 97.2 F 98 22 H 99/45 L 93 L 10/14/19 04:25 97.5 F 93 93/45 L 93 L 10/13/19 22:39 97.4 F 93 97/50 L 92 L Date Exam was Performed: 10/14/19 Time Exam was Performed: 11:38 - Problem List & Annotations (1) Healthcare-associated pneumonia SNOMED Code(s): 829024504, 896061090 Code(s): J18.9 - PNEUMONIA, UNSPECIFIED ORGANISM Status: Acute Current Visit: Yes (2) Hypoxia SNOMED Code(s): 597778431 Code(s): R09.02 - HYPOXEMIA Status: Resolved Current Visit: Yes (3) Weakness SNOMED Code(s): 49586697 Code(s): R53.1 - WEAKNESS Status: Acute Current Visit: Yes (4) Leg wound, right SNOMED Code(s): 446005975, 949545814 Code(s): S81.801A - UNSPECIFIED OPEN WOUND, RIGHT LOWER LEG, INITIAL ENCOUNTER Status: Acute Current Visit: Yes (5) Urinary tract bacterial infections SNOMED Code(s): 845242330 Code(s): N39.0 - URINARY TRACT INFECTION, SITE NOT SPECIFIED; A49.9 - BACTERIAL INFECTION, UNSPECIFIED Status: Acute Current Visit: No (6) Wheelchair bound SNOMED Code(s): 352292026, 749275756 Code(s): Z99.3 - DEPENDENCE ON WHEELCHAIR Status: Chronic Current Visit: Yes - Problem List Review Problem List Initiated/Reviewed/Updated: Yes - My Orders Last 24 Hours: My Active Orders 10/14/19 09:15 methylPREDNISolone Sod Succ [Solu-MEDROL] 40 mg IVPUSH BID - Assessment Assessment:: 64 yo female admitted after fall for dehydration, acute kidney injury, and UTI. 1. UTI - straight cath obtained today for sterile sample. Continues to show UTI with symptoms. - Start Bactrim DS BID today. Obtain UC 2. Abdominal wall asif - Continued improvement, cellulitis fully treated and improved -continue Nystatin - Educated on self care of pannus, verbalized understanding 3. Falls, self care deficit; - Plan for home with resources such as Home health. - PT/OT evaluate and treat - Not able to transfer per self yet like at home, need to continue to encourage this as much as possible. - Not able to get payer source for SNF, her and her make to much money. Will need to arrange at home services. Given information by social work. 4. Thrombocytopenia: - No bleeding noted. - Hold Heparin today. 5. Sinus tachycardia - No further HR elevation, no chest pain - Monitor on telemetry today VTE prophylaxis: Heparin Dispo: Pending improvement in strength and transfer to be able to go home. No payer source for SNF, rehabilitation. Case management consulted. - Plan Plan:: 64 yo female admitted after fall for dehydration, acute kidney injury, and UTI. 1. Hospital acquired pneumonia - More short of breath last evening, CXR obtained which shows RLL pneumonia - Vancomycin and Zosyn started - Continue Oxygen as needed - Increased wheezing today, will add Solumedrol 40 mg IV Q12h - Continue nebs, but reports she feels more wheezing after these, monitor. - Encouraged IS use and CDB 2. UTI - UC returned with Enterobacter cloacae 3. Abdominal wall asif -continue Nystatin 4. Falls, self care deficit; - Plan for home with resources such as Home health. - PT/OT evaluate and treat 5. Thrombocytopenia: - No bleeding noted. - Hold Heparin 6. SVT: - resolved - No further HR elevation, no chest pain and troponin negative - Monitor on telemetry today 7. RLE venous ulcer: - Consult wound services for opinion on dressing and cares VTE prophylaxis: SCDs Dispo: Pending improvement in strength and transfer to be able to go home. No payer source for SNF, rehabilitation. Case management consulted.
[2019-10-14] MEDS: methylPREDNISolone Sodium Succinate 40 MG/1 ML SDV IVPUSH SCH ×2 (11:00→20:16)
[2019-10-14] MEDS: Polyethylene Glycol 3350 Powder 17 GM Packet PO SCH (12:41)
[2019-10-14] MEDS: Piperacillin/Tazobactam 4.5 GM in Sodium Chloride 0.9% 100 ML IV SCH (18:38)
[2019-10-15] MEDS: Nystatin Topical Powder 15 GM Bottle TOP SCH ×4 (00:15→21:55)
[2019-10-15] MEDS: Albuterol/Ipratropium 3.0-0.5 MG/3 ML Neb Soln NEB SCH ×4 (00:24→18:12)
[2019-10-15] MEDS: Piperacillin/Tazobactam 4.5 GM in Sodium Chloride 0.9% 100 ML IV SCH ×2 (00:27→07:19)
[2019-10-15 06:20] LABS: CARBON DIOXIDE,CO2 20.5 mmol/L (21.0-32.0); POTASSIUM,K 4.8 mmol/L (3.5-5.1)
[2019-10-15] MEDS: Pantoprazole 40 MG Tab.CR PO SCH (07:20)
[2019-10-15] MEDS: methylPREDNISolone Sodium Succinate 40 MG/1 ML SDV IVPUSH SCH ×2 (09:30→20:11)
[2019-10-15] MEDS: Polyethylene Glycol 3350 Powder 17 GM Packet PO SCH (09:35)
[2019-10-15] MEDS ORDERED: Levofloxacin/Dextrose 5%-Water 750 MG in Premix Bag 1 BAG IV SCH (12:30)
[2019-10-15] MEDS: Aluminum Hydroxide/Magnesium Hydroxide/Simethicone Susp 30 ML Cup PO PRN ×2 (12:36→20:06)
[2019-10-15] MEDS ORDERED: Carboxymethylcellulose Sodium 0.5% Ophth Soln 0.4 ML UD Box of 30 EYEBOTH PRN (12:58)
--- NOTE | 2019-10-15 13:06 | PCM.PN ---
- General Info Date of Service: 10/15/19 Admission Dx/Problem (Free Text): Admission Diagnosis/Problem Admission Diagnosis/Problem Weakness Subjective Update: Feels better today, no chest pain. Breathing slowly improving. Encouraged to use IS every 1 hour. Functional Status: Reports: Pain Controlled, Tolerating Diet, Urinating - Review of Systems General: Reports: No Symptoms. Denies: Weakness, Fatigue Pulmonary: Reports: Shortness of Breath (improving), Cough, Wheezing. Denies: Sputum, Hemoptysis Cardiovascular: Reports: No Symptoms. Denies: Chest Pain Gastrointestinal: Reports: No Symptoms. Denies: Abdominal Pain, Nausea, Vomiting Genitourinary: Reports: No Symptoms. Denies: Dysuria Musculoskeletal: Reports: No Symptoms Skin: Reports: No Symptoms Neurological: Reports: No Symptoms Psychiatric: Reports: No Symptoms - Patient Data Vitals - Most Recent: Last Vital Signs Temp 97.3 F 10/15/19 11:59 Pulse 88 10/15/19 11:59 Resp 19 10/15/19 11:59 BP 99/50 L 10/15/19 11:59 Pulse Ox 94 L 10/15/19 11:59 Weight - Most Recent: 169.19 kg I&O - Last 24 Hours: Intake & Output 10/14/19 10/15/19 10/15/19 22:59 06:59 14:59 Intake Total 1180 490 Output Total 0 Balance 1180 490 Lab Results Last 24 Hours: Laboratory Results - last 24 hr 10/15/19 10/15/19 Range/Units 05:48 05:48 WBC 6.91 (4.0-11.0) K/uL RBC 3.20 L (4.30-5.90) M/uL Hgb 9.3 L (12.0-16.0) g/dL Hct 31.3 L (36.0-46.0) % MCV 97.8 (80.0-98.0) fL MCH 29.1 (27.0-32.0) pg MCHC 29.7 L (31.0-37.0) g/dL RDW Std Deviation 67.1 H (28.0-62.0) fl RDW Coeff of Rachid 19 H (11.0-15.0) % Plt Count 84 L (150-400) K/uL MPV 9.40 (7.40-12.00) fL Neut % (Auto) 75.3 (48.0-80.0) % Lymph % (Auto) 10.4 L (16.0-40.0) % Camp % (Auto) 14.3 (0.0-15.0) % Eos % (Auto) 0.0 (0.0-7.0) % Baso % (Auto) 0.0 (0.0-1.5) % Neut # (Auto) 5.2 (1.4-5.7) K/uL Lymph # (Auto) 0.7 (0.6-2.4) K/uL Camp # (Auto) 1.0 H (0.0-0.8) K/uL Eos # (Auto) 0.0 (0.0-0.7) K/uL Baso # (Auto) 0.0 (0.0-0.1) K/uL Nucleated RBC % 0.0 /100WBC Nucleated RBCs # 0 K/uL Sodium 132 L (136-145) mmol/L Potassium 4.8 (3.5-5.1) mmol/L Chloride 100 (98-107) mmol/L Carbon Dioxide 20.5 L (21.0-32.0) mmol/L BUN 26 H (7.0-18.0) mg/dL Creatinine 1.3 H (0.6-1.0) mg/dL Est Cr Clr Drug Dosing 43.52 mL/min Estimated GFR (MDRD) 41.5 ml/min Glucose 143 H (74-106) mg/dL Calcium 7.9 L (8.5-10.1) mg/dL Magnesium 2.2 (1.8-2.4) mg/dL Med Orders - Current: Current Medications Acetaminophen (Tylenol) 650 mg PO Q6H PRN PRN Reason: Pain Last Admin: 10/10/19 11:44 Dose: 650 mg Documented by: Al Hydroxide/Mg Hydroxide (Mag-Al Plus) 30 ml PO Q4H PRN PRN Reason: Heartburn Last Admin: 10/15/19 12:36 Dose: 30 ml Documented by: Albuterol/Ipratropium (Duoneb 3.0-0.5 Mg/3 Ml) 3 ml NEB Q6HRRT JONO Last Admin: 10/15/19 11:41 Dose: 3 ml Documented by: Albuterol/Ipratropium (Duoneb 3.0-0.5 Mg/3 Ml) 3 ml NEB Q4HRRT PRN PRN Reason: Wheezing Bisacodyl (Dulcolax) 10 mg RECTAL DAILY PRN PRN Reason: Constipation Last Admin: 10/02/19 14:06 Dose: 10 mg Documented by: Levofloxacin/Dextrose 750 mg/ (Premix) 150 mls @ 100 mls/hr IV Q48H [facility] Last Admin: 10/15/19 11:47 Dose: 100 mls/hr Documented by: Methylprednisolone Sodium Succinate (Solu-Medrol) 40 mg IVPUSH BID [facility] Last Admin: 10/15/19 09:30 Dose: 40 mg Documented by: Nystatin (Nystop) 1 gm TOP TID [facility] Last Admin: 10/15/19 07:12 Dose: 1 gm Documented by: Ondansetron HCl (Zofran) 4 mg IVPUSH Q6H PRN PRN Reason: Nausea/Vomiting Last Admin: 10/08/19 15:40 Dose: 4 mg Documented by: Pantoprazole Sodium (Protonix) 40 mg PO ACBREAKFAST [facility] Last Admin: 10/15/19 07:20 Dose: 40 mg Documented by: Polyethylene Glycol (Miralax) 17 gm PO DAILY [facility] Last Admin: 10/15/19 09:35 Dose: Not Given Documented by: Sodium Chloride (Saline Flush) 2.5 ml FLUSH ASDIRECTED PRN PRN Reason: Keep Vein Open Discontinued Medications Albuterol/Ipratropium (Duoneb 3.0-0.5 Mg/3 Ml) 3 ml NEB Q4HRRT PRN PRN Reason: Wheezing Last Admin: 09/30/19 15:13 Dose: 3 ml Documented by: Albuterol/Ipratropium (Duoneb 3.0-0.5 Mg/3 Ml) 3 ml NEB Q4HRRT [facility] Last Admin: 10/02/19 09:19 Dose: 3 ml Documented by: Albuterol/Ipratropium (Duoneb 3.0-0.5 Mg/3 Ml) 3 ml NEB Q6HRRT [facility] Last Admin: 10/05/19 11:33 Dose: 3 ml Documented by: Albuterol/Ipratropium (Duoneb 3.0-0.5 Mg/3 Ml) 3 ml NEB Q6HRRT PRN PRN Reason: Shortness of Breath Last Admin: 10/13/19 18:20 Dose: 3 ml Documented by: Cephalexin (Keflex) 500 mg PO Q6HR [facility] Last Admin: 10/09/19 06:18 Dose: 500 mg Documented by: Diltiazem HCl (Diltiazem) 10 mg IVPUSH ONETIME ONE Stop: 10/09/19 09:36 Last Admin: 10/09/19 10:06 Dose: 10 mg Documented by: Docusate Sodium (Colace) 100 mg PO BID [facility] Last Admin: 10/05/19 10:19 Dose: Not Given Documented by: Enoxaparin Sodium (Lovenox) 140 mg SUBCUT ONETIME ONE Stop: 09/27/19 21:47 Last Admin: 09/27/19 22:49 Dose: 140 mg Documented by: Enoxaparin Sodium (Lovenox) 140 mg SUBCUT BID [facility] Last Admin: 09/29/19 20:04 Dose: 140 mg Documented by: Enoxaparin Sodium (Lovenox) 150 mg SUBCUT Q12H [facility] Furosemide (Lasix) 20 mg IVPUSH NOW ONE Stop: 10/02/19 10:08 Last Admin: 10/02/19 10:42 Dose: 20 mg Documented by: Heparin Sodium (Porcine) (Heparin Sodium) 5,000 units SUBCUT Q12H [facility] Last Admin: 10/13/19 09:33 Dose: Not Given Documented by: Sodium Chloride (Normal Saline) 1,000 mls @ 999 mls/hr IV .Bolus ONE Stop: 09/27/19 21:58 Last Admin: 09/27/19 21:23 Dose: 999 mls/hr Documented by: Ceftriaxone Sodium/Dextrose 1 (gm/ Premix) 50 mls @ 100 mls/hr IV ONETIME ONE Stop: 09/27/19 22:30 Last Admin: 09/27/19 22:48 Dose: 100 mls/hr Documented by: Sodium Chloride (Normal Saline) 1,000 mls @ 125 mls/hr IV ASDIRECTED [facility] Last Admin: 09/29/19 05:47 Dose: 125 mls/hr Documented by: Ceftriaxone Sodium/Dextrose 1 (gm/ Premix) 50 mls @ 100 mls/hr IV Q24H [facility] Last Admin: 10/01/19 22:26 Dose: 100 mls/hr Documented by: Sodium Chloride (Normal Saline) 500 mls @ 125 mls/hr IV ONETIME ONE Stop: 09/30/19 18:36 Last Admin: 09/30/19 16:02 Dose: 125 mls/hr Documented by: Pantoprazole Sodium 40 mg/ (Sodium Chloride) 10 mls @ 300 mls/hr IV NOW ONE Stop: 10/02/19 15:00 Last Admin: 10/02/19 15:34 Dose: 300 mls/hr Documented by: Sodium Chloride (Normal Saline) 1,000 mls @ 999 mls/hr IV .Bolus ONE Stop: 10/09/19 10:03 Last Admin: 10/09/19 10:05 Dose: 999 mls/hr Documented by: Sodium Chloride (Normal Saline) 1,000 mls @ 125 mls/hr IV ASDIRECTED [facility] Last Admin: 10/10/19 22:28 Dose: 125 mls/hr Documented by: Pantoprazole Sodium 40 mg/ (Sodium Chloride) 10 mls @ 300 mls/hr IV NOW ONE Stop: 10/11/19 10:24 Last Admin: 10/11/19 12:30 Dose: 300 mls/hr Documented by: Sodium Chloride (Normal Saline) 500 mls @ 250 mls/hr IV ONETIME ONE Stop: 10/13/19 21:57 Last Admin: 10/13/19 20:13 Dose: 250 mls/hr Documented by: Piperacillin Sod/Tazobactam (Sod 3.375 gm/ Sodium Chloride) 50 mls @ 100 mls/hr IV Q8H [facility] Last Admin: 10/14/19 13:30 Dose: 100 mls/hr Documented by: Sodium Chloride (Normal Saline) 500 mls @ 250 mls/hr IV ONETIME ONE Stop: 10/14/19 02:29 Last Admin: 10/14/19 00:38 Dose: 250 mls/hr Documented by: Vancomycin HCl 1.5 gm/ Premix 300 mls @ 300 mls/hr IV Q12H [facility] Last Admin: 10/15/19 09:35 Dose: 300 mls/hr Documented by: Piperacillin Sod/Tazobactam (Sod 4.5 gm/ Sodium Chloride) 100 mls @ 200 mls/hr IV Q6H [facility] Last Admin: 10/15/19 07:19 Dose: 200 mls/hr Documented by: Insulin Aspart (Novolog) 0 unit SUBCUT TIDAC [facility]; Protocol Last Admin: 10/01/19 09:40 Dose: Not Given Documented by: Iopamidol (Isovue-370 (76%)) 50 ml IV ONETIME STA Stop: 09/30/19 18:08 Last Admin: 09/30/19 18:08 Dose: 50 ml Documented by: Sodium Chloride (Saline Flush) 10 ml FLUSH ASDIRECTED PRN PRN Reason: Keep Vein Open Trimethoprim/Sulfamethoxazole (Septra Ds) 1 tab PO BID [facility] Last Admin: 10/13/19 20:14 Dose: 1 tab Documented by: Vancomycin HCl (Pharmacy To Dose - Vancomycin) 1 dose .XX Q12HR [facility] Last Admin: 10/15/19 09:39 Dose: Not Given Documented by: - Exam Quality Assessment: Supplemental Oxygen, DVT Prophylaxis General: Alert, Oriented, Cooperative, No Acute Distress Lungs: Decreased Breath Sounds, Crackles (R), Wheezing Cardiovascular: Regular Rate, Regular Rhythm GI/Abdominal Exam: Normal Bowel Sounds, Soft, Non-Tender Extremities: Normal Inspection, Normal Range of Motion, Non-Tender, Pedal Edema (+1 pitting edema BLE) Wound/Incisions: Healing Well (RLE wound continue sto improves, continues d ressing changes. NO erythema) Psy/Mental Status: Alert, Normal Affect, Normal Mood Sepsis Event Note - Evaluation Sepsis Screening Result: No Definite Risk - Focused Exam Vital Signs: Vital Signs Temp Pulse Resp BP BP Pulse Ox Pulse Ox 10/15/19 11:59 97.3 F 88 19 99/50 L 94 L 10/15/19 09:45 19 98/58 L 10/15/19 07:25 89 19 95/53 L 94 L 10/15/19 07:10 97.2 F 87 20 90/47 L 92 L 10/15/19 05:00 92 L 10/15/19 04:00 96.7 F L 89 19 112/59 L 92 L Date Exam was Performed: 10/15/19 Time Exam was Performed: 12:56 - Problem List & Annotations (1) Healthcare-associated pneumonia SNOMED Code(s): 192268180, 894319600 Code(s): J18.9 - PNEUMONIA, UNSPECIFIED ORGANISM Status: Acute Current Visit: Yes (2) Hypoxia SNOMED Code(s): 676327209 Code(s): R09.02 - HYPOXEMIA Status: Resolved Current Visit: Yes (3) Weakness SNOMED Code(s): 20592471 Code(s): R53.1 - WEAKNESS Status: Acute Current Visit: Yes (4) Leg wound, right SNOMED Code(s): 713656762, 372477473 Code(s): S81.801A - UNSPECIFIED OPEN WOUND, RIGHT LOWER LEG, INITIAL ENCOUNTER Status: Acute Current Visit: Yes (5) Urinary tract bacterial infections SNOMED Code(s): 413243769 Code(s): N39.0 - URINARY TRACT INFECTION, SITE NOT SPECIFIED; A49.9 - BACTERIAL INFECTION, UNSPECIFIED Status: Acute Current Visit: No (6) Wheelchair bound SNOMED Code(s): 856477562, 079605866 Code(s): Z99.3 - DEPENDENCE ON WHEELCHAIR Status: Chronic Current Visit: Yes - Problem List Review Problem List Initiated/Reviewed/Updated: Yes - My Orders Last 24 Hours: My Active Orders 10/15/19 12:30 Levofloxacin/Dextrose 5%-Water [Levaquin in D5W 750 MG/150 ML] 750 mg Premix Bag 1 bag IV Q48H 10/16/19 05:11 BASIC METABOLIC PANEL,BMP [CHEM] AM CBC WITH AUTO DIFF [HEME] AM MAGNESIUM [CHEM] AM 10/17/19 05:11 BASIC METABOLIC PANEL,BMP [CHEM] AM CBC WITH AUTO DIFF [HEME] AM MAGNESIUM [CHEM] AM 10/18/19 05:11 BASIC METABOLIC PANEL,BMP [CHEM] AM CBC WITH AUTO DIFF [HEME] AM MAGNESIUM [CHEM] AM 10/19/19 05:11 BASIC METABOLIC PANEL,BMP [CHEM] AM CBC WITH AUTO DIFF [HEME] AM MAGNESIUM [CHEM] AM - Plan Plan:: 64 yo female admitted after fall for dehydration, acute kidney injury, and UTI. 1. Hospital acquired pneumonia - Dyspnea improved - Renal function elevating, will stop Zosyn and Vanco, switch to levaquin 750 Q48 and monitor. - Continue Oxygen as needed - Continue Solumedrol 40 mg IV Q12h today and decrease tomorrow, nice improvement in wheezing with this. - Continue nebs, but reports she feels more wheezing after these, monitor. - Encouraged IS use and CDB 2. UTI - UC returned with Enterobacter cloacae, treated 3 days of Bactrim. 3. Abdominal wall asif -continue Nystatin 4. Falls, self care deficit; - Plan for home with resources such as Home health. - PT/OT evaluate and treat 5. Thrombocytopenia: - No bleeding noted. - Hold Heparin 6. SVT: - resolved - Monitor on telemetry 7. RLE venous ulcer: - Consult wound services for opinion on dressing and cares - Wound care notices improvement since they saw her as outpatient. Consider wound vac. Will defer to them regarding this. - Continue dressing changes. VTE prophylaxis: SCDs Dispo: Pending improvement in strength and transfer to be able to go home. No payer source for SNF, rehabilitation. Case management consulted.
[2019-10-16] MEDS: Albuterol/Ipratropium 3.0-0.5 MG/3 ML Neb Soln NEB SCH ×5 (00:13→23:42)
[2019-10-16] MEDS: Ondansetron 4 MG/2 ML SDV IVPUSH PRN ×2 (01:44→05:23)
[2019-10-16] MEDS: Nystatin Topical Powder 15 GM Bottle TOP SCH ×3 (05:25→22:24)
[2019-10-16] MEDS: Acetaminophen 325 MG Tab PO PRN ×2 (05:35→11:38)
[2019-10-16] MEDS: Pantoprazole 40 MG Tab.CR PO SCH (06:38)
[2019-10-16 07:02] LABS: CARBON DIOXIDE,CO2 20.1 mmol/L (21.0-32.0); POTASSIUM,K 4.4 mmol/L (3.5-5.1)
[2019-10-16] MEDS ORDERED: Sodium Chloride 0.9% 500 ML IV SCH ×3 (08:30→15:30)
[2019-10-16] MEDS: methylPREDNISolone Sodium Succinate 40 MG/1 ML SDV IVPUSH SCH (09:00)
[2019-10-16] MEDS ORDERED: Metoclopramide 10 MG/2 ML SDV IVPUSH ONE (09:11)
[2019-10-16] MEDS: Docusate Sodium 100 MG Cap PO SCH ×2 (11:20→20:18)
[2019-10-16] MEDS: Bisacodyl 10 MG Supp RECTAL SCH ×2 (11:21→11:32)
[2019-10-16 11:25] LABS: BILIRUBIN INDIRECT 0.3
[2019-10-16] MEDS ORDERED: Ondansetron 4 MG/2 ML SDV IVPUSH PRN (12:07)
--- NOTE | 2019-10-16 12:07 | PCM.PN ---
- General Info Date of Service: 10/16/19 Admission Dx/Problem (Free Text): Admission Diagnosis/Problem Admission Diagnosis/Problem Weakness Subjective Update: Feels poorly this morning, started vomiting last night. no overt abdominal pain. No chest pain or SOB. Functional Status: Reports: Pain Controlled, Urinating. Denies: Tolerating Diet - Review of Systems General: Reports: Malaise. Denies: Weakness, Fatigue HEENT: Reports: No Symptoms. Denies: Headaches, Visual Changes Pulmonary: Reports: No Symptoms. Denies: Shortness of Breath Cardiovascular: Reports: No Symptoms. Denies: Chest Pain Gastrointestinal: Reports: Nausea, Vomiting Genitourinary: Reports: No Symptoms. Denies: Dysuria, Frequency, Burning Musculoskeletal: Reports: No Symptoms Skin: Reports: No Symptoms Neurological: Reports: No Symptoms Psychiatric: Reports: No Symptoms - Patient Data Vitals - Most Recent: Last Vital Signs Temp 97.6 F 10/16/19 09:55 Pulse 90 10/16/19 09:55 Resp 18 10/16/19 09:55 BP 90/41 L 10/16/19 09:55 Pulse Ox 90 L 10/16/19 09:55 Weight - Most Recent: 169.19 kg I&O - Last 24 Hours: Intake & Output 10/15/19 10/16/19 10/16/19 22:59 06:59 14:59 Intake Total 600 200 Output Total 0 500 Balance 600 -300 Lab Results Last 24 Hours: Laboratory Results - last 24 hr 10/15/19 10/16/19 10/16/19 Range/Units 20:54 06:22 06:22 WBC 11.01 H (4.0-11.0) K/uL RBC 3.38 L (4.30-5.90) M/uL Hgb 10.0 L (12.0-16.0) g/dL Hct 33.2 L (36.0-46.0) % MCV 98.2 H (80.0-98.0) fL MCH 29.6 (27.0-32.0) pg MCHC 30.1 L (31.0-37.0) g/dL RDW Std Deviation 67.4 H (28.0-62.0) fl RDW Coeff of Rachid 19 H (11.0-15.0) % Plt Count 101 L (150-400) K/uL MPV 9.50 (7.40-12.00) fL Neut % (Auto) 81.4 H (48.0-80.0) % Lymph % (Auto) 8.2 L (16.0-40.0) % [place] % (Auto) 10.3 (0.0-15.0) % Eos % (Auto) 0.0 (0.0-7.0) % Baso % (Auto) 0.1 (0.0-1.5) % Neut # (Auto) 9.0 H (1.4-5.7) K/uL Lymph # (Auto) 0.9 (0.6-2.4) K/uL [place] # (Auto) 1.1 H (0.0-0.8) K/uL Eos # (Auto) 0.0 (0.0-0.7) K/uL Baso # (Auto) 0.0 (0.0-0.1) K/uL Nucleated RBC % 0.0 /100WBC Nucleated RBCs # 0 K/uL Lactate (0.20-2.00) mmol/L Sodium 134 L (136-145) mmol/L Potassium 4.4 (3.5-5.1) mmol/L Chloride 100 (98-107) mmol/L Carbon Dioxide 20.1 L (21.0-32.0) mmol/L BUN 27 H (7.0-18.0) mg/dL Creatinine 1.3 H (0.6-1.0) mg/dL Est Cr Clr Drug Dosing 43.52 mL/min Estimated GFR (MDRD) 41.5 ml/min Glucose 135 H (74-106) mg/dL Calcium 8.1 L (8.5-10.1) mg/dL Magnesium 2.4 (1.8-2.4) mg/dL Total Bilirubin (0.2-1.0) mg/dL Direct Bilirubin (0.0-0.5) mg/dL Indirect Bilirubin AST (15-37) IU/L ALT (14-63) IU/L Alkaline Phosphatase (46-116) U/L Total Protein (6.4-8.2) g/dL Albumin (3.4-5.0) g/dL Globulin (2.6-4.0) g/dL Albumin/Globulin Ratio (0.9-1.6) Lipase (73-393) U/L Vancomycin Trough 28.9 H (5.0-10.0) ug/mL 10/16/19 10/16/19 10/16/19 Range/Units 06:22 06:22 10:45 WBC (4.0-11.0) K/uL RBC (4.30-5.90) M/uL Hgb (12.0-16.0) g/dL Hct (36.0-46.0) % MCV (80.0-98.0) fL MCH (27.0-32.0) pg MCHC (31.0-37.0) g/dL RDW Std Deviation (28.0-62.0) fl RDW Coeff of Rachid (11.0-15.0) % Plt Count (150-400) K/uL MPV (7.40-12.00) fL Neut % (Auto) (48.0-80.0) % Lymph % (Auto) (16.0-40.0) % [place] % (Auto) (0.0-15.0) % Eos % (Auto) (0.0-7.0) % Baso % (Auto) (0.0-1.5) % Neut # (Auto) (1.4-5.7) K/uL Lymph # (Auto) (0.6-2.4) K/uL [place] # (Auto) (0.0-0.8) K/uL Eos # (Auto) (0.0-0.7) K/uL Baso # (Auto) (0.0-0.1) K/uL Nucleated RBC % /100WBC Nucleated RBCs # K/uL Lactate 2.3 H* (0.20-2.00) mmol/L Sodium (136-145) mmol/L Potassium (3.5-5.1) mmol/L Chloride (98-107) mmol/L Carbon Dioxide (21.0-32.0) mmol/L BUN (7.0-18.0) mg/dL Creatinine (0.6-1.0) mg/dL Est Cr Clr Drug Dosing mL/min Estimated GFR (MDRD) ml/min Glucose (74-106) mg/dL Calcium (8.5-10.1) mg/dL Magnesium (1.8-2.4) mg/dL Total Bilirubin 0.6 (0.2-1.0) mg/dL Direct Bilirubin 0.30 (0.0-0.5) mg/dL Indirect Bilirubin 0.30 AST 24 (15-37) IU/L ALT 14 (14-63) IU/L Alkaline Phosphatase 76 (46-116) U/L Total Protein 5.3 L (6.4-8.2) g/dL Albumin 2.1 L (3.4-5.0) g/dL Globulin 3.2 (2.6-4.0) g/dL Albumin/Globulin Ratio 0.7 L (0.9-1.6) Lipase 3709 H (73-393) U/L Vancomycin Trough (5.0-10.0) ug/mL Med Orders - Current: Current Medications Acetaminophen (Tylenol) 650 mg PO Q6H PRN PRN Reason: Pain Last Admin: 10/16/19 11:38 Dose: 650 mg Documented by: Al Hydroxide/Mg Hydroxide (Mag-Al Plus) 30 ml PO Q4H PRN PRN Reason: Heartburn Last Admin: 10/15/19 20:06 Dose: 30 ml Documented by: Albuterol/Ipratropium (Duoneb 3.0-0.5 Mg/3 Ml) 3 ml NEB Q6HRRT [facility] Last Admin: 10/16/19 11:30 Dose: 3 ml Documented by: Albuterol/Ipratropium (Duoneb 3.0-0.5 Mg/3 Ml) 3 ml NEB Q4HRRT PRN PRN Reason: Wheezing Artificial Tears (Refresh Plus 0.5%) 0 each EYEBOTH Q2HR PRN PRN Reason: Dry Eyes Last Admin: 10/15/19 13:45 Dose: 1 drop Documented by: Bisacodyl (Dulcolax) 10 mg RECTAL Q48H [facility] Last Admin: 10/16/19 11:32 Dose: Not Given Documented by: Docusate Sodium (Colace) 100 mg PO BID [facility] Last Admin: 10/16/19 11:20 Dose: 100 mg Documented by: Levofloxacin/Dextrose 750 mg/ (Premix) 150 mls @ 100 mls/hr IV Q48H [facility] Last Admin: 10/15/19 11:47 Dose: 100 mls/hr Documented by: Sodium Chloride (Normal Saline) 500 mls @ 999 mls/hr IV .BOLUS [facility] Pantoprazole Sodium 40 mg/ (Sodium Chloride) 10 mls @ 300 mls/hr IV Q24H [facility] Methylprednisolone Sodium Succinate (Solu-Medrol) 40 mg IVPUSH DAILY [facility] Nystatin (Nystop) 1 gm TOP TID [facility] Last Admin: 10/16/19 05:25 Dose: 1 gm Documented by: Sodium Chloride (Saline Flush) 2.5 ml FLUSH ASDIRECTED PRN PRN Reason: Keep Vein Open Discontinued Medications Albuterol/Ipratropium (Duoneb 3.0-0.5 Mg/3 Ml) 3 ml NEB Q4HRRT PRN PRN Reason: Wheezing Last Admin: 09/30/19 15:13 Dose: 3 ml Documented by: Albuterol/Ipratropium (Duoneb 3.0-0.5 Mg/3 Ml) 3 ml NEB Q4HRRT [facility] Last Admin: 10/02/19 09:19 Dose: 3 ml Documented by: Albuterol/Ipratropium (Duoneb 3.0-0.5 Mg/3 Ml) 3 ml NEB Q6HRRT [facility] Last Admin: 10/05/19 11:33 Dose: 3 ml Documented by: Albuterol/Ipratropium (Duoneb 3.0-0.5 Mg/3 Ml) 3 ml NEB Q6HRRT PRN PRN Reason: Shortness of Breath Last Admin: 10/13/19 18:20 Dose: 3 ml Documented by: Bisacodyl (Dulcolax) 10 mg RECTAL DAILY PRN PRN Reason: Constipation Last Admin: 10/02/19 14:06 Dose: 10 mg Documented by: Cephalexin (Keflex) 500 mg PO Q6HR [facility] Last Admin: 10/09/19 06:18 Dose: 500 mg Documented by: Diltiazem HCl (Diltiazem) 10 mg IVPUSH ONETIME ONE Stop: 10/09/19 09:36 Last Admin: 10/09/19 10:06 Dose: 10 mg Documented by: Docusate Sodium (Colace) 100 mg PO BID [facility] Last Admin: 10/05/19 10:19 Dose: Not Given Documented by: Enoxaparin Sodium (Lovenox) 140 mg SUBCUT ONETIME ONE Stop: 09/27/19 21:47 Last Admin: 09/27/19 22:49 Dose: 140 mg Documented by: Enoxaparin Sodium (Lovenox) 140 mg SUBCUT BID [facility] Last Admin: 09/29/19 20:04 Dose: 140 mg Documented by: Enoxaparin Sodium (Lovenox) 150 mg SUBCUT Q12H [facility] Furosemide (Lasix) 20 mg IVPUSH NOW ONE Stop: 10/02/19 10:08 Last Admin: 10/02/19 10:42 Dose: 20 mg Documented by: Heparin Sodium (Porcine) (Heparin Sodium) 5,000 units SUBCUT Q12H [facility] Last Admin: 10/13/19 09:33 Dose: Not Given Documented by: Sodium Chloride (Normal Saline) 1,000 mls @ 999 mls/hr IV .Bolus ONE Stop: 09/27/19 21:58 Last Admin: 09/27/19 21:23 Dose: 999 mls/hr Documented by: Ceftriaxone Sodium/Dextrose 1 (gm/ Premix) 50 mls @ 100 mls/hr IV ONETIME ONE Stop: 09/27/19 22:30 Last Admin: 09/27/19 22:48 Dose: 100 mls/hr Documented by: Sodium Chloride (Normal Saline) 1,000 mls @ 125 mls/hr IV ASDIRECTED [facility] Last Admin: 09/29/19 05:47 Dose: 125 mls/hr Documented by: Ceftriaxone Sodium/Dextrose 1 (gm/ Premix) 50 mls @ 100 mls/hr IV Q24H [facility] Last Admin: 10/01/19 22:26 Dose: 100 mls/hr Documented by: Sodium Chloride (Normal Saline) 500 mls @ 125 mls/hr IV ONETIME ONE Stop: 09/30/19 18:36 Last Admin: 09/30/19 16:02 Dose: 125 mls/hr Documented by: Pantoprazole Sodium 40 mg/ (Sodium Chloride) 10 mls @ 300 mls/hr IV NOW ONE Stop: 10/02/19 15:00 Last Admin: 10/02/19 15:34 Dose: 300 mls/hr Documented by: Sodium Chloride (Normal Saline) 1,000 mls @ 999 mls/hr IV .Bolus ONE Stop: 07/08/20 10:03 Last Admin: 10/09/19 10:05 Dose: 999 mls/hr Documented by: Sodium Chloride (Normal Saline) 1,000 mls @ 125 mls/hr IV ASDIRECTED [facility] Last Admin: 10/10/19 22:28 Dose: 125 mls/hr Documented by: Pantoprazole Sodium 40 mg/ (Sodium Chloride) 10 mls @ 300 mls/hr IV NOW ONE Stop: 10/11/19 10:24 Last Admin: 10/11/19 12:30 Dose: 300 mls/hr Documented by: Sodium Chloride (Normal Saline) 500 mls @ 250 mls/hr IV ONETIME ONE Stop: 10/13/19 21:57 Last Admin: 10/13/19 20:13 Dose: 250 mls/hr Documented by: Piperacillin Sod/Tazobactam (Sod 3.375 gm/ Sodium Chloride) 50 mls @ 100 mls/hr IV Q8H [facility] Last Admin: 10/14/19 13:30 Dose: 100 mls/hr Documented by: Sodium Chloride (Normal Saline) 500 mls @ 250 mls/hr IV ONETIME ONE Stop: 10/14/19 02:29 Last Admin: 10/14/19 00:38 Dose: 250 mls/hr Documented by: Vancomycin HCl 1.5 gm/ Premix 300 mls @ 300 mls/hr IV Q12H [facility] Last Admin: 10/15/19 09:35 Dose: 300 mls/hr Documented by: Piperacillin Sod/Tazobactam (Sod 4.5 gm/ Sodium Chloride) 100 mls @ 200 mls/hr IV Q6H [facility] Last Admin: 10/15/19 07:19 Dose: 200 mls/hr Documented by: Sodium Chloride (Normal Saline) 500 mls @ 999 mls/hr IV .BOLUS [facility] Last Admin: 10/16/19 09:00 Dose: 999 mls/hr Documented by: Insulin Aspart (Novolog) 0 unit SUBCUT TIDAC [facility]; Protocol Last Admin: 10/01/19 09:40 Dose: Not Given Documented by: Iopamidol (Isovue-370 (76%)) 50 ml IV ONETIME STA Stop: 09/30/19 18:08 Last Admin: 09/30/19 18:08 Dose: 50 ml Documented by: Methylprednisolone Sodium Succinate (Solu-Medrol) 40 mg IVPUSH BID [facility] Last Admin: 10/16/19 09:00 Dose: 40 mg Documented by: Metoclopramide HCl (Reglan) 10 mg IVPUSH ONETIME ONE Stop: 10/16/19 09:12 Last Admin: 10/16/19 09:33 Dose: 10 mg Documented by: Ondansetron HCl (Zofran) 4 mg IVPUSH Q6H PRN PRN Reason: Nausea/Vomiting Last Admin: 10/16/19 05:23 Dose: 4 mg Documented by: Pantoprazole Sodium (Protonix) 40 mg PO ACBREAKFAST [facility] Last Admin: 10/16/19 06:38 Dose: 40 mg Documented by: Polyethylene Glycol (Miralax) 17 gm PO DAILY [facility] Last Admin: 10/15/19 09:35 Dose: Not Given Documented by: Sodium Chloride (Saline Flush) 10 ml FLUSH ASDIRECTED PRN PRN Reason: Keep Vein Open Trimethoprim/Sulfamethoxazole (Septra Ds) 1 tab PO BID [facility] Last Admin: 10/13/19 20:14 Dose: 1 tab Documented by: Vancomycin HCl (Pharmacy To Dose - Vancomycin) 1 dose .XX Q12HR [facility] Last Admin: 10/15/19 09:39 Dose: Not Given Documented by: - Exam General: Alert, Oriented, Cooperative, Mild Distress (appears to not feel well and is nauseated) Lungs: Clear to Auscultation, Normal Respiratory Effort Cardiovascular: Regular Rate, Regular Rhythm GI/Abdominal Exam: Normal Bowel Sounds, Soft, Tender (epigastric, RUQ) Extremities: Normal Inspection, Normal Range of Motion, Non-Tender, No Pedal Edema Neurological: No New Focal Deficit Psy/Mental Status: Alert, Normal Affect, Normal Mood Sepsis Event Note - Evaluation Sepsis Screening Result: No Definite Risk - Focused Exam Vital Signs: Vital Signs Temp Pulse Resp BP BP Pulse Ox Pulse Ox 10/16/19 09:55 97.6 F 90 18 90/41 L 90 L 10/16/19 08:51 97.2 F 89 18 89/50 L 93 L 10/16/19 07:30 96.6 F L 92 20 84/42 L 93 L 10/16/19 07:05 96.7 F L 92 20 83/46 L 90 L 10/16/19 05:00 92 L 07/15/20 04:30 96.7 F L 92 23 H 90/53 L 92 L Date Exam was Performed: 10/16/19 Time Exam was Performed: 12:42 - Problem List & Annotations (1) Healthcare-associated pneumonia SNOMED Code(s): 316059783, 132073551 Code(s): J18.9 - PNEUMONIA, UNSPECIFIED ORGANISM Status: Acute Current Visit: Yes (2) Hypoxia SNOMED Code(s): 187240598 Code(s): R09.02 - HYPOXEMIA Status: Resolved Current Visit: Yes (3) Weakness SNOMED Code(s): 67334744 Code(s): R53.1 - WEAKNESS Status: Acute Current Visit: Yes (4) Leg wound, right SNOMED Code(s): 182585343, 155246157 Code(s): S81.801A - UNSPECIFIED OPEN WOUND, RIGHT LOWER LEG, INITIAL ENCOUNTER Status: Acute Current Visit: Yes (5) Urinary tract bacterial infections SNOMED Code(s): 889534697 Code(s): N39.0 - URINARY TRACT INFECTION, SITE NOT SPECIFIED; A49.9 - BACTERIAL INFECTION, UNSPECIFIED Status: Acute Current Visit: No (6) Wheelchair bound SNOMED Code(s): 484814774, 066070267 Code(s): Z99.3 - DEPENDENCE ON WHEELCHAIR Status: Chronic Current Visit: Yes (7) Pancreatitis SNOMED Code(s): 21680052 Code(s): K85.90 - ACUTE PANCREATITIS WITHOUT NECROSIS OR INFECTION, UNSP Status: Acute Current Visit: Yes Qualifiers: Chronicity: acute Pancreatitis type: other - Problem List Review Problem List Initiated/Reviewed/Updated: Yes - My Orders Last 24 Hours: My Active Orders 10/15/19 12:30 Levofloxacin/Dextrose 5%-Water [Levaquin in D5W 750 MG/150 ML] 750 mg Premix Bag 1 bag IV Q48H 10/15/19 12:58 Carboxymethylcellulose Sodium [Refresh Plus 0.5%] See Dose Instructions EYEBOTH Q2HR PRN 10/16/19 10:44 Abdomen 1V Flat [CR] Urgent 10/16/19 10:45 Docusate Sodium [Colace] 100 mg PO BID bisacodyL [Dulcolax] 10 mg RECTAL Q48H 10/16/19 Lunch NPO [Nothing Per Oral Diet] [DIET] 10/16/19 11:45 Sodium Chloride 0.9% [Normal Saline] 500 ml IV .BOLUS 10/16/19 12:04 Abdomen Pelvis wo Cont [CT] Urgent Abdomen wo Cont [CT] Routine 10/16/19 12:07 Ondansetron [Zofran] 4 mg IVPUSH Q4H PRN 10/16/19 14:45 LACTIC ACID,WHOLE BLOOD [BG] Routine 10/17/19 05:11 BASIC METABOLIC PANEL,BMP [CHEM] AM CBC WITH AUTO DIFF [HEME] AM MAGNESIUM [CHEM] AM 10/17/19 07:00 Pantoprazole [ProTONIX IV] 40 mg Sodium Chloride 0.9% [Normal Saline] 10 ml IV Q24H 10/17/19 09:00 methylPREDNISolone Sod Succ [Solu-MEDROL] 40 mg IVPUSH DAILY 10/18/19 05:11 BASIC METABOLIC PANEL,BMP [CHEM] AM CBC WITH AUTO DIFF [HEME] AM MAGNESIUM [CHEM] AM 10/19/19 05:11 BASIC METABOLIC PANEL,BMP [CHEM] AM CBC WITH AUTO DIFF [HEME] AM MAGNESIUM [CHEM] AM - Assessment Assessment:: 64 yo female admitted after fall for dehydration, acute kidney injury, and UTI. 1. UTI - straight cath obtained today for sterile sample. Continues to show UTI with symptoms. - Start Bactrim DS BID today. Obtain UC 2. Abdominal wall asif - Continued improvement, cellulitis fully treated and improved -continue Nystatin - Educated on self care of pannus, verbalized understanding 3. Falls, self care deficit; - Plan for home with resources such as Home health. - PT/OT evaluate and treat - Not able to transfer per self yet like at home, need to continue to encourage this as much as possible. - Not able to get payer source for SNF, her and her make to much money. Will need to arrange at home services. Given information by social work. 4. Thrombocytopenia: - No bleeding noted. - Hold Heparin today. 5. Sinus tachycardia - No further HR elevation, no chest pain - Monitor on telemetry today VTE prophylaxis: Heparin Dispo: Pending improvement in strength and transfer to be able to go home. No payer source for SNF, rehabilitation. Case management consulted. - Plan Plan:: 64 yo female admitted after fall for dehydration, acute kidney injury, and UTI. 1. Hospital acquired pneumonia - Dyspnea improved - Continue Levaquin 750 Q48 and monitor. - Continue Oxygen as needed - Decrease to Solumedrol 40 mg IV daily - Encouraged IS use and CDB 2.Acute pancreatitis - N/V this morning - LFTs normal, Lipase 3700 - RUQ ultrasound today - Start LR 100, due to edema want to be careful with IVFs - NPO - Lactic acid elevated at 2.3, 500 ml bolus x 2 given this am. Will repeat this afternoon. 3. Abdominal wall asif -continue Nystatin 4. Falls, self care deficit; - Plan for home with resources such as Home health. - PT/OT evaluate and treat 5. Thrombocytopenia: - Improving 6. RLE venous ulcer: - Consult wound services for opinion on dressing and cares - Wound care notices improvement since they saw her as outpatient. Consider wound vac. Will defer to them regarding this. - Continue dressing changes. VTE prophylaxis: SCDs Dispo: Pending improvement in strength and transfer to be able to go home. No payer source for SNF, rehabilitation. Case management consulted.
--- NOTE | 2019-10-16 13:06 | CR ---
Abdomen: Supine view of the abdomen was obtained. Comparison: No previous abdominal imaging. Scattered gas and stool is noted within colon which appears within normal limits. Surgical clips are seen within the abdomen. Bony structures are unremarkable. Impression: 1. Nothing acute is appreciated on supine abdominal x-ray. Diagnostic code #1 Study was dictated in MDT
[2019-10-16] MEDS: Lactated Ringers 1,000 ML IV SCH ×2 (13:15→23:37)
--- NOTE | 2019-10-16 14:53 | US ---
Limited abdominal ultrasound: Multiple real-time images of the upper right abdomen were obtained. Comparison: No prior abdominal ultrasound is available. Findings: Liver is echogenic. No focal abnormality is seen. Gallstones are seen within the gallbladder with no gallbladder wall thickening with CBD measuring at the upper limits of normal at 6.9 mm. Right kidney shows no hydronephrosis or mass in his life 12.3 cm. Inferior vena cava, aorta and pancreas are obscured from bowel gas. Impression: 1. Liver is echogenic most likely due to fatty infiltration. 2. Gallstones with no gallbladder wall thickening. Common bile duct is borderline with CBD measuring 6.9 mm. 3. Obscured IVC, aorta and pancreas. Diagnostic code #3 This report was dictated in MDT
--- NOTE | 2019-10-16 16:00 | PCM.SN.2 ---
- Free Text/Narrative Note: This morning, lipase noted to be elevated with some epigastric pain. She continues to have nausea. RUQ US shows gallstones with no gallbladder wall thickening. No LFT elevations. I spoke with JANESSA Palomares in [place]. Unable to obtain MRCP here due to patient size. LFTs are normal. He doesn't feel she is obstructed would want ERCP if concern for obstruction with elevation in LFTs, such as over 200s. He recommends fluids and bowel rest. Monitor LFTs and lipase in am. Discussed with Dr Slater. Lactic acid elevated again will give another 500 ml bolus now and recheck this evening.
[2019-10-16] MEDS ORDERED: Piperacillin/Tazobactam 3.375 GM in Sodium Chloride 0.9% 50 ML IV SCH (17:00)
[2019-10-16] MEDS: Piperacillin/Tazobactam 3.375 GM in Sodium Chloride 0.9% 100 ML IV SCH ×2 (17:36→23:29)
[2019-10-16] MEDS ORDERED: Lactated Ringers 1,000 ML IV ONE ×2 (19:23→21:59)
--- NOTE | 2019-10-16 23:51 | PCM.SN.2 ---
- Free Text/Narrative Note: Patients BP is soft, elevated lactate, possible heading towards septic shock, on broad spectrum antibiotics, receiving IV fluid resuscitation, Will give 30 cc/kg fluids. I had a detailed discussion with the patient about goals of care. She is DNR/DNI, i asked her if she is willing let us place a central line if needed for pressor support for low BP. Patient states she has had a central line in past and states SHE DOES NOT WANT a central line. States she wants no invasive measures. Patient is aware that its a life saving intervention if her BP doesn't improve with IV fluids. She understands the risks and benefits of the procedure AND DECLINED THE PROCEDURE. She is ok with peripheral pressors if needed but no invasive procedure including central line.
--- NOTE | 2019-10-17 02:29 | PCM.SN.2 ---
- Free Text/Narrative Note: Phoned by S.A. for IV assistance. Time spent with patient 10/17/19 [phone]. Time-out/patient verified. Area cleansed with chlorhexidine for all attempts. Attempt #1 by SRNA (Taj Lazo) successful (20g, RUE). 18g needed for potential pressor infusion. Attempt #1 by LEAD SOFTWARE ENGINEER (Omar) in [facility] unsuccessful. Attempt #2: successfully placed 18g in RUE.
--- NOTE | 2019-10-17 03:04 | PN ---
THC Physician - Brief Progress OrrfTPVOYIEQU43/16/2020 02:49[facility] Kiarra connell, AVIL[facility] - [facility] - GAVIN TATE VALENTINA ByrnesDate of Service 10/17/2019 02:49HPI/Events of Note Brief eICU Admit [id number] yof with hx of PUD, DVT, recurrent R leg ulcer / cellultits, wheel chair boundPresents with HCAP, UTI, R leg wound, pancreatitis, abdominal wall candidaTransferred to I CU with increasing lactate, dropping BP and concern for septic shockO/E Seen on cameraVSS, NADDVT Pro phylaxis: SCDsGI Prophylaxis: PPIIssuesSeptic shockMultpile sources - unclear what trigger is ( they have been present )On vanco / Zosyn - may need to change abx (depending on how long has been on)BC x 2Levophed peripherallyFoley for strict i/o (no u/o)Pt is DNR / DNIRefuses central lineCase reviewed w ith bedside teamCall with questionsWill followInterventions Major-Infection - evaluation and manageme nt, Shock - evaluation and managementElectronically Signed by: TAMI COY) on 0 03:03
[2019-10-17] MEDS: Lactated Ringers 1,000 ML IV SCH ×4 (05:06→23:53)
[2019-10-17] MEDS: Piperacillin/Tazobactam 3.375 GM in Sodium Chloride 0.9% 100 ML IV SCH ×2 (05:40→11:10)
[2019-10-17] MEDS: Nystatin Topical Powder 15 GM Bottle TOP SCH ×3 (05:49→21:41)
[2019-10-17] MEDS: Albuterol/Ipratropium 3.0-0.5 MG/3 ML Neb Soln NEB SCH ×4 (05:59→23:58)
[2019-10-17 06:08] LABS: CARBON DIOXIDE,CO2 21.5 mmol/L (21.0-32.0); POTASSIUM,K 4.2 mmol/L (3.5-5.1)
[2019-10-17] MEDS: Pantoprazole 40 MG in Sodium Chloride 0.9% 10 ML IV SCH (06:23)
[2019-10-17] MEDS: methylPREDNISolone Sodium Succinate 40 MG/1 ML SDV IVPUSH SCH (08:51)
--- NOTE | 2019-10-17 11:25 | PCM.PN ---
- General Info Date of Service: 10/17/19 Admission Dx/Problem (Free Text): Admission Diagnosis/Problem Admission Diagnosis/Problem Weakness Subjective Update: seen at bedside this AM< patient states she spoke to her and now she is more open to get the central line although she is very anxious about it . But she is ready to get it placed if needed. Functional Status: Reports: Pain Controlled, Urinating. Denies: Tolerating Diet, Ambulating - Review of Systems General: Reports: Weakness, Fatigue, Malaise. Denies: Fever Pulmonary: Denies: Shortness of Breath, Pleuritic Chest Pain Cardiovascular: Denies: Chest Pain, Palpitations, Dyspnea on Exertion Gastrointestinal: Reports: Abdominal Pain, Decreased Appetite, Nausea. Denies: Constipation, Diarrhea, Difficulty Swallowing, Melena, Vomiting Genitourinary: Denies: Dysuria, Frequency, Burning Musculoskeletal: Denies: Neck Pain, Shoulder Pain, Arm Pain Skin: Denies: Cyanosis, Jaundice, Mottled Neurological: Denies: Confusion, Dizziness, Headache - Patient Data Vitals - Most Recent: Last Vital Signs Temp 37.1 C 10/17/19 07:15 Pulse 93 10/16/19 23:57 Resp 20 10/17/19 10:21 BP 95/62 10/17/19 10:21 Pulse Ox 90 L 10/17/19 10:21 Weight - Most Recent: 165.76 kg I&O - Last 24 Hours: Intake & Output 10/16/19 10/17/19 10/17/19 22:59 06:59 14:59 Intake Total 2200 1213 Output Total 860 0 Balance 1340 1213 Lab Results Last 24 Hours: Laboratory Results - last 24 hr 10/16/19 10/16/19 10/16/19 Range/Units 06:22 06:22 15:12 WBC (4.0-11.0) K/uL RBC (4.30-5.90) M/uL Hgb (12.0-16.0) g/dL Hct (36.0-46.0) % MCV (80.0-98.0) fL MCH (27.0-32.0) pg MCHC (31.0-37.0) g/dL RDW Std Deviation (28.0-62.0) fl RDW Coeff of Rachid (11.0-15.0) % Plt Count (150-400) K/uL MPV (7.40-12.00) fL Neut % (Auto) (48.0-80.0) % Lymph % (Auto) (16.0-40.0) % [place] % (Auto) (0.0-15.0) % Eos % (Auto) (0.0-7.0) % Baso % (Auto) (0.0-1.5) % Neut # (Auto) (1.4-5.7) K/uL Lymph # (Auto) (0.6-2.4) K/uL [place] # (Auto) (0.0-0.8) K/uL Eos # (Auto) (0.0-0.7) K/uL Baso # (Auto) (0.0-0.1) K/uL Nucleated RBC % /100WBC Nucleated RBCs # K/uL Lactate 2.4 H* (0.20-2.00) mmol/L Sodium (136-145) mmol/L Potassium (3.5-5.1) mmol/L Chloride (98-107) mmol/L Carbon Dioxide (21.0-32.0) mmol/L BUN (7.0-18.0) mg/dL Creatinine (0.6-1.0) mg/dL Est Cr Clr Drug Dosing mL/min Estimated GFR (MDRD) ml/min Glucose (74-106) mg/dL Calcium (8.5-10.1) mg/dL Magnesium (1.8-2.4) mg/dL Total Bilirubin 0.6 (0.2-1.0) mg/dL Direct Bilirubin 0.30 (0.0-0.5) mg/dL Indirect Bilirubin 0.30 AST 24 (15-37) IU/L ALT 14 (14-63) IU/L Alkaline Phosphatase 76 (46-116) U/L Total Protein 5.3 L (6.4-8.2) g/dL Albumin 2.1 L (3.4-5.0) g/dL Globulin 3.2 (2.6-4.0) g/dL Albumin/Globulin Ratio 0.7 L (0.9-1.6) Lipase 3709 H (73-393) U/L 10/16/19 10/17/19 10/17/19 Range/Units 18:54 00:23 05:27 WBC 22.24 H (4.0-11.0) K/uL RBC 3.72 L (4.30-5.90) M/uL Hgb 10.9 L (12.0-16.0) g/dL Hct 36.3 (36.0-46.0) % MCV 97.6 (80.0-98.0) fL MCH 29.3 (27.0-32.0) pg MCHC 30.0 L (31.0-37.0) g/dL RDW Std Deviation 67.4 H (28.0-62.0) fl RDW Coeff of Rachid 19 H (11.0-15.0) % Plt Count 119 L (150-400) K/uL MPV 8.80 (7.40-12.00) fL Neut % (Auto) 89.2 H (48.0-80.0) % Lymph % (Auto) 5.1 L (16.0-40.0) % [place] % (Auto) 5.6 (0.0-15.0) % Eos % (Auto) 0.1 (0.0-7.0) % Baso % (Auto) 0.0 (0.0-1.5) % Neut # (Auto) 19.8 H (1.4-5.7) K/uL Lymph # (Auto) 1.1 (0.6-2.4) K/uL [place] # (Auto) 1.2 H (0.0-0.8) K/uL Eos # (Auto) 0.0 (0.0-0.7) K/uL Baso # (Auto) 0.0 (0.0-0.1) K/uL Nucleated RBC % 0.0 /100WBC Nucleated RBCs # 0 K/uL Lactate 2.2 H* 2.0 (0.20-2.00) mmol/L Sodium (136-145) mmol/L Potassium (3.5-5.1) mmol/L Chloride (98-107) mmol/L Carbon Dioxide (21.0-32.0) mmol/L BUN (7.0-18.0) mg/dL Creatinine (0.6-1.0) mg/dL Est Cr Clr Drug Dosing mL/min Estimated GFR (MDRD) ml/min Glucose (74-106) mg/dL Calcium (8.5-10.1) mg/dL Magnesium (1.8-2.4) mg/dL Total Bilirubin (0.2-1.0) mg/dL Direct Bilirubin (0.0-0.5) mg/dL Indirect Bilirubin AST (15-37) IU/L ALT (14-63) IU/L Alkaline Phosphatase (46-116) U/L Total Protein (6.4-8.2) g/dL Albumin (3.4-5.0) g/dL Globulin (2.6-4.0) g/dL Albumin/Globulin Ratio (0.9-1.6) Lipase (73-393) U/L 10/17/19 10/17/19 10/17/19 Range/Units 05:27 05:27 10:06 WBC (4.0-11.0) K/uL RBC (4.30-5.90) M/uL Hgb (12.0-16.0) g/dL Hct (36.0-46.0) % MCV (80.0-98.0) fL MCH (27.0-32.0) pg MCHC (31.0-37.0) g/dL RDW Std Deviation (28.0-62.0) fl RDW Coeff of Rachid (11.0-15.0) % Plt Count (150-400) K/uL MPV (7.40-12.00) fL Neut % (Auto) (48.0-80.0) % Lymph % (Auto) (16.0-40.0) % [place] % (Auto) (0.0-15.0) % Eos % (Auto) (0.0-7.0) % Baso % (Auto) (0.0-1.5) % Neut # (Auto) (1.4-5.7) K/uL Lymph # (Auto) (0.6-2.4) K/uL [place] # (Auto) (0.0-0.8) K/uL Eos # (Auto) (0.0-0.7) K/uL Baso # (Auto) (0.0-0.1) K/uL Nucleated RBC % /100WBC Nucleated RBCs # K/uL Lactate 2.2 H* 2.2 H* (0.20-2.00) mmol/L Sodium 133 L (136-145) mmol/L Potassium 4.2 (3.5-5.1) mmol/L Chloride 101 (98-107) mmol/L Carbon Dioxide 21.5 (21.0-32.0) mmol/L BUN 29 H (7.0-18.0) mg/dL Creatinine 1.3 H (0.6-1.0) mg/dL Est Cr Clr Drug Dosing 43.52 mL/min Estimated GFR (MDRD) 41.5 ml/min Glucose 70 L (74-106) mg/dL Calcium 7.7 L (8.5-10.1) mg/dL Magnesium 2.1 (1.8-2.4) mg/dL Total Bilirubin 0.6 (0.2-1.0) mg/dL Direct Bilirubin (0.0-0.5) mg/dL Indirect Bilirubin AST 30 (15-37) IU/L ALT 13 L (14-63) IU/L Alkaline Phosphatase 80 (46-116) U/L Total Protein 5.3 L (6.4-8.2) g/dL Albumin 1.9 L (3.4-5.0) g/dL Globulin 3.4 (2.6-4.0) g/dL Albumin/Globulin Ratio 0.6 L (0.9-1.6) Lipase 2685 H (73-393) U/L Med Orders - Current: Current Medications Acetaminophen (Tylenol) 650 mg PO Q6H PRN PRN Reason: Pain Last Admin: 10/16/19 11:38 Dose: 650 mg Documented by: Al Hydroxide/Mg Hydroxide (Mag-Al Plus) 30 ml PO Q4H PRN PRN Reason: Heartburn Last Admin: 10/15/19 20:06 Dose: 30 ml Documented by: Albuterol/Ipratropium (Duoneb 3.0-0.5 Mg/3 Ml) 3 ml NEB Q6HRRT JONO Last Admin: 10/17/19 11:23 Dose: 3 ml Documented by: Albuterol/Ipratropium (Duoneb 3.0-0.5 Mg/3 Ml) 3 ml NEB Q4HRRT PRN PRN Reason: Wheezing Artificial Tears (Refresh Plus 0.5%) 0 each EYEBOTH Q2HR PRN PRN Reason: Dry Eyes Last Admin: 10/15/19 13:45 Dose: 1 drop Documented by: Bisacodyl (Dulcolax) 10 mg RECTAL Q48H JONO Last Admin: 10/16/19 11:32 Dose: Not Given Documented by: Pantoprazole Sodium 40 mg/ (Sodium Chloride) 10 mls @ 300 mls/hr IV Q24H JONO Last Admin: 10/17/19 06:23 Dose: 300 mls/hr Documented by: Lactated Ringer's (Ringers, Lactated) 1,000 mls @ 125 mls/hr IV Q10H JONO Last Infusion: 10/17/19 10:38 Dose: 125 mls/hr Documented by: Vancomycin HCl (Vancomycin 1.5 Gm/300 Ml Premix) 300 mls @ 200 mls/hr IV Q24H [facility] Last Admin: 10/16/19 23:55 Dose: 200 mls/hr Documented by: Norepinephrine Bitartrate (Norepinephr-0.9% Nacl 4 Mg/250) 4 mg in 250 mls @ 7.5 mls/hr IV TITRATE JONO; Protocol Last Titration: 10/17/19 09:00 Dose: 4 mcg/min, 15 mls/hr Documented by: Meropenem 2 gm/ Sodium (Chloride) 100 mls @ 200 mls/hr IV Q12H [facility] Methylprednisolone Sodium Succinate (Solu-Medrol) 40 mg IVPUSH DAILY [facility] Last Admin: 10/17/19 08:51 Dose: 40 mg Documented by: Nystatin (Nystop) 1 gm TOP TID JONO Last Admin: 10/17/19 05:49 Dose: 1 gm Documented by: Ondansetron HCl (Zofran) 4 mg IVPUSH Q4H PRN PRN Reason: Nausea/Vomiting Sodium Chloride (Saline Flush) 2.5 ml FLUSH ASDIRECTED PRN PRN Reason: Keep Vein Open Vancomycin HCl (Pharmacy To Dose - Vancomycin) 1 dose .XX ASDIRECTED JONO Discontinued Medications Albuterol/Ipratropium (Duoneb 3.0-0.5 Mg/3 Ml) 3 ml NEB Q4HRRT PRN PRN Reason: Wheezing Last Admin: 09/30/19 15:13 Dose: 3 ml Documented by: Albuterol/Ipratropium (Duoneb 3.0-0.5 Mg/3 Ml) 3 ml NEB Q4HRRT [facility] Last Admin: 10/02/19 09:19 Dose: 3 ml Documented by: Albuterol/Ipratropium (Duoneb 3.0-0.5 Mg/3 Ml) 3 ml NEB Q6HRRT [facility] Last Admin: 10/05/19 11:33 Dose: 3 ml Documented by: Albuterol/Ipratropium (Duoneb 3.0-0.5 Mg/3 Ml) 3 ml NEB Q6HRRT PRN PRN Reason: Shortness of Breath Last Admin: 10/13/19 18:20 Dose: 3 ml Documented by: Bisacodyl (Dulcolax) 10 mg RECTAL DAILY PRN PRN Reason: Constipation Last Admin: 10/02/19 14:06 Dose: 10 mg Documented by: Cephalexin (Keflex) 500 mg PO Q6HR [facility] Last Admin: 10/09/19 06:18 Dose: 500 mg Documented by: Diltiazem HCl (Diltiazem) 10 mg IVPUSH ONETIME ONE Stop: 10/09/19 09:36 Last Admin: 10/09/19 10:06 Dose: 10 mg Documented by: Docusate Sodium (Colace) 100 mg PO BID [facility] Last Admin: 10/05/19 10:19 Dose: Not Given Documented by: Docusate Sodium (Colace) 100 mg PO BID [facility] Last Admin: 10/16/19 20:18 Dose: 100 mg Documented by: Enoxaparin Sodium (Lovenox) 140 mg SUBCUT ONETIME ONE Stop: 09/27/19 21:47 Last Admin: 09/27/19 22:49 Dose: 140 mg Documented by: Enoxaparin Sodium (Lovenox) 140 mg SUBCUT BID [facility] Last Admin: 09/29/19 20:04 Dose: 140 mg Documented by: Enoxaparin Sodium (Lovenox) 150 mg SUBCUT Q12H [facility] Furosemide (Lasix) 20 mg IVPUSH NOW ONE Stop: 10/02/19 10:08 Last Admin: 10/02/19 10:42 Dose: 20 mg Documented by: Heparin Sodium (Porcine) (Heparin Sodium) 5,000 units SUBCUT Q12H [facility] Last Admin: 10/13/19 09:33 Dose: Not Given Documented by: Sodium Chloride (Normal Saline) 1,000 mls @ 999 mls/hr IV .Bolus ONE Stop: 09/27/19 21:58 Last Admin: 09/27/19 21:23 Dose: 999 mls/hr Documented by: Ceftriaxone Sodium/Dextrose 1 (gm/ Premix) 50 mls @ 100 mls/hr IV ONETIME ONE Stop: 09/27/19 22:30 Last Admin: 09/27/19 22:48 Dose: 100 mls/hr Documented by: Sodium Chloride (Normal Saline) 1,000 mls @ 125 mls/hr IV ASDIRECTED [facility] Last Admin: 09/29/19 05:47 Dose: 125 mls/hr Documented by: Ceftriaxone Sodium/Dextrose 1 (gm/ Premix) 50 mls @ 100 mls/hr IV Q24H [facility] Last Admin: 10/01/19 22:26 Dose: 100 mls/hr Documented by: Sodium Chloride (Normal Saline) 500 mls @ 125 mls/hr IV ONETIME ONE Stop: 09/30/19 18:36 Last Admin: 09/30/19 16:02 Dose: 125 mls/hr Documented by: Pantoprazole Sodium 40 mg/ (Sodium Chloride) 10 mls @ 300 mls/hr IV NOW ONE Stop: 10/02/19 15:00 Last Admin: 10/02/19 15:34 Dose: 300 mls/hr Documented by: Sodium Chloride (Normal Saline) 1,000 mls @ 999 mls/hr IV .Bolus ONE Stop: 10/09/19 10:03 Last Admin: 10/09/19 10:05 Dose: 999 mls/hr Documented by: Sodium Chloride (Normal Saline) 1,000 mls @ 125 mls/hr IV ASDIRECTED [facility] Last Admin: 10/10/19 22:28 Dose: 125 mls/hr Documented by: Pantoprazole Sodium 40 mg/ (Sodium Chloride) 10 mls @ 300 mls/hr IV NOW ONE Stop: 10/11/19 10:24 Last Admin: 10/11/19 12:30 Dose: 300 mls/hr Documented by: Sodium Chloride (Normal Saline) 500 mls @ 250 mls/hr IV ONETIME ONE Stop: 10/13/19 21:57 Last Admin: 10/13/19 20:13 Dose: 250 mls/hr Documented by: Piperacillin Sod/Tazobactam (Sod 3.375 gm/ Sodium Chloride) 50 mls @ 100 mls/hr IV Q8H [facility] Last Admin: 10/14/19 13:30 Dose: 100 mls/hr Documented by: Sodium Chloride (Normal Saline) 500 mls @ 250 mls/hr IV ONETIME ONE Stop: 10/14/19 02:29 Last Admin: 10/14/19 00:38 Dose: 250 mls/hr Documented by: Vancomycin HCl 1.5 gm/ Premix 300 mls @ 300 mls/hr IV Q12H [facility] Last Admin: 10/15/19 09:35 Dose: 300 mls/hr Documented by: Piperacillin Sod/Tazobactam (Sod 4.5 gm/ Sodium Chloride) 100 mls @ 200 mls/hr IV Q6H [facility] Last Admin: 10/15/19 07:19 Dose: 200 mls/hr Documented by: Levofloxacin/Dextrose 750 mg/ (Premix) 150 mls @ 100 mls/hr IV Q48H [facility] Last Admin: 10/15/19 11:47 Dose: 100 mls/hr Documented by: Sodium Chloride (Normal Saline) 500 mls @ 999 mls/hr IV .BOLUS [facility] Last Admin: 10/16/19 09:00 Dose: 999 mls/hr Documented by: Sodium Chloride (Normal Saline) 500 mls @ 999 mls/hr IV .BOLUS [facility] Last Admin: 10/16/19 12:38 Dose: 999 mls/hr Documented by: Sodium Chloride (Normal Saline) 500 mls @ 999 mls/hr IV .BOLUS [facility] Last Admin: 10/16/19 15:48 Dose: 999 mls/hr Documented by: Piperacillin Sod/Tazobactam (Sod 3.375 gm/ Sodium Chloride) 50 mls @ 100 mls/hr IV Q8H [facility] Last Admin: 10/16/19 18:01 Dose: Not Given Documented by: Piperacillin Sod/Tazobactam (Sod 3.375 gm/ Sodium Chloride) 100 mls @ 200 mls/hr IV Q6H [facility] Last Admin: 10/17/19 11:10 Dose: 200 mls/hr Documented by: Lactated Ringer's (Ringers, Lactated) 1,000 mls @ 999 mls/hr IV BOLUS ONE Stop: 10/16/19 20:23 Last Admin: 10/16/19 19:41 Dose: 999 mls/hr Documented by: Lactated Ringer's (Ringers, Lactated) 1,000 mls @ 999 mls/hr IV BOLUS ONE Stop: 10/16/19 22:59 Last Admin: 10/16/19 22:18 Dose: 999 mls/hr Documented by: Insulin Aspart (Novolog) 0 unit SUBCUT TIDAC [facility]; Protocol Last Admin: 10/01/19 09:40 Dose: Not Given Documented by: Iopamidol (Isovue-370 (76%)) 50 ml IV ONETIME STA Stop: 09/30/19 18:08 Last Admin: 09/30/19 18:08 Dose: 50 ml Documented by: Methylprednisolone Sodium Succinate (Solu-Medrol) 40 mg IVPUSH BID [facility] Last Admin: 10/16/19 09:00 Dose: 40 mg Documented by: Metoclopramide HCl (Reglan) 10 mg IVPUSH ONETIME ONE Stop: 10/16/19 09:12 Last Admin: 10/16/19 09:33 Dose: 10 mg Documented by: Ondansetron HCl (Zofran) 4 mg IVPUSH Q6H PRN PRN Reason: Nausea/Vomiting Last Admin: 10/16/19 05:23 Dose: 4 mg Documented by: Pantoprazole Sodium (Protonix) 40 mg PO ACBREAKFAST [facility] Last Admin: 10/16/19 06:38 Dose: 40 mg Documented by: Polyethylene Glycol (Miralax) 17 gm PO DAILY [facility] Last Admin: 10/15/19 09:35 Dose: Not Given Documented by: Sodium Chloride (Saline Flush) 10 ml FLUSH ASDIRECTED PRN PRN Reason: Keep Vein Open Trimethoprim/Sulfamethoxazole (Septra Ds) 1 tab PO BID [facility] Last Admin: 10/13/19 20:14 Dose: 1 tab Documented by: Vancomycin HCl (Pharmacy To Dose - Vancomycin) 1 dose .XX Q12HR [facility] Last Admin: 10/15/19 09:39 Dose: Not Given Documented by: - Exam Quality Assessment: Supplemental Oxygen General: Alert, Oriented, Cooperative, Mild Distress Neck: Supple, Trachea Midline Lungs: Normal Respiratory Effort, Decreased Breath Sounds Cardiovascular: Regular Rate, Regular Rhythm GI/Abdominal Exam: Normal Bowel Sounds, Distended (pannus), Tender Extremities: Normal Inspection, Normal Range of Motion, Non-Tender Physical Findings Comments:: Generalized anasarca due to aggressive IV fluids administration Sepsis Event Note - Evaluation Sepsis Screening Result: No Definite Risk - Focused Exam Vital Signs: Vital Signs Temp Pulse Resp BP BP Pulse Ox 10/17/19 10:21 20 95/62 90 L 10/17/19 10:15 19 108/67 91 L 10/17/19 10:11 25 H 105/63 90 L 10/17/19 09:15 20 90/50 L 91 L 10/17/19 09:00 26 H 85/47 L 91 L 10/17/19 08:45 22 H 92/48 L 91 L 10/17/19 08:30 25 H 94/55 L 91 L 10/17/19 08:15 22 H 100/57 L 90 L 10/17/19 08:00 16 104/57 L 91 L 10/17/19 07:45 24 H 109/56 L 91 L 10/17/19 07:30 19 100/58 L 91 L 10/17/19 07:15 37.1 C 25 H 92/53 L 92 L 10/17/19 07:00 17 110/52 L 91 L 10/17/19 06:00 24 H 98/50 L 93 L 10/17/19 05:00 25 H 106/50 L 91 L 10/17/19 04:00 36.0 C L 24 H 99/54 L 93 L 10/17/19 03:00 21 H 80/41 L 91 L 10/17/19 02:00 36.2 C 22 H 98/46 L 88 L 10/17/19 01:00 15 101/38 L 92 L 10/16/19 23:57 36.5 C 93 20 87/55 L 92 L Date Exam was Performed: 10/20/19 Time Exam was Performed: 14:23 - Problem List & Annotations (1) Ambulatory dysfunction SNOMED Code(s): 252804043 Code(s): R26.2 - DIFFICULTY IN WALKING, NOT ELSEWHERE CLASSIFIED Status: Acute Current Visit: Yes (2) Morbid obesity SNOMED Code(s): 715393917 Code(s): E66.01 - MORBID (SEVERE) OBESITY DUE TO EXCESS CALORIES Status: Acute Current Visit: Yes (3) Weakness SNOMED Code(s): 28723096 Code(s): R53.1 - WEAKNESS Status: Acute Current Visit: Yes (4) Cellulitis SNOMED Code(s): 889382324 Code(s): L03.90 - CELLULITIS, UNSPECIFIED Status: Acute Current Visit: No (5) Cellulitis of right leg SNOMED Code(s): 951905805 Code(s): L03.115 - CELLULITIS OF RIGHT LOWER LIMB Status: Acute Current Visit: No (6) Hypotension SNOMED Code(s): 53227969 Code(s): I95.9 - HYPOTENSION, UNSPECIFIED Status: Acute Current Visit: No Qualifiers: Hypotension type: unspecified hypotension type Qualified Code(s): I95.9 - Hypotension, unspecified (7) Venous stasis dermatitis of both lower extremities SNOMED Code(s): 30261271 Code(s): I83.11 - VARICOSE VEINS OF RIGHT LOWER EXTREMITY WITH INFLAMMATION; I83.12 - VARICOSE VEINS OF LEFT LOWER EXTREMITY WITH INFLAMMATION Status: Acute Current Visit: No (8) Abdominal wall cellulitis SNOMED Code(s): 27690047 Code(s): L03.311 - CELLULITIS OF ABDOMINAL WALL Status: Acute Current Visit: Yes (9) Jaw mass SNOMED Code(s): 341152837 Code(s): M27.8 - OTHER SPECIFIED DISEASES OF JAWS Status: Acute Current Visit: Yes (10) Septic shock SNOMED Code(s): 99613119 Code(s): A41.9 - SEPSIS, UNSPECIFIED ORGANISM; R65.21 - SEVERE SEPSIS WITH SEPTIC SHOCK Status: Acute Current Visit: Yes - Problem List Review Problem List Initiated/Reviewed/Updated: Yes - My Orders Last 24 Hours: My Active Orders 10/16/19 22:15 Pharmacy to Dose - Vancomycin 1 dose .XX ASDIRECTED 10/17/19 00:32 Transfer Patient (Change bed) [ADT] Routine 10/17/19 01:19 Consult to Physician [CONS] Urgent 10/17/19 01:22 Notify Provider Consults [RC] ASDIRECTED - Assessment Assessment:: 64 yo female admitted after fall for dehydration, acute kidney injury, and UTI. 1. UTI - straight cath obtained today for sterile sample. Continues to show UTI with symptoms. - Start Bactrim DS BID today. Obtain UC 2. Abdominal wall asif - Continued improvement, cellulitis fully treated and improved -continue Nystatin - Educated on self care of pannus, verbalized understanding 3. Falls, self care deficit; - Plan for home with resources such as Home health. - PT/OT evaluate and treat - Not able to transfer per self yet like at home, need to continue to encourage this as much as possible. - Not able to get payer source for SNF, her and her make to much money. Will need to arrange at home services. Given information by social work. 4. Thrombocytopenia: - No bleeding noted. - Hold Heparin today. 5. Sinus tachycardia - No further HR elevation, no chest pain - Monitor on telemetry today VTE prophylaxis: Heparin Dispo: Pending improvement in strength and transfer to be able to go home. No payer source for SNF, rehabilitation. Case management consulted. - Plan Plan:: 64 yo female admitted after fall for dehydration, acute kidney injury, and UTI. Now in septic shock/pancreatitis 1.Septic shock: Unknown source, Will start Meropenem and cont Vancomycin Will cont IV fluids, may need albumin, Trend Lactate till normal Start Pressors via Central line, MAP goal >65 -f/u On blood cultures, Obtain UA, CXR -Unable to get CT abdomen due to size incompatibility, Doubt pancreatic source, lipase improving, pain improving, 2. Hospital acquired pneumonia - Dyspnea improved - cont broad spectrum abx for sepsis - Continue Oxygen as needed - Solumedrol 40 mg IV daily will taper off in next few days - Encouraged IS use and CDB 3.Acute pancreatitis -cont IV fluids -Lipase improving -Pain well controlled, will start IV morphine for pain 4. Abdominal wall asif -continue Nystatin 5. Falls, self care deficit; - Plan for home with resources such as Home health. - PT/OT evaluate and treat 6. Thrombocytopenia: - Improving 7. RLE venous ulcer: - Consult wound services for opinion on dressing and cares - Wound care notices improvement since they saw her as outpatient. Consider wound vac. Will defer to them regarding this. - Continue dressing changes. VTE prophylaxis: SCDs Dispo: Pending improvement in strength and transfer to be able to go home. No payer source for SNF, rehabilitation. Case management consulted.
[2019-10-17] MEDS ORDERED: Albumin 25% 12.5 GM/50 ML BAG IV ONE (11:45)
[2019-10-17] MEDS: Meropenem 2 GM in Sodium Chloride 0.9% 100 ML IV SCH ×2 (12:36→23:57)
--- NOTE | 2019-10-17 13:56 | CR ---
Chest: Portable view of the chest was obtained. Left subclavian line is noted. Tip lies at the junction of the brachiocephalic and superior vena cava veins. Lungs show no acute parenchymal change. Heart size and mediastinum are within normal limits for portable technique. No discrete pneumothorax is seen. Impression: 1. Tip of left subclavian line at the junction of the right brachiocephalic and superior vena cava. Diagnostic code #2 This report was dictated in MDT
--- NOTE | 2019-10-17 14:02 | PCM.SN.2 ---
- Free Text/Narrative Note: pt seen, chart reviewed; central line consult for pressor; rb dw pt re bleeding/infection/damage to lung requiring chest tube; pt concurred and proceed
--- NOTE | 2019-10-17 14:11 | PCM.OPNOTE ---
- General Post-Op/Procedure Note Date of Surgery/Procedure: 10/17/19 Operative Procedure(s): l subclavien vein central line placement Findings: line w blood return in all 3 ports; await chest xray; [id number] Pre Op Diagnosis: sepsis requiring central line placement Post-Op Diagnosis: Same Anesthesia Technique: Moderate Sedation Primary Surgeon: Americo Cohen Complications: None Condition: Good Free Text/Narrative:: Intake & Output 10/16/19 10/17/19 10/17/19 22:59 06:59 14:59 Intake Total 2200 1213 Output Total 860 0 Balance 1340 1213
--- NOTE | 2019-10-17 14:12 | PCM.SN.2 ---
- Free Text/Narrative Note: pt seen, chart reviewed; consult dictated, [id number], proceed w cent line placement
[2019-10-17] MEDS: Acetaminophen 325 MG Tab PO PRN (18:40)
[2019-10-17] MEDS ORDERED: Lactated Ringers 500 ML IV ONE (19:19)
[2019-10-18 05:35] LABS: CARBON DIOXIDE,CO2 21.2 mmol/L (21.0-32.0); POTASSIUM,K 4.2 mmol/L (3.5-5.1)
[2019-10-18] MEDS: Lactated Ringers 1,000 ML IV SCH ×5 (05:39→23:43)
[2019-10-18] MEDS: Albuterol/Ipratropium 3.0-0.5 MG/3 ML Neb Soln NEB SCH ×3 (06:11→17:32)
[2019-10-18] MEDS: Pantoprazole 40 MG in Sodium Chloride 0.9% 10 ML IV SCH ×2 (06:11→20:50)
[2019-10-18] MEDS: Nystatin Topical Powder 15 GM Bottle TOP SCH ×3 (06:11→21:55)
--- NOTE | 2019-10-18 08:01 | OR ---
SURGEON: Americo Cohen MD DATE OF PROCEDURE: 10/17/2019 PREOPERATIVE DIAGNOSIS: Sepsis, requiring central line placement. POSTOPERATIVE DIAGNOSIS: Sepsis, requiring central line placement. PROCEDURE PERFORMED: Left subclavian vein placement. PRIMARY SURGEON: Americo Cohen MD COMPLICATIONS: None. FINDINGS: Line has good blood return in all three ports and await chest x-ray. DESCRIPTION OF PROCEDURE: Procedure is performed at bedside, and after risks and benefits discussed, the patient signed consent, put in chart, and procedure then started. The patient was put into a T-jasmin position and with a rolled towel under spine to elevate the chest. The left subclavian area was prepped and draped in the usual sterile fashion. Using Seldinger technique, a guidewire was placed into the left subclavian, confirmed with fluoroscopy chest x-ray and this was then followed with placement of the central line using Seldinger technique with good blood return in all three lines, and line was anchored to the skin by suture and appropriate dressing was placed. Chest x-ray pending. The patient tolerated the procedure well. There were no intraoperative complications. Dr. Cohen was present through the whole procedure. OMAR / YANY /[id number]
--- NOTE | 2019-10-18 08:01 | CONS ---
DATE OF CONSULTATION: 10/17/2019 DATE OF : 1955 PRIMARY CARE PHYSICIAN: Refugio Thrasher MD REASON FOR CONSULTATION: This is a consult from Dr. Slater, hospitalist. Consulting question is central line placement. HISTORY OF PRESENT ILLNESS: The patient is a 64-year-old morbidly obese lady, too difficult to pick herself up, and she has been wheelchair bound for many many many years. She did not have a stroke, but she is too heavy to pick herself up. BMI is 57. Lately, she sustained a fall and was admitted to the hospital for further treatment. In the last couple of days, she was found to be having infection and sepsis and requires central line placement for pressor. PAST MEDICAL HISTORY: Significant for acid reflux, anemic, right leg cellulitis, congestive heart failure, chronic anticoagulation, dependent edema, depression with anxiety, diet- controlled diabetic, fatigue, finger dysfunction, finger stiffness, history of colostomy, history of duodenal ulcer, hypokalemic, intertrigo, leg swelling, leg ulcer, noncompliant, morbid obesity, osteoarthritis, prophylactic measure, seizure, stasis dermatitis of both legs, type 2 diabetic, venous stasis ulcer, wheezing on expiration. Denied AR or CVA. ALLERGIES: No known drug allergies. MEDICATIONS: Please refer to nursing note for medications. SURGICAL HISTORY: As suggested above. PHYSICAL EXAMINATION: The patient does not have any previous surgery or central line or car accident on both clavicles. IMPRESSION: Sepsis, requiring central line placement. Risks and benefits discussed with the patient including bleeding, infection, and damage to the lung requiring chest tube placement, and the patient concurred to proceed as planned. ADDENDUM: Line placed under Seldinger technique, pending chest x-ray. OMAR / YANY /[id number]
[2019-10-18] MEDS ORDERED: Lactated Ringers 1,000 ML IV ONE (08:12)
--- NOTE | 2019-10-18 09:59 | PN ---
THC Physician - Brief Progress [id number]/17/2020 09:40[facility] Kiarra connell, AVILA - GAVIN (TERRANCE) - GAVIN LINDOVALENTINA WHYTELaishaDate of Service 10/18/2019 09:40HPI/Events of Note eICU progress note:64-year-old female who was admitted on 09/28/2019 with a complicated hospit al course (HAP, UTI, Abd wall asif cellulitis and acute pancreatitis) for which she was recently t ransferred to the ICU on 10/17/2019 for septic shock. No acute issues overnight, patient remains AxOx3 and had central line placed yesterday evening. Patient seen on camera, eyes closed and nasal cannula present. Does not appear to be in any acute distress and seems comfortableVital signs reviewed. HR 98, BP 103/49Labs/EMR reviewedSeptic shock-Unclear source but possibly HAP vs UTI-Agree with escalat ion of Abx to Vanc/Meropenem-Blood Cx pending-Lactate has cleared but BP remains marginal. IVF as nee ded (can also consider albumin). Currently on levophed/vasopressin. -Currently on solumedrol 40 daily (stress dose?) can consider switching to hydrocortisone. -If hypotension worsens will recommend init iating Eraxis with fungal culture/PCR at that time given ongiong concern for intra-abd pathology. UMA -Likely related to hypotension(ATN) -Continue to monitor Cr and avoid nephrotoxins. Strict I/O'sInter ventions Major-Acute renal failure - evaluation and management, Hypotension - evaluation and manageme nt, Infection - evaluation and management
[2019-10-18] MEDS: methylPREDNISolone Sodium Succinate 40 MG/1 ML SDV IVPUSH SCH (10:00)
[2019-10-18] MEDS ORDERED: Lidocaine 2% 5 ML SDV ONE ×2 (11:08→22:53)
--- NOTE | 2019-10-18 11:49 | PCM.PN ---
- General Info Date of Service: 10/18/19 Admission Dx/Problem (Free Text): Admission Diagnosis/Problem Admission Diagnosis/Problem Weakness Subjective Update: seen at bedside this AM< feels weak, abdominal pain improving, started on vasopressin this AM, i told her that her shock state isnt imrpoving yet and she might have to be started on more pressors. States she is ok with it for now, Patient states she doesnt want to be trnafreered to another facility in case she gets even worse,, She would want to stay here irrespective of the outcome. She states if she goes into multiorgan failure/refractory shock she would want to be comfort care at that point. Doesnt want to get CT scan done either, is ok with Arterial line, - Review of Systems General: Reports: Weakness, Fatigue, Malaise. Denies: Fever Pulmonary: Denies: Shortness of Breath, Pleuritic Chest Pain Cardiovascular: Denies: Chest Pain, Palpitations, Dyspnea on Exertion Gastrointestinal: Reports: Abdominal Pain, Decreased Appetite. Denies: Constipation, Diarrhea, Nausea, Vomiting Genitourinary: Denies: Frequency, Burning, Pain Musculoskeletal: Denies: Shoulder Pain, Arm Pain Skin: Denies: Jaundice, Mottled, Pallor Neurological: Denies: Dizziness, Headache - Patient Data Vitals - Most Recent: Last Vital Signs Temp 36.3 C 10/18/19 04:00 Pulse 93 10/16/19 23:57 Resp 22 H 10/18/19 10:00 BP 107/49 L 10/18/19 10:00 Pulse Ox 94 L 10/18/19 10:00 Weight - Most Recent: 167.829 kg I&O - Last 24 Hours: Intake & Output 10/17/19 10/18/19 10/18/19 22:59 06:59 14:59 Intake Total 1550 2254 Output Total 0 Balance 1550 2254 Lab Results Last 24 Hours: Laboratory Results - last 24 hr 10/17/19 10/17/19 10/17/19 Range/Units 16:00 18:58 23:12 WBC (4.0-11.0) K/uL RBC (4.30-5.90) M/uL Hgb (12.0-16.0) g/dL Hct (36.0-46.0) % MCV (80.0-98.0) fL MCH (27.0-32.0) pg MCHC (31.0-37.0) g/dL RDW Std Deviation (28.0-62.0) fl RDW Coeff of Rachid (11.0-15.0) % Plt Count (150-400) K/uL MPV (7.40-12.00) fL Neut % (Auto) (48.0-80.0) % Lymph % (Auto) (16.0-40.0) % [place] % (Auto) (0.0-15.0) % Eos % (Auto) (0.0-7.0) % Baso % (Auto) (0.0-1.5) % Neut # (Auto) (1.4-5.7) K/uL Lymph # (Auto) (0.6-2.4) K/uL [place] # (Auto) (0.0-0.8) K/uL Eos # (Auto) (0.0-0.7) K/uL Baso # (Auto) (0.0-0.1) K/uL Nucleated RBC % /100WBC Nucleated RBCs # K/uL Lactate 2.3 H* 2.1 H* (0.20-2.00) mmol/L Sodium (136-145) mmol/L Potassium (3.5-5.1) mmol/L Chloride (98-107) mmol/L Carbon Dioxide (21.0-32.0) mmol/L BUN (7.0-18.0) mg/dL Creatinine (0.6-1.0) mg/dL Est Cr Clr Drug Dosing mL/min Estimated GFR (MDRD) ml/min Glucose (74-106) mg/dL Calcium (8.5-10.1) mg/dL Phosphorus (2.6-4.7) mg/dL Magnesium (1.8-2.4) mg/dL Total Bilirubin (0.2-1.0) mg/dL AST (15-37) IU/L ALT (14-63) IU/L Alkaline Phosphatase (46-116) U/L Total Protein (6.4-8.2) g/dL Albumin (3.4-5.0) g/dL Globulin (2.6-4.0) g/dL Albumin/Globulin Ratio (0.9-1.6) Lipase (73-393) U/L Urine Color YELLOW Urine Appearance CLEAR Urine pH 6.0 (5.0-8.0) Ur Specific [place] 1.025 (1.001-1.035) Urine Protein 30 H (NEGATIVE) mg/dL Urine Glucose (UA) NEGATIVE (NEGATIVE) mg/dL Urine Ketones TRACE H (NEGATIVE) mg/dL Urine Occult Blood NEGATIVE (NEGATIVE) Urine Nitrite NEGATIVE (NEGATIVE) Urine Bilirubin NEGATIVE (NEGATIVE) Urine Urobilinogen 0.2 (<2.0) EU/dL Ur Leukocyte Esterase NEGATIVE (NEGATIVE) Urine RBC 0-1 (0-2/HPF) Urine WBC 0-1 (0-5/HPF) Ur Epithelial Cells RARE (NONE-FEW) Urine Bacteria RARE (NEGATIVE) 10/18/19 10/18/19 10/18/19 Range/Units 05:06 05:06 05:06 WBC 23.39 H (4.0-11.0) K/uL RBC 3.40 L (4.30-5.90) M/uL Hgb 10.1 L (12.0-16.0) g/dL Hct 33.4 L (36.0-46.0) % MCV 98.2 H (80.0-98.0) fL MCH 29.7 (27.0-32.0) pg MCHC 30.2 L (31.0-37.0) g/dL RDW Std Deviation 69.2 H (28.0-62.0) fl RDW Coeff of Rachid 19 H (11.0-15.0) % Plt Count 75 L (150-400) K/uL MPV 8.90 (7.40-12.00) fL Neut % (Auto) 89.1 H (48.0-80.0) % Lymph % (Auto) 4.8 L (16.0-40.0) % [place] % (Auto) 6.1 (0.0-15.0) % Eos % (Auto) 0.0 (0.0-7.0) % Baso % (Auto) 0.0 (0.0-1.5) % Neut # (Auto) 20.8 H (1.4-5.7) K/uL Lymph # (Auto) 1.1 (0.6-2.4) K/uL [place] # (Auto) 1.4 H (0.0-0.8) K/uL Eos # (Auto) 0.0 (0.0-0.7) K/uL Baso # (Auto) 0.0 (0.0-0.1) K/uL Nucleated RBC % 0.0 /100WBC Nucleated RBCs # 0 K/uL Lactate 2.0 (0.20-2.00) mmol/L Sodium 135 L (136-145) mmol/L Potassium 4.2 (3.5-5.1) mmol/L Chloride 102 (98-107) mmol/L Carbon Dioxide 21.2 (21.0-32.0) mmol/L BUN 31 H (7.0-18.0) mg/dL Creatinine 1.4 H (0.6-1.0) mg/dL Est Cr Clr Drug Dosing 40.41 mL/min Estimated GFR (MDRD) 38.1 ml/min Glucose 71 L (74-106) mg/dL Calcium 7.5 L (8.5-10.1) mg/dL Phosphorus 4.4 (2.6-4.7) mg/dL Magnesium 2.2 (1.8-2.4) mg/dL Total Bilirubin 0.6 (0.2-1.0) mg/dL AST 31 (15-37) IU/L ALT 11 L (14-63) IU/L Alkaline Phosphatase 85 (46-116) U/L Total Protein 5.1 L (6.4-8.2) g/dL Albumin 1.9 L (3.4-5.0) g/dL Globulin 3.2 (2.6-4.0) g/dL Albumin/Globulin Ratio 0.6 L (0.9-1.6) Lipase 1134 H (73-393) U/L Urine Color Urine Appearance Urine pH (5.0-8.0) Ur Specific [place] (1.001-1.035) Urine Protein (NEGATIVE) mg/dL Urine Glucose (UA) (NEGATIVE) mg/dL Urine Ketones (NEGATIVE) mg/dL Urine Occult Blood (NEGATIVE) Urine Nitrite (NEGATIVE) Urine Bilirubin (NEGATIVE) Urine Urobilinogen (<2.0) EU/dL Ur Leukocyte Esterase (NEGATIVE) Urine RBC (0-2/HPF) Urine WBC (0-5/HPF) Ur Epithelial Cells (NONE-FEW) Urine Bacteria (NEGATIVE) Eric Results Last 24 Hours: Microbiology 10/17/19 03:46 Aerobic Blood Culture - Preliminary Blood - Venous - Lab Draw NO GROWTH AFTER 1 DAY Anaerobic Blood Culture - Preliminary NO GROWTH AFTER 1 DAY 10/17/19 03:36 Aerobic Blood Culture - Preliminary Blood - Venous NO GROWTH AFTER 1 DAY Anaerobic Blood Culture - Preliminary NO GROWTH AFTER 1 DAY Med Orders - Current: Current Medications Acetaminophen (Tylenol) 650 mg PO Q6H PRN PRN Reason: Pain Last Admin: 10/17/19 18:40 Dose: 650 mg Documented by: Al Hydroxide/Mg Hydroxide (Mag-Al Plus) 30 ml PO Q4H PRN PRN Reason: Heartburn Last Admin: 10/15/19 20:06 Dose: 30 ml Documented by: Albuterol/Ipratropium (Duoneb 3.0-0.5 Mg/3 Ml) 3 ml NEB Q6HRRT JONO Last Admin: 10/18/19 06:11 Dose: 3 ml Documented by: Albuterol/Ipratropium (Duoneb 3.0-0.5 Mg/3 Ml) 3 ml NEB Q4HRRT PRN PRN Reason: Wheezing Artificial Tears (Refresh Plus 0.5%) 0 each EYEBOTH Q2HR PRN PRN Reason: Dry Eyes Last Admin: 10/15/19 13:45 Dose: 1 drop Documented by: Bisacodyl (Dulcolax) 10 mg RECTAL Q48H JONO Last Admin: 10/16/19 11:32 Dose: Not Given Documented by: Lactated Ringer's (Ringers, Lactated) 1,000 mls @ 125 mls/hr IV Q10H [facility] Last Admin: 10/18/19 08:18 Dose: 125 mls/hr Documented by: Vancomycin HCl (Vancomycin 1.5 Gm/300 Ml Premix) 300 mls @ 200 mls/hr IV Q24H [facility] Last Admin: 10/17/19 22:14 Dose: 200 mls/hr Documented by: Norepinephrine Bitartrate (Norepinephr-0.9% Nacl 4 Mg/250) 4 mg in 250 mls @ 7.5 mls/hr IV TITRATE JONO; Protocol Last Admin: 10/18/19 09:02 Dose: 12 mcg/min, 45 mls/hr Documented by: Meropenem 2 gm/ Sodium (Chloride) 100 mls @ 200 mls/hr IV Q12H JONO Last Admin: 10/17/19 23:57 Dose: 200 mls/hr Documented by: Vasopressin 100 units/ Sodium (Chloride) 100 mls @ 0.6 mls/hr IV TITRATE JONO; Protocol Last Titration: 10/18/19 11:21 Dose: 0.015 units/min, 0.9 mls/hr Documented by: Pantoprazole Sodium 40 mg/ (Sodium Chloride) 10 mls @ 300 mls/hr IV BID [facility] Methylprednisolone Sodium Succinate (Solu-Medrol) 40 mg IVPUSH DAILY [facility] Last Admin: 10/18/19 10:00 Dose: 40 mg Documented by: Nystatin (Nystop) 1 gm TOP TID [facility] Last Admin: 10/18/19 06:11 Dose: 1 gm Documented by: Ondansetron HCl (Zofran) 4 mg IVPUSH Q4H PRN PRN Reason: Nausea/Vomiting Sodium Chloride (Saline Flush) 2.5 ml FLUSH ASDIRECTED PRN PRN Reason: Keep Vein Open Vancomycin HCl (Pharmacy To Dose - Vancomycin) 1 dose .XX ASDIRECTED JONO Discontinued Medications Albuterol/Ipratropium (Duoneb 3.0-0.5 Mg/3 Ml) 3 ml NEB Q4HRRT PRN PRN Reason: Wheezing Last Admin: 09/30/19 15:13 Dose: 3 ml Documented by: Albuterol/Ipratropium (Duoneb 3.0-0.5 Mg/3 Ml) 3 ml NEB Q4HRRT JONO Last Admin: 10/02/19 09:19 Dose: 3 ml Documented by: Albuterol/Ipratropium (Duoneb 3.0-0.5 Mg/3 Ml) 3 ml NEB Q6HRRT JONO Last Admin: 10/05/19 11:33 Dose: 3 ml Documented by: Albuterol/Ipratropium (Duoneb 3.0-0.5 Mg/3 Ml) 3 ml NEB Q6HRRT PRN PRN Reason: Shortness of Breath Last Admin: 10/13/19 18:20 Dose: 3 ml Documented by: Bisacodyl (Dulcolax) 10 mg RECTAL DAILY PRN PRN Reason: Constipation Last Admin: 10/02/19 14:06 Dose: 10 mg Documented by: Cephalexin (Keflex) 500 mg PO Q6HR [facility] Last Admin: 10/09/19 06:18 Dose: 500 mg Documented by: Diltiazem HCl (Diltiazem) 10 mg IVPUSH ONETIME ONE Stop: 10/09/19 09:36 Last Admin: 10/09/19 10:06 Dose: 10 mg Documented by: Docusate Sodium (Colace) 100 mg PO BID [facility] Last Admin: 10/05/19 10:19 Dose: Not Given Documented by: Docusate Sodium (Colace) 100 mg PO BID [facility] Last Admin: 10/16/19 20:18 Dose: 100 mg Documented by: Enoxaparin Sodium (Lovenox) 140 mg SUBCUT ONETIME ONE Stop: 09/27/19 21:47 Last Admin: 09/27/19 22:49 Dose: 140 mg Documented by: Enoxaparin Sodium (Lovenox) 140 mg SUBCUT BID [facility] Last Admin: 09/29/19 20:04 Dose: 140 mg Documented by: Enoxaparin Sodium (Lovenox) 150 mg SUBCUT Q12H [facility] Furosemide (Lasix) 20 mg IVPUSH NOW ONE Stop: 10/02/19 10:08 Last Admin: 10/02/19 10:42 Dose: 20 mg Documented by: Heparin Sodium (Porcine) (Heparin Sodium) 5,000 units SUBCUT Q12H [facility] Last Admin: 10/13/19 09:33 Dose: Not Given Documented by: Sodium Chloride (Normal Saline) 1,000 mls @ 999 mls/hr IV .Bolus ONE Stop: 09/27/19 21:58 Last Admin: 09/27/19 21:23 Dose: 999 mls/hr Documented by: Ceftriaxone Sodium/Dextrose 1 (gm/ Premix) 50 mls @ 100 mls/hr IV ONETIME ONE Stop: 09/27/19 22:30 Last Admin: 09/27/19 22:48 Dose: 100 mls/hr Documented by: Sodium Chloride (Normal Saline) 1,000 mls @ 125 mls/hr IV ASDIRECTED [facility] Last Admin: 09/29/19 05:47 Dose: 125 mls/hr Documented by: Ceftriaxone Sodium/Dextrose 1 (gm/ Premix) 50 mls @ 100 mls/hr IV Q24H [facility] Last Admin: 10/01/19 22:26 Dose: 100 mls/hr Documented by: Sodium Chloride (Normal Saline) 500 mls @ 125 mls/hr IV ONETIME ONE Stop: 09/30/19 18:36 Last Admin: 09/30/19 16:02 Dose: 125 mls/hr Documented by: Pantoprazole Sodium 40 mg/ (Sodium Chloride) 10 mls @ 300 mls/hr IV NOW ONE Stop: 10/02/19 15:00 Last Admin: 10/02/19 15:34 Dose: 300 mls/hr Documented by: Sodium Chloride (Normal Saline) 1,000 mls @ 999 mls/hr IV .Bolus ONE Stop: 10/09/19 10:03 Last Admin: 10/09/19 10:05 Dose: 999 mls/hr Documented by: Sodium Chloride (Normal Saline) 1,000 mls @ 125 mls/hr IV ASDIRECTED [facility] Last Admin: 10/10/19 22:28 Dose: 125 mls/hr Documented by: Pantoprazole Sodium 40 mg/ (Sodium Chloride) 10 mls @ 300 mls/hr IV NOW ONE Stop: 10/11/19 10:24 Last Admin: 10/11/19 12:30 Dose: 300 mls/hr Documented by: Sodium Chloride (Normal Saline) 500 mls @ 250 mls/hr IV ONETIME ONE Stop: 10/13/19 21:57 Last Admin: 10/13/19 20:13 Dose: 250 mls/hr Documented by: Piperacillin Sod/Tazobactam (Sod 3.375 gm/ Sodium Chloride) 50 mls @ 100 mls/hr IV Q8H [facility] Last Admin: 10/14/19 13:30 Dose: 100 mls/hr Documented by: Sodium Chloride (Normal Saline) 500 mls @ 250 mls/hr IV ONETIME ONE Stop: 10/14/19 02:29 Last Admin: 10/14/19 00:38 Dose: 250 mls/hr Documented by: Vancomycin HCl 1.5 gm/ Premix 300 mls @ 300 mls/hr IV Q12H [facility] Last Admin: 10/15/19 09:35 Dose: 300 mls/hr Documented by: Piperacillin Sod/Tazobactam (Sod 4.5 gm/ Sodium Chloride) 100 mls @ 200 mls/hr IV Q6H [facility] Last Admin: 10/15/19 07:19 Dose: 200 mls/hr Documented by: Levofloxacin/Dextrose 750 mg/ (Premix) 150 mls @ 100 mls/hr IV Q48H [facility] Last Admin: 10/15/19 11:47 Dose: 100 mls/hr Documented by: Sodium Chloride (Normal Saline) 500 mls @ 999 mls/hr IV .BOLUS [facility] Last Admin: 10/16/19 09:00 Dose: 999 mls/hr Documented by: Sodium Chloride (Normal Saline) 500 mls @ 999 mls/hr IV .BOLUS [facility] Last Admin: 10/16/19 12:38 Dose: 999 mls/hr Documented by: Pantoprazole Sodium 40 mg/ (Sodium Chloride) 10 mls @ 300 mls/hr IV Q24H [facility] Last Admin: 10/18/19 06:11 Dose: 300 mls/hr Documented by: Sodium Chloride (Normal Saline) 500 mls @ 999 mls/hr IV .BOLUS [facility] Last Admin: 10/16/19 15:48 Dose: 999 mls/hr Documented by: Piperacillin Sod/Tazobactam (Sod 3.375 gm/ Sodium Chloride) 50 mls @ 100 mls/hr IV Q8H [facility] Last Admin: 10/16/19 18:01 Dose: Not Given Documented by: Piperacillin Sod/Tazobactam (Sod 3.375 gm/ Sodium Chloride) 100 mls @ 200 mls/hr IV Q6H [facility] Last Admin: 10/17/19 11:10 Dose: 200 mls/hr Documented by: Lactated Ringer's (Ringers, Lactated) 1,000 mls @ 999 mls/hr IV BOLUS ONE Stop: 10/16/19 20:23 Last Admin: 10/16/19 19:41 Dose: 999 mls/hr Documented by: Lactated Ringer's (Ringers, Lactated) 1,000 mls @ 999 mls/hr IV BOLUS ONE Stop: 10/16/19 22:59 Last Admin: 10/16/19 22:18 Dose: 999 mls/hr Documented by: Albumin Human (Flexbumin 25%) 12.5 gm in 50 mls @ 100 mls/hr IV ONETIME ONE Stop: 10/17/19 12:14 Last Admin: 10/17/19 13:56 Dose: 100 mls/hr Documented by: Lactated Ringer's (Ringers, Lactated) 500 mls @ 999 mls/hr IV .BOLUS ONE Stop: 10/17/19 19:49 Last Admin: 10/17/19 20:33 Dose: 999 mls/hr Documented by: Lactated Ringer's (Ringers, Lactated) 1,000 mls @ 999 mls/hr IV .BOLUS ONE Stop: 10/18/19 09:12 Last Admin: 10/18/19 08:27 Dose: 999 mls/hr Documented by: Insulin Aspart (Novolog) 0 unit SUBCUT TIDAC [facility]; Protocol Last Admin: 10/01/19 09:40 Dose: Not Given Documented by: Iopamidol (Isovue-370 (76%)) 50 ml IV ONETIME STA Stop: 09/30/19 18:08 Last Admin: 09/30/19 18:08 Dose: 50 ml Documented by: Lidocaine (Xylocaine-Mpf 2%) Confirm Administered Dose 5 ml .ROUTE .STK-MED ONE Stop: 10/18/19 11:09 Last Admin: 10/18/19 11:27 Dose: Not Given Documented by: Methylprednisolone Sodium Succinate (Solu-Medrol) 40 mg IVPUSH BID [facility] Last Admin: 10/16/19 09:00 Dose: 40 mg Documented by: Metoclopramide HCl (Reglan) 10 mg IVPUSH ONETIME ONE Stop: 10/16/19 09:12 Last Admin: 10/16/19 09:33 Dose: 10 mg Documented by: Ondansetron HCl (Zofran) 4 mg IVPUSH Q6H PRN PRN Reason: Nausea/Vomiting Last Admin: 10/16/19 05:23 Dose: 4 mg Documented by: Pantoprazole Sodium (Protonix) 40 mg PO ACBREAKFAST [facility] Last Admin: 10/16/19 06:38 Dose: 40 mg Documented by: Polyethylene Glycol (Miralax) 17 gm PO DAILY [facility] Last Admin: 10/15/19 09:35 Dose: Not Given Documented by: Sodium Chloride (Saline Flush) 10 ml FLUSH ASDIRECTED PRN PRN Reason: Keep Vein Open Trimethoprim/Sulfamethoxazole (Septra Ds) 1 tab PO BID [facility] Last Admin: 10/13/19 20:14 Dose: 1 tab Documented by: Vancomycin HCl (Pharmacy To Dose - Vancomycin) 1 dose .XX Q12HR JONO Last Admin: 10/15/19 09:39 Dose: Not Given Documented by: - Exam Neck: Supple Lungs: Clear to Auscultation, Normal Respiratory Effort Cardiovascular: Regular Rate, Regular Rhythm GI/Abdominal Exam: Normal Bowel Sounds, Soft, Non-Tender Peripheral Pulses: 2+: Dorsalis Pedis (L), Dorsalis Pedis (R) Wound/Incisions: Healing Well, Dressing Dry and Intact, No Drainage Sepsis Event Note - Evaluation Sepsis Screening Result: Severe Sepsis Risk - Focused Exam Vital Signs: Vital Signs Temp Resp BP BP Pulse Ox Pulse Ox 10/18/19 10:00 22 H 107/49 L 94 L 10/18/19 09:11 13 98/54 L 96 10/18/19 07:00 14 92/45 L 96 10/18/19 06:00 17 82/48 L 94 L 10/18/19 05:00 12 90/52 L 90 L 94 L 10/18/19 04:00 36.3 C 13 110/51 L 92 L 10/18/19 03:00 14 109/51 L 92 L 10/18/19 02:00 16 111/58 L 93 L 10/18/19 01:00 14 109/60 93 L 10/18/19 00:00 36.2 C 17 115/56 L 93 L Date Exam was Performed: 10/20/19 Time Exam was Performed: 14:28 - Problem List & Annotations (1) Ambulatory dysfunction SNOMED Code(s): 065004668 Code(s): R26.2 - DIFFICULTY IN WALKING, NOT ELSEWHERE CLASSIFIED Status: Acute Current Visit: Yes (2) Morbid obesity SNOMED Code(s): 983951425 Code(s): E66.01 - MORBID (SEVERE) OBESITY DUE TO EXCESS CALORIES Status: Acute Current Visit: Yes (3) Weakness SNOMED Code(s): 46888668 Code(s): R53.1 - WEAKNESS Status: Acute Current Visit: Yes (4) Cellulitis SNOMED Code(s): 423152229 Code(s): L03.90 - CELLULITIS, UNSPECIFIED Status: Acute Current Visit: No (5) Cellulitis of right leg SNOMED Code(s): 039314175 Code(s): L03.115 - CELLULITIS OF RIGHT LOWER LIMB Status: Acute Current Visit: No (6) Hypotension SNOMED Code(s): 48844389 Code(s): I95.9 - HYPOTENSION, UNSPECIFIED Status: Acute Current Visit: No Qualifiers: Hypotension type: unspecified hypotension type Qualified Code(s): I95.9 - Hypotension, unspecified (7) Venous stasis dermatitis of both lower extremities SNOMED Code(s): 72518884 Code(s): I83.11 - VARICOSE VEINS OF RIGHT LOWER EXTREMITY WITH INFLAMMATION; I83.12 - VARICOSE VEINS OF LEFT LOWER EXTREMITY WITH INFLAMMATION Status: Acute Current Visit: No (8) Abdominal wall cellulitis SNOMED Code(s): 87694947 Code(s): L03.311 - CELLULITIS OF ABDOMINAL WALL Status: Acute Current Visit: Yes (9) Jaw mass SNOMED Code(s): 774061218 Code(s): M27.8 - OTHER SPECIFIED DISEASES OF JAWS Status: Acute Current Visit: Yes (10) Septic shock SNOMED Code(s): 67905818 Code(s): A41.9 - SEPSIS, UNSPECIFIED ORGANISM; R65.21 - SEVERE SEPSIS WITH SEPTIC SHOCK Status: Acute Current Visit: Yes - Problem List Review Problem List Initiated/Reviewed/Updated: Yes - My Orders Last 24 Hours: My Active Orders 10/17/19 21:17 Consult to Physician [CONS] Routine 10/17/19 21:18 Notify Provider Consults [RC] ASDIRECTED 10/18/19 08:15 Vasopressin 100 units Sodium Chloride 0.9% [Normal Saline] 95 ml IV TITRATE 10/18/19 08:26 Urinary Catheter Assessment [RC] ASDIRECTED 10/18/19 08:30 Insert Harris Catheter [Insert Urinary Catheter] [OM.PC] Q24H 10/18/19 21:00 Pantoprazole [ProTONIX IV] 40 mg Sodium Chloride 0.9% [Normal Saline] 10 ml IV BID 10/19/19 05:11 LIPASE [CHEM] AM - Assessment Assessment:: 64 yo female admitted after fall for dehydration, acute kidney injury, and UTI. 1. UTI - straight cath obtained today for sterile sample. Continues to show UTI with symptoms. - Start Bactrim DS BID today. Obtain UC 2. Abdominal wall asif - Continued improvement, cellulitis fully treated and improved -continue Nystatin - Educated on self care of pannus, verbalized understanding 3. Falls, self care deficit; - Plan for home with resources such as Home health. - PT/OT evaluate and treat - Not able to transfer per self yet like at home, need to continue to encourage this as much as possible. - Not able to get payer source for SNF, her and her make to much money. Will need to arrange at home services. Given information by social work. 4. Thrombocytopenia: - No bleeding noted. - Hold Heparin today. 5. Sinus tachycardia - No further HR elevation, no chest pain - Monitor on telemetry today VTE prophylaxis: Heparin Dispo: Pending improvement in strength and transfer to be able to go home. No payer source for SNF, rehabilitation. Case management consulted. - Plan Plan:: 64 yo female admitted after fall for dehydration, acute kidney injury, and UTI. Now in septic shock/pancreatitis 1.Septic shock: Unknown source, Will start Meropenem and cont Vancomycin Will cont IV fluids, may need albumin, lacate has normalized cont Levo, add vasopressin, MAP goal >65, get A line -f/u On blood cultures, Obtain UA, CXR -Start Stress dose steroids -Unable to get CT abdomen due to size incompatibility, Doubt pancreatic source, lipase improving, pain improving, 2. Hospital acquired pneumonia - Dyspnea improved - cont broad spectrum abx for sepsis - Continue Oxygen as needed 3.Acute pancreatitis -cont IV fluids -Lipase improving, LFTs unremarkable -Pain well controlled, will start IV morphine for pain 4. Abdominal wall asif -continue Nystatin 5. Falls, self care deficit; - Plan for home with resources such as Home health. - PT/OT evaluate and treat 6. Thrombocytopenia: - Improving 7. RLE venous ulcer: - Wound care notices improvement since they saw her as outpatient. - Continue dressing changes. VTE prophylaxis: SCDs Dispo: Pending improvement in strength and transfer to be able to go home. No payer source for SNF, rehabilitation. Case management consulted.
--- NOTE | 2019-10-18 12:09 | PCM.SN.2 ---
- Free Text/Narrative Note: Consulted by hospitalist team for arterial line placement for invasive blood pressure monitoring. Explained the procedure as well as risks and benefits to the patient. At this time the patient agrees and wishes to proceed. Rt radial artery was palpated. Adequate collateral blood flow is noted. Rt wrist was prepped with betadine and sterile towels. Rt radial artery was again palpated. 1% Lidocaine was infiltrated over the area for local anesthesia. 20g arrow catheter was used; I was initially unable to achieve blood return. Ultrasound was brought in to assist with identifying the exact location due to the patient pitting edema. Under sterile ultrasound, the Rt Radial artery was identified, 20g arrow catheter was then advanced with successful pulsatile blood return noted. Guided wire was advanced into place; catheter was advanced into place over the wire without difficultly. Catheter was then transduced and shows good arterial waveform. Arterial line was secured with tape, tegaderm, and arm board. Pt tolerated placement well and not complications were noted. Anesthesia Time - 7697-2164
[2019-10-18] MEDS: Bisacodyl 10 MG Supp RECTAL SCH (12:43)
[2019-10-18] MEDS: Meropenem 2 GM in Sodium Chloride 0.9% 100 ML IV SCH (13:44)
[2019-10-18] MEDS: Hydrocortisone Sodium Succinate 100 MG/2 ML SDV IV SCH ×2 (13:58→21:00)
[2019-10-18] MEDS ORDERED: EPINEPHrine 1 MG in Dextrose 5% in Water 99 ML IV SCH ×2 (14:45)
[2019-10-18] MEDS ORDERED: Albumin 25% 12.5 GM/50 ML BAG IV ONE (16:00)
[2019-10-18] MEDS: EPINEPHrine 1 MG in Dextrose 5% in Water 99 ML IV SCH ×6 (18:24→23:59)
[2019-10-18] MEDS: Acetaminophen 325 MG Tab PO PRN (21:03)
--- NOTE | 2019-10-18 23:25 | PCM.SN.2 ---
- Free Text/Narrative Note: Assistance requested in ICU room 3 to replace discontinued arterial line. Time spent 10/18/19 from [id number]. Attempt #1: prep with chlorhexidine, mask/sterile gloves. 20g arrow left radial with flash, but resistance to threading. Pulled, pressure held, and dressing applied. US obtained for attempt #2: prepped with ch lorhex., mask/sterile gloves, 1ml 2% lido. SC, and US used to guide 20g arrow to left radial artery. Flash and threaded without resistance. Good waveform and blood return. Secured/dressed with sterile tegaderm, and tape.
[2019-10-19] MEDS: Albuterol/Ipratropium 3.0-0.5 MG/3 ML Neb Soln NEB SCH ×4 (00:09→17:38)
[2019-10-19] MEDS: Meropenem 2 GM in Sodium Chloride 0.9% 100 ML IV SCH ×2 (00:09→12:25)
[2019-10-19] MEDS: EPINEPHrine 1 MG in Dextrose 5% in Water 99 ML IV SCH ×10 (02:27→12:01)
[2019-10-19] MEDS: Hydrocortisone Sodium Succinate 100 MG/2 ML SDV IV SCH ×2 (04:50→14:13)
[2019-10-19] MEDS: Nystatin Topical Powder 15 GM Bottle TOP SCH ×2 (06:03→14:42)
[2019-10-19 06:13] LABS: CARBON DIOXIDE,CO2 15.9 mmol/L (21.0-32.0); POTASSIUM,K 4.4 mmol/L (3.5-5.1)
[2019-10-19] MEDS: Lactated Ringers 1,000 ML IV SCH ×2 (07:30→15:27)
[2019-10-19] MEDS ORDERED: Lactated Ringers 1,000 ML IV SCH (09:00)
[2019-10-19] MEDS: Pantoprazole 40 MG in Sodium Chloride 0.9% 10 ML IV SCH (09:11)
--- NOTE | 2019-10-19 11:11 | PCM.PN ---
- General Info Date of Service: 10/19/19 - Review of Systems Systems Review Comment:: patient wants to be made comfort measures. Patient states she is tired. She states she is not suicidal but has been sick for a long time and does not think she will get better. - Patient Data Vitals - Most Recent: Last Vital Signs Temp 35.8 C L 10/19/19 09:00 Pulse 99 10/18/19 19:04 Resp 20 10/19/19 09:00 BP 107/54 L 10/19/19 09:00 Pulse Ox 95 10/19/19 09:00 Weight - Most Recent: 171.458 kg I&O - Last 24 Hours: Intake & Output 10/18/19 10/19/19 10/19/19 22:59 06:59 14:59 Intake Total 3842 3012 Output Total 304 248 Balance 3538 7534 Lab Results Last 24 Hours: Laboratory Results - last 24 hr 10/18/19 10/19/19 10/19/19 Range/Units 15:20 05:13 05:13 WBC 27.42 H (4.0-11.0) K/uL RBC 3.45 L (4.30-5.90) M/uL Hgb 10.0 L (12.0-16.0) g/dL Hct 33.9 L (36.0-46.0) % MCV 98.3 H (80.0-98.0) fL MCH 29.0 (27.0-32.0) pg MCHC 29.5 L (31.0-37.0) g/dL RDW Std Deviation 68.8 H (28.0-62.0) fl RDW Coeff of Rachid 19 H (11.0-15.0) % Plt Count 115 L (150-400) K/uL MPV 9.50 (7.40-12.00) fL Add Manual Diff YES Neutrophils % (Manual) 91 H (48.0-80.0) % Lymphocytes % (Manual) 2 L (16.0-40.0) % Monocytes % (Manual) 7 (0.0-15.0) % Nucleated RBC % 0.1 /100WBC Absolute Seg Neuts 25.0 H (1.4-5.7) Lymphocytes # (Manual) 0.5 L (0.6-2.4) Monocytes # (Manual) 1.9 H (0.0-0.8) Nucleated RBCs # 0 K/uL Sodium 134 L (136-145) mmol/L Potassium 4.4 (3.5-5.1) mmol/L Chloride 100 (98-107) mmol/L Carbon Dioxide 15.9 L (21.0-32.0) mmol/L BUN 35 H (7.0-18.0) mg/dL Creatinine 1.4 H (0.6-1.0) mg/dL Est Cr Clr Drug Dosing 40.41 mL/min Estimated GFR (MDRD) 38.1 ml/min Glucose 138 H (74-106) mg/dL Calcium 7.6 L (8.5-10.1) mg/dL Phosphorus 4.9 H (2.6-4.7) mg/dL Magnesium 2.2 (1.8-2.4) mg/dL Total Bilirubin 0.7 (0.2-1.0) mg/dL AST 34 (15-37) IU/L ALT 12 L (14-63) IU/L Alkaline Phosphatase 97 (46-116) U/L Total Protein 5.5 L (6.4-8.2) g/dL Albumin 2.0 L (3.4-5.0) g/dL Globulin 3.5 (2.6-4.0) g/dL Albumin/Globulin Ratio 0.6 L (0.9-1.6) Lipase 482 H (73-393) U/L Urine Color YELLOW Urine Appearance SLT CLOUDY Urine pH 6.0 (5.0-8.0) Ur Specific Otis >= 1.030 (1.001-1.035) Urine Protein 30 H (NEGATIVE) mg/dL Urine Glucose (UA) NEGATIVE (NEGATIVE) mg/dL Urine Ketones 15 H (NEGATIVE) mg/dL Urine Occult Blood TRACE-INTACT H (NEGATIVE) Urine Nitrite NEGATIVE (NEGATIVE) Urine Bilirubin NEGATIVE (NEGATIVE) Urine Urobilinogen 1.0 (<2.0) EU/dL Ur Leukocyte Esterase NEGATIVE (NEGATIVE) Urine RBC 2-4 (0-2/HPF) Urine WBC 1-2 (0-5/HPF) Ur Epithelial Cells RARE (NONE-FEW) Urine Bacteria FEW (NEGATIVE) Urine Mucus RARE (NONE-MOD) Eric Results Last 24 Hours: Microbiology 10/17/19 03:46 Aerobic Blood Culture - Preliminary Blood - Venous - Lab Draw NO GROWTH AFTER 2 DAYS Anaerobic Blood Culture - Preliminary NO GROWTH AFTER 2 DAYS 10/17/19 03:36 Aerobic Blood Culture - Preliminary Blood - Venous NO GROWTH AFTER 2 DAYS Anaerobic Blood Culture - Preliminary NO GROWTH AFTER 2 DAYS Med Orders - Current: Current Medications Acetaminophen (Tylenol) 650 mg PO Q6H PRN PRN Reason: Pain Last Admin: 10/18/19 21:03 Dose: 650 mg Documented by: Al Hydroxide/Mg Hydroxide (Mag-Al Plus) 30 ml PO Q4H PRN PRN Reason: Heartburn Last Admin: 10/15/19 20:06 Dose: 30 ml Documented by: Albuterol/Ipratropium (Duoneb 3.0-0.5 Mg/3 Ml) 3 ml NEB Q6HRRT JONO Last Admin: 10/19/19 06:07 Dose: 3 ml Documented by: Albuterol/Ipratropium (Duoneb 3.0-0.5 Mg/3 Ml) 3 ml NEB Q4HRRT PRN PRN Reason: Wheezing Artificial Tears (Refresh Plus 0.5%) 0 each EYEBOTH Q2HR PRN PRN Reason: Dry Eyes Last Admin: 10/15/19 13:45 Dose: 1 drop Documented by: Bisacodyl (Dulcolax) 10 mg RECTAL Q48H JONO Last Admin: 10/18/19 12:43 Dose: 10 mg Documented by: Hydrocortisone Sodium Succinate (Solu-Cortef) 100 mg IV Q8H JONO Last Admin: 10/19/19 04:50 Dose: 100 mg Documented by: Norepinephrine Bitartrate (Norepinephr-0.9% Nacl 4 Mg/250) 4 mg in 250 mls @ 7.5 mls/hr IV TITRATE JONO; Protocol Last Admin: 10/19/19 08:11 Dose: 12 mcg/min, 45 mls/hr Documented by: Meropenem 2 gm/ Sodium (Chloride) 100 mls @ 200 mls/hr IV Q12H JONO Last Admin: 10/19/19 00:09 Dose: 200 mls/hr Documented by: Vasopressin 100 units/ Sodium (Chloride) 100 mls @ 0.6 mls/hr IV TITRATE JONO; Protocol Last Admin: 10/19/19 03:55 Dose: 0.08 units/min, 4.8 mls/hr Documented by: Pantoprazole Sodium 40 mg/ (Sodium Chloride) 10 mls @ 300 mls/hr IV BID [facility] Last Admin: 10/19/19 09:11 Dose: 300 mls/hr Documented by: Vancomycin HCl 1.5 gm/ Premix 300 mls @ 200 mls/hr IV Q24H [facility] Last Admin: 10/18/19 23:01 Dose: 200 mls/hr Documented by: Epinephrine HCl 1 mg/ Dextrose (/Water) 100 mls @ 6 mls/hr IV TITRATE [facility]; Protocol Last Admin: 10/19/19 09:36 Dose: 7 mcg/min, 42 mls/hr Documented by: Lactated Ringer's (Ringers, Lactated) 1,000 mls @ 125 mls/hr IV Q8H [facility] Last Admin: 10/19/19 07:30 Dose: 125 mls/hr Documented by: Nystatin (Nystop) 1 gm TOP TID [facility] Last Admin: 10/19/19 06:03 Dose: 1 gm Documented by: Ondansetron HCl (Zofran) 4 mg IVPUSH Q4H PRN PRN Reason: Nausea/Vomiting Sodium Chloride (Saline Flush) 2.5 ml FLUSH ASDIRECTED PRN PRN Reason: Keep Vein Open Vancomycin HCl (Pharmacy To Dose - Vancomycin) 1 dose .XX ASDIRECTED [facility] Discontinued Medications Albuterol/Ipratropium (Duoneb 3.0-0.5 Mg/3 Ml) 3 ml NEB Q4HRRT PRN PRN Reason: Wheezing Last Admin: 09/30/19 15:13 Dose: 3 ml Documented by: Albuterol/Ipratropium (Duoneb 3.0-0.5 Mg/3 Ml) 3 ml NEB Q4HRRT [facility] Last Admin: 10/02/19 09:19 Dose: 3 ml Documented by: Albuterol/Ipratropium (Duoneb 3.0-0.5 Mg/3 Ml) 3 ml NEB Q6HRRT [facility] Last Admin: 10/05/19 11:33 Dose: 3 ml Documented by: Albuterol/Ipratropium (Duoneb 3.0-0.5 Mg/3 Ml) 3 ml NEB Q6HRRT PRN PRN Reason: Shortness of Breath Last Admin: 10/13/19 18:20 Dose: 3 ml Documented by: Bisacodyl (Dulcolax) 10 mg RECTAL DAILY PRN PRN Reason: Constipation Last Admin: 10/02/19 14:06 Dose: 10 mg Documented by: Cephalexin (Keflex) 500 mg PO Q6HR [facility] Last Admin: 10/09/19 06:18 Dose: 500 mg Documented by: Diltiazem HCl (Diltiazem) 10 mg IVPUSH ONETIME ONE Stop: 10/09/19 09:36 Last Admin: 10/09/19 10:06 Dose: 10 mg Documented by: Docusate Sodium (Colace) 100 mg PO BID [facility] Last Admin: 10/05/19 10:19 Dose: Not Given Documented by: Docusate Sodium (Colace) 100 mg PO BID [facility] Last Admin: 10/16/19 20:18 Dose: 100 mg Documented by: Enoxaparin Sodium (Lovenox) 140 mg SUBCUT ONETIME ONE Stop: 09/27/19 21:47 Last Admin: 09/27/19 22:49 Dose: 140 mg Documented by: Enoxaparin Sodium (Lovenox) 140 mg SUBCUT BID [facility] Last Admin: 09/29/19 20:04 Dose: 140 mg Documented by: Enoxaparin Sodium (Lovenox) 150 mg SUBCUT Q12H [facility] Furosemide (Lasix) 20 mg IVPUSH NOW ONE Stop: 10/02/19 10:08 Last Admin: 10/02/19 10:42 Dose: 20 mg Documented by: Heparin Sodium (Porcine) (Heparin Sodium) 5,000 units SUBCUT Q12H [facility] Last Admin: 10/13/19 09:33 Dose: Not Given Documented by: Sodium Chloride (Normal Saline) 1,000 mls @ 999 mls/hr IV .Bolus ONE Stop: 09/27/19 21:58 Last Admin: 09/27/19 21:23 Dose: 999 mls/hr Documented by: Ceftriaxone Sodium/Dextrose 1 (gm/ Premix) 50 mls @ 100 mls/hr IV ONETIME ONE Stop: 09/27/19 22:30 Last Admin: 09/27/19 22:48 Dose: 100 mls/hr Documented by: Sodium Chloride (Normal Saline) 1,000 mls @ 125 mls/hr IV ASDIRECTED [facility] Last Admin: 09/29/19 05:47 Dose: 125 mls/hr Documented by: Ceftriaxone Sodium/Dextrose 1 (gm/ Premix) 50 mls @ 100 mls/hr IV Q24H [facility] Last Admin: 10/01/19 22:26 Dose: 100 mls/hr Documented by: Sodium Chloride (Normal Saline) 500 mls @ 125 mls/hr IV ONETIME ONE Stop: 09/30/19 18:36 Last Admin: 09/30/19 16:02 Dose: 125 mls/hr Documented by: Pantoprazole Sodium 40 mg/ (Sodium Chloride) 10 mls @ 300 mls/hr IV NOW ONE Stop: 10/02/19 15:00 Last Admin: 10/02/19 15:34 Dose: 300 mls/hr Documented by: Sodium Chloride (Normal Saline) 1,000 mls @ 999 mls/hr IV .Bolus ONE Stop: 10/09/19 10:03 Last Admin: 10/09/19 10:05 Dose: 999 mls/hr Documented by: Sodium Chloride (Normal Saline) 1,000 mls @ 125 mls/hr IV ASDIRECTED [facility] Last Admin: 10/10/19 22:28 Dose: 125 mls/hr Documented by: Pantoprazole Sodium 40 mg/ (Sodium Chloride) 10 mls @ 300 mls/hr IV NOW ONE Stop: 10/11/19 10:24 Last Admin: 10/11/19 12:30 Dose: 300 mls/hr Documented by: Sodium Chloride (Normal Saline) 500 mls @ 250 mls/hr IV ONETIME ONE Stop: 10/13/19 21:57 Last Admin: 10/13/19 20:13 Dose: 250 mls/hr Documented by: Piperacillin Sod/Tazobactam (Sod 3.375 gm/ Sodium Chloride) 50 mls @ 100 mls/hr IV Q8H [facility] Last Admin: 10/14/19 13:30 Dose: 100 mls/hr Documented by: Sodium Chloride (Normal Saline) 500 mls @ 250 mls/hr IV ONETIME ONE Stop: 10/14/19 02:29 Last Admin: 10/14/19 00:38 Dose: 250 mls/hr Documented by: Vancomycin HCl 1.5 gm/ Premix 300 mls @ 300 mls/hr IV Q12H [facility] Last Admin: 10/15/19 09:35 Dose: 300 mls/hr Documented by: Piperacillin Sod/Tazobactam (Sod 4.5 gm/ Sodium Chloride) 100 mls @ 200 mls/hr IV Q6H [facility] Last Admin: 10/15/19 07:19 Dose: 200 mls/hr Documented by: Levofloxacin/Dextrose 750 mg/ (Premix) 150 mls @ 100 mls/hr IV Q48H [facility] Last Admin: 10/15/19 11:47 Dose: 100 mls/hr Documented by: Sodium Chloride (Normal Saline) 500 mls @ 999 mls/hr IV .BOLUS JONO Last Admin: 10/16/19 09:00 Dose: 999 mls/hr Documented by: Sodium Chloride (Normal Saline) 500 mls @ 999 mls/hr IV .BOLUS [facility] Last Admin: 10/16/19 12:38 Dose: 999 mls/hr Documented by: Pantoprazole Sodium 40 mg/ (Sodium Chloride) 10 mls @ 300 mls/hr IV Q24H [facility] Last Admin: 10/18/19 06:11 Dose: 300 mls/hr Documented by: Lactated Ringer's (Ringers, Lactated) 1,000 mls @ 125 mls/hr IV Q10H [facility] Last Admin: 10/18/19 23:43 Dose: 125 mls/hr Documented by: Sodium Chloride (Normal Saline) 500 mls @ 999 mls/hr IV .BOLUS [facility] Last Admin: 10/16/19 15:48 Dose: 999 mls/hr Documented by: Piperacillin Sod/Tazobactam (Sod 3.375 gm/ Sodium Chloride) 50 mls @ 100 mls/hr IV Q8H [facility] Last Admin: 10/16/19 18:01 Dose: Not Given Documented by: Piperacillin Sod/Tazobactam (Sod 3.375 gm/ Sodium Chloride) 100 mls @ 200 mls/hr IV Q6H [facility] Last Admin: 10/17/19 11:10 Dose: 200 mls/hr Documented by: Lactated Ringer's (Ringers, Lactated) 1,000 mls @ 999 mls/hr IV BOLUS ONE Stop: 10/16/19 20:23 Last Admin: 10/16/19 19:41 Dose: 999 mls/hr Documented by: Lactated Ringer's (Ringers, Lactated) 1,000 mls @ 999 mls/hr IV BOLUS ONE Stop: 10/16/19 22:59 Last Admin: 10/16/19 22:18 Dose: 999 mls/hr Documented by: Vancomycin HCl (Vancomycin 1.5 Gm/300 Ml Premix) 300 mls @ 200 mls/hr IV Q24H [facility] Last Admin: 10/17/19 22:14 Dose: 200 mls/hr Documented by: Albumin Human (Flexbumin 25%) 12.5 gm in 50 mls @ 100 mls/hr IV ONETIME ONE Stop: 10/17/19 12:14 Last Admin: 10/17/19 13:56 Dose: 100 mls/hr Documented by: Lactated Ringer's (Ringers, Lactated) 500 mls @ 999 mls/hr IV .BOLUS ONE Stop: 10/17/19 19:49 Last Admin: 10/17/19 20:33 Dose: 999 mls/hr Documented by: Lactated Ringer's (Ringers, Lactated) 1,000 mls @ 999 mls/hr IV .BOLUS ONE Stop: 10/18/19 09:12 Last Admin: 10/18/19 08:27 Dose: 999 mls/hr Documented by: Epinephrine HCl 1 mg/ Dextrose (/Water) 100 mls @ 100.697 mls/hr IV TITRATE [facility]; Protocol Last Admin: 10/18/19 15:27 Dose: 0.1 mcg/kg/min, 100.697 mls/hr Documented by: Albumin Human (Flexbumin 25%) 12.5 gm in 50 mls @ 100 mls/hr IV ONETIME ONE Stop: 10/18/19 16:29 Last Admin: 10/18/19 16:48 Dose: 100 mls/hr Documented by: Lactated Ringer's (Ringers, Lactated) 1,000 mls @ 125 mls/hr IV Q8H [facility] Insulin Aspart (Novolog) 0 unit SUBCUT TIDAC [facility]; Protocol Last Admin: 10/01/19 09:40 Dose: Not Given Documented by: Iopamidol (Isovue-370 (76%)) 50 ml IV ONETIME STA Stop: 09/30/19 18:08 Last Admin: 09/30/19 18:08 Dose: 50 ml Documented by: Lidocaine (Xylocaine-Mpf 2%) Confirm Administered Dose 5 ml .ROUTE .STK-MED ONE Stop: 10/18/19 11:09 Last Admin: 10/18/19 11:27 Dose: Not Given Documented by: Lidocaine (Xylocaine-Mpf 2%) Confirm Administered Dose 5 ml .ROUTE .STK-MED ONE Stop: 10/18/19 22:54 Methylprednisolone Sodium Succinate (Solu-Medrol) 40 mg IVPUSH BID [facility] Last Admin: 10/16/19 09:00 Dose: 40 mg Documented by: Methylprednisolone Sodium Succinate (Solu-Medrol) 40 mg IVPUSH DAILY [facility] Last Admin: 10/18/19 10:00 Dose: 40 mg Documented by: Metoclopramide HCl (Reglan) 10 mg IVPUSH ONETIME ONE Stop: 10/16/19 09:12 Last Admin: 10/16/19 09:33 Dose: 10 mg Documented by: Ondansetron HCl (Zofran) 4 mg IVPUSH Q6H PRN PRN Reason: Nausea/Vomiting Last Admin: 10/16/19 05:23 Dose: 4 mg Documented by: Pantoprazole Sodium (Protonix) 40 mg PO ACBREAKFAST [facility] Last Admin: 10/16/19 06:38 Dose: 40 mg Documented by: Polyethylene Glycol (Miralax) 17 gm PO DAILY [facility] Last Admin: 10/15/19 09:35 Dose: Not Given Documented by: Sodium Chloride (Saline Flush) 10 ml FLUSH ASDIRECTED PRN PRN Reason: Keep Vein Open Trimethoprim/Sulfamethoxazole (Septra Ds) 1 tab PO BID [facility] Last Admin: 10/13/19 20:14 Dose: 1 tab Documented by: Vancomycin HCl (Pharmacy To Dose - Vancomycin) 1 dose .XX Q12HR [facility] Last Admin: 10/15/19 09:39 Dose: Not Given Documented by: - Exam General: Alert, Oriented Lungs: Clear to Auscultation, Normal Respiratory Effort Cardiovascular: Regular Rate, Regular Rhythm GI/Abdominal Exam: Soft, Non-Tender, No Distention Extremities: Non-Tender, No Pedal Edema Skin: Rash (heeling well on mary, no cellulitis seen in abdominal folds) Neurological: No New Focal Deficit Sepsis Event Note - Evaluation Sepsis Screening Result: Severe Sepsis Risk - Focused Exam Vital Signs: Vital Signs Temp Resp BP BP Pulse Ox 10/19/19 09:00 35.8 C L 20 107/54 L 95 10/19/19 08:00 16 98/52 L 94 L 10/19/19 07:00 16 100/53 L 94 L 10/19/19 06:00 18 104/54 L 94 L 10/19/19 05:00 15 105/54 L 94 L 10/19/19 04:00 17 99/54 L 94 L 10/19/19 03:00 36.2 C 16 105/55 L 93 L 10/19/19 02:00 20 105/57 L 94 L 10/19/19 01:00 15 99/52 L 93 L 10/19/19 00:00 36.3 C 20 105/55 L 96 Date Exam was Performed: 10/19/19 Time Exam was Performed: 11:03 - Problem List Review Problem List Initiated/Reviewed/Updated: Yes - My Orders Last 24 Hours: My Active Orders 10/18/19 22:30 Consult to Physician [CONS] Urgent 10/18/19 23:00 VANCOmycin/Water for INJ (PEG) [VANCOmycin 1.5 GM/300 ML Premix] 1.5 gm Premix Bag 1 bag IV Q24H 10/18/19 23:35 Notify Provider Consults [RC] ASDIRECTED - Plan Plan:: 64 yo female admitted after fall for dehydration, acute kidney injury, and UTI. Now in septic shock/pancreatitis 1.Septic shock: on triple pressors, and vancomycin and meropenem. Source unknown, suspect UTI or pneumonia. Patient is requesting comfort measures. I spoke with patient as uncertain what will happen if we stop vasopressors. Patient is wanting to wait until family arrives and then stop pressors. Patient is to be transition to comfort measures later today.
[2019-10-19] MEDS ORDERED: WATER IV SCH ×6 (14:15→16:57)
[2019-10-19] MEDS ORDERED: EPINEPHRINE IV SCH ×6 (14:15→16:57)
[2019-10-19] MEDS ORDERED: DEXTROSE 5% IV SCH ×6 (14:15→16:57)
[2019-10-19] MEDS: Morphine 2 MG/ML SYRINGE IVPUSH PRN ×2 (20:13→21:18)
[2019-10-20] MEDS: Morphine 2 MG/ML SYRINGE IVPUSH PRN ×5 (02:59→14:59)
[2019-10-20] MEDS: Albuterol/Ipratropium 3.0-0.5 MG/3 ML Neb Soln NEB SCH (03:05)
[2019-10-20] MEDS ORDERED: Scopolamine 1.5 MG Transdermal Patch TRDERM PRN (08:24)
--- NOTE | 2019-10-20 08:28 | PCM.PN ---
- General Info Date of Service: 10/20/19 - Review of Systems Systems Review Comment:: patient is nonverbal - Patient Data Vitals - Most Recent: Last Vital Signs Temp 35.7 C L 10/19/19 18:00 Pulse 105 H 10/19/19 13:00 Resp 16 10/19/19 19:00 BP 100/52 L 10/19/19 19:00 Pulse Ox 92 L 10/19/19 19:00 Weight - Most Recent: 171.458 kg I&O - Last 24 Hours: Intake & Output 10/19/19 10/20/19 10/20/19 22:59 06:59 14:59 Intake Total 3084 90 Output Total 400 210 Balance 2684 -120 Eric Results Last 24 Hours: Microbiology 10/17/19 03:46 Aerobic Blood Culture - Preliminary Blood - Venous - Lab Draw NO GROWTH AFTER 3 DAYS Anaerobic Blood Culture - Preliminary NO GROWTH AFTER 3 DAYS 10/17/19 03:36 Aerobic Blood Culture - Preliminary Blood - Venous NO GROWTH AFTER 3 DAYS Anaerobic Blood Culture - Preliminary NO GROWTH AFTER 3 DAYS Med Orders - Current: Current Medications Acetaminophen (Tylenol) 650 mg PO Q6H PRN PRN Reason: Pain Last Admin: 10/18/19 21:03 Dose: 650 mg Documented by: Al Hydroxide/Mg Hydroxide (Mag-Al Plus) 30 ml PO Q4H PRN PRN Reason: Heartburn Last Admin: 10/15/19 20:06 Dose: 30 ml Documented by: Artificial Tears (Refresh Plus 0.5%) 0 each EYEBOTH Q2HR PRN PRN Reason: Dry Eyes Last Admin: 10/15/19 13:45 Dose: 1 drop Documented by: Bisacodyl (Dulcolax) 10 mg RECTAL Q48H [facility] Last Admin: 10/18/19 12:43 Dose: 10 mg Documented by: Morphine Sulfate (Morphine) 2 mg IVPUSH Q1H PRN PRN Reason: Pain Last Admin: 10/20/19 06:54 Dose: 2 mg Documented by: Ondansetron HCl (Zofran) 4 mg IVPUSH Q4H PRN PRN Reason: Nausea/Vomiting Sodium Chloride (Saline Flush) 2.5 ml FLUSH ASDIRECTED PRN PRN Reason: Keep Vein Open Discontinued Medications Albuterol/Ipratropium (Duoneb 3.0-0.5 Mg/3 Ml) 3 ml NEB Q4HRRT PRN PRN Reason: Wheezing Last Admin: 09/30/19 15:13 Dose: 3 ml Documented by: Albuterol/Ipratropium (Duoneb 3.0-0.5 Mg/3 Ml) 3 ml NEB Q4HRRT [facility] Last Admin: 10/02/19 09:19 Dose: 3 ml Documented by: Albuterol/Ipratropium (Duoneb 3.0-0.5 Mg/3 Ml) 3 ml NEB Q6HRRT [facility] Last Admin: 10/05/19 11:33 Dose: 3 ml Documented by: Albuterol/Ipratropium (Duoneb 3.0-0.5 Mg/3 Ml) 3 ml NEB Q6HRRT PRN PRN Reason: Shortness of Breath Last Admin: 10/13/19 18:20 Dose: 3 ml Documented by: Albuterol/Ipratropium (Duoneb 3.0-0.5 Mg/3 Ml) 3 ml NEB Q6HRRT [facility] Last Admin: 10/20/19 03:05 Dose: Not Given Documented by: Albuterol/Ipratropium (Duoneb 3.0-0.5 Mg/3 Ml) 3 ml NEB Q4HRRT PRN PRN Reason: Wheezing Bisacodyl (Dulcolax) 10 mg RECTAL DAILY PRN PRN Reason: Constipation Last Admin: 10/02/19 14:06 Dose: 10 mg Documented by: Cephalexin (Keflex) 500 mg PO Q6HR [facility] Last Admin: 10/09/19 06:18 Dose: 500 mg Documented by: Diltiazem HCl (Diltiazem) 10 mg IVPUSH ONETIME ONE Stop: 10/09/19 09:36 Last Admin: 10/09/19 10:06 Dose: 10 mg Documented by: Docusate Sodium (Colace) 100 mg PO BID [facility] Last Admin: 10/05/19 10:19 Dose: Not Given Documented by: Docusate Sodium (Colace) 100 mg PO BID [facility] Last Admin: 10/16/19 20:18 Dose: 100 mg Documented by: Enoxaparin Sodium (Lovenox) 140 mg SUBCUT ONETIME ONE Stop: 09/27/19 21:47 Last Admin: 09/27/19 22:49 Dose: 140 mg Documented by: Enoxaparin Sodium (Lovenox) 140 mg SUBCUT BID [facility] Last Admin: 09/29/19 20:04 Dose: 140 mg Documented by: Enoxaparin Sodium (Lovenox) 150 mg SUBCUT Q12H [facility] Furosemide (Lasix) 20 mg IVPUSH NOW ONE Stop: 10/02/19 10:08 Last Admin: 10/02/19 10:42 Dose: 20 mg Documented by: Heparin Sodium (Porcine) (Heparin Sodium) 5,000 units SUBCUT Q12H [facility] Last Admin: 10/13/19 09:33 Dose: Not Given Documented by: Hydrocortisone Sodium Succinate (Solu-Cortef) 100 mg IV Q8H [facility] Last Admin: 10/19/19 14:13 Dose: 100 mg Documented by: Sodium Chloride (Normal Saline) 1,000 mls @ 999 mls/hr IV .Bolus ONE Stop: 09/27/19 21:58 Last Admin: 09/27/19 21:23 Dose: 999 mls/hr Documented by: Ceftriaxone Sodium/Dextrose 1 (gm/ Premix) 50 mls @ 100 mls/hr IV ONETIME ONE Stop: 09/27/19 22:30 Last Admin: 09/27/19 22:48 Dose: 100 mls/hr Documented by: Sodium Chloride (Normal Saline) 1,000 mls @ 125 mls/hr IV ASDIRECTED [facility] Last Admin: 09/29/19 05:47 Dose: 125 mls/hr Documented by: Ceftriaxone Sodium/Dextrose 1 (gm/ Premix) 50 mls @ 100 mls/hr IV Q24H [facility] Last Admin: 10/01/19 22:26 Dose: 100 mls/hr Documented by: Sodium Chloride (Normal Saline) 500 mls @ 125 mls/hr IV ONETIME ONE Stop: 09/30/19 18:36 Last Admin: 09/30/19 16:02 Dose: 125 mls/hr Documented by: Pantoprazole Sodium 40 mg/ (Sodium Chloride) 10 mls @ 300 mls/hr IV NOW ONE Stop: 10/02/19 15:00 Last Admin: 10/02/19 15:34 Dose: 300 mls/hr Documented by: Sodium Chloride (Normal Saline) 1,000 mls @ 999 mls/hr IV .Bolus ONE Stop: 10/09/19 10:03 Last Admin: 10/09/19 10:05 Dose: 999 mls/hr Documented by: Sodium Chloride (Normal Saline) 1,000 mls @ 125 mls/hr IV ASDIRECTED [facility] Last Admin: 10/10/19 22:28 Dose: 125 mls/hr Documented by: Pantoprazole Sodium 40 mg/ (Sodium Chloride) 10 mls @ 300 mls/hr IV NOW ONE Stop: 10/11/19 10:24 Last Admin: 10/11/19 12:30 Dose: 300 mls/hr Documented by: Sodium Chloride (Normal Saline) 500 mls @ 250 mls/hr IV ONETIME ONE Stop: 10/13/19 21:57 Last Admin: 10/13/19 20:13 Dose: 250 mls/hr Documented by: Piperacillin Sod/Tazobactam (Sod 3.375 gm/ Sodium Chloride) 50 mls @ 100 mls/hr IV Q8H [facility] Last Admin: 10/14/19 13:30 Dose: 100 mls/hr Documented by: Sodium Chloride (Normal Saline) 500 mls @ 250 mls/hr IV ONETIME ONE Stop: 10/14/19 02:29 Last Admin: 10/14/19 00:38 Dose: 250 mls/hr Documented by: Vancomycin HCl 1.5 gm/ Premix 300 mls @ 300 mls/hr IV Q12H [facility] Last Admin: 10/15/19 09:35 Dose: 300 mls/hr Documented by: Piperacillin Sod/Tazobactam (Sod 4.5 gm/ Sodium Chloride) 100 mls @ 200 mls/hr IV Q6H [facility] Last Admin: 10/15/19 07:19 Dose: 200 mls/hr Documented by: Levofloxacin/Dextrose 750 mg/ (Premix) 150 mls @ 100 mls/hr IV Q48H [facility] Last Admin: 10/15/19 11:47 Dose: 100 mls/hr Documented by: Sodium Chloride (Normal Saline) 500 mls @ 999 mls/hr IV .BOLUS [facility] Last Admin: 10/16/19 09:00 Dose: 999 mls/hr Documented by: Sodium Chloride (Normal Saline) 500 mls @ 999 mls/hr IV .BOLUS [facility] Last Admin: 10/16/19 12:38 Dose: 999 mls/hr Documented by: Pantoprazole Sodium 40 mg/ (Sodium Chloride) 10 mls @ 300 mls/hr IV Q24H [facility] Last Admin: 10/18/19 06:11 Dose: 300 mls/hr Documented by: Lactated Ringer's (Ringers, Lactated) 1,000 mls @ 125 mls/hr IV Q10H [facility] Last Admin: 10/18/19 23:43 Dose: 125 mls/hr Documented by: Sodium Chloride (Normal Saline) 500 mls @ 999 mls/hr IV .BOLUS [facility] Last Admin: 10/16/19 15:48 Dose: 999 mls/hr Documented by: Piperacillin Sod/Tazobactam (Sod 3.375 gm/ Sodium Chloride) 50 mls @ 100 mls/hr IV Q8H [facility] Last Admin: 10/16/19 18:01 Dose: Not Given Documented by: Piperacillin Sod/Tazobactam (Sod 3.375 gm/ Sodium Chloride) 100 mls @ 200 mls/hr IV Q6H [facility] Last Admin: 10/17/19 11:10 Dose: 200 mls/hr Documented by: Lactated Ringer's (Ringers, Lactated) 1,000 mls @ 999 mls/hr IV BOLUS ONE Stop: 10/16/19 20:23 Last Admin: 10/16/19 19:41 Dose: 999 mls/hr Documented by: Lactated Ringer's (Ringers, Lactated) 1,000 mls @ 999 mls/hr IV BOLUS ONE Stop: 10/16/19 22:59 Last Admin: 10/16/19 22:18 Dose: 999 mls/hr Documented by: Vancomycin HCl (Vancomycin 1.5 Gm/300 Ml Premix) 300 mls @ 200 mls/hr IV Q24H [facility] Last Admin: 10/17/19 22:14 Dose: 200 mls/hr Documented by: Norepinephrine Bitartrate (Norepinephr-0.9% Nacl 4 Mg/250) 4 mg in 250 mls @ 7.5 mls/hr IV TITRATE [facility]; Protocol Last Admin: 10/19/19 14:15 Dose: 12 mcg/min, 45 mls/hr Documented by: Meropenem 2 gm/ Sodium (Chloride) 100 mls @ 200 mls/hr IV Q12H [facility] Last Admin: 10/19/19 12:25 Dose: 200 mls/hr Documented by: Albumin Human (Flexbumin 25%) 12.5 gm in 50 mls @ 100 mls/hr IV ONETIME ONE Stop: 10/17/19 12:14 Last Admin: 10/17/19 13:56 Dose: 100 mls/hr Documented by: Lactated Ringer's (Ringers, Lactated) 500 mls @ 999 mls/hr IV .BOLUS ONE Stop: 10/17/19 19:49 Last Admin: 10/17/19 20:33 Dose: 999 mls/hr Documented by: Lactated Ringer's (Ringers, Lactated) 1,000 mls @ 999 mls/hr IV .BOLUS ONE Stop: 10/18/19 09:12 Last Admin: 10/18/19 08:27 Dose: 999 mls/hr Documented by: Vasopressin 100 units/ Sodium (Chloride) 100 mls @ 0.6 mls/hr IV TITRATE [facility]; Protocol Last Admin: 10/19/19 03:55 Dose: 0.08 units/min, 4.8 mls/hr Documented by: Pantoprazole Sodium 40 mg/ (Sodium Chloride) 10 mls @ 300 mls/hr IV BID [facility] Last Admin: 10/19/19 09:11 Dose: 300 mls/hr Documented by: Epinephrine HCl 1 mg/ Dextrose (/Water) 100 mls @ 100.697 mls/hr IV TITRATE [facility]; Protocol Last Admin: 10/18/19 15:27 Dose: 0.1 mcg/kg/min, 100.697 mls/hr Documented by: Albumin Human (Flexbumin 25%) 12.5 gm in 50 mls @ 100 mls/hr IV ONETIME ONE Stop: 10/18/19 16:29 Last Admin: 10/18/19 16:48 Dose: 100 mls/hr Documented by: Vancomycin HCl 1.5 gm/ Premix 300 mls @ 200 mls/hr IV Q24H [facility] Last Admin: 10/18/19 23:01 Dose: 200 mls/hr Documented by: Epinephrine HCl 1 mg/ Dextrose (/Water) 100 mls @ 6 mls/hr IV TITRATE [facility]; Protocol Last Admin: 10/19/19 12:01 Dose: 7 mcg/min, 42 mls/hr Documented by: Lactated Ringer's (Ringers, Lactated) 1,000 mls @ 125 mls/hr IV Q8H [facility] Lactated Ringer's (Ringers, Lactated) 1,000 mls @ 125 mls/hr IV Q8H [facility] Last Admin: 10/19/19 15:27 Dose: 125 mls/hr Documented by: Epinephrine HCl 2 mg/ Dextrose (/Water) 100 mls @ 3 mls/hr IV TITRATE [facility]; Protocol Last Infusion: 10/19/19 16:24 Dose: 3.5 mcg/min, 10.5 mls/hr Documented by: Epinephrine HCl 5 mg/ Dextrose (/Water) 500 mls @ 6 mls/hr IV TITRATE [facility]; Protocol Epinephrine HCl 5 mg/ Dextrose (/Water) 500 mls @ 6 mls/hr IV TITRATE [facility]; Protocol Last Infusion: 10/19/19 18:22 Dose: 5 mcg/min, 30 mls/hr Documented by: Insulin Aspart (Novolog) 0 unit SUBCUT TIDAC [facility]; Protocol Last Admin: 10/01/19 09:40 Dose: Not Given Documented by: Iopamidol (Isovue-370 (76%)) 50 ml IV ONETIME STA Stop: 09/30/19 18:08 Last Admin: 09/30/19 18:08 Dose: 50 ml Documented by: Lidocaine (Xylocaine-Mpf 2%) Confirm Administered Dose 5 ml .ROUTE .STK-MED ONE Stop: 10/18/19 11:09 Last Admin: 10/18/19 11:27 Dose: Not Given Documented by: Lidocaine (Xylocaine-Mpf 2%) Confirm Administered Dose 5 ml .ROUTE .STK-MED ONE Stop: 10/18/19 22:54 Methylprednisolone Sodium Succinate (Solu-Medrol) 40 mg IVPUSH BID [facility] Last Admin: 10/16/19 09:00 Dose: 40 mg Documented by: Methylprednisolone Sodium Succinate (Solu-Medrol) 40 mg IVPUSH DAILY [facility] Last Admin: 10/18/19 10:00 Dose: 40 mg Documented by: Metoclopramide HCl (Reglan) 10 mg IVPUSH ONETIME ONE Stop: 10/16/19 09:12 Last Admin: 10/16/19 09:33 Dose: 10 mg Documented by: Nystatin (Nystop) 1 gm TOP TID [facility] Last Admin: 10/19/19 14:42 Dose: 1 applic Documented by: Ondansetron HCl (Zofran) 4 mg IVPUSH Q6H PRN PRN Reason: Nausea/Vomiting Last Admin: 10/16/19 05:23 Dose: 4 mg Documented by: Pantoprazole Sodium (Protonix) 40 mg PO ACBREAKFAST [facility] Last Admin: 10/16/19 06:38 Dose: 40 mg Documented by: Polyethylene Glycol (Miralax) 17 gm PO DAILY [facility] Last Admin: 10/15/19 09:35 Dose: Not Given Documented by: Sodium Chloride (Saline Flush) 10 ml FLUSH ASDIRECTED PRN PRN Reason: Keep Vein Open Trimethoprim/Sulfamethoxazole (Septra Ds) 1 tab PO BID [facility] Last Admin: 10/13/19 20:14 Dose: 1 tab Documented by: Vancomycin HCl (Pharmacy To Dose - Vancomycin) 1 dose .XX Q12HR [facility] Last Admin: 10/15/19 09:39 Dose: Not Given Documented by: Vancomycin HCl (Pharmacy To Dose - Vancomycin) 1 dose .XX ASDIRECTED [facility] - Exam General: No Acute Distress, Obtunded Lungs: Decreased Breath Sounds Cardiovascular: Regular Rate, Regular Rhythm GI/Abdominal Exam: Soft, Non-Tender, No Distention Extremities: Non-Tender Skin: Warm, Dry, Intact Sepsis Event Note - Evaluation Sepsis Screening Result: Sepsis Risk - Focused Exam Date Exam was Performed: 10/20/19 Time Exam was Performed: 08:25 - Problem List Review Problem List Initiated/Reviewed/Updated: Yes - My Orders Last 24 Hours: My Active Orders 10/19/19 19:45 Morphine 2 mg IVPUSH Q1H PRN 10/19/19 19:48 Comfort Measures [OM.PC] Routine 10/19/19 19:49 Transfer Patient (Change bed) [ADT] Routine 10/19/19 20:06 Arterial Line Discontinue [OM.PC] Routine 10/19/19 21:05 Resuscitation Status Routine 10/20/19 08:24 Scopolamine [Transderm-Scop] 1.5 mg TRDERM Q72H PRN - Plan Plan:: 64 yo female admitted after fall for dehydration, acute kidney injury, and UTI. Now in septic shock/pancreatitis. We switched to comfort measures yesterday. Spoke with who is in agreement with comfort measures. Will continue morphine as needed. I suspect is eminent.
[2019-10-20] MEDS: Bisacodyl 10 MG Supp RECTAL SCH (15:04)
[2019-10-20 21:00] VITALS: PULSE 81
[2019-10-20 21:04] VITALS: BP 54/21
--- NOTE | 2019-10-20 23:16 | PCM.DCSUM1 ---
Discharge Summary - Discharge Data Discharge Disposition: Home, Self-Care 01 Condition: Good - Referral to Home Health Primary Care Physician: Refugio Thrasher MD - Patient Summary/Data Operative Procedure(s) Performed: l subclavien vein central line placement Consults: Consultations 09/28/19 07:30 PT Evaluation and Treatment [CONS] Routine 09/30/19 10:49 OT Evaluation and Treatment [CONS] Routine 10/07/19 10:05 Consult to Case Management/Program Medical Director [CONS] Routine 10/11/19 10:09 Consult to Wound Care Services [CONS] Routine 10/17/19 21:17 Consult to Physician [CONS] Routine 10/18/19 22:30 Consult to Physician [CONS] Urgent - Discharge Plan Home Medications: Home Meds Silver Sulfadiazine [Silvadene 1% Cream 400 GM] 1 applic TOP DAILY 10/02/19 [History] Patient Handouts: Hypoxia Referrals: Westley Elizondo MD [Resident] - 10/21/19 2:30 pm - Patient Data Vitals - Most Recent: Last Vital Signs Temp 36.6 C 10/20/19 20:58 Pulse 81 10/20/19 20:58 Resp 18 10/20/19 20:58 BP 54/21 L 10/20/19 20:58 Pulse Ox 90 L 10/20/19 20:58 Weight - Most Recent: 167.829 kg I&O - Last 24 hours: Intake & Output 10/20/19 10/20/19 10/21/19 14:59 22:59 06:59 Intake Total 0 Output Total 20 Balance -20 EMI Results - Last 24 hrs: Microbiology 10/17/19 03:46 Aerobic Blood Culture - Preliminary Blood - Venous - Lab Draw NO GROWTH AFTER 3 DAYS Anaerobic Blood Culture - Preliminary NO GROWTH AFTER 3 DAYS 10/17/19 03:36 Aerobic Blood Culture - Preliminary Blood - Venous NO GROWTH AFTER 3 DAYS Anaerobic Blood Culture - Preliminary NO GROWTH AFTER 3 DAYS Med Orders - Current: Current Medications Acetaminophen (Tylenol) 650 mg PO Q6H PRN PRN Reason: Pain Last Admin: 10/18/19 21:03 Dose: 650 mg Documented by: Al Hydroxide/Mg Hydroxide (Mag-Al Plus) 30 ml PO Q4H PRN PRN Reason: Heartburn Last Admin: 10/15/19 20:06 Dose: 30 ml Documented by: Artificial Tears (Refresh Plus 0.5%) 0 each EYEBOTH Q2HR PRN PRN Reason: Dry Eyes Last Admin: 10/15/19 13:45 Dose: 1 drop Documented by: Bisacodyl (Dulcolax) 10 mg RECTAL Q48H [facility] Last Admin: 10/20/19 15:04 Dose: Not Given Documented by: Morphine Sulfate (Morphine) 2 mg IVPUSH Q1H PRN PRN Reason: Pain Last Admin: 10/20/19 14:59 Dose: 2 mg Documented by: Ondansetron HCl (Zofran) 4 mg IVPUSH Q4H PRN PRN Reason: Nausea/Vomiting Scopolamine (Transderm-Scop) 1.5 mg TRDERM Q72H PRN PRN Reason: secreations Last Admin: 10/20/19 08:58 Dose: 1.5 mg Documented by: Sodium Chloride (Saline Flush) 2.5 ml FLUSH ASDIRECTED PRN PRN Reason: Keep Vein Open Discontinued Medications Albuterol/Ipratropium (Duoneb 3.0-0.5 Mg/3 Ml) 3 ml NEB Q4HRRT PRN PRN Reason: Wheezing Last Admin: 09/30/19 15:13 Dose: 3 ml Documented by: Albuterol/Ipratropium (Duoneb 3.0-0.5 Mg/3 Ml) 3 ml NEB Q4HRRT [facility] Last Admin: 10/02/19 09:19 Dose: 3 ml Documented by: Albuterol/Ipratropium (Duoneb 3.0-0.5 Mg/3 Ml) 3 ml NEB Q6HRRT [facility] Last Admin: 10/05/19 11:33 Dose: 3 ml Documented by: Albuterol/Ipratropium (Duoneb 3.0-0.5 Mg/3 Ml) 3 ml NEB Q6HRRT PRN PRN Reason: Shortness of Breath Last Admin: 10/13/19 18:20 Dose: 3 ml Documented by: Albuterol/Ipratropium (Duoneb 3.0-0.5 Mg/3 Ml) 3 ml NEB Q6HRRT [facility] Last Admin: 10/20/19 03:05 Dose: Not Given Documented by: Albuterol/Ipratropium (Duoneb 3.0-0.5 Mg/3 Ml) 3 ml NEB Q4HRRT PRN PRN Reason: Wheezing Bisacodyl (Dulcolax) 10 mg RECTAL DAILY PRN PRN Reason: Constipation Last Admin: 10/02/19 14:06 Dose: 10 mg Documented by: Cephalexin (Keflex) 500 mg PO Q6HR [facility] Last Admin: 10/09/19 06:18 Dose: 500 mg Documented by: Diltiazem HCl (Diltiazem) 10 mg IVPUSH ONETIME ONE Stop: 10/09/19 09:36 Last Admin: 10/09/19 10:06 Dose: 10 mg Documented by: Docusate Sodium (Colace) 100 mg PO BID [facility] Last Admin: 10/05/19 10:19 Dose: Not Given Documented by: Docusate Sodium (Colace) 100 mg PO BID [facility] Last Admin: 10/16/19 20:18 Dose: 100 mg Documented by: Enoxaparin Sodium (Lovenox) 140 mg SUBCUT ONETIME ONE Stop: 09/27/19 21:47 Last Admin: 09/27/19 22:49 Dose: 140 mg Documented by: Enoxaparin Sodium (Lovenox) 140 mg SUBCUT BID [facility] Last Admin: 09/29/19 20:04 Dose: 140 mg Documented by: Enoxaparin Sodium (Lovenox) 150 mg SUBCUT Q12H [facility] Furosemide (Lasix) 20 mg IVPUSH NOW ONE Stop: 10/02/19 10:08 Last Admin: 10/02/19 10:42 Dose: 20 mg Documented by: Heparin Sodium (Porcine) (Heparin Sodium) 5,000 units SUBCUT Q12H [facility] Last Admin: 10/13/19 09:33 Dose: Not Given Documented by: Hydrocortisone Sodium Succinate (Solu-Cortef) 100 mg IV Q8H [facility] Last Admin: 10/19/19 14:13 Dose: 100 mg Documented by: Sodium Chloride (Normal Saline) 1,000 mls @ 999 mls/hr IV .Bolus ONE Stop: 09/27/19 21:58 Last Admin: 09/27/19 21:23 Dose: 999 mls/hr Documented by: Ceftriaxone Sodium/Dextrose 1 (gm/ Premix) 50 mls @ 100 mls/hr IV ONETIME ONE Stop: 09/27/19 22:30 Last Admin: 09/27/19 22:48 Dose: 100 mls/hr Documented by: Sodium Chloride (Normal Saline) 1,000 mls @ 125 mls/hr IV ASDIRECTED [facility] Last Admin: 09/29/19 05:47 Dose: 125 mls/hr Documented by: Ceftriaxone Sodium/Dextrose 1 (gm/ Premix) 50 mls @ 100 mls/hr IV Q24H [facility] Last Admin: 10/01/19 22:26 Dose: 100 mls/hr Documented by: Sodium Chloride (Normal Saline) 500 mls @ 125 mls/hr IV ONETIME ONE Stop: 09/30/19 18:36 Last Admin: 09/30/19 16:02 Dose: 125 mls/hr Documented by: Pantoprazole Sodium 40 mg/ (Sodium Chloride) 10 mls @ 300 mls/hr IV NOW ONE Stop: 10/02/19 15:00 Last Admin: 10/02/19 15:34 Dose: 300 mls/hr Documented by: Sodium Chloride (Normal Saline) 1,000 mls @ 999 mls/hr IV .Bolus ONE Stop: 10/09/19 10:03 Last Admin: 10/09/19 10:05 Dose: 999 mls/hr Documented by: Sodium Chloride (Normal Saline) 1,000 mls @ 125 mls/hr IV ASDIRECTED [facility] Last Admin: 10/10/19 22:28 Dose: 125 mls/hr Documented by: Pantoprazole Sodium 40 mg/ (Sodium Chloride) 10 mls @ 300 mls/hr IV NOW ONE Stop: 10/11/19 10:24 Last Admin: 10/11/19 12:30 Dose: 300 mls/hr Documented by: Sodium Chloride (Normal Saline) 500 mls @ 250 mls/hr IV ONETIME ONE Stop: 10/13/19 21:57 Last Admin: 10/13/19 20:13 Dose: 250 mls/hr Documented by: Piperacillin Sod/Tazobactam (Sod 3.375 gm/ Sodium Chloride) 50 mls @ 100 mls/hr IV Q8H [facility] Last Admin: 10/14/19 13:30 Dose: 100 mls/hr Documented by: Sodium Chloride (Normal Saline) 500 mls @ 250 mls/hr IV ONETIME ONE Stop: 10/14/19 02:29 Last Admin: 10/14/19 00:38 Dose: 250 mls/hr Documented by: Vancomycin HCl 1.5 gm/ Premix 300 mls @ 300 mls/hr IV Q12H [facility] Last Admin: 10/15/19 09:35 Dose: 300 mls/hr Documented by: Piperacillin Sod/Tazobactam (Sod 4.5 gm/ Sodium Chloride) 100 mls @ 200 mls/hr IV Q6H [facility] Last Admin: 10/15/19 07:19 Dose: 200 mls/hr Documented by: Levofloxacin/Dextrose 750 mg/ (Premix) 150 mls @ 100 mls/hr IV Q48H [facility] Last Admin: 10/15/19 11:47 Dose: 100 mls/hr Documented by: Sodium Chloride (Normal Saline) 500 mls @ 999 mls/hr IV .BOLUS [facility] Last Admin: 10/16/19 09:00 Dose: 999 mls/hr Documented by: Sodium Chloride (Normal Saline) 500 mls @ 999 mls/hr IV .BOLUS [facility] Last Admin: 10/16/19 12:38 Dose: 999 mls/hr Documented by: Pantoprazole Sodium 40 mg/ (Sodium Chloride) 10 mls @ 300 mls/hr IV Q24H [facility] Last Admin: 10/18/19 06:11 Dose: 300 mls/hr Documented by: Lactated Ringer's (Ringers, Lactated) 1,000 mls @ 125 mls/hr IV Q10H [facility] Last Admin: 10/18/19 23:43 Dose: 125 mls/hr Documented by: Sodium Chloride (Normal Saline) 500 mls @ 999 mls/hr IV .BOLUS [facility] Last Admin: 10/16/19 15:48 Dose: 999 mls/hr Documented by: Piperacillin Sod/Tazobactam (Sod 3.375 gm/ Sodium Chloride) 50 mls @ 100 mls/hr IV Q8H [facility] Last Admin: 10/16/19 18:01 Dose: Not Given Documented by: Piperacillin Sod/Tazobactam (Sod 3.375 gm/ Sodium Chloride) 100 mls @ 200 mls/hr IV Q6H [facility] Last Admin: 10/17/19 11:10 Dose: 200 mls/hr Documented by: Lactated Ringer's (Ringers, Lactated) 1,000 mls @ 999 mls/hr IV BOLUS ONE Stop: 10/16/19 20:23 Last Admin: 10/16/19 19:41 Dose: 999 mls/hr Documented by: Lactated Ringer's (Ringers, Lactated) 1,000 mls @ 999 mls/hr IV BOLUS ONE Stop: 10/16/19 22:59 Last Admin: 10/16/19 22:18 Dose: 999 mls/hr Documented by: Vancomycin HCl (Vancomycin 1.5 Gm/300 Ml Premix) 300 mls @ 200 mls/hr IV Q24H [facility] Last Admin: 10/17/19 22:14 Dose: 200 mls/hr Documented by: Norepinephrine Bitartrate (Norepinephr-0.9% Nacl 4 Mg/250) 4 mg in 250 mls @ 7.5 mls/hr IV TITRATE [facility]ONO; Protocol Last Admin: 10/19/19 14:15 Dose: 12 mcg/min, 45 mls/hr Documented by: Meropenem 2 gm/ Sodium (Chloride) 100 mls @ 200 mls/hr IV Q12H [facility] Last Admin: 10/19/19 12:25 Dose: 200 mls/hr Documented by: Albumin Human (Flexbumin 25%) 12.5 gm in 50 mls @ 100 mls/hr IV ONETIME ONE Stop: 10/17/19 12:14 Last Admin: 10/17/19 13:56 Dose: 100 mls/hr Documented by: Lactated Ringer's (Ringers, Lactated) 500 mls @ 999 mls/hr IV .BOLUS ONE Stop: 10/17/19 19:49 Last Admin: 10/17/19 20:33 Dose: 999 mls/hr Documented by: Lactated Ringer's (Ringers, Lactated) 1,000 mls @ 999 mls/hr IV .BOLUS ONE Stop: 10/18/19 09:12 Last Admin: 10/18/19 08:27 Dose: 999 mls/hr Documented by: Vasopressin 100 units/ Sodium (Chloride) 100 mls @ 0.6 mls/hr IV TITRATE [facility]ONO; Protocol Last Admin: 10/19/19 03:55 Dose: 0.08 units/min, 4.8 mls/hr Documented by: Pantoprazole Sodium 40 mg/ (Sodium Chloride) 10 mls @ 300 mls/hr IV BID [facility] Last Admin: 10/19/19 09:11 Dose: 300 mls/hr Documented by: Epinephrine HCl 1 mg/ Dextrose (/Water) 100 mls @ 100.697 mls/hr IV TITRATE [facility]ONO; Protocol Last Admin: 10/18/19 15:27 Dose: 0.1 mcg/kg/min, 100.697 mls/hr Documented by: Albumin Human (Flexbumin 25%) 12.5 gm in 50 mls @ 100 mls/hr IV ONETIME ONE Stop: 10/18/19 16:29 Last Admin: 10/18/19 16:48 Dose: 100 mls/hr Documented by: Vancomycin HCl 1.5 gm/ Premix 300 mls @ 200 mls/hr IV Q24H [facility] Last Admin: 10/18/19 23:01 Dose: 200 mls/hr Documented by: Epinephrine HCl 1 mg/ Dextrose (/Water) 100 mls @ 6 mls/hr IV TITRATE [facility]NO; Protocol Last Admin: 10/19/19 12:01 Dose: 7 mcg/min, 42 mls/hr Documented by: Lactated Ringer's (Ringers, Lactated) 1,000 mls @ 125 mls/hr IV Q8H [facility] Lactated Ringer's (Ringers, Lactated) 1,000 mls @ 125 mls/hr IV Q8H [facility] Last Admin: 10/19/19 15:27 Dose: 125 mls/hr Documented by: Epinephrine HCl 2 mg/ Dextrose (/Water) 100 mls @ 3 mls/hr IV TITRATE [facility]ONO; Protocol Last Infusion: 10/19/19 16:24 Dose: 3.5 mcg/min, 10.5 mls/hr Documented by: Epinephrine HCl 5 mg/ Dextrose (/Water) 500 mls @ 6 mls/hr IV TITRATE JONO; Pr otocol Epinephrine HCl 5 mg/ Dextrose (/Water) 500 mls @ 6 mls/hr IV TITRATE [facility]ONO; Protocol Last Infusion: 10/19/19 18:22 Dose: 5 mcg/min, 30 mls/hr Documented by: Insulin Aspart (Novolog) 0 unit SUBCUT TIDAC [facility]ONO; Protocol Last Admin: 10/01/19 09:40 Dose: Not Given Documented by: Iopamidol (Isovue-370 (76%)) 50 ml IV ONETIME STA Stop: 09/30/19 18:08 Last Admin: 09/30/19 18:08 Dose: 50 ml Documented by: Lidocaine (Xylocaine-Mpf 2%) Confirm Administered Dose 5 ml .ROUTE .STK-MED ONE Stop: 10/18/19 11:09 Last Admin: 10/18/19 11:27 Dose: Not Given Documented by: Lidocaine (Xylocaine-Mpf 2%) Confirm Administered Dose 5 ml .ROUTE .STK-MED ONE Stop: 10/18/19 22:54 Methylprednisolone Sodium Succinate (Solu-Medrol) 40 mg IVPUSH BID [facility] Last Admin: 10/16/19 09:00 Dose: 40 mg Documented by: Methylprednisolone Sodium Succinate (Solu-Medrol) 40 mg IVPUSH DAILY [facility] Last Admin: 10/18/19 10:00 Dose: 40 mg Documented by: Metoclopramide HCl (Reglan) 10 mg IVPUSH ONETIME ONE Stop: 10/16/19 09:12 Last Admin: 10/16/19 09:33 Dose: 10 mg Documented by: Nystatin (Nystop) 1 gm TOP TID [facility] Last Admin: 10/19/19 14:42 Dose: 1 applic Documented by: Ondansetron HCl (Zofran) 4 mg IVPUSH Q6H PRN PRN Reason: Nausea/Vomiting Last Admin: 10/16/19 05:23 Dose: 4 mg Documented by: Pantoprazole Sodium (Protonix) 40 mg PO ACBREAKFAST [facility] Last Admin: 10/16/19 06:38 Dose: 40 mg Documented by: Polyethylene Glycol (Miralax) 17 gm PO DAILY [facility] Last Admin: 10/15/19 09:35 Dose: Not Given Documented by: Sodium Chloride (Saline Flush) 10 ml FLUSH ASDIRECTED PRN PRN Reason: Keep Vein Open Trimethoprim/Sulfamethoxazole (Septra Ds) 1 tab PO BID [facility] Last Admin: 10/13/19 20:14 Dose: 1 tab Documented by: Vancomycin HCl (Pharmacy To Dose - Vancomycin) 1 dose .XX Q12HR [facility] Last Admin: 10/15/19 09:39 Dose: Not Given Documented by: Vancomycin HCl (Pharmacy To Dose - Vancomycin) 1 dose .XX ASDIRECTED [facility]
--- NOTE | 2019-10-24 12:52 | PCM.DCSUM1 ---
Discharge Summary - Discharge Data Discharge Date: 10/24/19 Discharge Disposition: 20 Condition: Good - Patient Summary/Data Operative Procedure(s) Performed: l subclavien vein central line placement Consults: Consultations 09/28/19 07:30 PT Evaluation and Treatment [CONS] Routine 09/30/19 10:49 OT Evaluation and Treatment [CONS] Routine 10/07/19 10:05 Consult to Case Management/Signal Constructor [CONS] Routine 10/11/19 10:09 Consult to Wound Care Services [CONS] Routine 10/17/19 21:17 Consult to Physician [CONS] Routine 10/18/19 22:30 Consult to Physician [CONS] Urgent Hospital Course: HPI: 64 yo female with pmh of morbid obesity, recurrent UTI, recurrent cellulitis with right leg ulcer, PUD, DVT who presented to the ED after a fall. PAtient fell while transfering from her wheelchair. She was on the ground for four hours before her found her. She reports generalized weakness, but denies any loss of conciousness, or dizziness. Patient reports not being able to walk for several months and for past month has not been transferring well. She was found to have an erythematous rash in her abdominal folds. Initial work up consisted of a creatinine of 1.5, sodium of 131, and CPK of 842. She was discovered to have a UTI on UA. She was admitted for Acute kidney injury, UTI, and abdominal wall celllulitis. She was treated with IV fluids, Rocephin and nystatin powder. She did have improvement and eventual resolution of her abdominal wall cellulitis. Urine culture did grow out mixed vidya. She made slow progress with physical therapy and had difficulty transferring. After completing her initial treatment for UTI she had symptoms of dysuria again. UA was again positive. She was started on Bactrim. She did go on to developed hypotension and elevated lactic acid. She was transferred to ICU for treatment of septic shock. She was started on broad spectrum antibiotics and stress dose steroids. Patient refused further work up of sepsis including CT scan. The source of septic shock was unknown. After a day on pressors patient requested to be placed on comfort measures. She with family at bedside. - Discharge Plan Home Medications: Home Meds Silver Sulfadiazine [Silvadene 1% Cream 400 GM] 1 applic TOP DAILY 10/02/19 [History] Patient Handouts: Hypoxia Referrals: Westley Elizondo MD [Resident] - 10/21/19 2:30 pm - Discharge Summary/Plan Comment DC Time >30 min.: No - Patient Data Vitals - Most Recent: Last Vital Signs Temp 36.6 C 10/20/19 20:58 Pulse 81 10/20/19 20:58 Resp 18 10/20/19 20:58 BP 54/21 L 10/20/19 20:58 Pulse Ox 90 L 10/20/19 20:58 Weight - Most Recent: 167.829 kg Med Orders - Current: Current Medications Discontinued Medications Acetaminophen (Tylenol) 650 mg PO Q6H PRN PRN Reason: Pain Last Admin: 10/18/19 21:03 Dose: 650 mg Documented by: Al Hydroxide/Mg Hydroxide (Mag-Al Plus) 30 ml PO Q4H PRN PRN Reason: Heartburn Last Admin: 10/15/19 20:06 Dose: 30 ml Documented by: Albuterol/Ipratropium (Duoneb 3.0-0.5 Mg/3 Ml) 3 ml NEB Q4HRRT PRN PRN Reason: Wheezing Last Admin: 09/30/19 15:13 Dose: 3 ml Documented by: Albuterol/Ipratropium (Duoneb 3.0-0.5 Mg/3 Ml) 3 ml NEB Q4HRRT JONO Last Admin: 10/02/19 09:19 Dose: 3 ml Documented by: Albuterol/Ipratropium (Duoneb 3.0-0.5 Mg/3 Ml) 3 ml NEB Q6HRRT JONO Last Admin: 10/05/19 11:33 Dose: 3 ml Documented by: Albuterol/Ipratropium (Duoneb 3.0-0.5 Mg/3 Ml) 3 ml NEB Q6HRRT PRN PRN Reason: Shortness of Breath Last Admin: 10/13/19 18:20 Dose: 3 ml Documented by: Albuterol/Ipratropium (Duoneb 3.0-0.5 Mg/3 Ml) 3 ml NEB Q6HRRT JONO Last Admin: 10/20/19 03:05 Dose: Not Given Documented by: Albuterol/Ipratropium (Duoneb 3.0-0.5 Mg/3 Ml) 3 ml NEB Q4HRRT PRN PRN Reason: Wheezing Artificial Tears (Refresh Plus 0.5%) 0 each EYEBOTH Q2HR PRN PRN Reason: Dry Eyes Last Admin: 10/15/19 13:45 Dose: 1 drop Documented by: Bisacodyl (Dulcolax) 10 mg RECTAL DAILY PRN PRN Reason: Constipation Last Admin: 10/02/19 14:06 Dose: 10 mg Documented by: Bisacodyl (Dulcolax) 10 mg RECTAL Q48H [facility] [place] Last Admin: 10/20/19 15:04 Dose: Not Given Documented by: Cephalexin (Keflex) 500 mg PO Q6HR [facility] [place] Last Admin: 10/09/19 06:18 Dose: 500 mg Documented by: Diltiazem HCl (Diltiazem) 10 mg IVPUSH ONETIME ONE Stop: 10/09/19 09:36 Last Admin: 10/09/19 10:06 Dose: 10 mg Documented by: Docusate Sodium (Colace) 100 mg PO BID [facility] [place] Last Admin: 10/05/19 10:19 Dose: Not Given Documented by: Docusate Sodium (Colace) 100 mg PO BID [facility] [place] Last Admin: 10/16/19 20:18 Dose: 100 mg Documented by: Enoxaparin Sodium (Lovenox) 140 mg SUBCUT ONETIME ONE Stop: 09/27/19 21:47 Last Admin: 09/27/19 22:49 Dose: 140 mg Documented by: Enoxaparin Sodium (Lovenox) 140 mg SUBCUT BID [facility] [place] Last Admin: 09/29/19 20:04 Dose: 140 mg Documented by: Enoxaparin Sodium (Lovenox) 150 mg SUBCUT Q12H [facility] [place] Furosemide (Lasix) 20 mg IVPUSH NOW ONE Stop: 10/02/19 10:08 Last Admin: 10/02/19 10:42 Dose: 20 mg Documented by: Heparin Sodium (Porcine) (Heparin Sodium) 5,000 units SUBCUT Q12H [facility] [place] Last Admin: 10/13/19 09:33 Dose: Not Given Documented by: Hydrocortisone Sodium Succinate (Solu-Cortef) 100 mg IV Q8H [facility] [place] Last Admin: 10/19/19 14:13 Dose: 100 mg Documented by: Sodium Chloride (Normal Saline) 1,000 mls @ 999 mls/hr IV .Bolus ONE Stop: 09/27/19 21:58 Last Admin: 09/27/19 21:23 Dose: 999 mls/hr Documented by: Ceftriaxone Sodium/Dextrose 1 (gm/ Premix) 50 mls @ 100 mls/hr IV ONETIME ONE Stop: 09/27/19 22:30 Last Admin: 09/27/19 22:48 Dose: 100 mls/hr Documented by: Sodium Chloride (Normal Saline) 1,000 mls @ 125 mls/hr IV ASDIRECTED [facility] [place] Last Admin: 09/29/19 05:47 Dose: 125 mls/hr Documented by: Ceftriaxone Sodium/Dextrose 1 (gm/ Premix) 50 mls @ 100 mls/hr IV Q24H [facility] [place] Last Admin: 10/01/19 22:26 Dose: 100 mls/hr Documented by: Sodium Chloride (Normal Saline) 500 mls @ 125 mls/hr IV ONETIME ONE Stop: 09/30/19 18:36 Last Admin: 09/30/19 16:02 Dose: 125 mls/hr Documented by: Pantoprazole Sodium 40 mg/ (Sodium Chloride) 10 mls @ 300 mls/hr IV NOW ONE Stop: 10/02/19 15:00 Last Admin: 10/02/19 15:34 Dose: 300 mls/hr Documented by: Sodium Chloride (Normal Saline) 1,000 mls @ 999 mls/hr IV .Bolus ONE Stop: 10/09/19 10:03 Last Admin: 10/09/19 10:05 Dose: 999 mls/hr Documented by: Sodium Chloride (Normal Saline) 1,000 mls @ 125 mls/hr IV ASDIRECTED [facility] [place] Last Admin: 10/10/19 22:28 Dose: 125 mls/hr Documented by: Pantoprazole Sodium 40 mg/ (Sodium Chloride) 10 mls @ 300 mls/hr IV NOW ONE Stop: 10/11/19 10:24 Last Admin: 10/11/19 12:30 Dose: 300 mls/hr Documented by: Sodium Chloride (Normal Saline) 500 mls @ 250 mls/hr IV ONETIME ONE Stop: 10/13/19 21:57 Last Admin: 10/13/19 20:13 Dose: 250 mls/hr Documented by: Piperacillin Sod/Tazobactam (Sod 3.375 gm/ Sodium Chloride) 50 mls @ 100 mls/hr IV Q8H [facility] [place] Last Admin: 10/14/19 13:30 Dose: 100 mls/hr Documented by: Sodium Chloride (Normal Saline) 500 mls @ 250 mls/hr IV ONETIME ONE Stop: 10/14/19 02:29 Last Admin: 10/14/19 00:38 Dose: 250 mls/hr Documented by: Vancomycin HCl 1.5 gm/ Premix 300 mls @ 300 mls/hr IV Q12H [facility] [place] Last Admin: 10/15/19 09:35 Dose: 300 mls/hr Documented by: Piperacillin Sod/Tazobactam (Sod 4.5 gm/ Sodium Chloride) 100 mls @ 200 mls/hr IV Q6H [facility] [place] Last Admin: 10/15/19 07:19 Dose: 200 mls/hr Documented by: Levofloxacin/Dextrose 750 mg/ (Premix) 150 mls @ 100 mls/hr IV Q48H [facility] [place] Last Admin: 10/15/19 11:47 Dose: 100 mls/hr Documented by: Sodium Chloride (Normal Saline) 500 mls @ 999 mls/hr IV .BOLUS [facility] [place] Last Admin: 10/16/19 09:00 Dose: 999 mls/hr Documented by: Sodium Chloride (Normal Saline) 500 mls @ 999 mls/hr IV .BOLUS [facility] [place] Last Admin: 10/16/19 12:38 Dose: 999 mls/hr Documented by: Pantoprazole Sodium 40 mg/ (Sodium Chloride) 10 mls @ 300 mls/hr IV Q24H [facility] [place] Last Admin: 10/18/19 06:11 Dose: 300 mls/hr Documented by: Lactated Ringer's (Ringers, Lactated) 1,000 mls @ 125 mls/hr IV Q10H [facility] [place] Last Admin: 10/18/19 23:43 Dose: 125 mls/hr Documented by: Sodium Chloride (Normal Saline) 500 mls @ 999 mls/hr IV .BOLUS [facility] [place] Last Admin: 10/16/19 15:48 Dose: 999 mls/hr Documented by: Piperacillin Sod/Tazobactam (Sod 3.375 gm/ Sodium Chloride) 50 mls @ 100 mls/hr IV Q8H [facility] [place] Last Admin: 10/16/19 18:01 Dose: Not Given Documented by: Piperacillin Sod/Tazobactam (Sod 3.375 gm/ Sodium Chloride) 100 mls @ 200 mls/hr IV Q6H [facility] [place] Last Admin: 10/17/19 11:10 Dose: 200 mls/hr Documented by: Lactated Ringer's (Ringers, Lactated) 1,000 mls @ 999 mls/hr IV BOLUS ONE Stop: 10/16/19 20:23 Last Admin: 10/16/19 19:41 Dose: 999 mls/hr Documented by: Lactated Ringer's (Ringers, Lactated) 1,000 mls @ 999 mls/hr IV BOLUS ONE Stop: 10/16/19 22:59 Last Admin: 10/16/19 22:18 Dose: 999 mls/hr Documented by: Vancomycin HCl (Vancomycin 1.5 Gm/300 Ml Premix) 300 mls @ 200 mls/hr IV Q24H [facility] [place] Last Admin: 10/17/19 22:14 Dose: 200 mls/hr Documented by: Norepinephrine Bitartrate (Norepinephr-0.9% Nacl 4 Mg/250) 4 mg in 250 mls @ 7.5 mls/hr IV TITRATE JONO; Protocol Last Admin: 10/19/19 14:15 Dose: 12 mcg/min, 45 mls/hr Documented by: Meropenem 2 gm/ Sodium (Chloride) 100 mls @ 200 mls/hr IV Q12H [facility] [place] Last Admin: 10/19/19 12:25 Dose: 200 mls/hr Documented by: Albumin Human (Flexbumin 25%) 12.5 gm in 50 mls @ 100 mls/hr IV ONETIME ONE Stop: 10/17/19 12:14 Last Admin: 10/17/19 13:56 Dose: 100 mls/hr Documented by: Lactated Ringer's (Ringers, Lactated) 500 mls @ 999 mls/hr IV .BOLUS ONE Stop: 10/17/19 19:49 Last Admin: 10/17/19 20:33 Dose: 999 mls/hr Documented by: Lactated Ringer's (Ringers, Lactated) 1,000 mls @ 999 mls/hr IV .BOLUS ONE Stop: 10/18/19 09:12 Last Admin: 10/18/19 08:27 Dose: 999 mls/hr Documented by: Vasopressin 100 units/ Sodium (Chloride) 100 mls @ 0.6 mls/hr IV TITRATE JONO; Protocol Last Admin: 10/19/19 03:55 Dose: 0.08 units/min, 4.8 mls/hr Documented by: Pantoprazole Sodium 40 mg/ (Sodium Chloride) 10 mls @ 300 mls/hr IV BID JONO Last Admin: 10/19/19 09:11 Dose: 300 mls/hr Documented by: Epinephrine HCl 1 mg/ Dextrose (/Water) 100 mls @ 100.697 mls/hr IV TITRATE JONO; Protocol Last Admin: 10/18/19 15:27 Dose: 0.1 mcg/kg/min, 100.697 mls/hr Documented by: Albumin Human (Flexbumin 25%) 12.5 gm in 50 mls @ 100 mls/hr IV ONETIME ONE Stop: 10/18/19 16:29 Last Admin: 10/18/19 16:48 Dose: 100 mls/hr Documented by: Vancomycin HCl 1.5 gm/ Premix 300 mls @ 200 mls/hr IV Q24H [facility]ONO Last Admin: 10/18/19 23:01 Dose: 200 mls/hr Documented by: Epinephrine HCl 1 mg/ Dextrose (/Water) 100 mls @ 6 mls/hr IV TITRATE JONO; Protocol Last Admin: 10/19/19 12:01 Dose: 7 mcg/min, 42 mls/hr Documented by: Lactated Ringer's (Ringers, Lactated) 1,000 mls @ 125 mls/hr IV Q8H JONO Lactated Ringer's (Ringers, Lactated) 1,000 mls @ 125 mls/hr IV Q8H JONO Last Admin: 10/19/19 15:27 Dose: 125 mls/hr Documented by: Epinephrine HCl 2 mg/ Dextrose (/Water) 100 mls @ 3 mls/hr IV TITRATE JONO; Protocol Last Infusion: 10/19/19 16:24 Dose: 3.5 mcg/min, 10.5 mls/hr Documented by: Epinephrine HCl 5 mg/ Dextrose (/Water) 500 mls @ 6 mls/hr IV TITRATE JONO; Protocol Epinephrine HCl 5 mg/ Dextrose (/Water) 500 mls @ 6 mls/hr IV TITRATE JONO; Protocol Last Infusion: 10/19/19 18:22 Dose: 5 mcg/min, 30 mls/hr Documented by: Insulin Aspart (Novolog) 0 unit SUBCUT TIDAC [facility] [place]; Protocol Last Admin: 10/01/19 09:40 Dose: Not Given Documented by: Iopamidol (Isovue-370 (76%)) 50 ml IV ONETIME STA Stop: 09/30/19 18:08 Last Admin: 09/30/19 18:08 Dose: 50 ml Documented by: Lidocaine (Xylocaine-Mpf 2%) Confirm Administered Dose 5 ml .ROUTE .STK-MED ONE Stop: 10/18/19 11:09 Last Admin: 10/18/19 11:27 Dose: Not Given Documented by: Lidocaine (Xylocaine-Mpf 2%) Confirm Administered Dose 5 ml .ROUTE .STK-MED ONE Stop: 10/18/19 22:54 Methylprednisolone Sodium Succinate (Solu-Medrol) 40 mg IVPUSH BID [facility] [place] Last Admin: 10/16/19 09:00 Dose: 40 mg Documented by: Methylprednisolone Sodium Succinate (Solu-Medrol) 40 mg IVPUSH DAILY [facility] [place] Last Admin: 10/18/19 10:00 Dose: 40 mg Documented by: Metoclopramide HCl (Reglan) 10 mg IVPUSH ONETIME ONE Stop: 10/16/19 09:12 Last Admin: 10/16/19 09:33 Dose: 10 mg Documented by: Morphine Sulfate (Morphine) 2 mg IVPUSH Q1H PRN PRN Reason: Pain Last Admin: 10/20/19 14:59 Dose: 2 mg Documented by: Nystatin (Nystop) 1 gm TOP TID [facility] [place] Last Admin: 10/19/19 14:42 Dose: 1 applic Documented by: Ondansetron HCl (Zofran) 4 mg IVPUSH Q6H PRN PRN Reason: Nausea/Vomiting Last Admin: 10/16/19 05:23 Dose: 4 mg Documented by: Ondansetron HCl (Zofran) 4 mg IVPUSH Q4H PRN PRN Reason: Nausea/Vomiting Pantoprazole Sodium (Protonix) 40 mg PO ACBREAKFAST [facility] [place] Last Admin: 10/16/19 06:38 Dose: 40 mg Documented by: Polyethylene Glycol (Miralax) 17 gm PO DAILY [facility] [place] Last Admin: 10/15/19 09:35 Dose: Not Given Documented by: Scopolamine (Transderm-Scop) 1.5 mg TRDERM Q72H PRN PRN Reason: secreations Last Admin: 10/20/19 08:58 Dose: 1.5 mg Documented by: Sodium Chloride (Saline Flush) 10 ml FLUSH ASDIRECTED PRN PRN Reason: Keep Vein Open Sodium Chloride (Saline Flush) 2.5 ml FLUSH ASDIRECTED PRN PRN Reason: Keep Vein Open Trimethoprim/Sulfamethoxazole (Septra Ds) 1 tab PO BID [facility] [place] Last Admin: 10/13/19 20:14 Dose: 1 tab Documented by: Vancomycin HCl (Pharmacy To Dose - Vancomycin) 1 dose .XX Q12HR [facility] [place] Last Admin: 10/15/19 09:39 Dose: Not Given Documented by: Vancomycin HCl (Pharmacy To Dose - Vancomycin) 1 dose .XX ASDIRECTED [facility]ONO
== END 2019-10-20 22:45 | disposition expired | DRG 682 ==
LOC: MW.ED 18:16 → MW.MS 22:02 → OBSVTOIN 09-28 11:32 → MW.MS 09-28 11:33 → MW.ICU 10-17 00:45 → MW.MS 10-20 07:45
PROVIDERS: ADMIT Internal Medicine; ATTEND Internal Medicine
PROC: 02HV33Z Insertion of Infusion Device into Superior Vena Cava, Percutaneous Approach (ICD-10-PCS; principal; 2019-10-17)
PROC: B518ZZA Fluoroscopy of Superior Vena Cava, Guidance (ICD-10-PCS; 2019-10-17)
PROC: 3E033XZ Introduction of Vasopressor into Peripheral Vein, Percutaneous Approach (ICD-10-PCS; 2019-10-18)
PROC: 03HY32Z Insertion of Monitoring Device into Upper Artery, Percutaneous Approach (ICD-10-PCS; 2019-10-18)
PROC: 4A133B1 Monitoring of Arterial Pressure, Peripheral, Percutaneous Approach (ICD-10-PCS; 2019-10-18)
PROC: 4A133J1 Monitoring of Arterial Pulse, Peripheral, Percutaneous Approach (ICD-10-PCS; 2019-10-18)
DX: N17.9 Acute kidney failure, unspecified (principal); A41.9 Sepsis, unspecified organism; R65.21 Severe sepsis with septic shock; K85.90 Acute pancreatitis without necrosis or infection, unspecified; J18.9 Pneumonia, unspecified organism; Z51.5 Encounter for palliative care; Z66 Do not resuscitate; N39.0 Urinary tract infection, site not specified; Z68.43 Body mass index [BMI] 50.0-59.9, adult; L03.115 Cellulitis of right lower limb; L03.311 Cellulitis of abdominal wall; I31.3 Pericardial effusion (noninflammatory); I47.1 Supraventricular tachycardia; Z20.828 Contact with and (suspected) exposure to other viral communicable diseases; M19.90 Unspecified osteoarthritis, unspecified site; F41.0 Panic disorder [episodic paroxysmal anxiety]; E86.0 Dehydration; E66.01 Morbid (severe) obesity due to excess calories; Y95 Nosocomial condition; K21.9 Gastro-esophageal reflux disease without esophagitis; D64.9 Anemia, unspecified; F32.9 Major depressive disorder, single episode, unspecified; E11.9 Type 2 diabetes mellitus without complications; R53.1 Weakness; K80.20 Calculus of gallbladder without cholecystitis without obstruction; I83.019 Varicose veins of right lower extremity with ulcer of unspecified site; I87.8 Other specified disorders of veins; I83.11 Varicose veins of right lower extremity with inflammation; I50.9 Heart failure, unspecified; I83.12 Varicose veins of left lower extremity with inflammation; M27.8 Other specified diseases of jaws; B37.9 Candidiasis, unspecified; D69.6 Thrombocytopenia, unspecified; R26.2 Difficulty in walking, not elsewhere classified; B96.89 Other specified bacterial agents as the cause of diseases classified elsewhere; Z86.718 Personal history of other venous thrombosis and embolism; Z79.01 Long term (current) use of anticoagulants; Z93.3 Colostomy status; Z91.19 Patient's noncompliance with other medical treatment and regimen; Z79.899 Other long term (current) drug therapy; Z87.11 Personal history of peptic ulcer disease; Z82.49 Family history of ischemic heart disease and other diseases of the circulatory system; Z83.3 Family history of diabetes mellitus; Z80.1 Family history of malignant neoplasm of trachea, bronchus and lung; Z99.81 Dependence on supplemental oxygen; Z99.3 Dependence on wheelchair; Z83.2 Family history of diseases of the blood and blood-forming organs and certain disorders involving the immune mechanism; Z90.49 Acquired absence of other specified parts of digestive tract; W19.XXXA Unspecified fall, initial encounter
CPT/HCPCS: 31500; 36415; 36620; 51702; 71045; 71045-26; 71275; 71275-26; 74018; 74018-26; 76705; 76705-26; 80048; 80053; 80076; 80202; 81001; 82550; 82962; 83036; 83605; 83690; 83735; 84100; 84484; 85025; 87040; 87086; 87088; 87186; 93005; 93306; 93970; 93970-26; 94640; 96361; 96365; 96372; 97110-GO; 97110-GP; 97162-GP; 97165-GO; 97530-GO; 97530-GP; 99284; 99285-25; A9270-GY; C9113; G0378; J0171; J0696; J1644; J1650; J1720; J1956; J2001; J2185; J2270; J2405; J2543; J2765; J2920; J3370; J3490; J7030; J7040; J7050; J7060; J7120; J7620-GY; P9047; Q9967; U0002